=== PATIENT | male | born 1955 | race Caucasian/White ===

== ENCOUNTER 2017-08-02 08:10 | Outpatient (CLI) | payer OTHER ==
--- NOTE | 2017-08-02 10:12 | PRG ---
DATE OF SERVICE: 08/02/2017 HISTORY: Mr. Umair Barrios is a very pleasant 62-year-old gentleman who presents to the [facility] for evaluation of an ulceration of the plantar surface of the right foot. The ulceration is locat ed over the right forefoot. The patient was referred to the Wound Center by Dr. Resendez. The patie nt apparently had been treated for the plantar ulceration with serial debridement of the wound every other week in conjunction with the use of dressing changes of Medihoney. The patient was subsequen tly seen by Dr. St and placed on dressing changes of Promogran. Modifications of the patient's s hoe for offloading of the wound were also made at the time of the patient's visit with Dr. St on 06/08/2017. The patient has been previously seen in the Wound Center for an ulceration of the left third toe on the plantar surface of the toe. This ulceration was treated with Silverlon, MatriStem, Apligraf and Aquacel AG. The patient also received treatment in the Wound Center for left lateral foot ulcerati ons, which were treated with Silverlon negative pressure therapy and Aquacel AG. For a wound of the right third toe for which the patient was also seen in the Wound Center, the patient received dress ing changes of Medihoney. The patient has received treatment with IV antibiotics for osteomyelitis on 2 occasions in the past, once for osteomyelitis of the left foot and later for osteomyelitis of t he right foot, specifically the distal phalanx of the right fifth toe. Since the patient's last visit, Mr. Barrios has been performing dressing changes of Santyl for the ulceration of the plantar surface of the right foot. The patient was not able to receive Regranex f or reasons related to his insurance coverage. PHYSICAL EXAMINATION: VITAL SIGNS: Temperature 98.1, pulse 62, respirations 18, blood pressure 150/68. Accu-Chek 180. EXTREMITIES: An ulceration of the plantar surface of the right foot is present, which is in the reg ion of the head of the third metatarsal. The dimensions of the wound are approximately 1.6 x 1.2 cm . The dimensions of the wound at the time of the patient's visit on 06/21/2017 were approximately 1 .9 x 0.9 cm. Granulation tissue is present within the wound margins. Nonviable tissue present with in the wound margins was debrided with an excisional full-thickness debridement with the use of a cu rette. Callus and desiccated tissue at the periphery of the wound were eliminated with the use of s cissors. No purulent drainage is associated with the wound. No erythema of the skin surrounding th e wound is present. No maceration of the skin of the periwound is noted. A dorsalis pedis pulse is easily palpable on the right. Edema of the right foot is present on exam today. After copious irr igation of the wound bed, Dermagraft was applied to the wound bed in 3 layers followed by Adaptic to uch, 4 x 4's, Webril, and the [employer] Coban 2 layer compression system. ASSESSMENT AND PLAN: 1. Ulceration of plantar surface of right foot in the region of the head of the third metatarsal. Dermagraft was applied to the wound bed of the ulceration today. I will see Mr. Barrios again in one week. At this time, consideration will be given to another placement of Dermagraft. The patien t has also been given a prescription for an offloading boot. 2. Diabetes mellitus. The patient's Accu-Chek in clinic today is 180. The patient has been remind ed that for optimal wound healing, his blood glucoses should remain below 150. 3. Hypertension.
[2017-08-02] MEDS ORDERED: Sodium Chloride 0.9% 15 ML NEB ONE (18:46)
[2017-08-02] MEDS ORDERED: Lidocaine 4% Topical Sol 50 ML BOT ONE (18:46)
== END 2017-08-02 08:11 | disposition home or self-care (01) ==
LOC: WCC 08:10
PROVIDERS: ATTEND Family Medicine
DX: E11.621 Type 2 diabetes mellitus with foot ulcer (principal); L97.519 Non-pressure chronic ulcer of other part of right foot with unspecified severity; I10 Essential (primary) hypertension
CPT/HCPCS: 15275; A4218; J2001; Q4106-KX-JC

== ENCOUNTER 2017-08-12 08:02 | Outpatient (CLI) | payer OTHER ==
--- NOTE | 2017-08-12 08:59 | PRG ---
DATE OF SERVICE: 08/12/2017 HISTORY: Mr. Umair Barrios is a very pleasant 62-year-old gentleman who presents to the [facility] for evaluation of an ulceration of the plantar surface of the right foot. The ulceration is locat ed over the right forefoot. The patient was referred to the Wound Center by Dr. Resendez. The patie nt apparently had been treated for the plantar ulceration with serial debridement of the wound every other week in conjunction with the use of dressing changes of Medihoney. The patient was subsequen tly seen by Dr. St and placed on dressing changes of Promogran. Modifications of the patient's s hoes for offloading of the wound were also made at the time of the patient's visit with Dr. St on 06/08/2017. The patient has been previously seen in the Wound Center for an ulceration of the left third toe on the plantar surface of the toe. This ulceration was treated with Silverlon, MatriStem Apligraf and Aquacel AG. The patient also received treatment in the Wound Center for left lateral foot ulceratio ns, which were treated with Silverlon, negative pressure therapy and Aquacel AG. For a wound of the right third toe for which the patient was also seen in the Wound Center, the patient received dress ing changes of Medihoney. The patient has received treatment with IV antibiotics for osteomyelitis on 2 occasions in the past, once for osteomyelitis of the left foot and later for osteomyelitis of t he right foot, specifically, the distal phalanx of the right fifth toe. At the time of the patient's last visit, Dermagraft was applied to the wound bed of the ulceration o f the plantar surface of the right foot. PHYSICAL EXAMINATION: VITAL SIGNS: Temperature 98.2, pulse 57, respirations 18, blood pressure 140/65, Accu-Chek 103. EXTREMITIES: An ulceration of the plantar surface of the right foot is present which is in the lata on of the head of the third metatarsal. The dimensions of the wound are approximately 0.7 x 1.1 cm. The dimensions of the wound at the time of the patient's visit on 08/02/2017 were approximately 1. 6 x 1.2 cm. Granulation tissue is present within the wound margins. No purulent drainage is associ ated with the wound. No erythema of the skin surrounding the wound is present. No maceration of th e skin of the periwound is noted. No significant edema of the right foot is appreciated on exam towendy boswell. After copious irrigation of the wound bed Dermagraft was applied to the wound bed in 4 layers f ollowed by Adaptic touch, 4 x 4's, Webril, and 3M Coban 2 layer compression system. ASSESSMENT AND PLAN: 1. Ulceration of plantar surface of right foot in the region of the head of the third metatarsal. Dermagraft was applied to the wound bed of the ulceration today. I will see Mr. Barrios again in 1 week. At this time, consideration will be given to another placement of Dermagraft. The patient h as been utilizing an offloading boot. 2. Diabetes mellitus. The patient's Accu-Chek in clinic today is 103. The patient has been remind ed that for optimal wound healing, his blood glucoses should remain below 150. 3. Hypertension.
[2017-08-12] MEDS ORDERED: Sodium Chloride 0.9% 15 ML NEB ONE (16:22)
== END 2017-08-12 08:03 | disposition home or self-care (01) ==
LOC: WCC 08:02
PROVIDERS: ATTEND Family Medicine
DX: E11.621 Type 2 diabetes mellitus with foot ulcer (principal); L97.419 Non-pressure chronic ulcer of right heel and midfoot with unspecified severity; I10 Essential (primary) hypertension
CPT/HCPCS: 15275; A4218; Q4106-KX-JC

== ENCOUNTER 2017-08-19 08:07 | Outpatient (CLI) | payer OTHER ==
--- NOTE | 2017-08-19 09:44 | PRG ---
DATE OF SERVICE: 08/19/2017 HISTORY: Mr. Umair Barrios is a very pleasant 62-year-old gentleman who presents to the Wound [facility] for evaluation of an ulceration of the plantar surface of the right foot. The ulceration is locat ed over the right forefoot. The patient was referred to the Wound Center by Dr. Resendez. The patie nt apparently had been treated for the plantar ulceration with serial debridement of the wound every other week in conjunction with the use of dressing changes of MEDIHONEY. The patient was subsequen tly seen by Dr. St and placed on dressing changes of PROMOGRAN. Modifications of the patient's s hoes for offloading of the wound were also made at the time of the patient's visit with Dr. St on 06/08/2017. The patient has been previously seen in the Wound Center for an ulceration of the left third toe on the plantar surface of the toe. The ulceration was treated with Silverlon, MatriStem, Apligraf, and Aquacel AG. The patient also received treatment in the Wound Center for left lateral foot ulcerati ons, which were treated with Silverlon, negative pressure therapy, and Aquacel AG. For a wound of t he right third toe for which the patient was also seen in the Wound Center, the patient received marzena ssing changes of MEDIHONEY. The patient has received treatment with IV antibiotics for osteomyeliti s on 2 occasions in the past. Once for osteomyelitis of the left foot and later for osteomyelitis o f the right foot. Specifically, the distal phalanx of the right fifth toe. The patient is presently receiving treatment with Dermagraft. The patient is also utilizing an offl oading boot on the right. PHYSICAL EXAMINATION: VITAL SIGNS: Temperature 97.6, pulse 55, respirations 16, and blood pressure 175/80. Accu-Chek 123 . EXTREMITIES: An ulceration of the plantar surface of the right foot is present which is in the lata on of the head of the third metatarsal. The dimensions of the wound are approximately 1.1 x 0.7 cm. Granulation tissue is present within the wound margins. No purulent drainage is associated with t he wound. No erythema of the skin surrounding the wound is present. No maceration of the skin of t he periwound is noted. No significant edema of the right foot is appreciated on exam today. After copious irrigation of the wound bed, Dermagraft was applied to the wound bed in 3 layers followed by Adaptic touch, 4 x 4's, Webril, and 3M Coban 2-layer compression system. ASSESSMENT AND PLAN: 1. Ulceration of plantar surface of right foot in the region of the head of the third metatarsal. Dermagraft was applied to the wound bed of the ulceration today. The patient is to discontinue the dressings applied in clinic today in 1 week and begin dressing changes of Silverlon on a daily basis after cleansing and irrigation. I will see Mr. Barrios again in approximately 2 weeks. At this t brian, consideration will be given to another placement of Dermagraft. The patient has been asked to continue to utilize his offloading boot at all times. 2. Diabetes mellitus. The patient's Accu-Chek in clinic today is 123. The patient has been remind ed that for optimal wound healing. His blood glucoses should remain below 150. 3. Hypertension.
[2017-08-19] MEDS ORDERED: Sodium Chloride 0.9% 15 ML NEB ONE (17:20)
== END 2017-08-19 08:08 | disposition home or self-care (01) ==
LOC: WCC 08:07
PROVIDERS: ATTEND Family Medicine
DX: L97.519 Non-pressure chronic ulcer of other part of right foot with unspecified severity (principal); E11.621 Type 2 diabetes mellitus with foot ulcer; I10 Essential (primary) hypertension
CPT/HCPCS: 15275; A4218; Q4106-KX-JC

== ENCOUNTER 2017-09-02 08:04 | Outpatient (CLI) | payer OTHER ==
--- NOTE | 2017-09-02 08:59 | PRG ---
DATE OF SERVICE: 09/02/2017 HISTORY: Mr. Umair Barrios is a very pleasant 62-year-old gentleman who presents to the [facility] for evaluation of an ulceration of the plantar surface of the right foot. The ulceration is locat ed over the right forefoot. The patient was referred to the Wound Center by Dr. Resendez. The patie nt apparently had been treated for the plantar ulceration with serial debridement of the wound every other week in conjunction with the use of dressing changes of Medihoney. The patient was subsequen tly seen by Dr. St and placed on dressing changes of Promogran. Modifications of the patient's s hoes for offloading of the wound were also made at the time of the patient's visit with Dr. St on 06/08/2017. The patient has been previously seen in the Wound Center for an ulceration of the left third toe on the plantar surface of the toe. The ulceration was treated with Silverlon, MatriStem, Apligraf, and Aquacel AG. The patient also received treatment in the Wound Center for left lateral foot ulcerati ons, which were treated with Silverlon, negative pressure therapy, and Aquacel AG for a wound of the right third toe for which the patient was also seen in the Wound Center, the patient received dress ing changes of Medihoney. The patient has received treatment with IV antibiotics for osteomyelitis on 2 occasions in the past. Once for osteomyelitis of the left foot and later for osteomyelitis of the right foot. Specifically, the distal phalanx of the right fifth toe. The patient is currently receiving treatment with Dermagraft. The patient is also utilizing an offl oading boot on the right. PHYSICAL EXAMINATION: VITAL SIGNS: Temperature 97.8, pulse 54, respirations 18, blood pressure 150/69, Accu-Chek 98. EXTREMITIES: An ulceration of the plantar surface of the right foot is present which is in the lata on of the head of the third metatarsal. The dimensions of the wound are approximately 1.3 x 1.1 cm. Granulation tissue is present within the wound margins. Callus undermining and desiccated tissue at the periphery of the wound were excised with the use of scissors. No purulent drainage is associ ated with the wound. No erythema of the skin surrounding the wound is present. No maceration of th e skin of the periwound is noted. No significant edema of the right foot is appreciated on exam towendy boswell. After copious irrigation of the wound bed, Dermagraft was applied to the wound bed in 2 layers followed by Adaptic touch, 4 x 4's, Webril, and 3M Coban 2 layer compression system. ASSESSMENT AND PLAN: 1. Ulceration of plantar surface of right foot in the region of the head of the third metatarsal. Dermagraft was applied to the wound bed of the ulceration today. I will see Mr. Barrios again in o ne week. At this time, consideration will be given to another placement of Dermagraft. The patient has been asked to continue to utilize his offloading boot at all times. 2. Diabetes mellitus. The patient's Accu-Chek in clinic today is 98. The patient has been reminde d that for optimal wound healing, his blood glucoses should remain below 150. 3. Hypertension.
[2017-09-02] MEDS ORDERED: Sodium Chloride 0.9% 15 ML NEB ONE (17:24)
== END 2017-09-02 08:05 | disposition home or self-care (01) ==
LOC: WCC 08:04
PROVIDERS: ATTEND Family Medicine
DX: L97.519 Non-pressure chronic ulcer of other part of right foot with unspecified severity (principal); E11.621 Type 2 diabetes mellitus with foot ulcer; I10 Essential (primary) hypertension
CPT/HCPCS: 15275; A4218; Q4106-KX-JC

== ENCOUNTER 2017-09-08 08:05 | Outpatient (CLI) | payer OTHER ==
--- NOTE | 2017-09-08 09:35 | PRG ---
DATE OF SERVICE: 09/08/2017 HISTORY: Mr. Umair Barrios is a very pleasant 62-year-old gentleman who presents to the Wound [facility] for evaluation of an ulceration of the plantar surface of the right foot. The ulceration is locat ed over the right forefoot. The patient was referred to the Wound Center by Dr. Resendez. The patie nt apparently had been treated for the plantar ulceration with serial debridement of the wound every other week in conjunction with the use of dressing changes of Medihoney. The patient was later see n by Dr. St and placed on dressing changes of Promogran. Modifications of the patient's shoes fo r offloading of the wound were also made at the time of the patient's visit with Dr. St on 2016. The patient has been previously seen in the Wound Center for an ulceration of the left third toe on the plantar surface of the toe. The ulceration was treated with Silverlon, MatriStem, Apligraf, and Aquacel AG. The patient also received treatment in the Wound Center for left lateral foot ulcerati ons, which were treated with Silverlon, negative pressure therapy, and Aquacel AG. For wound of the right third toe for which the patient was also seen in the Wound Center, the patient received dress ing changes of Medihoney. The patient has received treatment with IV antibiotics for osteomyelitis on 2 occasions in the past; once for osteomyelitis of the left foot and later for osteomyelitis of t he right foot; specifically, the distal phalanx of the right third toe. The patient is presently receiving treatment with Dermagraft. The patient is also utilizing an offl oading boot on the right. PHYSICAL EXAMINATION: VITAL SIGNS: Temperature 97.6, pulse 96, respirations 18, blood pressure 130/71, Accu-Chek 109. EXTREMITIES: An ulceration of the plantar surface of the right foot is present which is in the lata on of the head of the third metatarsal. The dimensions of the wound are approximately 1.2 x 1.1 cm. The dimensions of the wound at the time of the patient's last visit were approximately 1.3 x 1.1 c m. Granulation tissue is present within the wound margins. No purulent drainage is associated with the wound. No erythema of the skin surrounding the wound is present. No maceration of the skin of the periwound is noted. No significant edema of the right foot is appreciated on exam today. Afte r copious irrigation of the wound bed, Dermagraft was applied to the wound bed in 3 layers followed by Adaptic Touch, 4 x 4's, Webril, and 3M Coban 2 layer compression system. ASSESSMENT AND PLAN: 1. Ulceration of plantar surface of right foot in the region of the head of the third metatarsal. Dermagraft was applied to the wound bed of the ulceration today. I will see Mr. Barrios again in o ne week. At this time, consideration will be given to another placement of Dermagraft. The patient has been reminded to continue to utilize his offloading boot at all times. 2. Diabetes mellitus. The patient's Accu-Chek in clinic today is 109. The patient has been remind ed that for optimal wound healing, his blood glucoses should remain below 150. 3. Hypertension.
[2017-09-08] MEDS ORDERED: Sodium Chloride 0.9% 15 ML NEB ONE (17:03)
== END 2017-09-08 08:06 | disposition home or self-care (01) ==
LOC: WCC 08:05
PROVIDERS: ATTEND Family Medicine
DX: L97.519 Non-pressure chronic ulcer of other part of right foot with unspecified severity (principal); E11.621 Type 2 diabetes mellitus with foot ulcer; I10 Essential (primary) hypertension
CPT/HCPCS: 15275; 29581; A4218; Q4106-KX-JC

== ENCOUNTER 2017-09-22 07:56 | Outpatient (CLI) | payer OTHER ==
--- NOTE | 2017-09-22 10:21 | PRG ---
DATE OF SERVICE: 09/22/2017 HISTORY: Mr. Umair Barrios is a very pleasant 62-year-old gentleman, who presents to the [facility] for evaluation of an ulceration of the plantar surface of the right foot. The ulceration is locate d over the right forefoot. The patient was referred to the Wound Center by Dr. Resendez. The patient apparently had been treated for the plantar ulceration with serial debridement of the wound every ot her week in conjunction with the use of dressing changes of Medihoney. The patient was later seen by Dr. St and placed on dressing changes of Promogran. Modifications of the patient's shoe for offl oading of the wound were also made at the time of the patient's visit with Dr. St on 06/08/2017. The patient has been previously seen in the Wound Center for an ulceration of the left third toe on t he plantar surface of the toe. The ulceration was treated with Silverlon, MatriStem, Apligraf, and A quacel Ag. The patient also received treatment in the Wound Center for left lateral foot ulcerations , which were treated with Silverlon, negative pressure therapy, and Aquacel Ah. For a wound of the r ight third toe, for which the patient was also seen in the Wound Center, the patient received dressin g changes of Medihoney. The patient has received treatment with IV antibiotics for osteomyelitis on 2 occasions in the past; once for osteomyelitis of the left foot and later for osteomyelitis of the r ight foot. Specifically, the distal phalanx of the right third toe. The patient is presently receiving treatment with Dermagraft. The patient is also utilizing an offlo ading boot on the right. PHYSICAL EXAMINATION: VITAL SIGNS: Temperature 97.7, pulse 56, respirations 18, blood pressure 165/73. Accu-Chek 98. EXTREMITIES: An ulceration of the plantar surface of the right foot is present, which is in the lata on of the head of the third metatarsal. The dimensions of the wound are approximately 0.7 x 0.9 cm. The dimensions of the wound, at the time of the patient's last visit, were approximately 0.7 x 0.8 c m. Granulation tissue is present within the wound margins. No purulent drainage is associated with the wound. No erythema of the skin surrounding the wound is present. No maceration of the skin of t he periwound is noted. No significant edema of the right foot is appreciated on exam today. Dermagr aft was applied to the wound bed in 4 layers followed by Adaptic touch, a gauze bolster, Webril, and the 3M Coban 2 layer compression system. ASSESSMENT AND PLAN: 1. Ulceration of plantar surface of right foot in the region of the head of the third metatarsal. D ermagraft was applied to the wound bed of the ulceration today in 4 layers. I will see Mr. Barrios again in 2 weeks. The patient has been reminded to continue to utilize his offloading boot at all ti mes. 2. Diabetes mellitus. The patient's Accu-Chek in clinic today is 98. The patient has been reminded that, for optimal wound healing, his blood glucoses should remain below 150. 3. Hypertension.
[2017-09-25] MEDS ORDERED: Sodium Chloride 0.9% 15 ML NEB ONE (09:15)
== END 2017-09-22 07:57 | disposition home or self-care (01) ==
LOC: WCC 07:56
PROVIDERS: ATTEND Family Medicine
DX: E11.621 Type 2 diabetes mellitus with foot ulcer (principal); L97.519 Non-pressure chronic ulcer of other part of right foot with unspecified severity; I10 Essential (primary) hypertension
CPT/HCPCS: 15275; Q4106-KX-JC

== ENCOUNTER 2017-10-07 08:11 | Outpatient (CLI) | payer OTHER ==
--- NOTE | 2017-10-07 09:31 | PRG ---
DATE OF SERVICE: 10/07/2017 HISTORY: Mr. Umair Barrios is a very pleasant 62-year-old gentleman who presents to the Wound Center for evaluation of an ulceration of the plantar surface of the right foot. The ulceration is located over the right forefoot. The patient was referred to the Wound Center by Dr. Resendez. The patient apparently had been treated for the plantar ulceration with serial debridement of the wound every oth er week in conjunction with the use of dressing changes of Medihovandana. The patient was later seen by Dr. St and placed on dressing changes of Promogran. Modifications of the patient's shoe for offlo ading of the wound were also made at the time of the patient's visit with Dr. St on 06/08/2017. The patient has been previously seen in the Wound Center for an ulceration of the left third toe on t he plantar surface of the toe. The ulceration was treated with Silverlon, MatriStem, Apligraf and Aq uacel AG. The patient also received treatment in the Wound Center for left lateral foot ulcerations which were treated with Silverlon, negative pressure therapy and Aquacel AG. For a wound of the righ t third toe for which the patient was also seen in the Wound Center, the patient received dressing ch anges of Medihoney. The patient has received treatment with IV antibiotics for osteomyelitis on 2 oc casions in the past, once for osteomyelitis of the left foot and later for osteomyelitis of the right foot, specifically, the distal phalanx of the right third toe. The patient is currently receiving treatment with Dermagraft. The patient is also utilizing an offlo ading boot on the right. PHYSICAL EXAMINATION: VITAL SIGNS: Temperature 97.6, pulse 81, respirations 16, blood pressure 167/78. Accu-Chek 108. EXTREMITIES: An ulceration of the plantar surface of the right foot is present which is in the regio n of the head of the third metatarsal. The dimensions of the wound are approximately 0.6 x 0.8 cm. The dimensions of the wound at the time of the patient's last visit were approximately 0.7 x 0.9 cm. Granulation tissue is present within the wound margins. No purulent drainage is associated with the wound. No erythema of the skin surrounding the wound is present. No maceration of the skin of the periwound is noted. No significant edema of the right foot is appreciated on exam today. Dermagraft was applied to the wound bed in 3 layers followed by Adaptic touch, a gauze bolster, 4 x 4's, Webril , and 3M Coban 2 layer compression system. ASSESSMENT AND PLAN: 1. Ulceration of plantar surface of right foot in the region of the head of the third metatarsal. D ermagraft was applied to the wound bed of the ulceration today in 3 layers. I will see Mr. Barrios again in 2 weeks. The patient has been reminded to continue to utilize his offloading boot at all ti mes. Adhesive felt was also applied to the plantar surface of the right foot to provide for more opt imal offloading. 2. Diabetes mellitus. The patient's Accu-Chek in clinic today is 108. The patient has been reminde d that for optimal wound healing, his blood glucoses should remain below 150. 3. Hypertension.
[2017-10-07] MEDS ORDERED: Sodium Chloride 0.9% 15 ML NEB ONE (17:22)
== END 2017-10-07 08:12 | disposition home or self-care (01) ==
LOC: WCC 08:11
PROVIDERS: ATTEND Family Medicine
DX: L97.519 Non-pressure chronic ulcer of other part of right foot with unspecified severity (principal); E11.621 Type 2 diabetes mellitus with foot ulcer; I10 Essential (primary) hypertension
CPT/HCPCS: 15275; A4218; Q4106-KX-JC

== ENCOUNTER 2017-10-20 07:48 | Outpatient (CLI) | payer OTHER ==
--- NOTE | 2017-10-20 09:29 | PRG ---
DATE OF SERVICE: 10/20/2017 HISTORY: Mr. Umair Barrios is a very pleasant 62-year-old gentleman who presents to the [facility] Center for evaluation of an ulceration of the plantar surface of the right foot. The ulceration is located over the right forefoot. The patient was referred to the Wound Center by Dr. Resendez. The patient apparently had been treated for the plantar ulceration with serial debridement of the wound every oth er week in conjunction with the use of dressing changes of Medihovandana. The patient was later seen by Dr. St and placed on dressing changes of Promoez. Modifications of the patient's shoe for offlo ading of the wound were also made at the time of the patient's visit with Dr. St on 06/08/2017. The patient has been previously seen in the Wound Center for an ulceration of the left third toe on t he plantar surface of the toe. The ulceration was treated with Silverlon, MatriStem, Apligraf and Aq uacel AG. The patient also received treatment in the Wound Center for left lateral foot ulcerations, which were treated with Silverlon, negative pressure therapy and Aquacel AG. For a wound of the rig ht third toe for which the patient was also seen in the Wound Center, the patient received dressing c hanges of Medihoney. The patient has received treatment with IV antibiotics for osteomyelitis on 2 o ccasions in the past, once for osteomyelitis of the left foot and later for osteomyelitis of the righ t foot, specifically, the distal phalanx of the right third toe. The patient has completed a course of treatment with Dermagraft. The patient is also utilizing an of floading boot on the right. PHYSICAL EXAMINATION: VITAL SIGNS: Temperature 97.7, pulse 53, respirations 16, blood pressure 155/74, Accu-Chek 107. EXTREMITIES: An ulceration of the plantar surface of the right foot is still present in the region o f the head of the third metatarsal. The dimensions of the wound are approximately 0.5 x 0.6 cm. The dimensions of the wound at the time of the patient's last visit were approximately 0.6 x 0.8 cm. Gr anulation tissue was present within the wound margins. No purulent drainage is associated with the w ound. No erythema of the skin surrounding the wound is present. No maceration of the skin of the pe riwound is noted. No significant edema of the right foot is appreciated on exam today. ASSESSMENT AND PLAN: 1. Ulceration of plantar surface of right foot in the region of the head of the third metatarsal. T he ulceration is healing without complications or any signs of infection. Dressing changes of Silver audi will be continued on a daily basis after cleansing and irrigation. I will see Mr. Barrios again in 3-4 weeks. The patient is to continue to utilize adhesive felt for more optimal offloading of th e plantar surface of the right foot in the region of the ulceration. 2. Diabetes mellitus. The patient's Accu-Chek in clinic today is 107. The patient has been reminde d that for optimal wound healing, his blood glucoses should remain below 150. 3. Hypertension.
[2017-10-20] MEDS ORDERED: Sodium Chloride 0.9% 15 ML NEB ONE (10:55)
== END 2017-10-20 07:49 | disposition home or self-care (01) ==
LOC: WCC 07:48
PROVIDERS: ATTEND Family Medicine
DX: L97.519 Non-pressure chronic ulcer of other part of right foot with unspecified severity (principal); E11.621 Type 2 diabetes mellitus with foot ulcer; I10 Essential (primary) hypertension
CPT/HCPCS: 97602; A4218

== ENCOUNTER 2017-11-17 08:31 | Outpatient (CLI) | payer OTHER ==
--- NOTE | 2017-11-17 10:03 | PRG ---
DATE OF SERVICE: 11/17/2017 HISTORY: Mr. Umair Barrios is a very pleasant 62-year-old gentleman who presents to the Wound Center for evaluation of an ulceration of the plantar surface of the right foot. The ulceration is located over the right forefoot. The patient was referred to the Wound Center by Dr. Resendez. The patient apparently had been treated for the plantar ulceration with serial debridement of the wound every oth er week in conjunction with the use of dressing changes of Medihoney. The patient was later seen by Dr. St and placed on dressing changes of Promogran. Modifications of the patient's shoe for offlo ading of the wound were also made at the time of the patient's visit with Dr. St on 06/08/2017. The patient had been previously seen in the Wound Center for an ulceration of the left third toe on t he plantar surface of the toe. The ulceration was treated with Silverlon, MatriStem, Apligraf and Aq uacel AG. The patient also received treatment in the Wound Center for left lateral foot ulcerations, which were treated with Silverlon negative pressure therapy and Aquacel AG. For a wound of the righ t third toe for which the patient was also seen in the Wound Center, the patient received dressing ch anges of Medihoney. The patient has received treatment with IV antibiotics for osteomyelitis on 2 oc casions in the past, once for osteomyelitis of the left foot and later for osteomyelitis of the right foot, specifically, the distal phalanx of the right third toe. The patient has completed a course of treatment with Dermagraft. The patient is using the shoe which was modified previously by Dr. St. PHYSICAL EXAMINATION: VITAL SIGNS: Temperature 98.0, pulse 55, respirations 17, blood pressure 171/82. Accu-Chek 115. EXTREMITIES: An ulceration of the plantar surface of the right foot is still present in the region o f the head of the third metatarsal. The dimensions of the wound are approximately 1.6 x 0.7 cm. The dimensions of the wound at the time of the patient's visit on 10/20/2017 were approximately 0.5 x 0. 6 cm. Granulation tissue is present within the wound margins. Callous, desiccated tissue and underm ining at the periphery of the wound were eliminated with the use of scissors. Granulation tissue is present within the wound margins. No purulent drainage is associated with the wound. No erythema of the skin surrounding the wound is present. No maceration of the skin of the periwound is noted. No significant edema of the right foot is present on exam today. Apligraf was applied to the wound bed of the ulceration followed by Adaptic touch, a bolster of saline-moistened gauze, dry gauze, Webril, and 3M Coban 2 layer compression system. ASSESSMENT AND PLAN: 1. Ulceration of plantar surface of right foot in the region of the head of the third metatarsal. A pligraf was applied to the ulceration of the plantar surface of the right foot today. I will see Mr. Barrios again in 1 week. At this time, consideration will be given to another placement of Apligra f. The patient has also been seen by the director speech language today. Adhesive felt for the plantar surface of the right foot was applied by the director speech language today to provide for more optimal offloading of the joe ntar surface of the right foot in the region of the ulceration. 2. Diabetes mellitus. The patient's Accu-Chek in clinic today is 115. The patient has been reminde d that for optimal wound healing, his blood glucoses should remain below 150. 3. Hypertension.
== END 2017-11-17 08:32 | disposition home or self-care (01) ==
LOC: WCC 08:31
PROVIDERS: ATTEND Family Medicine
DX: E11.621 Type 2 diabetes mellitus with foot ulcer (principal); L97.519 Non-pressure chronic ulcer of other part of right foot with unspecified severity; I10 Essential (primary) hypertension
CPT/HCPCS: 15275

== ENCOUNTER 2017-11-25 08:14 | Outpatient (CLI) | payer OTHER ==
--- NOTE | 2017-11-25 09:18 | PRG ---
DATE OF SERVICE: 11/25/2017 HISTORY: Mr. Umair Barrios is a very pleasant 62-year-old gentleman who presents to the Wound Center for evaluation of an ulceration of the plantar surface of the right foot. The ulceration is located over the right forefoot. The patient was referred to the Wound Center by Dr. Resendez. The patient apparently had been treated for the plantar ulceration with serial debridement of the wound every other week in conjunction with the use of dressing changes of Medihoney. The patient was later seen by Dr. St and placed on dressing changes of Promogran. Modifications of the patient's shoe for offloading of the wound were also made at the time of the patient's visit with Dr. St on . The patient had been previously seen in the Wound Center for an ulceration of the left third toe on the plantar surface of the toe. The ulceration was treated with Silverlon, MatriStem, Apligraf, and Aquacel AG. The patient also received treatment in the Wound Center for left lateral foot ulcerations, which were treated with Silverlon, negative pressure therapy, and Aquacel AG. For a wound of the right third toe for which the patient was also seen in the Wound Center, the patient received dressing changes of Medihoney. The patient has received treatment with IV antibiotics for osteomyelitis on 2 occasions in the past, once for osteomyelitis of the left foot and later for osteomyelitis of the right foot, specifically the distal phalanx of the right third toe. The patient has completed a course of treatment with Dermagraft. He is now receiving treatment with Apligraf. The patient is utilizing a shoe which was modified previously by Dr. St. PHYSICAL EXAMINATION: VITAL SIGNS: Temperature 97.7, pulse 56, respirations 18, blood pressure 118/ 56. Accu-Chek 208. EXTREMITIES: An ulceration of the plantar surface of the right foot is still present in the region of the head of the third metatarsal. The dimensions of the wound are approximately 1.4 x 0.7 cm. The dimensions of the wound at the time of the patient's last visit were approximately 1.6 x 0.7 cm. Granulation tissue is present within the wound margins. Callus, desiccated tissue, and undermining at the periphery of the wound were eliminated with the use of scissors. No purulent drainage is associated with the wound. No erythema of the skin surrounding the wound is present. No maceration of the skin of the periwound is noted. No significant edema of the right foot is present on exam today. ASSESSMENT AND PLAN: 1. Ulceration of plantar surface of right foot in the region of the head of the third metatarsal. The patient is to perform dressing changes of Silverlon, 4 x 4s, and Coban on a daily basis after cleansing and irrigation. I will see Mr. Barrios again in two weeks. At this time, consideration will be given to another placement of Apligraf. The patient will also utilize adhesive felt for the plantar surface of the right foot to provide for more optimal offloading of the plantar surface of the right foot in the region of the ulceration. 2. Diabetes mellitus. The patient's Accu-Chek in clinic today is 208. The patient has been reminded that for optimal wound healing, his blood glucoses should remain below 150. 3. Hypertension. MTDD
[2017-11-25] MEDS ORDERED: Sodium Chloride 0.9% 15 ML NEB ONE (17:13)
== END 2017-11-25 08:15 | disposition home or self-care (01) ==
LOC: WCC 08:14
PROVIDERS: ATTEND Family Medicine
DX: E11.621 Type 2 diabetes mellitus with foot ulcer (principal); L97.519 Non-pressure chronic ulcer of other part of right foot with unspecified severity; I10 Essential (primary) hypertension
CPT/HCPCS: 97602; A4218

== ENCOUNTER 2017-12-16 08:01 | Outpatient (CLI) | payer OTHER ==
--- NOTE | 2017-12-16 09:37 | PRG ---
DATE OF SERVICE: 12/16/2017 HISTORY: Mr. Umair Barrios is a very pleasant 62-year-old gentleman who presents to the Wound Center for evaluation of an ulceration of the plantar surface of the right foot. The ulceration is located over the right forefoot. The patient was referred to the Wound Center by Dr. Resendez. The patient apparently had been treated for the plantar ulceration with serial debridement of the wound every oth er week in conjunction with the use of dressing changes of Medihoney. The patient was later seen by Dr. St and placed on dressing changes of Promogran. Modifications of the patient's shoe for offlo ading of the wound were also made at the time of the patient's visit with Dr. St on 06/08/2017. The patient had been previously seen in the Wound Center for an ulceration of the left third toe on t he plantar surface of the toe. The ulceration was treated with Silverlon, MatriStem, Apligraf and Aq uacel AG. The patient also received treatment in the Wound Center for left lateral foot ulcerations, which were treated with Silverlon, negative pressure therapy and Aquacel AG. The wound of the right third toe for which the patient was also seen in the Wound Center, the patient received dressing etelvina nges of Medihoney. The patient has received treatment with IV antibiotics for osteomyelitis on 2 occ asions in the past, once for osteomyelitis of the left foot and later for osteomyelitis of the right foot, specifically the distal phalanx of the right third toe. The patient has completed a course of treatment with Dermagraft. He is now receiving treatment with Apligraf. The patient is utilizing a shoe, which was previously modified by Dr. St. The patient states that he is also taking p.o. antibiotics as per Dr. Jose Cardoza. PHYSICAL EXAMINATION: VITAL SIGNS: Temperature 97.8, pulse 56, respirations 18, blood pressure 134/61. Accu-Chek 95. EXTREMITIES: An ulceration of the plantar surface of the right foot is still present in the region o f the head of the third metatarsal. The dimensions of the wound are approximately 2.0 x 1.0 cm. The dimensions of the wound at the time of the patient's last visit were approximately 1.4 x 0.7 cm. Gr anulation tissue is present within the wound margins. Nonviable tissue present within the wound becky ins was debrided with an excisional full-thickness debridement with the use of a curette. Callus and undermining at the periphery of the wound were eliminated with the use of scissors. No purulent demetrio inage is associated with the wound. No erythema of the skin surrounding the wound is present. Macer ation of the skin of the periwound is noted. No significant edema of the right foot is present on ex am today. Apligraf was applied to the wound bed followed by Adaptic touch, a gauze bolster and 4 x 4 s. Adhesive felt was also applied to the plantar surface of the right foot to provide for more optim al offloading of the plantar ulceration. The dressings were secured along with the adhesive felt yasemin Jenkins. ASSESSMENT AND PLAN: 1. Ulceration of plantar surface of right foot in the region of the head of the third metatarsal. A pligraf was applied to the plantar ulceration today. The patient is to discontinue the dressings andrey lied in clinic today in 1 week and resume dressing changes in conjunction with the use of adhesive fe lt. I will see Mr. Barrios again in two weeks. At this time, he will be evaluated for fitting with a [place] boot. 2. Diabetes mellitus. The patient's Accu-Chek in clinic today is 95. The patient has been reminded that for optimal wound healing, his blood glucoses should remain below 150. 3. Hypertension.
== END 2017-12-16 08:02 | disposition home or self-care (01) ==
LOC: WCC 08:01
PROVIDERS: ATTEND Family Medicine
DX: E11.621 Type 2 diabetes mellitus with foot ulcer (principal); L97.419 Non-pressure chronic ulcer of right heel and midfoot with unspecified severity; I10 Essential (primary) hypertension
CPT/HCPCS: 15275; Q4101-KX-JC

== ENCOUNTER 2017-12-29 09:22 | Outpatient (CLI) | payer OTHER ==
--- NOTE | 2017-12-29 09:40 | PRG ---
DATE OF SERVICE: 12/29/2017 HISTORY: Mr. Umair Barrios is a very pleasant 62-year-old gentleman who presents to the Wound Center for evaluation of an ulceration of the plantar surface of the right foot. The ulceration is located over the right forefoot. The patient was referred to the Wound Center by Dr. Resendez. The patient apparently had been treated for the plantar ulceration with serial debridement of the wound every oth er week in conjunction with the use of dressing changes of Medihoney. The patient was later seen by Dr. St and placed on dressing changes of Promogran. Modifications of the patient's shoe for offlo ading of the wound were also made at the time of the patient's visit with Dr. St on 06/08/2017. The patient had previously been seen in the Wound Center for an ulceration of the left third toe on t he plantar surface of the toe. The ulceration was treated with Silverlon, MatriStem, Apligraf and Aq uacel AG. Patient also received treatment in the Wound Center for left lateral foot ulcerations, whi ch were treated with Silverlon, negative pressure therapy, and Aquacel AG. For a wound of the right third toe for which the patient was also seen in the Wound Center, the patient received dressing pompa ges of Medihoney. The patient has received treatment with IV antibiotics for osteomyelitis on 2 occa sions in the past, once for osteomyelitis of the left foot and later for osteomyelitis of the right f oot; specifically, the distal phalanx of the right third toe. The patient has completed a course of treatment with Dermagraft. The patient has also completed a course of treatment with Apligraf. The patient is utilizing an adhesive felt for offloading of the ulceration of the plantar surface of the right foot. The patient stated that he has completed a course of p.o. antibiotics as per Dr. Jose Cardoza. PHYSICAL EXAMINATION: VITAL SIGNS: Temperature 98.0, pulse 54, respirations 12, blood pressure 120/59, Accu-Chek 104. EXTREMITIES: An ulceration of the plantar surface of the right foot is still present in the region o f the head of the third metatarsal. The dimensions of the wound are approximately 2.2 x 1.0 cm. The dimensions of the wound at the time of the patient's last visit were approximately 2.0 x 1.0 cm. Gr anulation tissue is present within the wound margins. No purulent drainage is associated with the wo und. No erythema of the skin surrounding the wound is present. No maceration of the skin of the per iwound is noted. A dorsalis pedis pulse is easily palpable on the right. No significant edema of th e right foot is present on exam today. ASSESSMENT AND PLAN: 1. Ulceration of plantar surface of right foot in the region of the head of the third metatarsal. D ressing changes in conjunction with the use of adhesive felt will be continued. Arrangements are rickie ng made for evaluation for fitting with a KALTAG boot. The patient understands and is in agreement wit h preceding treatment plan. 2. Diabetes mellitus. The patient's Accu-Chek in clinic today is 104. The patient has been reminde d that for optimal wound healing, his blood glucoses should remain below 150. 3. Hypertension.
== END 2017-12-29 09:23 | disposition home or self-care (01) ==
LOC: WCC 09:22
PROVIDERS: ATTEND Family Medicine
DX: E11.621 Type 2 diabetes mellitus with foot ulcer (principal); L97.519 Non-pressure chronic ulcer of other part of right foot with unspecified severity; I10 Essential (primary) hypertension

== ENCOUNTER 2018-01-18 15:52 | Outpatient (CLI) | payer OTHER ==
--- NOTE | 2018-01-18 16:28 | RAD ---
LEFT FOOT TWO VIEW 01/18/18 HISTORY: E11.9, M79.672, wound on foot. COMPARISON: Left foot radiographs from 2015. FINDINGS: There are destructive changes in the midfoot. There is widening of the Lisfranc interval. Loss of the medial longitudinal arch. Moderate sized dorsal and plantar calcaneal spurs. No osseous evidence of osteomyelitis. IMPRESSION: Charcot arthropathy. No definite radiographic evidence of osteomyelitis. If there is high enough clin ical concern, MRI recommended. POS: CLAUDIA
== END 2018-01-18 15:53 | disposition home or self-care (01) ==
LOC: SCSRAD 15:52
PROVIDERS: ATTEND Family Medicine
DX: M79.672 Pain in left foot (principal); E11.610 Type 2 diabetes mellitus with diabetic neuropathic arthropathy

== ENCOUNTER 2018-02-16 08:32 | Outpatient (CLI) | payer OTHER ==
[2018-02-16] MEDS ORDERED: Sodium Chloride 0.9% 15 ML NEB ONE (09:00)
--- NOTE | 2018-02-16 09:42 | PRG ---
DATE OF SERVICE: 02/16/2018 HISTORY: Mr. Umair Barrios is a very pleasant 62-year-old gentleman who presents to the Wound Center for evaluation of an ulceration of the plantar surface of the right foot. The patient today presents to the Wound Center for evaluation of an ulceration of the plantar surface of the left foot. The patient has been seen by Dr. Jose Cardoza for the ulceration of the plantar surface of the left foot, and Mr. Barrios is taking Bactrim and Keflex as per Dr. Cardoza. Plain films of the left foot were obtained which showed no evidence of osteomyelitis. Mr. Barrios reports significant drainage associated with the ulceration of the plantar surface of the right foot. The patient has been utilizing adhesive felt for offloading of the ulceration of the plantar surface of the right foot. He states, however, that he has run out of adhesive felt. PHYSICAL EXAMINATION: VITAL SIGNS: Temperature 98.2, pulse 56, respirations 16, blood pressure 155/ 74. Accu-Chek 160. EXTREMITIES: An ulceration of the plantar surface of the right foot is still present in the region of the head of the third metatarsal. The dimensions of the wound are approximately 2.5 x 1.5 cm. The dimensions of the wound at the time of the patient's last visit were approximately 2.2 x 1.0 cm. Granulation tissue is present within the wound margins. No purulent drainage is associated with the wound. Copious serous drainage is, however, associated with the wound. No erythema of the skin surrounding the wound is present. Maceration of the skin of the periwound is noted. No significant edema of the right foot is present on exam today. The ulceration of the plantar surface of the left foot measures approximately 5.5 x 3.5 cm. Granulation tissue is present within the wound margins. Necrotic and nonviable tissue present within the wound margins was debrided with an excisional full-thickness debridement with the use of scissors and a curet. No purulent drainage is associated with the wound. No cellulitis of the left foot is appreciated. Maceration of the skin of the periwound is noted. No significant edema of the left foot is present on exam today. ASSESSMENT AND PLAN: 1. Ulcerations of plantar surface of right and left feet as described above. Plain films of the right foot will be obtained today to look for findings suggestive of osteomyelitis. MRI of the right and left feet will then be considered to look for findings suggestive of osteomyelitis. I have asked the patient to continue to use adhesive felt for offloading of the right foot plantar ulceration. The patient declines fitting with a [place] boot stating that it increases the pressure on the plantar surface of the left foot. I will see Mr. Barrios again in 1 week. 2. Diabetes mellitus. The patient's Accu-Chek in clinic today is 160. The patient has been reminded that for optimal wound healing, his blood glucoses should remain below 150. 3. Hypertension. MTDD
== END 2018-02-16 08:33 | disposition home or self-care (01) ==
LOC: WCC 08:32
PROVIDERS: ATTEND Family Medicine
DX: E11.621 Type 2 diabetes mellitus with foot ulcer (principal); L97.419 Non-pressure chronic ulcer of right heel and midfoot with unspecified severity; L97.429 Non-pressure chronic ulcer of left heel and midfoot with unspecified severity; I10 Essential (primary) hypertension
CPT/HCPCS: 11042; A4218

== ENCOUNTER 2018-02-16 09:42 | Outpatient (CLI) | payer OTHER ==
--- NOTE | 2018-02-16 11:04 | RAD ---
RIGHT FOOT 3 VIEWS: Date: 02/16/18 HISTORY: Past medical history of cellulitis and osteomyelitis. Current history is evaluate for osteomyelitis. COMPARISON: 01/18/18. FINDINGS: There are chronic changes involving the first tarsal/first digit. There appears to be a horizontally oriented fracture involving the proximal phalanx of the third digit. Fracture is age-indeterminate. C orrelate clinically. There is destructive change involving the proximal and distal phalanx of the fif th digit. There is soft tissue swelling involving the second digit. There appears to be subluxation of the seco nd metacarpophalangeal joint space. There are erosive changes in the head of the second metatarsal. Lisfranc alignment is maintained. There are degenerative changes in the mid foot. Chronic changes in the hindfoot are noted. There appears to be an ulceration along the plantar surface of the right foot at the level of the dis neo metatarsals. There appears to be subcutaneous emphysema involving the second and first digit. IMPRESSION: 1. Osseous changes as above. There is evidence of soft tissue swelling suggesting cellulitis involvi ng the second and possibly first digit. There is evidence of air attenuation suggesting subcutaneous emphysema. 2. Changes involving the second digit which may be due to osteomyelitis of the second metatarsal hea d. 3. Indeterminate fracture involving the proximal phalanx of the third digit. 4. Chronic changes of fifth digit distal and proximal phalanx. POS: CLAUDIA
== END 2018-02-16 09:43 | disposition home or self-care (01) ==
LOC: RAD 09:42
PROVIDERS: ATTEND Family Medicine
DX: E11.621 Type 2 diabetes mellitus with foot ulcer (principal); L97.519 Non-pressure chronic ulcer of other part of right foot with unspecified severity; M79.89 Other specified soft tissue disorders; M89.9 Disorder of bone, unspecified

== ENCOUNTER 2018-02-24 08:08 | Outpatient (CLI) | payer OTHER ==
[2018-02-24] MEDS ORDERED: Sodium Chloride 0.9% 15 ML NEB ONE (09:00)
--- NOTE | 2018-02-24 09:22 | PRG ---
DATE OF SERVICE: 02/24/2018 HISTORY: Mr. Umair Barrios is a very pleasant 62-year-old gentleman who presents to the [facility] for evaluation of an ulceration of the plantar surface of the right foot. The patient also has an ulceration of the plantar surface of the left foot. The patient was previously seen by Dr. Jose Cardoza for the ulceration of the plantar surface of the left foot and Mr. Barrios was placed on Bactrim and Keflex by Dr. Cardoza. Plain films of the left foot were obtained, which showed no evidence of osteomyelitis. Again today, Mr. Barrios reports significant drainage associated with the ulceration of the plantar surface of the right foot. He also reports fever and chills since his last visit to the Wound Center. PHYSICAL EXAMINATION: VITAL SIGNS: Temperature 97.5, pulse 58, respirations 18, blood pressure 161/ 72. Accu-Chek 123. EXTREMITIES: An ulceration of the plantar surface of the right foot is still present in the region of the head of the third metatarsal. The dimensions of the wound are approximately 1.3 x 2.0 cm. The dimensions of the wound at the time of the patient's last visit were approximately 2.5 x 1.5 cm. Granulation tissue is present within the wound margins. Nonviable tissue present within the wound margins was debrided with an excisional full-thickness debridement with the use of scissors. No purulent drainage is associated with the wound. Copious serous drainage is, however, associated with the wound. In addition, bone is palpable with the wooden end of a cotton-tipped applicator. No erythema of the skin surrounding the wound is present. Maceration of the skin of the periwound is noted. No significant edema of the right foot is present on exam today. The ulceration of the plantar surface of the left foot measures approximately 1.9 x 1.0 cm. Granulation tissue is present within the wound margins. No purulent drainage is associated with the wound. No cellulitis of the left foot is appreciated. No maceration of the skin of the periwound is noted. No significant edema of the left foot is present on exam today. ASSESSMENT AND PLAN: 1. Ulceration of the plantar surface of right and left feet as described above. MRI of the right and left feet will be obtained to look for findings suggestive of osteomyelitis. The patient will be notified as to the date and time of his appointment in imaging. The patient has been asked to contact the Wound Center in order to obtain the results of MRI of the right and left feet. 2. Diabetes mellitus. The patient's Accu-Chek in clinic today is 123. The patient has been reminded that for optimal wound healing, his blood glucoses should remain below 150. 3. Hypertension. MTDD
== END 2018-02-24 08:09 | disposition home or self-care (01) ==
LOC: WCC 08:08
PROVIDERS: ATTEND Family Medicine
DX: E11.621 Type 2 diabetes mellitus with foot ulcer (principal); L97.529 Non-pressure chronic ulcer of other part of left foot with unspecified severity; I10 Essential (primary) hypertension
CPT/HCPCS: A4218

== ENCOUNTER 2018-03-04 13:37 | Outpatient (CLI) | payer OTHER ==
--- NOTE | 2018-03-04 15:42 | MRI ---
MRI OF THE RIGHT MIDFOOT AND FOREFOOT WITHOUT CONTRAST 03/04/18 PROVIDED CLINICAL HISTORY: Diabetic ulcer. FINDINGS: Evaluation is somewhat limited by patient motion. There is diffusely diminished signal intensity on T1 weighted sequences involving the second metatar khushbu and second proximal phalanx. There is abnormal signal intensity involving a portion of the proxim al second middle phalanx. There is corresponding increased signal intensity on fluid sensitive sequen roge involving these portions of the second ray. There is second MTP joint effusion. There is evidence for a sinus tract extending from the second MTP joint to the plantar aspect of the forefoot. There i s dorsal dislocation of the second proximal phalanx with respect to the second metatarsal head. The p lantar 2nd MTP joint capsule is disrupted and there is medial dislocation of the flexor tendon at the level of the MTP joint. Degenerative changes are seen at the great toe sesamoid-phalangeal articulations as well as the first MTP joint. There is signal alteration involving the navicular and medial cuneiform as well as the median cuneifo rm. Subcortical cyst-like changes are seen in these regions. This is remote from the area of infectio us change and likely reflects degenerative neuropathic arthropathy. There is diffuse fatty infiltration of the intrinsic foot musculature. No definite soft tissue fluid collection to suggest abscess with limitations due to lack of IV contrast. Nonspecific, noncircumscri bed fluid signal intensity within the subcutaneous adipose layer at the dorsum of the foot. Minimal patchy signal alteration at the medial aspects of the third metatarsal head on fluid sensitiv e sequences. IMPRESSION: 1. Findings compatible with second MTP joint septic arthritis and osteomyelitis involving the chavez rrounding second ray. Evidence for sinus tract formation that communicates with the plantar aspect of the forefoot in this region. 2. Signal alteration involving the medial aspects of the third metatarsal head may reflect react rishabh osteitis or early osteomyelitis. 3. Other findings as above. POS: OFF
== END 2018-03-04 13:38 | disposition home or self-care (01) ==
LOC: TBSIIMAG 13:37
PROVIDERS: ATTEND Family Medicine
DX: E11.621 Type 2 diabetes mellitus with foot ulcer (principal); L97.519 Non-pressure chronic ulcer of other part of right foot with unspecified severity

== ENCOUNTER 2018-03-10 08:10 | Day surgery (SDC) | payer OTHER ==
[2018-03-10] MEDS ORDERED: ADMIXTURE FEE SLOW IVP SCH (08:30)
[2018-03-10] MEDS ORDERED: Ertapenem 1 GM in Sodium Chloride 0.9% 100 ML IVPB SCH (08:30)
[2018-03-10] MEDS ORDERED: DAPTOMYCIN SLOW IVP SCH (08:30)
[2018-03-10] MEDS ORDERED: SODIUM CHLORIDE SLOW IVP SCH (08:30)
[2018-03-10 10:05] VITALS: BP 151/72; TEMP 97.6
[2018-03-10] MEDS ORDERED: Sodium Chloride 0.9% 20 ML ONE (10:21)
--- NOTE | 2018-03-10 12:43 | SPC ---
SONOGRAPHIC GUIDED LEFT UPPER EXTREMITY PICC PLACEMENT: HISTORY: Osteomyelitis. FINDINGS: After explaining the procedure and answering all questions, the left upper extremity was prepped and draped in the usual sterile fashion. Sterile technique, buffered local anesthesia, sonographic jose angel nce, and a 22 gauge needle were used to carefully access the left brachial vein. Standard technique was then used to place the tip of a 5 O[place]i dual-lumen PICC, so that the tip lies at the level of th e cavoatrial junction. The catheter was flushed and secured externally. The patient tolerated the p rocedure well and was dismissed in good condition. FLUOROSCOPY TIME: 0 seconds. IMPRESSION: Technically successful left upper extremity peripherally inserted central catheter placement. The ca theter is now ready for use. POS: CLAUDIA
== END 2018-03-10 12:02 | disposition home or self-care (01) ==
LOC: SPEC 08:10 → ONC/OP 12:02
PROVIDERS: ATTEND Internal Medicine Infectious Disease
PROC: B548ZZA Ultrasonography of Superior Vena Cava, Guidance (ICD-10-PCS; principal; 2018-03-10)
PROC: 02HV33Z Insertion of Infusion Device into Superior Vena Cava, Percutaneous Approach (ICD-10-PCS; principal; 2018-03-10)
DX: M86.9 Osteomyelitis, unspecified (principal); E11.621 Type 2 diabetes mellitus with foot ulcer; L97.519 Non-pressure chronic ulcer of other part of right foot with unspecified severity; I10 Essential (primary) hypertension; Z79.4 Long term (current) use of insulin; Z79.01 Long term (current) use of anticoagulants; Z79.2 Long term (current) use of antibiotics; Z79.899 Other long term (current) drug therapy
CPT/HCPCS: 36569; 96365; 96375; A4216; C1751; J0878; J1335; J1642; J7050

== ENCOUNTER 2018-07-01 12:49 | Inpatient (IN) | payer OTHER ==
[2018-07-01] MEDS ORDERED: Vancomycin HCl 1 GM in Premix Bag 1 BAG IVPB SCH ×2 (13:15→17:30)
[2018-07-01 14:12] VITALS: BMI 26.4
--- NOTE | 2018-07-01 14:32 | RAD ---
THREE VIEWS LEFT ANKLE: HISTORY: Ankle wound. COMPARISON: None. FINDINGS: There appears to be a defect along the lateral soft tissues. No radiographic evidence of osteomyelit is involving the distal fibula. Tibia is unremarkable. IMPRESSION: Soft tissue ulceration without evidence of osteomyelitis. POS: CLAUDIA
--- NOTE | 2018-07-01 14:34 | RAD ---
LEFT FOOT 3 VIEWS: Date: 07/01/18 COMPARISON: 01/18/18. FINDINGS/IMPRESSION: Extensive and essentially chronic changes of the mid left foot. Progression of Charcot joint is noted . Underlying osteomyelitis cannot be excluded. MRI if clinically warranted. POS: CLAUDIA
[2018-07-01 15:32] LABS: #Eosinphils 0.1 thou/uL (0.0-0.7); #Monocytes 0.7 thou/uL (0.11-0.59); %Basophils 0.1 % (0.0-1.0); %Eosinophils 1.6 % (0.0-10.0); %Lymphocytes 15.3 % (21.0-51.0); %Monocytes 9.6 % (0.0-10.0); %Neutrophils 73.4 % (42.0-75.0); Hemoglobin 11.2 g/dL (14.0-18.0); Mean Corpuscular Hemoglobin 27.4 pg (27.0-31.0); Mean Corpuscular Volume 82.9 fL (78.0-98.0); Mean Platelet Volume 7.8 fL (7.4-10.4); Platelet Count 174 thou/uL (130-400); RBC Distribution Width 15.3 % (11.5-14.5); Red Blood Cell (RBC) Count 4.08 mill/uL (4.70-6.10); White Blood Cell (WBC) Count 6.8 thou/uL (4.8-10.8)
[2018-07-01] MEDS: cefTRIAXone\\ROCEPHIN 2 GM in Sodium Chloride 0.9% 100 ML IVPB SCH (15:32)
--- NOTE | 2018-07-01 15:42 | CON ---
DATE OF CONSULTATION: 07/01/2018 REASON FOR CONSULTATION: Right foot inflammatory process. HISTORY OF PRESENT ILLNESS: A 62-year-old patient who has a history of type 2 diabetes, neuropathy with chronic complications associated with Charcot's arthropathy and infections, has had partial amputations in the past, both right and left side. He has had one episode of MSSA bacteremia in the past and recently underwent amputation of the second right toe for osteomyelitis. He now developed inflammatory process in left lateral malleolus which was detected first to Dr. Jose Cardoza's office today. The patient has been admitted for management. Apparently, he noticed the skin changes with blistering around the left lateral malleolus few days ago. The same foot is also affected by a chronic ulcer in the plantar aspect close to the left heel. About 2 weeks before admission, he had noticed some element of chills with general malaise, anorexia and has lost 3-4 pounds since. No headaches, no change in visual symptoms, sore throat, odynophagia, dysphagia. No dyspnea or cough, no chest pain, abdominal pain or diarrhea. No genitourinary symptoms, no bleeding. No other joint symptoms. PAST MEDICAL HISTORY: Type 2 diabetes, neuropathy, Charcot arthropathy, right and left foot osteomyelitis, partial amputations, MSSA bacteremia, left ankle arthritis, septic renal failure with transient hemodialysis with improvement. 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 . Never a smoker. ALLERGIES: NONE. FAMILY HISTORY: Type 2 diabetes. CURRENT MEDICATIONS: Ceftriaxone and vancomycin. PHYSICAL EXAMINATION: VITAL SIGNS: Blood pressure 140/76, pulse 56, temperature 97.8, respirations 18 , O2 sat 96%. SKIN: Shows the area of blistering with bloody discharge with some purulence and there is an ulcer irregular shaped with a fresh clean granulation tissue at the base of the left plantar aspect of the mid foot region close to the left heel area. The right foot has an area of pressure injury to the first right MPJ with no inflammatory changes. There is evidence of erythema surrounding the left lateral malleolus. Still quite a bit of seropurulent drainage from the lateral malleolus noticed as well. The patient has a peripheral IV access. No Bradley catheter. No lymphadenopathy. HEENT: Ocular movements are conjugate. Oral cavity normal. NECK: Supple. LUNGS: Symmetric. Clear breath sounds. HEART: S1, S2, regular rate. No S3, S4. ABDOMEN: Soft, not distended or tender. No ascites. No bladder distention. EXTREMITIES: No other joint inflammatory process noted. NEUROLOGIC: Nonfocal. LABORATORY DATA: Pending at this time. The last labs in this hospital are from 2016. Cultures from the drainage, left lateral malleolus have been submitted just a while ago. Previous imaging studies include a foot x-ray from 06/25/2018 showed chronic changes in the left mid foot region, Charcot's arthropathy. There is pathology from toe amputation which showed ischemic ulceration, acute and chronic osteomyelitis. ASSESSMENT: Type 2 diabetes with Charcot's arthropathy and multiple complications including osteomyelitis with partial amputations to right and left feet, now with an inflammatory process left ankle with purulent drainage. DISCUSSION: The likely scenario here is penetration of the ankle from the plantar ulcer with septic complications which may have been bacteremic. I believe this process is been in place for longer than a few days, probably more than 2 weeks. Staphylococcus aureus, gram negatives, anaerobes and Streptococci are the likely culprits. We will MRI the area. Continue broad spectrum antimicrobial coverage. Add Flagyl to the regimen. Duration of therapy and need for surgical intervention to be determined by the MRI findings and results of cultures. MTDD
[2018-07-01 15:55] LABS: ALT (SGPT) 9 U/L (8-55); AST (SGOT) 13 U/L (5-34); Albumin 3.7 g/dL (3.4-4.8); Alkaline Phosphatase 70 U/L (40-150); Anion Gap 12 mmol/L (10-20); BUN (Urea Nitrogen) 16 mg/dL (8.4-25.7); Bilirubin, Total 1.9 mg/dL (0.2-1.2); Calc. Creatinine Clearance 112 mL/min (70-130); Calcium 9.2 mg/dL (7.8-10.44); Carbon Dioxide 27 mmol/L (23-31); Chloride 104 mmol/L (98-107); Estimated GFR-MDRD 70; Globulin 4.1 g/dL (2.4-3.5); Glucose 91 mg/dL (80-115); Protein, Total 7.8 g/dL (5.8-8.1); Sodium 139 mmol/L (136-145)
[2018-07-01] MEDS ORDERED: Insulin Regular 300 UNITS/3 ML VIAL SC PRN (16:03)
[2018-07-01] MEDS ORDERED: Dextrose 5% in Water 1,000 ML IV PRN (16:03)
[2018-07-01] MEDS ORDERED: Acetaminophen 325 MG TAB PO PRN (16:03)
[2018-07-01] MEDS ORDERED: HYDROcodone/Acetaminophen 5/325 mg Tablet PO PRN (16:03)
[2018-07-01] MEDS ORDERED: Zolpidem Tartrate 5 MG TAB PO PRN (16:03)
[2018-07-01] MEDS ORDERED: Dextrose 50% Abboject 50 ML SYRINGE SLOW IVP PRN (16:03)
[2018-07-01] MEDS ORDERED: Ondansetron ODT 4 MG TAB PO PRN (16:03)
[2018-07-01 16:40] LABS: Bilirubin Negative (Negative); Blood, Urine Small (Negative); Clarity CLEAR (Clear); Glucose, Urine (Dipstick) Negative (Negative); Leukocyte Negative (Negative); Nitrite Negative (Negative); Protein, Urine (Dipstick) Negative (Neg-Trace); Specific Gravity, Urine 1.004 (1.002-1.036); pH, Urine 7.5 (5.0-9.0)
[2018-07-01 16:42] LABS: Bacteria/HPF None Seen HPF (None Seen); Hyaline Casts/LPF 0-3 HYALINE CAST LPF (0-3 Hyaline); RBC/HPF 0-3 HPF (0-3); Squamous Epithelial None Seen HPF (0-3); WBC/HPF None Seen HPF (0-3)
[2018-07-01] MEDS: metroNIDAZOLE 500 MG TAB PO SCH (20:27)
[2018-07-01] MEDS: Dronedarone HCl 400 MG TAB PO SCH (20:27)
[2018-07-01] MEDS: Apixaban 5 MG TAB PO SCH (20:28)
[2018-07-01] MEDS: Rosuvastatin 10 MG TAB PO SCH (20:28)
[2018-07-01] MEDS: Carvedilol 6.25 MG TAB PO SCH (20:28)
--- NOTE | 2018-07-01 21:30 | HP ---
DATE OF ADMISSION: 07/01/2018 ADMITTING PHYSICIAN: Jose Cardoza M.D. HISTORY OF PRESENT ILLNESS: Patient is a 62-year-old male who has a known history of recurrent foot infections. He is status post recent osteomyelitis treatment for infection to his right foot with chavez bsequent amputation of a toe. He presented to my office today complaining of some swelling to the la teral aspect of his left ankle. He thought it represented a hematoma. He was instructed to follow u p with me today upon we dressing the wound. It was apparent purulent material, was draining from thi s. Patient had a recent history of some shaking chills, possibly associated with some fever approxim ately 2 weeks ago. All lab work done at that time was normal. He still had some episodes of fever l kathy sensations associated with chills. Once again, he has noted some loss of appetite, generalized m alaise. Otherwise, no productive cough, otherwise noted. He has now been admitted for further evalu ation and treatment of infection to his left ankle. ALLERGIES: He has no known allergies. CURRENT MEDICATIONS: Noted in the chart. PAST MEDICAL HISTORY: Positive for type 2 diabetes mellitus, diabetic neuropathy, multiple wounds to the feet, having been treated almost years with debridement, most recent resulted in amputation. PAST SURGICAL HISTORY: Positive for the above noted amputation. ALLERGIES: He also has a history of allergies. SOCIAL/PERSONAL HISTORY: He is . He does not smoke nor does he drink alcohol. REVIEW OF SYSTEMS: Gastrointestinal: Negative. Genitourinary: Negative. Cardiovascular: Otherwi se, negative. Neurological: Negative. PHYSICAL EXAMINATION: VITAL SIGNS: Temperature 97.8, pulse 56, respirations 18, BP 145/76, O2 sat 96%. GENERAL: He is alert, active, in no distress. HEENT: Normocephalic, atraumatic. Sclerae and conjunctivae clear. NECK: Supple, full range of motion. No masses, no bruits auscultated. Thyroid midline without thyr omegaly or thyroid masses. LUNGS: Clear to auscultation. HEART: Reveals a regular rate and rhythm without murmur, gallops, or rubs. ABDOMEN: Soft, nontender, bowel sounds are present and active. No hepatosplenomegaly is noted. The re is no evidence of rebound or guarding are noted at this time. EXTREMITIES/SKIN: There is blistering of the left lateral malleolus with bloody purulent discharge w ith an irregular shaped wound, granulation tissue at the base of the left plantar aspect of the foot extending to the left heel. The right foot does show injury to the first MTP joint. There is no pedrito dence of any drainage. No evidence of any surrounding erythema to this area. Pulses are palpable bi laterally. LABORATORY AND X-RAY FINDINGS: His white blood count is 6.8, hemoglobin 11.2, hematocrit 33.9. Othe r labs are pending at this time. IMPRESSION: 1. Cellulitis of the left lower extremity and left ankle with abscess formation. 2. Previous history of diabetic foot disease with previous osteomyelitis associated with amputation of toe involving right foot. 3. History of sepsis with atrial fibrillation. 4. Type 1 diabetes mellitus. PLAN: The patient has been admitted. ID consult has been obtained from Dr. Engle. He was initially placed on IV antibiotics consisting of vancomycin and ceftriaxone. Further antibiotic treatment keyon l be dictated by Dr. Engle.
[2018-07-02] MEDS: Apixaban 5 MG TAB PO SCH ×2 (07:43→20:05)
[2018-07-02] MEDS: Dronedarone HCl 400 MG TAB PO SCH ×2 (07:44→20:05)
[2018-07-02] MEDS: Carvedilol 6.25 MG TAB PO SCH ×2 (07:44→20:08)
[2018-07-02] MEDS: metroNIDAZOLE 500 MG TAB PO SCH ×3 (07:44→20:06)
[2018-07-02] MEDS ORDERED: Enoxaparin Sodium 40 MG/0.4 ML SYRINGE SC SCH (09:00)
[2018-07-02] MEDS ORDERED: Non-Formulary Item 1 EACH (Insulin Glargine,Hum.Rec.Anlog [Lantus Solostar] 40 UNIT) SC SCH (09:00)
[2018-07-02] MEDS: Insulin Glargine 40 UNITS in Pre-Filled Syringe 1 EACH SC SCH (09:42)
[2018-07-02] MEDS ORDERED: Bisacodyl 5 MG TAB PO PRN (12:44)
[2018-07-02] MEDS ORDERED: Milk Of Magnesia 30 ML UDCUP PO PRN (12:44)
[2018-07-02] MEDS ORDERED: Docusate 100 MG CAP PO PRN (12:44)
[2018-07-02] MEDS ORDERED: Pepto Bismol Chew TAB PO PRN (12:44)
[2018-07-02] MEDS ORDERED: Promethazine 25 MG TAB PO PRN (12:44)
[2018-07-02] MEDS ORDERED: hydrOXYzine Pamoate 25 mg Capsule PO PRN (12:44)
[2018-07-02] MEDS: Mag-Al 1200 mg/1200 mg/30 ML UDCUP PO PRN (12:54)
--- NOTE | 2018-07-02 14:22 | PRG ---
DATE OF SERVICE: 07/02/2018 HISTORY OF PRESENT ILLNESS: The patient has no acute complaints, states not in significant pain, has a history of left Charcot foot with ulceration subsequently, following right lower extremity osteomyelitis with removal of toe and wailing boot walking boot given the uneven walking surface. He developed an ulcer on his left foot acutely this last week. He developed communicating hematoma that with infected left lateral malleolus just inferior to. foot x- rays have not shown osteomyelitis; however, MRI is pending. Dr. Engle has been consulted and started the patient on vancomycin, Rocephin and metronidazole. We will follow up on MRI prior to any surgical intervention or change in antibiotic regimen. The patient has no reports of any difficulty with urination , constipation or diarrhea. No cough. OBJECTIVE: VITAL SIGNS: Today blood pressure of 122/64, temperature of 98 degrees, pulse of 61, respiratory rate of 18, oxygen saturation 97% on room air. Blood glucoses over the last 12 hours 68/191 wound preliminary blood cultures were negative. Wound culture of ankle shows gram positive cocci in pairs and gram- negative rods, identification to follow. GENERAL: The patient is alert and oriented, in no acute distress. HEENT: Normocephalic, atraumatic. Extraocular movements are intact. Sclerae are clear. NECK: Supple. HEART: Regular rate and rhythm. No murmurs were auscultated. LUNGS: Clear to auscultation bilaterally. No rubs or wheezes. ABDOMEN: Soft, nontender. Positive bowel sounds throughout. EXTREMITIES: Lower extremities with lack of hair to shins bilaterally with iron deposits present. No erythema, pallor, pain with palpation of the calves. Ulcerations of feet bilaterally are with dressings intact. Reviewed wound pictures on admission with thick eschar has already been deroofed with ability to drain. Good capillary refill of lower extremity digits bilaterally. NEUROLOGIC: The patient is alert and oriented x3. No focal deficits. Speech is normal. ASSESSMENT AND PLAN: Cellulitis, diabetic ulceration, ruling out osteomyelitis , diabetes type 2. Continuing Recommendations per Dr. Engle with antibiotic regimen. Continuing the patient's home medications otherwise with sliding scale insulin. The patient takes 40 units of insulin Glargine q.a.m. We will follow up on MRI, which is pending and vancomycin trough. Regarding deep vein thrombosis prophylaxis, the patient is on Eliquis on an outpatient basis for paroxysmal a-fib. We will continue while inpatient. ESDRAS
[2018-07-02] MEDS: cefTRIAXone\\ROCEPHIN 2 GM in Sodium Chloride 0.9% 100 ML IVPB SCH (14:32)
--- NOTE | 2018-07-02 18:25 | PRG ---
DATE OF SERVICE: 07/02/2018 SUBJECTIVE: The patient is being wheeled to the MRI at this moment. There is no major change in sym ptoms. OBJECTIVE: VITAL SIGNS: His T-max 98.4. Exam is unchanged. LABORATORY DATA: White cell count 6.8. Cultures with Proteus mirabilis identified thus far. ASSESSMENT AND DISCUSSION: Type 2 diabetes, Charcot's arthropathy, multiple complications in the pas t now with inflammatory process left ankle, likely from penetration through the plantar aspect from c hronic ulcer. MRI will be performed shortly and then we will decide what the subsequent intervention is going to needed, surgical consultation or not and duration and route of antimicrobial therapy.
[2018-07-02] MEDS: Rosuvastatin 10 MG TAB PO SCH (20:05)
[2018-07-03 04:44] LABS: Vancomycin, Trough 21.3 ug/mL
[2018-07-03 04:49] LABS: ALT (SGPT) 8 U/L (8-55); AST (SGOT) 13 U/L (5-34); Albumin 3.3 g/dL (3.4-4.8); Alkaline Phosphatase 64 U/L (40-150); Anion Gap 11 mmol/L (10-20); BUN (Urea Nitrogen) 11 mg/dL (8.4-25.7); Bilirubin, Total 1.1 mg/dL (0.2-1.2); Calc. Creatinine Clearance 109 mL/min (70-130); Calcium 9.1 mg/dL (7.8-10.44); Carbon Dioxide 29 mmol/L (23-31); Chloride 104 mmol/L (98-107); Estimated GFR-MDRD 68; Globulin 3.9 g/dL (2.4-3.5); Glucose 79 mg/dL (80-115); Protein, Total 7.2 g/dL (5.8-8.1); Sodium 140 mmol/L (136-145)
[2018-07-03 04:51] LABS: Band 1 % (5-11); Eosinophils 5 % (0-10); Hemoglobin 10.8 g/dL (14.0-18.0); Lymphocytes 23 % (21-51); MDiff Complete? YES; Mean Corpuscular HGB CONC 33.2 g/dL (32.0-36.0); Mean Corpuscular Hemoglobin 27.3 pg (27.0-31.0); Mean Corpuscular Volume 82.4 fL (78.0-98.0); Mean Platelet Volume 7.5 fL (7.4-10.4); Monocytes 8 % (0-10); Neutrophil 58 % (42-75); PLT Morphology Comment Appears Adequate; Platelet Count 163 thou/uL (130-400); RBC Distribution Width 15.3 % (11.5-14.5); Red Blood Cell (RBC) Count 3.95 mill/uL (4.70-6.10); White Blood Cell (WBC) Count 3.8 thou/uL (4.8-10.8)
[2018-07-03] MEDS: Carvedilol 6.25 MG TAB PO SCH ×2 (08:23→21:14)
[2018-07-03] MEDS: Dronedarone HCl 400 MG TAB PO SCH ×2 (08:23→21:15)
[2018-07-03] MEDS: Vancomycin HCl 1.5 GM in Sodium Chloride 0.9% 250 ML 300 ML IVPB SCH ×2 (08:23→21:14)
[2018-07-03] MEDS: metroNIDAZOLE 500 MG TAB PO SCH ×3 (08:24→21:15)
[2018-07-03] MEDS: Insulin Glargine 40 UNITS in Pre-Filled Syringe 1 EACH SC SCH (08:24)
[2018-07-03] MEDS: Apixaban 5 MG TAB PO SCH ×2 (08:24→21:15)
[2018-07-03] MEDS: Mag-Al 1200 mg/1200 mg/30 ML UDCUP PO PRN (09:30)
[2018-07-03] MEDS ORDERED: traMADol HCl 50 MG TAB PO PRN (09:41)
--- NOTE | 2018-07-03 10:54 | PRG ---
DATE OF SERVICE: 07/03/2018 HISTORY OF PRESENT ILLNESS: The patient has no acute complaints. No interval changes in bladder or bowel. Denies any cough or fevers and tolerating diet well. Wound care staff reports that the left lateral submalleolar wound deroofed yesterday and wound care has exposed bone, approximate size of a silver dollar. When speaking with the patient this morning about likely poor candidate for any surgical washout, and graft or flap procedures given likely communication through to bottom of foot ulcer with his Charcot deformity of left foot, he verbalized understanding with potential need for amputation states that is the recommendation he would go through with that. PHYSICAL EXAMINATION: VITAL SIGNS: Temperature of 98.2, pulse of 61, respiratory rate of 18, oxygen saturation of 98% on room air, blood pressure 145/70. GENERAL: The patient is alert and oriented, in no acute distress. HEENT: Head is normocephalic, atraumatic. Extraocular movements are intact. Sclerae are clear. Oral mucosa is moist. NECK: Supple. HEART: Regular rate and rhythm. No murmurs auscultated at the time of exam. LUNGS: Clear to auscultation bilaterally. No rubs or wheezes. ABDOMEN: Soft, nontender, positive bowel sounds throughout. EXTREMITIES: Lower extremities, offloading pressure dressing to right foot ulcer near the head of first metatarsal, intact, signs of venous stasis dermatitis bilaterally in shins, lack of hair and iron deposits of skin. Foot is warm on right extremity. Good cap refill. Left extremity with intact dressing overlying both plantar and left submalleolar ulcerations. Good cap refill on exposed toes. No cyanosis present. No edema, no pitting of left lower extremity. NEUROLOGIC: The patient is alert and oriented x3, no focal deficits. Speech is normal. LABORATORY DATA: White blood cell count of 3.8, hemoglobin of 10.8, platelet count of 163. Sodium of 140, potassium 4.0, creatinine of 1.1, glucose 79-167 range for the last 16 hours, calcium of 9.1, AST of 13, ALT of 8, albumin of 3.3. Vancomycin trough 21.3. Read of lower extremity MRI pending. ASSESSMENT AND PLAN: Diabetic foot ulcers bilaterally, given bone exposure, osteomyelitis of left lower extremity, diabetes type 2, hypertension, I spoke with hand alterations seamstress Surgery services this weekend, do not perform amputations. We will consult surgery in a.m. to come evaluate the patient. The patient again as above verbalized understanding with possible need for amputation. We will see if Surgery has any additional surgical options for patient. We will await formal read of MRI; however, given exposed bone. The patient verbalized understanding regarding sepsis risk and mortality, being very significant and washout flap and skin graft. Options are very limited and he is a poor candidate for these. Thank you very much for the time being, we will continue IV management under preview of Infectious Disease. ESDRAS
[2018-07-03] MEDS: cefTRIAXone\\ROCEPHIN 2 GM in Sodium Chloride 0.9% 100 ML IVPB SCH (14:47)
[2018-07-03] MEDS: Rosuvastatin 10 MG TAB PO SCH (21:15)
--- NOTE | 2018-07-04 07:56 | PRG ---
DATE OF SERVICE: 07/04/2018 Mr. Barrios is doing well. His wound is growing out Proteus mirabilis Staphylococcus. PHYSICAL EXAMINATION: VITAL SIGNS: He is afebrile. BP 166/80. LUNGS: Clear. HEART: Reveals no murmur. LABORATORY: Hemoglobin 10.8, hematocrit 32.6. Blood sugars are controlled adequately. IMPRESSION: 1. Cellulitis, probable osteomyelitis of his left foot and ankle. PLAN: Recommend a surgical consult for possible/probable amputation. I discussed this in depth with the patient and his . If he should proceed to surgery we will need to stop Eliquis at least 24- 36 hours prior to that.
[2018-07-04] MEDS: Carvedilol 6.25 MG TAB PO SCH ×2 (08:02→21:10)
[2018-07-04] MEDS: Dronedarone HCl 400 MG TAB PO SCH ×2 (08:03→21:11)
[2018-07-04] MEDS: metroNIDAZOLE 500 MG TAB PO SCH ×3 (08:03→21:11)
[2018-07-04] MEDS: Apixaban 5 MG TAB PO SCH ×2 (08:05→21:10)
[2018-07-04] MEDS: Calcium Carbonate 500 MG ChewTAB PO PRN ×2 (08:05→12:39)
[2018-07-04] MEDS: Vancomycin HCl 1.5 GM in Sodium Chloride 0.9% 250 ML 300 ML IVPB SCH ×2 (09:03→23:48)
[2018-07-04] MEDS: Insulin Glargine 40 UNITS in Pre-Filled Syringe 1 EACH SC SCH (09:07)
--- NOTE | 2018-07-04 09:39 | MRI ---
MRI OF THE LEFT ANKLE WITH AND WITHOUT CONTRAST: INDICATION: History of left ankle wound. COMPARISON: Radiograph dated 07/01/18. TECHNIQUE: Multiplanar, multisequence MR images were obtained of the left ankle with and without IV contrast uti lizing 20 cc of MultiHance. FINDINGS: There is a superficial wound overlying the lateral aspect of the ankle joint at the level of the late ral malleolus measuring 2.6 x 2.2 cm in its greatest AP and craniocaudad dimensions. No drainable fl uid collection is evident. There is some mild surrounding cellulitis near the wound site. There are neuropathic osteoarthropathy changes involving the mid foot and subtalar joint with prominent destru ctive osseous changes and collapse of the mid foot. There is prominent pes planus deformity. There are multifocal areas of full-thickness articular cartilage thinning involving the talar dome as well as the tibial plafond. The Achilles tendon is intact. The visualized medial and lateral flexor tend ons are intact. The extensor tendons are intact. The tibial syndesmotic ligaments appear intact. T here is chronic partial thickness tear involving the ATFL. The calcaneofibular ligament is not well seen. Posterior talofibular ligament appears intact. The deep deltoid appears intact. There is dif fuse atrophy of the visualized intrinsic foot musculature as well as portions of the visualized muscu lature of the distal foreleg. IMPRESSION: 1. Superficial soft tissue wound involving the lateral aspect of the ankle with mild surrounding mitch lulitis. No drainable fluid collection is grossly evident. 2. 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 3. Prominent muscular atrophy of the distal foreleg and intrinsic foot musculature. 4. 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 POS: [facility]
--- NOTE | 2018-07-04 12:44 | PRG ---
DATE OF SERVICE: 07/04/2018 Mr. Barrios is with very mild pain in the left foot. No respiratory symptoms or abdominal pain, no diarrhea. OBJECTIVE: VITAL SIGNS: Temperature max is 98.6, BP was quite high at 200/95, pulse 58. SKIN: Shows the area in the lateral malleolus with the ulcer and the bottom ulcer as well, area of e rythema surrounding this region. HEENT: Ocular movements conjugate. LUNGS: Clear. HEART: S1, S2, regular rate. ABDOMEN: Soft, not distended. NEUROLOGIC: Nonfocal. LABORATORY DATA: White cell count 3.8, hemoglobin 10.8, platelets 163 and creatinine 1.1. Sodium 14 0. Liver profile normal. Microbiology with Proteus mirabilis and Staphylococcus species. Proteus w ith a very broad susceptibility profile, Staph species still pending and susceptibility studies. MRI of the extremity; superficial soft tissue wound lateral aspect of the ankle with mild surrounding ce llulitis. No collection noted and a neuropathic osteoarthropathy and midfoot and hindfoot with osteo arthrosis, muscular atrophy. ASSESSMENT AND DISCUSSION: Type 2 diabetes, Charcot's arthropathy and ulcer left lateral malleolus w ith cellulitis, but no evidence of osteomyelitis, no abscess. DISCUSSION: Since is very close to the joint and the bone and there is associated cellulitis, we keyon l continue IV therapy at least for 2-3 weeks, sometimes early MRIs will miss initial lesions in the b one. We will probably follow up the MRI later on to be on the safe side before we discontinue therap y. He has good vascular supply and I do not foresee any difficulty with healing those lesions.
[2018-07-04] MEDS: cefTRIAXone\\ROCEPHIN 2 GM in Sodium Chloride 0.9% 100 ML IVPB SCH (14:26)
[2018-07-04 20:16] LABS: Vancomycin, Trough 22.4 ug/mL
[2018-07-04] MEDS: Rosuvastatin 10 MG TAB PO SCH (21:11)
--- NOTE | 2018-07-04 22:55 | HP ---
Man HISTORY OF PRESENT ILLNESS: Kamran Barrios is a 62-year-old pleasant male with chronic diabe tic foot problems. He is followed by Dr. Shook, who is amputated his right second toe and performe d several debridements. He has a Charcot foot. He is admitted this hospitalization by Dr. Jose sharif, seen by Dr. Engle. PICC line established and intravenous antibiotics initiated. He has had pl ain x-rays and MRI scans noting absence of osteomyelitis. MRI scan 07/02/2018 left ankle without con trast, absence of osteomyelitis. The patient's followed by Dr. Shook. Wound care outpatient arran ged by Dr. Odell. ALLERGIES: SEAFOOD. SOCIAL HISTORY: Tobacco none. Alcohol none. HOME MEDICATIONS: Multaq, Eliquis, Crestor, Protonix, Coreg. PAST SURGICAL HISTORY: Right second toe amputation by Dr. Shook in the past, placement of hemodial ysis catheter by Dr. Mike in the past, partial amputation and debridement of his foot by Dr. Jagjit lenoe in the past. PAST MEDICAL HISTORY: Type 2 diabetes mellitus, diabetic neuropathy. He has been on dialysis in the past, but never required peripheral dialysis access. His acute renal failure resolved as related to an infection. PHYSICAL EXAMINATION: HEENT: Unremarkable. LUNGS: Clear to auscultation. CARDIAC: Regular rate and rhythm. ABDOMEN: Soft, nontender. EXTREMITIES: Palpable pedal pulses. On his left foot, there is a lateral malleolar ulceration with healthy granulation base. No edema, no cellulitis. On the plantar proximal arch laterally, there is an area of callus with some deformity and prominence without evident infection without cellulitis. On his right foot beneath the MTP, there is a blister. He has had partial amputation of his right se cond toe. He has palpable pedal pulses both feet. ASSESSMENT AND PLAN: Diabetic neuropathic ulcerations, wounds both feet. Would recommend followup w ashley Shook as an outpatient. No surgical intervention is necessary at this time. He could use callus debridement. Dr. Shook could provide that as an outpatient.
[2018-07-05] MEDS ORDERED: Vancomycin HCl 1 GM in Premix Bag 1 BAG IVPB SCH (04:00)
--- NOTE | 2018-07-05 08:23 | PRG ---
DATE OF SERVICE: 07/05/2018 SUBJECTIVE: He is doing well. It appears that his left foot and ankle do not need to be amputated t [place] or in the near future. PHYSICAL EXAMINATION: VITAL SIGNS: Temperature 97.8, BP 170/78. LUNGS: Clear. HEART: Reveals a regular rate and rhythm without murmurs, gallops or rubs. EXTREMITIES: Left foot. The previously noted wound to his left ankle is healing well. The plantar aspect of the foot is also healing. There is minimal redness and drainage noted. IMPRESSION: Cellulitis of the left ankle and foot. PLAN: The patient will possibly be discharged today under Dr. Engle's care with a PICC line in place for future antibiotic therapy. He will continue wound care. Continue home medications.
[2018-07-05] MEDS: Apixaban 5 MG TAB PO SCH (09:29)
[2018-07-05] MEDS: Carvedilol 6.25 MG TAB PO SCH (09:31)
[2018-07-05] MEDS: metroNIDAZOLE 500 MG TAB PO SCH (09:31)
[2018-07-05] MEDS: Dronedarone HCl 400 MG TAB PO SCH (09:31)
[2018-07-05] MEDS: Insulin Glargine 40 UNITS in Pre-Filled Syringe 1 EACH SC SCH (09:32)
--- NOTE | 2018-07-05 10:05 | SPC ---
ULTRASOUND GUIDED LEFT UPPER EXTREMITY PICC LINE PLACEMENT: Date: 07-05-18 History: Left lower extremity wound with purulent drainage. Fluoroscopy: Total fluoroscopy time is 0.2 minutes with total dose of 1465 mGy*cm^2. Technique: After informed consent was obtained, the patient was placed on the angiography table in supine positi on. The left upper extremity was meticulously prepped and draped in the usual sterile fashion. An andrey ropriate access site was determined with ultrasound guidance. Skin and subcutaneous tissues were infi ltrated with buffered 1% Lidocaine for local anesthesia. 5 Mexican peel-away sheath was placed. Cathet er was measured and cut to the appropriate length. Catheter was placed over the guidewire with tip po sitioned overlying the distal SVC. Guidewire and peel-away sheath were removed. The catheter was acce ssed and aspirated/flushed easily. The catheter was secured to the skin with dry sterile dressing. Patient tolerated the procedure well and without immediate complication. FINDINGS: Technically successful placement of a single lumen 5 Mexican 44.5 cm PICC Line via the left basilic ve in. Tip of the catheter overlies the distal SVC. Final spot fluoroscopic image catheter placement is obtained. IMPRESSION: Technically successful placement of a single lumen 5 Mexican 44.5 cm PICC line via the left basilic ve in. The tip of the catheter overlies the cavoatrial junction. POS: CLAUDIA
[2018-07-05] MEDS: cefTRIAXone\\ROCEPHIN 2 GM in Sodium Chloride 0.9% 100 ML IVPB SCH (13:06)
[2018-07-05 13:59] VITALS: BP 165/80; TEMP 98.5
--- NOTE | 2018-07-06 11:29 | DIS ---
DISCHARGE DIAGNOSES: 1. Cellulitis, abscess of left lower ankle. 2. Diabetic foot ulcer. 3. History of type 2 diabetes mellitus. 4. History of atrial fibrillation. ADMITTING PHYSICIAN: Dr. Jose Cardoza. CONSULTING PHYSICIAN: Dr. Roge Meza [facility] SUMMARY: A 62-year-old male who was in my office today, had an abscess to the left lateral ankle. This was debrided in the office, purulent material was identified. He was subsequently admit eva to the hospital due to previous history of recurrent osteomyelitis of the feet, status post recen t amputation of the toe to his right foot. He was admitted to the hospital, begun on IV vancomycin, ceftriaxone. Consult was obtained from Dr. Engle. He was eventually placed on vancomycin, ceftriaxo ne and metronidazole. His x-ray of his foot and ankle did not reveal any osteomyelitis. Lower extre mity MRI did not show any significant osteomyelitic changes. His wound did respond well to therapy. Wound cultures were obtained which revealed Proteus mirabilis and Staphylococcus organism. The christian ent was subsequently discharged home on 07/05/2018 to be followed with a PICC line in place with IV a ntibiotics to be done by Dr. Engle. It is noted he did have a surgical consult from Dr. Guan who f elt like amputation was not necessary at this moment. He will follow up in approximately 4 weeks, ma intain his home medications otherwise.
== END 2018-07-05 14:22 | disposition home or self-care (01) | DRG 74 ==
LOC: T4-A 12:49 → SURG B 14:03 → T4-A 14:07
PROVIDERS: ADMIT Family Medicine; ATTEND Family Medicine
PROC: 02HV33Z Insertion of Infusion Device into Superior Vena Cava, Percutaneous Approach (ICD-10-PCS; principal; 2018-07-05)
PROC: B548ZZA Ultrasonography of Superior Vena Cava, Guidance (ICD-10-PCS; 2018-07-05)
DX: E11.610 Type 2 diabetes mellitus with diabetic neuropathic arthropathy (principal); L03.116 Cellulitis of left lower limb; L02.416 Cutaneous abscess of left lower limb; E11.40 Type 2 diabetes mellitus with diabetic neuropathy, unspecified; E11.621 Type 2 diabetes mellitus with foot ulcer; L97.529 Non-pressure chronic ulcer of other part of left foot with unspecified severity; L97.519 Non-pressure chronic ulcer of other part of right foot with unspecified severity; B95.61 Methicillin susceptible Staphylococcus aureus infection as the cause of diseases classified elsewhere; I48.0 Paroxysmal atrial fibrillation; Z79.01 Long term (current) use of anticoagulants; Z79.4 Long term (current) use of insulin; Z91.013 Allergy to seafood; Z89.421 Acquired absence of other right toe(s); Z83.3 Family history of diabetes mellitus
CPT/HCPCS: 36415; 36416; 36569; 80053; 80202; 81003; 81015; 85025; 87040; 87070; 87077; 87186; 87205; A4216; C1751; J0696; J3370; J7050

== ENCOUNTER 2018-07-27 07:56 | Outpatient (CLI) | payer OTHER ==
--- NOTE | 2018-07-27 09:54 | PRG ---
DATE OF SERVICE: 07/27/2018 HISTORY: Mr. Kamran Barrios is a very pleasant 62-year-old gentleman who presented to the Wound Erik ter for evaluation of multiple ulcerations of the right and left feet. Since the patient's visit on 02/24/2018 Mr. Barrios was admitted to [facility] for cellulitis of the left lower extremity and ankle with abscess formation. The patient is now receiving IV antibiotics as per Dr. Gabriel Engle of Infectious Diseases after undergoing PICC line placement. The patient states t hat he has been dressing each wound with Medihoney. Mr. Barrios has no other complaints today. He denies any fever or chills. PHYSICAL EXAMINATION: VITAL SIGNS: Temperature 98.0, pulse 59, respirations 18, blood pressure 174/87. Accu-Chek 97. EXTREMITIES: An ulceration of the plantar surface of the right foot is present which measures approx imately 2.1 x 1.1 cm. An ulceration of the plantar surface of the left midfoot is present which adam ures approximately 1.8 x 1.3 cm. An ulceration of the left lateral ankle is present which measures a pproximately 1.2 x 0.9 cm. Granulation tissue is present within the margins of each wound. No purul ent drainage is associated with any of the wounds. No erythema of the skin surrounding any of the wo unds is present. No maceration of the skin of the periwound of any of the wounds is noted. No signi ficant edema of the right or left foot is present on exam today. ASSESSMENT AND PLAN: 1. Multiple ulcerations of right and left feet as described above. Dressing changes of arlin Rios and Gregory will be continued on a daily basis or alternatively every other day after cleansing an d irrigation. The patient will continue to perform his own dressing changes. The patient has also b een provided with adhesive felt for more optimal offloading of the plantar ulcerations. The patient states that he has also received new inserts for his shoes recently. I will see Mr. Barrios again i n 1 week. As stated above, the patient is receiving IV antibiotics as per Dr. Gabriel Engle of Infec tious Diseases. At the time of the patient's followup visit in 1 week, consideration will be given t o a trial of Epifix for the plantar ulceration of the left midfoot. The patient understands and is i n agreement with the preceding treatment plan. 2. Diabetes mellitus. The patient's Accu-Chek in clinic today is 97. The patient has been reminded that for optimal wound healing, his blood glucoses should remain below 150. 3. Hypertension.
[2018-07-27] MEDS ORDERED: Sodium Chloride 0.9% 15 ML NEB ONE (15:45)
== END 2018-07-27 07:57 | disposition home or self-care (01) ==
LOC: WCC 07:56
PROVIDERS: ATTEND Family Medicine
DX: E11.621 Type 2 diabetes mellitus with foot ulcer (principal); L97.529 Non-pressure chronic ulcer of other part of left foot with unspecified severity; L97.519 Non-pressure chronic ulcer of other part of right foot with unspecified severity; I10 Essential (primary) hypertension
CPT/HCPCS: 97602; A4218

== ENCOUNTER 2018-08-24 07:57 | Outpatient (CLI) | payer OTHER ==
[2018-08-24] MEDS ORDERED: Sodium Chloride 0.9% 15 ML NEB ONE (08:05)
--- NOTE | 2018-08-24 10:45 | PRG ---
DATE OF SERVICE: 08/24/2018 HISTORY: Mr. Kamran Barrios is a very pleasant 63-year-old gentleman who presents to the Wound Cent er for evaluation of ulcerations of the right and left feet. The patient was recently admitted to [facility] for cellulitis of the left lower extremity and ankle with abscess for mation. The patient has completed a course of IV antibiotics as per Dr. Gabriel Engle of Infectious Diseases after undergoing PICC line placement. Mr. Barrios states that he has been dressing each wo und with Medihoney. The patient has no complaints today. He denies any fever or chills. PHYSICAL EXAMINATION: VITAL SIGNS: Temperature 97.9, pulse 55, respirations 19, blood pressure 153/77. Accu-Chek 103. EXTREMITIES: The ulceration of the plantar surface of the right foot measures approximately 2.0 x 1. 2 cm. An ulceration of the plantar surface of the left foot is present, which measures approximately 2.0 x 1.0 cm. Granulation tissue is present within the margins of each wound. Nonviable tissue pre sent within the margins of each wound was debrided with an excisional full-thickness debridement with the use of a curette. Desiccated tissue, callus, and undermining associated with each ulceration we re eliminated with the use of scissors. No purulent drainage is associated with either wound. No er ythema of the skin surrounding either wound is present. No maceration of the skin of the periwound o f either wound is noted. No significant edema of the right or left foot is present on exam today. A sample of EpiFix was divided into 2 pieces and applied to the wound bed of each ulceration. The Epi Fix sheet, which was divided measured 3.0 x 4.0 cm. The sheet was a sample provided to the patient. The wounds were then dressed with Adaptic, 4 x 4s and Kerlix. Offloading of each ulceration was pro vided with adhesive felt applied in two layers to each ulceration. ASSESSMENT AND PLAN: 1. Ulcerations of right and left feet as described above. A sample of EpiFix was applied to each ul ceration today. I will see Mr. Barrios again in 1 week. As stated above, the patient has completed a course of IV antibiotics as per Dr. Gabriel Engle of Infectious Diseases. 2. Diabetes mellitus. The patient's Accu-Chek in clinic today is 103. The patient has been reminde d that for optimal wound healing, his blood glucoses should remain below 150. 3. Hypertension.
== END 2018-08-24 07:58 | disposition home or self-care (01) ==
LOC: WCC 07:57
PROVIDERS: ATTEND Family Medicine
DX: E11.621 Type 2 diabetes mellitus with foot ulcer (principal); L97.529 Non-pressure chronic ulcer of other part of left foot with unspecified severity; L97.519 Non-pressure chronic ulcer of other part of right foot with unspecified severity; I10 Essential (primary) hypertension
CPT/HCPCS: A4218

== ENCOUNTER 2018-08-31 08:17 | Outpatient (CLI) | payer OTHER ==
--- NOTE | 2018-08-31 09:43 | PRG ---
DATE OF SERVICE: 08/31/2018 HISTORY: Mr. Kamran Barrios is a very pleasant 63-year-old gentleman who presents to the Wound C enter for evaluation of ulcerations of the right and left feet. The patient was recently admitted to [facility] for cellulitis of the left lower extremity and ankle with abscess formation. The patient completed a course of IV antibiotics as per Dr. Gabriel Engle of Infectious D iseases. After undergoing PICC line placement. The patient is presently receiving treatment with Ep iFix for his wounds. The patient has no complaints today. He denies any fever or chills. PHYSICAL EXAMINATION: VITAL SIGNS: Temperature 97.6, pulse 58, respirations 19, blood pressure 167/79. Accu-Chek 108. EXTREMITIES: The ulceration of the plantar surface of the right foot measures approximately 2.2 x 1. 2 cm. The ulceration of the plantar surface of the left foot measures approximately 1.0 x 1.8 cm. G ranulation tissue is present within the margins of each wound nonviable tissue present within the mar gins of each wound was debrided with an excisional full-thickness debridement with the use of a curet te. No purulent drainage is associated with either wound. No erythema of the skin surrounding eithe r wound is present. Maceration of the skin of the periwound of the left plantar ulceration is presen t. No significant edema of the right or left foot is present on exam today. A sample of EpiFix 3 x 4 cm was divided into 2 pieces and applied to the wound bed of each ulceration. The sheet was a samp le provided to the patient. The wounds were then dressed with Adaptic, 4 x 4s and Kerlix. Coban was also utilized as a secondary dressing. Offloading of each ulceration was provided with adhesive fel t applied in 2 layers to each ulceration. ASSESSMENT AND PLAN: 1. Ulcerations of right and left feet as described above. A sample of Epifix was applied to each ul ceration today. I will see Mr. Barrios again in 2 weeks. As stated above, the patient has complete d a course of IV antibiotics as per Dr. Gabriel Engle of Infectious Diseases. In 1 week the patient is to begin dressing changes of gauze in conjunction with the use of adhesive felt for each ulceratio n. The patient understands and is in agreement with the preceding treatment plan. 2. Diabetes mellitus. The patient's Accu-Chek in clinic today is 108. The patient has been reminde d that for optimal wound healing, his blood glucoses should remain below 150. 3. Hypertension.
== END 2018-08-31 08:18 | disposition home or self-care (01) ==
LOC: WCC 08:17
PROVIDERS: ATTEND Family Medicine
DX: E11.621 Type 2 diabetes mellitus with foot ulcer (principal); L97.529 Non-pressure chronic ulcer of other part of left foot with unspecified severity; L97.519 Non-pressure chronic ulcer of other part of right foot with unspecified severity; I10 Essential (primary) hypertension
CPT/HCPCS: 97602

== ENCOUNTER 2018-09-21 08:05 | Outpatient (CLI) | payer OTHER ==
--- NOTE | 2018-09-21 09:02 | PRG ---
DATE OF SERVICE: 09/21/2018 HISTORY: Mr. Kamran Barrios is a very pleasant 63-year-old gentleman who presents to the Wound C enter for evaluation of ulcerations of the right and left feet. The patient was last admitted to the hospital for cellulitis of the left lower extremity and ankle with abscess formation. The patient c ompleted a course of IV antibiotics as per Dr. Gabriel Engle of Infectious Diseases after undergoing PICC line placement. The patient is currently receiving treatment with EpiFix for his wounds. Mr. Yari armenta has no complaints today. He denies any fever or chills. PHYSICAL EXAMINATION: VITAL SIGNS: Temperature 97.4, pulse 57, respirations 17, blood pressure 195/91. Accu-Chek 81. EXTREMITIES: The ulceration of the plantar surface of the right foot measures approximately 2.2 x 1. 3 cm. The ulceration of the plantar surface of the left foot measures approximately 1.7 x 1.0 cm. G ranulation tissue is present within the margins of each wound. No purulent drainage is associated wi th either wound. No erythema of the skin surrounding either wound is present. No maceration of the skin of the periwound of either wound is noted. No significant edema of the right or left foot is pr esent on exam today. ASSESSMENT AND PLAN: 1. Ulcerations of right and left feet as described above. Dressing changes of Medihoney, 4x4s and C oban will be continued on a daily basis after cleansing and irrigation. Adhesive felt will be used i n conjunction with the preceding dressing changes. As stated above, the patient has completed a cour se of IV antibiotics as per Dr. Gabriel Engle of Infectious Diseases. The patient will be contacted in regard to his followup appointment. At this time, consideration will be given to the resumption o f treatment with EpiFix. 2. Diabetes mellitus. The patient's Accu-Chek in clinic today is 81. The patient has been reminded that for optimal wound healing, his blood glucoses should remain below 150. 3. Hypertension.
[2018-09-21] MEDS ORDERED: Sodium Chloride 0.9% 15 ML NEB ONE (18:00)
== END 2018-09-21 08:06 | disposition home or self-care (01) ==
LOC: WCC 08:05
PROVIDERS: ATTEND Family Medicine
DX: E11.621 Type 2 diabetes mellitus with foot ulcer (principal); L97.429 Non-pressure chronic ulcer of left heel and midfoot with unspecified severity; L97.419 Non-pressure chronic ulcer of right heel and midfoot with unspecified severity; I10 Essential (primary) hypertension
CPT/HCPCS: 97602; A4218

== ENCOUNTER 2019-01-26 09:05 | Outpatient (CLI) | payer OTHER ==
--- NOTE | 2019-01-26 09:57 | PRG ---
DATE OF SERVICE: 01/26/2019 HISTORY: Mr. Umair Barrios is a very pleasant 63-year-old gentleman, who presents to the Wound Center for evaluation of ulcerations of the right and left feet. The patient has been performing dressing changes of Medihoney for his right and left foot wounds. The patient states that he has now run out of adhesive felt for offloading of the ulcerations of the right and left feet. The patient has no other complaints today. He denies any fever or chills. PHYSICAL EXAMINATION: VITAL SIGNS: Temperature 97.7, pulse 56, respirations 18, and blood pressure 159/74. Accu-Chek 99. EXTREMITIES: The ulceration of the plantar surface of the right foot measures approximately 2.8 x 1.7 cm. The ulceration of the plantar surface of the left foot measures approximately 1.7 x 0.5 cm. Granulation tissue is present within the margins of each wound. Necrotic and nonviable tissue present within the margins of each wound was debrided with an excisional full-thickness debridement. Callus and undermining at the periphery of each wound were excised with the use of scissors. No purulent drainage is associated with either wound. ASSESSMENT AND PLAN: 1. Ulcerations of right and left feet as described above. Dressing changes of Medihoney with calcium alginate are to be performed on a daily basis after cleansing and irrigation. Adhesive felt will be utilized in conjunction with the preceding dressing changes. The patient has also been given prescriptions for Bactrim DS #20 one p.o. b.i.d. x10 days and Keflex 500 mg #30 one p.o. t.i.d. Consideration will be given to MRI of the right foot with and without contrast if the edema of the right foot and ankle fails to resolve. 2. Diabetes mellitus. The patient's Accu-Chek in clinic today is 99. The patient has been reminded that for optimal wound healing, his blood glucoses should remain below 150. 3. Hypertension. Job ID: [id number]
[2019-01-26] MEDS ORDERED: Sodium Chloride 0.9% 15 ML NEB ONE (19:45)
[2019-01-26] MEDS ORDERED: Lidocaine 2% 11 ML SYR ONE (19:45)
== END 2019-01-26 09:06 | disposition home or self-care (01) ==
LOC: WCC 09:05
PROVIDERS: ATTEND Family Medicine
DX: E11.621 Type 2 diabetes mellitus with foot ulcer (principal); L97.529 Non-pressure chronic ulcer of other part of left foot with unspecified severity; L97.519 Non-pressure chronic ulcer of other part of right foot with unspecified severity; I10 Essential (primary) hypertension
CPT/HCPCS: 11042; A4218

== ENCOUNTER 2019-07-29 18:28 | Inpatient (IN) | payer OTHER ==
[~2019-07-29 18:28] MED LIST: Heparin 1,000 UNITS/ML VIAL ONE
--- NOTE | 2019-07-29 19:30 | RAD ---
Portable frontal chest radiograph: 07/29/2019 COMPARISON: 01/18/2016 HISTORY: Altered mental status, expressive aphasia FINDINGS: Lungs are clear. Heart and mediastinal contours appear within normal limits. IMPRESSION: No acute findings.
--- NOTE | 2019-07-29 19:32 | RAD ---
3 views right foot: 07/29/2019 COMPARISON: 02/16/2018 HISTORY: Altered mental status FINDINGS: There is prominent degenerative change at the first tarsometatarsal joint. The second toe i s amputated at the level of the distal second metatarsal. There is severe erosion involving the middle and proximal phalanges of the third toe. There is prominent erosion involving the phalanges of the fifth toe. The erosive change of the third and fifth phalanges appear grossly stable. There is severe degenerative change involving the midfoot, stable as well. Stable enthesophyte formation at th e insertion of the Achilles tendon and origin of plantar aponeurosis. No acute fracture or evidence of dislocation. IMPRESSION: Extensive chronic findings as detailed above. If this study was performed for concern for infection, MRI advised.
--- NOTE | 2019-07-29 19:36 | RAD ---
3 views left foot: 07/29/2019 COMPARISON: None HISTORY: Altered mental status FINDINGS: There is a pes planus deformity. There is a plantar superficial soft tissue ulceration adam uring 3.9 cm in transverse dimension, in the mid foot/hindfoot region. There is severe midfoot degenerative change with collapse on lateral imaging, fragmentation, and increased density, suggestin g a Charcot joint. There is severe subtalar joint space narrowing. Fragmentation of the talus and tarsal bones noted. No acute fracture or evidence of dislocation. IMPRESSION: Findings suggesting a Charcot joint. Plantar ulceration as detailed above. Osteomyelitis of the midfoot/hindfoot cannot be excluded on the basis of this examination.
[2019-07-29 19:50] LABS: #Eosinphils 0.2 thou/uL (0.0-0.7); #Monocytes 0.9 thou/uL (0.11-0.59); #Neutrophils 4.2 thou/uL (1.40-6.50); %Basophils 0.1 % (0.0-1.0); %Eosinophils 2.7 % (0.0-10.0); %Lymphocytes 15.8 % (21.0-51.0); %Monocytes 14.4 % (0.0-10.0); %Neutrophils 67.1 % (42.0-75.0); Hemoglobin 13.3 g/dL (14.0-18.0); Mean Corpuscular HGB CONC 34.2 g/dL (32.0-36.0); Mean Corpuscular Hemoglobin 29.7 pg (27.0-31.0); Mean Corpuscular Volume 86.8 fL (78.0-98.0); Mean Platelet Volume 7.5 fL (7.4-10.4); Platelet Count 170 thou/uL (130-400); RBC Distribution Width 13.7 % (11.5-14.5); Red Blood Cell (RBC) Count 4.48 mill/uL (4.70-6.10); White Blood Cell (WBC) Count 6.2 thou/uL (4.8-10.8)
[2019-07-29 19:55] LABS: INR-International Normal Ratio 1.3; PTT 36.9 SEC (22.9-36.1); Prothrombin Time 15.9 SEC (12.0-14.7)
[2019-07-29 20:28] LABS: AST (SGOT) 15 U/L (5-34); Albumin 4.2 g/dL (3.4-4.8); Anion Gap 13 mmol/L (10-20); Bilirubin, Total 1.7 mg/dL (0.2-1.2); Calc. Creatinine Clearance 0 mL/min (70-130); Calcium 9.1 mg/dL (7.8-10.44); Carbon Dioxide 26 mmol/L (23-31); Chloride 99 mmol/L (98-107); Estimated GFR-MDRD 47; Globulin 3.5 g/dL (2.4-3.5); Glucose 243 mg/dL (80-115); Potassium 5.3 mmol/L (3.5-5.1); Protein, Total 7.7 g/dL (5.8-8.1); Sodium 133 mmol/L (136-145)
[2019-07-29 20:36] LABS: Alkaline Phosphatase 80 U/L (40-150)
[2019-07-29 20:37] LABS: BUN (Urea Nitrogen) 21 mg/dL (8.4-25.7)
[2019-07-29 20:39] LABS: ALT (SGPT) 11 U/L (8-55)
--- NOTE | 2019-07-29 20:39 | CT ---
Head CT without contrast 07/29/2019: HISTORY: Aphasia, lethargy TECHNIQUE: Axial CT imaging at 5 mm intervals from vertex through skull base without contrast FINDINGS: There is polypoid mucosal thickening within bilateral maxillary sinuses. There is no displa mitra calvarial fracture. No intracranial hemorrhage, midline shift, mass effect, or ventricular enlargement. There is atherosclerotic calcification of the distal vertebral arteries and the cavernou s carotid arteries. IMPRESSION: No intracranial hemorrhage.
[2019-07-29] MEDS ORDERED: cefTRIAXone\\ROCEPHIN 2 GM VIAL ONE (21:06)
[2019-07-29] MEDS ORDERED: Lorazepam 2 MG/ML VIAL ONE (23:16)
[2019-07-29] MEDS ORDERED: Lorazepam 2 MG/ML VIAL SLOW IVP PRN (23:42)
[2019-07-29] MEDS ORDERED: HumaLOG 300 UNITS/3 ML VIAL SC PRN (23:43)
[2019-07-29] MEDS ORDERED: Dextrose 5% in Water 1,000 ML IV PRN (23:43)
[2019-07-29] MEDS ORDERED: Dextrose 50% Abboject 50 ML SYRINGE IVP PRN (23:43)
[2019-07-30 01:08] LABS: Actual Bicarbonate (HCO3a) 25.5 mEq/L (22-28); Calcium, Ionized 1.23 mmol/L (1.12-1.30); Carboxyhemoglobin (COHb) 1.6 gm% (0.0-3.0); Hemoglobin (Hb) 14.8 g/dL (14.0-18.0); O2 Tension (PaO2) 82.1 mmHg (> 80.0)
[2019-07-30 01:09] LABS: CO2 Tension 66.6 mmHg (35.0-45.0); Puncture Site RBRACHIAL
[2019-07-30] MEDS ORDERED: Propofol 1,000 MG/100 ML VIAL IV ONE (01:44)
[2019-07-30] MEDS ORDERED: Dextrose 5% in Water 1,000 ML IV PRN (03:08)
[2019-07-30] MEDS ORDERED: Dextrose 50% Abboject 50 ML SYRINGE IVP PRN (03:08)
[2019-07-30] MEDS ORDERED: DISCONTINUE PREVIOUS NARCOTIC PAIN MEDICATIONS AND BENZODIAZEPINES FS SCH (03:10)
[2019-07-30] MEDS ORDERED: Morphine 2 MG/ML SYRINGE SLOW IVP PRN (03:10)
[2019-07-30] MEDS ORDERED: Fentanyl BOLUS 250 ML IVPB PRN (03:10)
[2019-07-30] MEDS ORDERED: Propofol BOLUS 1,000 MG/100 ML VIAL IV PRN (03:10)
[2019-07-30] MEDS ORDERED: Sodium Chloride 0.45% 1,000 ML IV SCH (03:15)
[2019-07-30] MEDS: Lorazepam 2 MG/ML VIAL SLOW IVP PRN (03:19)
[2019-07-30 04:57] LABS: ALT (SGPT) 10 U/L (8-55); AST (SGOT) 16 U/L (5-34); Albumin 3.7 g/dL (3.4-4.8); Alkaline Phosphatase 78 U/L (40-150); Anion Gap 16 mmol/L (10-20); BUN (Urea Nitrogen) 21 mg/dL (8.4-25.7); Bilirubin, Total 1.8 mg/dL (0.2-1.2); Calc. Creatinine Clearance 89 mL/min (70-130); Calcium 8.9 mg/dL (7.8-10.44); Carbon Dioxide 21 mmol/L (23-31); Chloride 101 mmol/L (98-107); Estimated GFR-MDRD 57; Glucose 301 mg/dL (80-115); Potassium 5.5 mmol/L (3.5-5.1); Protein, Total 7.7 g/dL (5.8-8.1); Sodium 132 mmol/L (136-145)
[2019-07-30 04:57] LABS: Bacteria/HPF None Seen HPF (None Seen); Bilirubin 1+ (Negative); Blood, Urine 1+ (Negative); Clarity Clear (Clear); Glucose, Urine (Dipstick) 300 mg/dL (Negative); Leukocyte Negative Leu/uL (Negative); Nitrite Negative (Negative); Protein, Urine (Dipstick) 70 mg/dL (Neg-Trace); Squamous Epithelial 0-3 HPF (0-3); Urobilinogen 3 mg/dL (Less than 2); WBC/HPF 0-3 HPF (0-3)
[2019-07-30 04:58] LABS: Urine Culture Reflex No No
[2019-07-30] MEDS: HumaLOG 300 UNITS/3 ML VIAL SC PRN ×4 (05:10→22:17)
[2019-07-30 07:27] LABS: #Basophils 0.1 thou/uL (0.0-0.2); #Eosinphils 0.1 thou/uL (0.0-0.7); #Lymphocytes 0.8 thou/uL (1.20-3.40); #Monocytes 0.6 thou/uL (0.11-0.59); #Neutrophils 9.6 thou/uL (1.40-6.50); %Basophils 0.7 % (0.0-1.0); %Eosinophils 0.5 % (0.0-10.0); %Lymphocytes 7.1 % (21.0-51.0); %Monocytes 5.7 % (0.0-10.0); Hemoglobin 15.1 g/dL (14.0-18.0); Mean Corpuscular Hemoglobin 28.9 pg (27.0-31.0); Mean Corpuscular Volume 87.7 fL (78.0-98.0); Mean Platelet Volume 7.9 fL (7.4-10.4); Platelet Count 196 thou/uL (130-400); Red Blood Cell (RBC) Count 5.21 mill/uL (4.70-6.10); White Blood Cell (WBC) Count 11.2 thou/uL (4.8-10.8)
--- NOTE | 2019-07-30 07:51 | RAD ---
EXAM: XR Chest 1 View Portable PROVIDED CLINICAL HISTORY: Respiratory insufficiency COMPARISON: 07/30/2019 1:03 AM FINDINGS: Cardiac and mediastinal silhouettes is unchanged in appearance. Pulmonary vascular congestion and per ihilar airspace disease is redemonstrated. Left pleural fluid is now visualized. Endotracheal tube is seen with tip at the region of the thoracic inlet. Enteric catheter has been placed, tip of which overlies the left upper quadrant. IMPRESSION: Pulmonary vascular congestion and bilateral perihilar airspace disease may reflect pulmonary edema. I nfectious etiologies are also possible. Follow-up is recommended. Left pleural fluid.
--- NOTE | 2019-07-30 08:02 | RAD ---
EXAM: XR Abdomen 1 View/KUB PROVIDED CLINICAL HISTORY: Respiratory insufficiency COMPARISON: None FINDINGS: Enteric catheter is noted, tip of which overlies the left upper quadrant. Please see concurrently per formed chest radiograph for chest findings. IMPRESSION: As above.
[2019-07-30 08:07] LABS: Actual Bicarbonate (HCO3a) 20.4 mEq/L (22-28); Base Excess (BEa) -3.3 mEq/L (-2.0 to +3.0); CO2 Tension 32.9 mmHg (35.0-45.0); Calcium, Ionized 1.14 mmol/L (1.12-1.30); Carboxyhemoglobin (COHb) 1.4 gm% (0.0-3.0); Hemoglobin (Hb) 14.6 g/dL (14.0-18.0); O2 Tension (PaO2) 72.3 mmHg (> 80.0); Potassium - ABG Lab 4.71 mmol/L (3.70-5.30); pH, Arterial 7.41 (7.35-7.45)
[2019-07-30 08:09] LABS: ALV-art Gradient 456.975 (0-20); Puncture Site RRA
--- NOTE | 2019-07-30 08:16 | RAD ---
EXAM: XR Chest 1 View Portable PROVIDED CLINICAL HISTORY: Respiratory insufficiency COMPARISON: 07/29/2019 FINDINGS: Cardiac and mediastinal silhouette is within normal limits. Interval placement of endotracheal tube, with tip projecting in the region of the bishnu. Development of bilateral predominantly perihilar airspace disease suggesting pulmonary edema. Prominence of the pulmonary vasculature. The supine natu re of the examination is not sensitive for detection of pleural fluid or pneumothorax. IMPRESSION: 1. Interval intubation. 2. Development of bilateral airspace disease.
[2019-07-30] MEDS: Sodium Chloride 0.9% 1,000 ML IV SCH ×2 (08:58→20:37)
[2019-07-30] MEDS ORDERED: Cefepime 1 GM in Sodium Chloride 0.9% 100 ML IVPB SCH (09:00)
[2019-07-30] MEDS: Acetaminophen 650 MG/20.3 ML UDCUP PER TUBE PRN ×3 (09:02→22:34)
[2019-07-30] MEDS: Dexamethasone 4 MG in Sodium Chloride 0.9% 50 ML IVPB SCH ×2 (09:12→20:42)
--- NOTE | 2019-07-30 09:26 | CON ---
DATE OF CONSULTATION: HISTORY OF PRESENT ILLNESS: This is a 63-year-old gentleman. History is obtained talking to his attending physician as well as reviewing his code his has left. He had a Code Green called in while he was on the stroke unit with aphasia, seizure disorders, hyperglycemia, and diabetic foot. He was transferred to the ICU, not tolerating his BiPAP, and he was found to be respiratory acidosis with a pO2 of 82, pCO2 is 66 . He is intubated. He remains tachypneic and tachycardic in the ICU. He is on low-dose Diprivan and sedation. PAST MEDICAL HISTORY: Previous extensive history outlined. 1. Uncontrolled diabetes. 2. History of previous renal failure requiring dialysis. 3. Chronic infected feet. 4. Diabetic neuropathy. 5. Hyperlipidemia. 6. High cholesterol. 7. Hypertension. 8. Atrial fibrillation. PAST SURGICAL HISTORY: Previous surgeries outlined before, access surgery on his feet. HOME MEDICATIONS: 1. Eliquis 5 mg. 2. Keflex. 3. Protonix. 4. Crestor. 5. Multaq 40 twice a day. 6. Coreg 12.5 b.i.d. 7. Vistaril. 8. Insulin. ALLERGIES: NONE. HABITS: Tobacco are unknown. Minimal alcohol. REVIEW OF SYSTEMS: Otherwise unobtainable. Intubated on the vent. PHYSICAL EXAMINATION: VITAL SIGNS: He is breathing 35, pulse 100, blood pressure 100/70. His temperature this morning was elevated at 103.5. He has gangrenous diabetic feet. CHEST: Bilateral rhonchi and crackles. CARDIAC: Sinus tach. ABDOMEN: Soft. HEENT: Pupils are equal. He is encephalopathic. LABORATORY DATA: White count is 11,000, H and H are 15 and 45, platelet count is 196. PO2 is 72, pCO2 is 30% 5 of PEEP. Sodium 132, glucose 301. IMPRESSION: 1. Metabolic encephalopathy. 2. Seizure disorder. 3. Diabetes. 4. Azotemia. 5. History of atrial fibrillation. PLAN: He was started on broad-spectrum antibiotics. He probably needs a lumbar puncture. Neurology Infectious Disease will be consulted. X-ray showed bilateral infiltrates. He is not weanable at this stage. We will start nutrition later. Supportive care will be discussed with family as they arrive. This is a 45-minute critical care time. Job ID: [id number]
[2019-07-30] MEDS ORDERED: Rocuronium Bromide 10 MG/ML (10ML VIAL) IVP SCH (10:15)
--- NOTE | 2019-07-30 10:41 | CON ---
DATE OF CONSULTATION: 07/30/2019 CONSULTING PHYSICIAN: Hospitalist Services. IMPRESSION: Encephalopathy with seizures and fevers with a normal white blood cell count, therefore I would be most suspicious of a viral encephalitis. PLAN: 1. Acyclovir 10 mg/kg q.8 hours. Continue Keppra 750 mg q.12. 2. Lumbar puncture. HISTORY OF PRESENT ILLNESS: Mr. Barrios is a 63-year-old male with a past history of diabetes, transient renal failure, chronic wounds on his feet, who presented to the emergency room with some vague generalized weakness. He was able to follow commands in the emergency room, but appeared to be generally weak. He had a CT of the brain done, which was unremarkable. He was admitted to the Stroke Unit for observation. He was witnessed to have a generalized tonic-clonic seizure. He was subsequently intubated and transferred to the ICU. He has not had any further seizure activity. Spiked a temperature of 103. Repeat CBC showed continued normal white count. His sedation has been removed and the patient is failing to regain consciousness. PAST MEDICAL HISTORY: Otherwise unremarkable other than prior history of sepsis. ALLERGIES: SEAFOOD. SOCIAL HISTORY: Unknown. FAMILY HISTORY: Unknown. REVIEW OF SYSTEMS: Not obtainable. PHYSICAL EXAMINATION: GENERAL: He is 105 kg middle-aged man, lying in bed quietly on ventilatory support. VITAL SIGNS: Blood pressure 124/70, pulse 95, respirations 36, and saturations 97%. HEENT: Pupils are equal and reactive. Conjunctivae are clear. Doll's head maneuver produces conjugate movement. He is orally intubated. NECK: Supple. No lymphadenopathy. EXTREMITIES: Wounds on his feet. Some mild edema. NEUROLOGIC: Showed him to be deeply lethargic. He had minimal response to truncal pain. Tone appears symmetric. No abnormal movements are seen. LABORATORY DATA: Chest x-ray, there is some suggestive of bilateral pulmonary edema. Abdominal x-ray is unremarkable. Feeding tube is in place. SUMMARY: This is a middle-aged man, who became acutely ill with these ongoing issues. Herpetic encephalitis would be the most common pathogen present in this fashion, other mosquito borne encephalitis are possible, but fairly uncommon in this area. A bacterial etiology seems much less likely given the lack of white count elevation. I agree with broad-spectrum antibiotics until we have more information following his care. Job ID: [id number]
--- NOTE | 2019-07-30 12:38 | RAD ---
EXAM: XR Lumbar Punct Only W/Fluoro PROVIDED CLINICAL HISTORY: Encephalopathy. Patient is intubated. COMPARISON: None TECHNIQUE: Patient was placed on the fluoroscopy table in the supine position. An area overlying the L2-3 level was marked and then meticulously prepped and draped in usual sterile fashion. Skin and subcutaneous tissues were infiltrated with buffered 1% lidocaine for local anesthesia. A 22-gauge spinal needle wa s advanced into the thecal sac. The inner stylette was removed with a return of clear cerebrospinal fluid. Opening pressure was obtained. Approximately 7 mL of clear cerebral spinal fluid was collected . The inner stylette was replaced, and the needle was removed. Hemostasis was achieved with direct pressure, and a dry sterile dressing was placed. Patient tolerated the procedure well and without imm ediate complication. Fluoroscopy: Time-0.2 minutes Dose-59 microGy meter squared IMPRESSION: 1. Technically successful lumbar puncture with puncture at the L2-3 level. Approximately 7 mL of nara r cerebral spinal fluid was collected. 2. An opening pressure of 12.5 cm of water was obtained.
--- NOTE | 2019-07-30 12:48 | MRI ---
EXAM: MRI Brain WO Con PROVIDED CLINICAL HISTORY: Altered mental status COMPARISON: CT brain 07/29/2019 FINDINGS: The ventricular system appears normal in size and morphology. There is no evidence for intracranial h emorrhage or mass effect. There are small scattered foci of cortical restricted diffusion involving each occipital region compatible with recent infarctions. No additional significant intracranial sign al abnormality is evident. Appropriate flow voids are seen within the major intracranial vessels. The extracranial soft tissues and calvarial marrow signal appear normal. 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
[2019-07-30] MEDS: Acyclovir Sodium 1,000 MG in Sodium Chloride 0.9% 100 ML IVPB SCH ×2 (14:08→20:39)
[2019-07-30] MEDS: Propofol 1,000 MG/100 ML VIAL IV PRN ×2 (14:12→23:50)
[2019-07-30 14:15] LABS: CSF Source CSF; Clarity Clear (Clear)
[2019-07-30 14:16] LABS: Tube # 4
[2019-07-30 14:42] LABS: Color Of CSF Supernatant COLORLESS (Colorless); Tube # 1; Unspun CSF Color COLORLESS (Colorless)
[2019-07-30 14:57] LABS: CSF, Glucose 125 mg/dl (40-70); CSF, Protein 78 mg/dL (15-40)
--- NOTE | 2019-07-30 15:26 | PRG ---
DATE OF SERVICE: 07/30/2019 SUBJECTIVE: Admitted yesterday, intubated early this morning. Today, he is a lot more calm. He underwent an MRI earlier this morning of his brain and they see no acute findings. Small scattered foci of cortical restricted diffusion in the occipital region compatible with a recent infarct with no major small infarcts in the occipital region. He had a lumbar puncture which showed opening pressure of 12.5, but no obvious infection. Results from sending to the lab were pending. Dr. Mcgee came by from Neurology, so he is suspicious of viral encephalitis process. He started him on acyclovir. He had fever reaching 103, early this morning, late last night. Currently, heart rate is in the 90s. Blood pressure is 120s/60s. Blood cultures were negative. They had a flu test done, which is negative. His cultures of his wounds in his feet are showing some gram-negative rods, and Levaquin has been started. OBJECTIVE: GENERAL: He remains intubated and obtunded. LUNGS: Show bibasilar rales at this point. HEART: S1, S2. No rubs, murmurs, or gallops. ABDOMEN: Soft, nontender, nondistended. NG tube with bilious effluent. : Bradley is in place with dark colored urine. Dr. Engle is being consulted to see him from ID and the surgeon who came by to see him today does not do feet, so we will need to have a different surgeon come by to see what they can do for his feet. Dr. Guan saw him more than a year ago at the last time for his foot issues, so the one have to be Dr. Guan tomorrow. Job ID: [id number]
[2019-07-30 18:38] LABS: Cell Count Non Hematic 22 %; Lymphocytes 78 %
[2019-07-30] MEDS: Cefepime 2 GM in Sodium Chloride 0.9% 100 ML IVPB SCH (20:37)
[2019-07-31] MEDS: Acetaminophen 650 MG/20.3 ML UDCUP PER TUBE PRN (05:00)
[2019-07-31 05:25] LABS: ALT (SGPT) 8 U/L (8-55); AST (SGOT) 21 U/L (5-34); Alkaline Phosphatase 52 U/L (40-150); Anion Gap 13 mmol/L (10-20); BUN (Urea Nitrogen) 26 mg/dL (8.4-25.7); Bilirubin, Total 1.6 mg/dL (0.2-1.2); Calc. Creatinine Clearance 79 mL/min (70-130); Calcium 8.3 mg/dL (7.8-10.44); Carbon Dioxide 21 mmol/L (23-31); Chloride 101 mmol/L (98-107); Estimated GFR-MDRD 50; Globulin 3.8 g/dL (2.4-3.5); Glucose 401 mg/dL (80-115); Potassium 5.1 mmol/L (3.5-5.1); Protein, Total 6.8 g/dL (5.8-8.1); Sodium 130 mmol/L (136-145)
[2019-07-31 05:26] LABS: #Lymphocytes 0.6 thou/uL (1.20-3.40); #Monocytes 0.7 thou/uL (0.11-0.59); #Neutrophils 6.8 thou/uL (1.40-6.50); %Basophils 0.2 % (0.0-1.0); %Eosinophils 0.1 % (0.0-10.0); %Lymphocytes 7.7 % (21.0-51.0); Mean Corpuscular HGB CONC 33.6 g/dL (32.0-36.0); Mean Corpuscular Hemoglobin 28.8 pg (27.0-31.0); Mean Corpuscular Volume 85.9 fL (78.0-98.0); Mean Platelet Volume 7.9 fL (7.4-10.4); Platelet Count 147 thou/uL (130-400); RBC Distribution Width 13.7 % (11.5-14.5); Red Blood Cell (RBC) Count 4.17 mill/uL (4.70-6.10); White Blood Cell (WBC) Count 8.2 thou/uL (4.8-10.8)
[2019-07-31] MEDS: Sodium Chloride 0.9% 1,000 ML IV SCH ×2 (05:45→17:50)
[2019-07-31] MEDS: Acyclovir Sodium 1,000 MG in Sodium Chloride 0.9% 100 ML IVPB SCH (05:45)
[2019-07-31] MEDS: Propofol 1,000 MG/100 ML VIAL IV PRN ×2 (05:46→17:50)
[2019-07-31] MEDS: HumaLOG 300 UNITS/3 ML VIAL SC PRN ×2 (05:47→11:27)
[2019-07-31 07:07] LABS: Actual Bicarbonate (HCO3a) 20.5 mEq/L (22-28); Base Excess (BEa) -2.5 mEq/L (-2.0 to +3.0); CO2 Tension 29.8 mmHg (35.0-45.0); Calcium, Ionized 1.13 mmol/L (1.12-1.30); Carboxyhemoglobin (COHb) 0.7 gm% (0.0-3.0); Hemoglobin (Hb) 10.8 g/dL (14.0-18.0); O2 Tension (PaO2) 81.6 mmHg (> 80.0); Potassium - ABG Lab 4.52 mmol/L (3.70-5.30); pH, Arterial 7.46 (7.35-7.45)
[2019-07-31 07:13] LABS: Puncture Site RRA
--- NOTE | 2019-07-31 07:38 | RAD ---
CHEST 1 VIEW: INDICATION: Intubation. COMPARISON: Prior exam dated 07/30/2019. FINDINGS: ET tube and gastric catheter are unchanged. Bibasilar opacities persist. Small bilateral pleural ef fusions remain. No hemithorax is evident. Pulmonary vascular congestion is similar-appearing. IMPRESSION: Stable exam. POS: BH
--- NOTE | 2019-07-31 07:45 | HP ---
HISTORY OF PRESENT ILLNESS: Mr. Barrios is a 63-year-old male patient of Dr. Jose Cardoza. Earlier today, the had contacted me, paged me that Mr. Barrios was acting a little strange and she was not sure why. No fever. When I asked her to check his sugar, she was concerned that his sugars were too low, but had not checked his sugars, so I told her to check his sugars and if his sugars were fine, by the strange way he was acting, I told her to go to the emergency room. His sugars turned out to be above 200, so she came into the emergency room. In there, he was having some difficulty breathing, but was still reactive and responsive and talking and asking for help. He was put on a CPAP and was still having air hunger signs, saturating in the 70s to 80s. He eventually was improving and was sent to the floor. They were concerned that he had a possible stroke because he was slurring words and was having difficulty moving with purposeful movement, so he was sent to the stroke unit. While he was on the stroke unit, he had a seizure, witnessed tonoclonic seizure and then later after that, he had a focal, just an arm movement type seizure and he had been started on a low dose of Keppra IV as well as during the seizure, was given some Ativan started 0.5 and a maximum of 2 mg was given and after that, he had a third seizure, but it was an absence type seizure and was transferred to the CCU. While on the CCU, he would continue to have more air hunger issues, moving arms and extremities, but in more of a worrisome athetoid almost, movement pattern, obviously uncomfortable, but eyes were closed, he was not responsive, he was not trying to talk. When I would tell him that we were trying to get an EKG and asked him to be calm, it seemed like he was responding to that, but not verifiable. With BiPAP, he was still struggling to breathe, so the decision was made with his BP being 200/100 and with his air hunger issues, we went ahead and intubated him. Anesthesia was called and intubation was carried out. After that, an NG tube was placed. Dr. Farrell was aware of the admission. I did discuss the case with him with decision to intubate Mr. Barrios. PAST MEDICAL HISTORY: Positive for type 2 diabetes, peripheral vascular disease, hypertension, and hyperlipidemia. His states that he has had a heart condition. She is not sure of exactly what the heart condition is, so I am looking into the computer past history. Currently the patient is obtunded, sedated, and intubated. So in his past medical history in addition to diabetes, he also has a diabetic neuropathy. Also, he has had a history of acute renal failure where he had to be on dialysis for a short period of time, it was related to a serious infection. states he spent many months here in the ICU back in 2014 or 2013 due to the infection. In June of last year, he had been admitted to the hospital for another infection and cellulitis of his ankle from an abscess of his ankle. PAST SURGICAL HISTORY: He has had an amputation on his right second toe in the past, placement of dialysis catheters. He has had a partial amputation and debridement of his foot by Dr. Jacinto in the past. ALLERGIES: HE HAS NO KNOWN DRUG ALLERGIES. HE HAS SOME ALLERGY TO SEAFOOD, WHICH IS UNCONFIRMED. MEDICATIONS: He is on; 1. Lantus, takes 60 units subcu at bedtime. 2. He is on amlodipine 10 mg a day. 3. Carvedilol 12.5 mg a day. 4. Multaq 400 mg a day. 5. Pantoprazole 40 mg a day. 6. He uses a Humalog sliding scale per mealtime insulin. FAMILY HISTORY: Noncontributory. REVIEW OF SYSTEMS: He is obtunded and intubated. PHYSICAL EXAMINATION: VITAL SIGNS: His heart rate is 92, BP is currently 140s/90s, SpO2 is at 89 up to 92. GENERAL: He is intubated. LUNGS: Essentially clear to auscultation bilaterally. HEART: S1, S2. Slightly tachycardic at 100 to 105 with a sinus rhythm. ABDOMEN: Soft, nontender, nondistended. Bowel sounds are hypoactive. GENITOURINARY: Unremarkable. He has a Bradley that has been placed. He also has an NG tube that was placed and there was no blood in the effluent and there is no hematuria in the urine bag, although, the urine is slightly darker. EXTREMITIES: Good palpable pulses in all 4 extremities. Both ankles are rather swollen and edematous. He has bandages with wounds on both feet, diabetic wounds, venous insufficiency type wounds. NEUROLOGIC: As stated, he is obtunded, but DTRs are 1+ and equal. LABORATORY DATA: White count 6.2, hemoglobin 13, hematocrit 38.8, neutrophils 67%, lymphocytes at 15.8%, monocytes 14.4%, platelets 170,000. Coags show an INR of 1.3. Blood gas came back with a pH of 7.2, pCO2 of 66, and a PO2 of 82. This was what led to the decision to go ahead and intubate and this was while he was on BiPAP. Chemistry shows sodium of 133, potassium of 5.3, chloride 99, bicarb 26, BUN is 21, creatinine is 1.5. His AST is 15, ALT is 11. Troponins undetectable. C-reactive protein is 8.27. He had a brain CT done in the ER, which showed no intracranial hemorrhage, showed no mass, no midline shift and he had a plain foot x-ray done, which did not show any obvious osteo. ADMISSION DIAGNOSIS: So the admit diagnosis right now is respiratory distress. He has been intubated. Dr. Farrell will follow and manage the vent. He had a new onset seizure. I am not sure what the etiology behind that is. I will be treating the wounds as well. Dr. Cardoza will assume care here on Wednesday. Job ID: [id number]
--- NOTE | 2019-07-31 08:19 | CON ---
DATE OF CONSULTATION: 07/30/2019 REASON FOR CONSULTATION: Possible encephalitis. HISTORY OF PRESENT ILLNESS: A 63-year-old known to me from multiple prior visits for feet complications from diabetes mellitus and neuropathy with multiple recurring infections in right and left feet. I last saw him on June 27, 2018, when he presented with the right foot inflammatory process and he had previous episodes of MSSA bacteremia and had required hemodialysis with numerous complications, then recovery of renal function. I have not seen him since the last year and then, he presented because of new onset of expressive aphasia and lethargy for about 2 days before admission as well as bilateral foot wounds, which were chronic. The exam was, the patient is oriented to self only. The patient has had slurred speech with expressive aphasia. Initial laboratory data; white cell count is 6.2, hemoglobin 13, platelets 170 with 67% neutrophils and 50% lymphocytes. Sodium 132, creatinine 1.28, and bilirubin 1.8. Transaminases and alkaline phosphatase, normal. Albumin 3.7. Urinalysis with [address] of the head did not show any abnormalities. Abdomen x-ray with an intake catheter in the left upper quadrant and chest x-ray with pulmonary vascular congestion, perihilar airspace disease, and pulmonary edema. In the stroke unit, he developed seizure activity and had to be intubated. He was hypoxemic with hypercapnia probably related to the seizure activity. Currently , he is intubated orotracheally and has a peripheral IV access. He is not able to provide any in review of systems. According to the nurse, he does not had any diarrhea. No aspiration noted previously. PAST MEDICAL HISTORY: Includes type 2 diabetes mellitus, multiple right and left feet complications associated with neuropathy, infections, bacteremia, and partial amputations. He has had atrial fibrillation, hypertension, and renal failure transient, which recovered. ALLERGIES: NONE. SOCIAL HISTORY: Never smoker. 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 CURRENT MEDICATIONS: 1. Acyclovir. 2. Albuterol. 3. Cefepime. 4. Decadron.. 6. Keppra. 7. Levofloxacin. PHYSICAL EXAMINATION: VITAL SIGNS: T-max 102.5 recently, blood pressure 117/66, heart rate 92, and O2 saturation 100. SKIN: He has the wounds in the first MCP on the right side, which appears shallow without inflammatory changes noted and he has a wound, which appears deeply inflammatory changes around the left mid foot region lateral aspect with two sites, which appeared to communicate with each other as they are long wounds about 1 cm. There is obvious drainage of purulent exudate when pressured over the soft tissues around those wounds suggesting a deeper involvement. The area of involvement and possible abscess formation. He has a peripheral IV access in the right upper extremity and a Bradley catheter. No tracheal intubation. HEENT: Pupils are about 2 mm and reactive. Could not track his eye movements since he is sedated. LUNGS: Symmetric clear breath sounds. HEART: S1 and S2. Regular rate with diminished heart sounds. ABDOMEN: Flat, soft, and does not seem distended. No bowel sounds. GENITAL: Normal. EXTREMITIES: Pulses 1+ in popliteal and dorsalis pedis. No edema. Could not test his motion in the extremitie. LABORATORY DATA: The urinalysis was normal except for some bilirubin and protein. The total nucleated cells in the CSF were 5, rbc's 10, glucose 125, and protein 78. Creatinine 1.28, sodium 132, potassium 5.5, bilirubin 0.8, and globulin 4.0. White cell count is up from 6.2 to 11.2, hemoglobin of 15, and platelets 196. Microbiology, we have a gram-negative allie, alpha hemolytic strep from the foot wound on the left and right side. ASSESSMENT: 1. Type 2 diabetes with various feet complications in the past. 2. New onset of expressive aphasia, which was culminating in seizure activity while in the hospital, which led to intubation. The patient is sedated at this time and has had an MRI, which showed cortical infarcts of recent onset. The CSF evaluation did not have yet a count of wbc's, only five nucleated cells since probably the wbc count is going to be low. The protein was moderately elevated at 78, and glucose is elevated. DISCUSSION: The differential diagnosis includes seizure activity associated with a subacute infarct in the territory of the posterior cerebral arteries which are supplied by the basilar artery. Those types of CVA are associated with a variety of clinical presentations including visual changes and other abnormalities related to subcortical area dysfunction. The CSF findings were not very remarkable. I believe we need to order an EEG to make sure he is not having active seizure activity without muscle contractions. He does have abnormal findings in the left foot with likely deep space inflammatory changes and we will need surgical consultation. I believe that the imaging study eventually should be carried out when and if he stabilizes. Bacteremia is a possibility. Endocarditis is less likely, respiratory tract, intraabdominal inflammatory processes not apparent. Viral encephalitis has been considered although the MRI findings were not consistent with that diagnosis though, but we will have to wait until the final results of the CSF studies before stop the acyclovir. Job ID: [id number] MTDD
[2019-07-31] MEDS: methylPREDNISolone Sod Succ 40 MG VIAL IVP SCH ×2 (08:42→20:26)
[2019-07-31] MEDS ORDERED: Dexamethasone 4 mg/ml Vial SLOW IVP SCH (09:00)
[2019-07-31] MEDS: Enoxaparin Sodium 40 MG/0.4 ML SYRINGE SC SCH (09:06)
[2019-07-31] MEDS: Famotidine/PF 20 mg/2ml Vial SLOW IVP SCH ×2 (09:06→20:25)
[2019-07-31] MEDS: Insulin Glargine 20 UNITS in Pre-Filled Syringe 1 EACH SC SCH ×2 (09:23→20:26)
[2019-07-31] MEDS: Cefepime 2 GM in Sodium Chloride 0.9% 100 ML IVPB SCH ×2 (09:25→20:25)
--- NOTE | 2019-07-31 09:37 | PRG ---
DATE OF SERVICE: 07/31/2019 SUBJECTIVE: Remains intubated in the vent, sedated. OBJECTIVE: VITAL SIGNS: His blood pressure is 110/67, pulse 80, saturation 97%, respiratory rate 23. His I's and O's have been 1467 in, 143 out. CHEST: Bilateral rhonchi and crackles. CARDIAC: Normal S1 and S2. No gallops. ABDOMEN: No mass. LABORATORY DATA: White count 8000, H and H 12 and 36, platelet count 147. PO2 is 81, pCO2 is 29, pH 7.46 IMAGING STUDIES: Chest x-ray without infiltrates. LABORATORY DATA: Creatinine 1.4, sodium 130. Bilirubin 1.6. Glucose 297. CSF is so far negative. His wound is growing E. coli. IMPRESSION: 1. Respiratory failure. 2. Seizure disorder. Emergency MRI of the brain shows evidence of scattered foci of recent cortical infarct in both posterior occipital lobes. 3. Renal failure. 4. Hyponatremia. 5. Aspiration pneumonia. 6. Encephalopathy. PLAN: At this stage, we will continue nutrition, PT supportive care, broad-spectrum antibiotics. Discussed with his at length. This is a half an hour critical time. Prognosis is guarded. Job ID: [id number]
--- NOTE | 2019-07-31 12:23 | CON ---
DATE OF CONSULTATION: HISTORY OF PRESENT ILLNESS: Umair Barrios is a 64-year-old male patient admitted to the hospital 07/29/2019. He is on the ventilator. He has been seen by Pulmonary and Critical Care, admitted by Dr. Zia Qureshi, seen by Dr. Jarett Mcgee, Neurology; Dr. Engle, Infectious Disease; and Dr. Farrell, Critical Care. The patient apparently was admitted on 07/30/2019, at 1 o'clock in the morning by Dr. Qureshi. The patient was admitted for hypoglycemia, fevers, respiratory failure, and confusion. They were concerned that he had a stroke. He had his seizures activity soon after admission from the emergency room and transferred to the ICU, and Dr. Farrell intubated him. This MRI scan brain revealed scattered small foci recent cortical infarct involving both occipital regions. He has had problem with neuropathic ulcers of his feet. He has had a painful left foot proximal lateral ulceration that has been treated with wound care. He has received prolonged intravenous antibiotics. For this, he has had a graft placed. Despite this, he has progressive purulent drainage and infectious changes in his foot with redness and induration of his plantar arch and laterally wound that tracks laterally 3 cm toward the ankle laterally. Plain x-rays of their foot reveal Charcot joint changes, but no clear indications of osteomyelitis. The patient has had previous amputation of his right second toe. He has had a chronic neuropathic ulcer, plantar left great toe beneath his metatarsophalangeal joint. The toe was very edematous with soft tissue swelling. On probing the wound, it extends to the bone and into the metatarsophalangeal joint area. He has had cultures of his left and right foot, both growing E coli and alpha hemolytic strep on the right foot, Pseudomonas. Blood cultures have been negative today. He continues to have fevers to 102 degrees, even had 102 degree fever today despite being on aggressive intravenous antibiotics overseen by Dr. Engle. He has a history of requiring dialysis, seen by Dr. Mike, and a temporary hemodialysis catheter was placed by Dr. Mike in November 2014. He was able to come off dialysis. His white count is 8, hemoglobin 12. BUN 26, creatinine 1.44, GFR 50. In June 2018, the patient had a PICC line placed by Radiology. Of note, he had a left upper extremity PICC line in June 2014. He had a PICC line left placed in October 2015. He had a PICC line placed in March 2018, left upper extremity. He had a PICC line placed in his left upper extremity on 07/05/2018. The patient has chronic kidney disease and should not have anymore PICC lines. Dr. 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 He felt that he had the cortical infarcts seen on the MRI discussed. The patient remains on the ventilator. ALLERGIES: SEAFOOD. SOCIAL HISTORY: Tobacco and alcohol, none. HOME MEDICATIONS: 1. Keflex. 2. Eliquis. 3. Pregabalin. 4. Protonix. 5. Crestor. 6. Multaq. 7. Carvedilol. 8. Restoril. PAST SURGICAL HISTORY: Amputation of his right second toe, wound care procedures of left foot, multiple PICC lines, temporary placement of dialysis catheter. PAST MEDICAL HISTORY: 1. Type 2 diabetes mellitus. There is no evidence of PAD as he has strongly palpable pedal pulses. 2. History of atrial fibrillation, on Eliquis, held this hospitalization. 3. Diabetes mellitus, type 2, insulin dependent. 4. Stroke this hospitalization. 5. Seizure disorder. 6. Respiratory failure this hospitalization. 7. The patient is admitted by Dr. Zia Qureshi, but followed by Dr. Jose Cardoza. REVIEW OF SYSTEMS: Noncontributory. PHYSICAL EXAMINATION: VITAL SIGNS: Height 6 foot 8 inches, 233 pounds, BMI 25. Blood pressure 116/67, pulse 79. HEAD, EARS, EYES, NOSE, AND THROAT: Unremarkable. LUNGS: Clear to auscultation. CARDIAC: Regular rate and rhythm without murmur or gallop. ABDOMEN: Soft, nontender. EXTREMITIES: Palpable femoral, popliteal, palpable posterior tibial and dorsalis pedis pulses bilaterally. These are strongly palpable. There is no evidence of PAD. The patient has scars from previous amputation of the right second toe. This is well healed. The toe and metatarsal have been resected previously. The patient's right great toe was deformed and markedly edematous. He has a plantar ulceration beneath the metatarsal plantar joint. This is about 2.5 cm in diameter. There is some granulation tissue over this and this is very thin when probed. Probes extend into the metatarsophalangeal joint and bone. There is markedly edematous. Other toes are normal, 3, 4 and 5 of the right foot. Left foot reveals cellulitis over the plantar arch mid to proximal foot. Lateral and proximal plantar arch, there is a neuropathic wound that when probed, extends 3 cm laterally and proximally just toward the lateral portion of the foot below the lateral malleolus. On probing, there is purulent discharge. Medially, there is fullness and redness and fluctuance in the left foot. BUN 26, creatinine 1.44, sodium 130. Basic metabolic profile normal. ASSESSMENT AND PLAN: 1. Neuropathic ulcer, right foot with Charcot foot and previous amputation of the right second toe metatarsal, well healed, but the right great toe is markedly edematous, reddened, and the neuropathic ulcer has grown multiple organisms, Strep and Pseudomonas. We would recommend amputation of the right great toe and metatarsal healing by secondary intention. He has good pulses indicative of good blood supply. There is no tobacco abuse history and this should heal without problems. 2. The patient has a severe left diabetic foot infection with underlying cellulitis, redness, and purulence in the plantar arch. He has extension laterally tracking the lateral left foot on probing. He has a granulating wounds overlying this. There is purulent discharge on probing. We would recommend incision and drainage of the left foot. At this point, I would just perform this and obtain more cultures. I would wash and do other procedures as indicated. The patient is at risk for limb loss, but will not plan any sort of amputation today on the left foot. We will have to see how this looks intraoperatively. The states the patient has stated in the past these go would be to keep all of his digits, but we have talked about doing the above-described operation to salvage his foot and leg. She understands and consents. 3. Seizure disorder, on Keppra. 4. Stroke by MRI. Neurology has seen him in the past prior to MRI. 5. Respiratory failure, followed by Dr. Farrell. 6. Diabetes mellitus. 7. Sepsis. Negative blood cultures, positive wound cultures. Job ID: [id number]
[2019-07-31] MEDS ORDERED: Dextrose 50% Abboject 50 ML SYRINGE SLOW IVP PRN (13:44)
[2019-07-31] MEDS ORDERED: Dextrose 5% in Water 1,000 ML IV PRN (13:44)
--- NOTE | 2019-07-31 13:58 | PQF ---
CLINICAL DOCUMENTATION IMPROVEMENT CLARIFICATION FORM: ICD-10 Updated PLEASE DO AN ADDENDUM TO THE PROGRESS NOTE WITH ANY DOCUMENTATION UPDATES OR ADDITIONS AND CARRY THROUGH TO DC SUMMARY. THANK YOU. DATE: 07/31/19 ATTN: DR. MORSE Please exercise your independent, professional judgment in responding to the clarification form. Clinical indicators are provided on the bottom of this form for your review Please check appropriate box(es): [ ] Sepsis due to: (Pna, UTI, gangrenous gall bladder, etc.) Due to: [ ] Device (please specify) [ ] Implant [ ] Graft [ ] Infusion [ ] SIRS due to non-infectious process (please specify etiology) [ ] with organ dysfunction [ ] without organ dysfunction [ ] Severe sepsis with acute organ dysfunction of: (Examples: respiratory failure, encephalopathy, acute kidney failure, other) [ ] Septic Shock [ ] Localized infection without sepsis [ ] Other diagnosis [ ] Unable to determine In addition, please specify: Present on Admission (POA): [ ] Yes [ ] No [ ] Unable to determine For continuity of documentation, please document condition throughout progress notes and discharge summary. Thank You. CLINICAL INDICATORS - SIGNS / SYMPTOMS / LABS CONSULTATION NOTE (CLYDE) 07/31: "SEPSIS. NEGATIVE BLOOD CULTURES, POSITIVE WOUND CULTURES" CRP 07/29: 8.27 WBC 07/30: 11.2 TEMP 07/30: 101.3-102.5 RR 22-35 CONFUSION AND LETHARGY (ER NOTE) RISKS: BILATERAL DIABETIC FOOT WOUNDS (ER) ASPIRATION PNEUMONIA (PROGRESS NOTE- RUBIO 07/31) TREATMENT: BLOOD AND WOUND CULTURES IV ROCEPHIN (ER) IV FLUIDS (ER-PRESENT) IV MAXIPIME (07/30-PRESENT) IV LEVAQUIN (07/30-PRESENT) (This form is maintained as a part of the permanent medical record) 2014 [employer] All Rights Reserved [email or web address] Office: [phone] [facility]
--- NOTE | 2019-07-31 14:10 | PQF ---
CLINICAL DOCUMENTATION IMPROVEMENT CLARIFICATION FORM: ICD-10 Updated PLEASE DO AN ADDENDUM TO THE PROGRESS NOTE WITH ANY DOCUMENTATION UPDATES OR ADDITIONS AND CARRY THROUGH TO DC SUMMARY. THANK YOU. DATE: 07/31/19 ATTN: DR. MORSE Please exercise your independent, professional judgment in responding to the clarification form. Clinical indicators are provided on the bottom of this form for your review Please check appropriate box(s) to clarify if the following diagnosis has been ruled in or ruled out: "CVA" [ ] Ruled in diagnosis [ ] Continue to treat [ ] Resolved [ ] Ruled out diagnosis [ ] Cannot rule out diagnosis [ ] Other diagnosis [ ] Unable to determine In addition, please specify: Present on Admission (POA): [ ] Yes [ ] No [ ] Unable to determine For continuity of documentation, please document condition throughout progress notes and discharge summary. Thank You. CLINICAL INDICATORS - SIGNS / SYMPTOMS / LABS ER NOTE: "CVA R/O" H&P (DR. BAUER) 07/30: "THEY WERE CONCERNED THAT HE HAD A POSSIBLE STROKE" RISKS: H/O HTN (ER NOTE) H/O AFIB (ER NOTE) TREATMENT: BRAIN CT 07/29 NEURO CONSULT 07/30 CRITICAL CARE MONITORING (This form is maintained as a part of the permanent medical record) 2014 [employer]. All Rights Reserved [email or web address] Office: [phone] [facility]
[2019-07-31] MEDS ORDERED: Fentanyl 100 MCG/2 ML VIAL ONE (15:06)
[2019-07-31] MEDS: Acyclovir Sodium 1,000 MG in Sodium Chloride 0.9% 250 ML 250 ML IVPB SCH ×2 (15:22→21:24)
--- NOTE | 2019-07-31 16:49 | RAD ---
EXAM: Single view of the chest HISTORY: Central line placement in the ICU COMPARISON: 07/31/2019 FINDINGS: Single view of the chest shows a normal sized cardiomediastinal silhouette. A left IJ cent ral venous catheter seen with its tip in the superior vena cava. No pneumothorax is seen. The other lines and tubes are unchanged in position. There are stable bilateral pulmonary arteries The bones a re unremarkable. IMPRESSION: Status post central line placement without evidence of complication.
[2019-07-31] MEDS: Insulin Regular 300 UNITS/3 ML VIAL SC PRN ×2 (17:56→20:48)
--- NOTE | 2019-07-31 19:19 | OP ---
DATE OF PROCEDURE: 07/31/2019 PREOPERATIVE DIAGNOSES: Diabetic septic left foot with necrotizing infection from plantar neuropathic ulcer extending to the lateral left foot. Charcot's foot bilaterally. Diabetic neuropathic ulceration, right foot, plantar metatarsophalangeal joint involving the joint and chronic ulcer nonhealing. Respiratory failure, sepsis. POSTOPERATIVE DIAGNOSES: Diabetic septic left foot with necrotizing infection from plantar neuropathic ulcer extending to the lateral left foot. Charcot's foot bilaterally. Diabetic neuropathic ulceration, right foot, plantar metatarsophalangeal joint involving the joint and chronic ulcer nonhealing. Respiratory failure, sepsis. PROCEDURES PERFORMED: Incision and drainage to the left foot lateral abscess, debridement of neuropathic plantar ulcer near the proximal lateral plantar arch, and drainage of abscess extending up laterally to the foot with debridement of skin, subcutaneous tissue, sharply excisional/resectional 10 blade scalpel. Amputation of the right great toe and metatarsal with healing by secondary intention. Cultures from the left foot wound. Wound Care team placed the wound VAC to both feet. Placement of left IJ central line under ultrasound guidance. ANESTHESIA: General. DESCRIPTION OF PROCEDURE: The patient was taken to the operating room, where under general anesthesia, neck and chest were prepared with ChloraPrep and draped in routine fashion. Sterile technique was used to access the left internal jugular vein with Trocar catheter, and under ultrasound guidance, threading the J-wire, removing the Trocar catheter, using Seldinger technique to place the triple lumen catheter removing the J-wire and securing it with 3-0 silk suture. Biopatch and sterile dressings were applied. The patient tolerated the procedure well. Both lower extremities were prepared with Betadine, draped in routine fashion. The patient had a left lateral foot abscess with neuropathic ulcer extending from the proximal plantar arch laterally foot with necrotizing undermining infection staying under the skin. The skin was opened, and necrotic skin and subcutaneous tissue and callus were debrided sharply. Cultures were submitted. This was a foul-smelling infection abscess. Skin and subcutaneous tissues were excised sharply. Hemostasis was gained with cautery. Wound was irrigated. Wound Care team arrived to place the wound VAC. Chronic ulceration around plantar foot, excised the right great toe and metatarsal resecting the metatarsal with bone cutter and then proximally with rongeurs and connected tissues sharply. Hemostasis was gained with cautery. Good hemostasis was noted. Wound Care Team arrived to place the wound VAC. The patient tolerated the procedure well. Job ID: [id number]
--- NOTE | 2019-07-31 19:45 | PRG ---
DATE OF SERVICE: SUBJECTIVE: The patient is in the ICU, is intubated. I have reviewed the notes. The patient has had a history of some seizure associated with fever. MRI has confirmed probable occipital infarcts. The patient has no prior history of infarct. He does have a history of recurrent fevers, for which he has been septic emanating from infected joints and osteomyelitis. He was most recently seen in my office on . At that time, he was feeling well, still had the chronic wound to his left foot. I have reviewed the notes. He is intubated at this time. OBJECTIVE: VITAL SIGNS: Temperature is 102.5, now afebrile. BP 120/72. GENERAL: He is intubated and sedated. LUNGS: Revealed bilateral breath sounds. HEART: Reveals a regular rate and rhythm without murmurs, gallops, or rubs (he has a previous history of atrial fibrillation). LABORATORY DATA: His white blood count is 8.2, hemoglobin 12.0, hematocrit 35.8. Sodium 130, potassium 5.1, chloride 101, CO2 of 21, BUN 26, creatinine 1.44. IMPRESSION: 1. Fever, etiology unknown. 2. He has multiple wounds to his feet with probable infected toe and infected foot, right and left respectively. This could be source of infection or fever, possibly could be septic again. 3. Chest x-ray report shows some pulmonary vascular congestion, possibly infectious, although the patient has had no history of recent cough. PLAN: Continue current therapy. We will add sliding scale insulin to cover hyperglycemia. I spoke with Dr. Guan. He wishes to proceed with amputation of his right great toe as well as wound exploration of his left foot. Job ID: [id number]
[2019-07-31] MEDS ORDERED: Ondansetron PF 4 MG/2 ML Vial ONE (20:16)
[2019-07-31] MEDS ORDERED: ePHEDrine 50 MG/ML VIAL ONE (20:16)
[2019-07-31] MEDS ORDERED: PROPOFOL 200 MG/20 ML VIAL ONE (20:16)
[2019-07-31] MEDS ORDERED: Rocuronium Bromide 10 MG/ML (10ML VIAL) ONE (20:16)
[2019-07-31] MEDS ORDERED: diphenhydrAMINE 50 MG/ML VIAL ONE (20:16)
--- NOTE | 2019-08-01 00:25 | CON ---
DATE OF CONSULTATION: HISTORY OF PRESENT ILLNESS: Mr. Barrios is a 64-year-old white male, who was initially seen by Dr. Keane in December 2014. He developed atrial fibrillation with rapid ventricular response, which was short lived. He was placed on Multaq 400 mg BID. Also due to CHADS-VASc score greater than 2, he is on Eliquis 5 mg b.i.d. He recently reestablished care with Dr. Keane on July 04, 2019. He underwent echocardiogram six days ago, which revealed ejection fraction of 55% to 60%, grade 1 diastolic dysfunction, mild mitral regurgitation and mild tricuspid regurgitation. He was brought to the hospital on July 29 with some confusion at home, as well as O2 saturations of 78% in the emergency room. He was placed on BiPAP, but was not tolerating that well. He had a seizure, pCO2 was 66 and he was intubated. At the present time, he continues to be intubated and sedated. PAST MEDICAL HISTORY: Paroxysmal atrial fibrillation, diabetes, previous renal failure requiring dialysis, chronic feet infection, diabetic neuropathy, hyperlipidemia, hypertension. OPERATIONS: Feet surgery. HOME MEDICATIONS: 1. Multaq 400 mg b.i.d. 2. Eliquis 5 mg b.i.d. 3. Protonix. 4. Crestor. 5. Vistaril. 6. Insulin. 7. Carvedilol 12.5 b.i.d. ALLERGIES: NONE. SOCIAL HISTORY: Not obtainable. FAMILY HISTORY: Not obtainable. REVIEW OF SYSTEMS: Not obtainable. PHYSICAL EXAMINATION: VITAL SIGNS: 125/61, pulse of 64, sinus rhythm. HEENT: PERRL. NECK: Supple. CHEST: Clear. CARDIAC: S1 and S2 normal without any S3, S4, or murmurs. ABDOMEN: Normal bowel sounds without tenderness. EXTREMITIES: Revealed no edema. Both feet are wrapped in bandages. NEUROLOGIC: The patient is sedated. LABORATORY DATA: EKG reveals normal sinus rhythm related to 64 per minute with first-degree AV block. Hemoglobin 12.3, hematocrit 35.8, white count 8200. PH 7.46, pCO2 of 29.8, PO2 of 81.6. Sodium 130, potassium 5.1, chloride 101, carbon dioxide 21, BUN 26, creatinine 1.44. IMPRESSION: 1. Respiratory arrest. 2. Seizure disorder evaluated by Dr. Mcgee. 3. Paroxysmal atrial fibrillation. The patient remained in sinus rhythm at this time. 4. Diabetes. 5. Hypertension. 6. Hypercholesterolemia. 7. History of renal failure requiring dialysis. 8. Possible diastolic heart failure. Ejection fraction was 55% to 60% with grade 1 diastolic dysfunction on echocardiogram one week ago. PLAN: The patient will be maintained on Multaq. Carvedilol has been held due to his current blood pressure. He is on broad-spectrum antibiotics, as well as antiviral medications. We will continue to follow the patient with you. Job ID: [id number] [facility]
[2019-08-01 04:20] LABS: #Lymphocytes 0.5 thou/uL (1.20-3.40); #Monocytes 0.5 thou/uL (0.11-0.59); #Neutrophils 7.2 thou/uL (1.40-6.50); %Eosinophils 0.1 % (0.0-10.0); %Lymphocytes 5.8 % (21.0-51.0); %Monocytes 5.7 % (0.0-10.0); %Neutrophils 88.3 % (42.0-75.0); Hemoglobin 11.3 g/dL (14.0-18.0); Mean Corpuscular HGB CONC 33.3 g/dL (32.0-36.0); Mean Corpuscular Hemoglobin 28.8 pg (27.0-31.0); Mean Corpuscular Volume 86.4 fL (78.0-98.0); Mean Platelet Volume 8.4 fL (7.4-10.4); Platelet Count 144 thou/uL (130-400); RBC Distribution Width 13.4 % (11.5-14.5); Red Blood Cell (RBC) Count 3.93 mill/uL (4.70-6.10); White Blood Cell (WBC) Count 8.2 thou/uL (4.8-10.8)
[2019-08-01] MEDS: fentaNYL Citrate/PF 2,000 MCG in Sodium Chloride 0.9% 60 ML IV SCH (04:28)
[2019-08-01] MEDS: Sodium Chloride 0.9% 1,000 ML IV SCH ×3 (04:36→21:24)
[2019-08-01 04:42] LABS: ALT (SGPT) 8 U/L (8-55); AST (SGOT) 13 U/L (5-34); Alkaline Phosphatase 53 U/L (40-150); Anion Gap 11 mmol/L (10-20); BUN (Urea Nitrogen) 27 mg/dL (8.4-25.7); Calc. Creatinine Clearance 100 mL/min (70-130); Calcium 8.6 mg/dL (7.8-10.44); Carbon Dioxide 22 mmol/L (23-31); Chloride 104 mmol/L (98-107); Estimated GFR-MDRD 66; Globulin 3.3 g/dL (2.4-3.5); Glucose 339 mg/dL (80-115); Potassium 4.5 mmol/L (3.5-5.1); Protein, Total 6.3 g/dL (5.8-8.1); Sodium 132 mmol/L (136-145)
[2019-08-01] MEDS: Insulin Regular 300 UNITS/3 ML VIAL SC PRN ×4 (04:53→21:23)
[2019-08-01] MEDS: Acyclovir Sodium 1,000 MG in Sodium Chloride 0.9% 250 ML 250 ML IVPB SCH ×3 (04:59→21:32)
--- NOTE | 2019-08-01 06:24 | PDOC.CPN ---
- Subjective Date: 08/01/19 Time: 16:43 Interval history: t intubated sedated. - Review of Systems ROS unobtainable: due to endotracheal tube - Objective Allergies/Adverse Reactions: Allergies Allergy/AdvReac Type Severity Reaction Status Date / Time SEAFOOD Allergy Intermediate Uncoded 07/30/19 00:27 Visit Medications: Current Medications Acetaminophen (Tylenol Elixir) 1,000 mg PER TUBE Q6H PRN PRN Reason: Fever/Pain Last Admin: 07/31/19 05:00 Dose: 1,000 mg Albuterol/Ipratropium (Duoneb) 3 ml NEB [id number] COUNTS INCLUDE 234 BEDS AT THE [facility] Last Admin: 07/31/19 23:36 Dose: 3 ml Dextrose/Water (Dextrose 50%) 25 gm SLOW IVP PRN PRN PRN Reason: Hypoglycemia Dronedarone (Multaq) 400 mg PER TUBE BID-[facility] Enoxaparin Sodium (Lovenox) 40 mg SC 0900 COUNTS INCLUDE 234 BEDS AT THE [facility] Last Admin: 07/31/19 09:06 Dose: 40 mg Famotidine (Pepcid) 20 mg SLOW IVP BID COUNTS INCLUDE 234 BEDS AT THE [facility] Last Admin: 07/31/19 20:25 Dose: 20 mg Glucagon (Glucagon) 1 mg IM PRN PRN PRN Reason: Hypoglycemia Fentanyl Citrate 2,000 mcg/ (Sodium Chloride) 100 mls @ 0 mls/hr IV INF COUNTS INCLUDE 234 BEDS AT THE [facility]; Protocol Stop: 08/29/19 03:10 Last Admin: 08/01/19 04:28 Dose: 100 mls Fentanyl Citrate (Fentanyl Bolus) 250 mls @ 0 mls/hr IVPB PRN PRN PRN Reason: Breakthrough pain/agitation Stop: 08/29/19 03:10 Sodium Chloride (Normal Saline 0.9%) 1,000 mls @ 100 mls/hr IV .Q10H COUNTS INCLUDE 234 BEDS AT THE [facility] Last Admin: 08/01/19 04:36 Dose: 1,000 mls Levofloxacin 750 mg/ Device 150 mls @ 100 mls/hr IVPB 0900 COUNTS INCLUDE 234 BEDS AT THE [facility] Last Admin: 07/31/19 08:42 Dose: 150 mls Levetiracetam 750 mg/ Sodium (Chloride) 107.5 mls @ 215 mls/hr IVPB 1000,2200 COUNTS INCLUDE 234 BEDS AT THE [facility] Last Admin: 07/31/19 21:24 Dose: 107.5 mls Cefepime HCl 2 gm/ Sodium (Chloride) 100 mls @ 200 mls/hr IVPB Q12HR COUNTS INCLUDE 234 BEDS AT THE [facility] Last Admin: 07/31/19 20:25 Dose: 100 mls Insulin Glargine 20 units/ (Miscellaneous Medication) 0.2 mls @ 0 mls/hr SC BID COUNTS INCLUDE 234 BEDS AT THE [facility] Last Admin: 07/31/19 20:26 Dose: 0.2 mls Acyclovir Sodium 1,000 mg/ (Sodium Chloride) 270 mls @ 270 mls/hr IVPB Q8HR COUNTS INCLUDE 234 BEDS AT THE [facility] Last Admin: 08/01/19 04:59 Dose: 270 mls Dextrose/Water (D5w) 1,000 mls @ 0 mls/hr IV .Q0M PRN PRN Reason: Hypoglycemia Insulin Human Regular (Humulin R) 0 units SC .MODERATE SLIDING SC PRN PRN Reason: Moderate Correctional Scale Last Admin: 08/01/19 04:53 Dose: 8 unit Lorazepam (Ativan) 2 mg SLOW IVP Q1H PRN PRN Reason: Breakthrough agitation Stop: 08/29/19 03:10 Last Admin: 07/30/19 03:19 Dose: 2 mg Methylprednisolone Sodium Succinate (Solu-Medrol) 40 mg IVP BID COUNTS INCLUDE 234 BEDS AT THE [facility] Last Admin: 07/31/19 20:26 Dose: 40 mg Morphine Sulfate (Morphine) 2 mg SLOW IVP Q1H PRN PRN Reason: BREAKTHROUGH PAIN/Agitation Stop: 08/29/19 03:10 Propofol (Diprivan) 1,000 mg IV INF PRN; Protocol PRN Reason: TO ACHIEVE GOAL RASS Stop: 08/29/19 03:10 Last Admin: 07/31/19 17:50 Dose: 1,000 mg Propofol (Diprivan Bolus) 20 mg IV Q5MIN PRN PRN Reason: BREAKTHROUGH AGITATION Stop: 08/29/19 03:10 Vital Signs & Weight: Vital Signs Temp Pulse Resp Pulse Ox 08/01/19 03:50 16 08/01/19 03:00 98.5 F 08/01/19 02:00 16 08/01/19 01:00 98.3 F 08/01/19 00:00 16 07/31/19 23:36 68 16 98 07/31/19 23:00 98.3 F 07/31/19 22:00 20 07/31/19 21:00 98.1 F 07/31/19 19:52 100 07/31/19 19:43 20 07/31/19 19:00 98.9 F 07/31/19 18:54 67 18 100 Admit Weight 233 lb Weight 233 lb 0.458 oz - Physical Exam General: other (I/S) HEENT: mucus membranes moist Neck: supple neck Cardiac: regular rate, regular rhythm Lungs: clear to auscultation Neuro: grossly intact Abdomen: unremarkable Skin: clear Musculoskeletal: no pain - Labs Result Diagrams: 08/01/19 04:00 08/01/19 04:00 Troponin/CKMB Troponin I Less than 0.010 ng/mL (< 0.028) 07/29/19 19:39 - Assessment/Plan Assessment/Plan: Diastolic CHF Respiratory failure afib on ACT Sepsis Bradycardia Hold multaq given low hr although may be secondary to sepsis BC pending On Abx EF normal on recent echo Recent seizure did not correlate with rhythm, changes Will follow
[2019-08-01] MEDS: Propofol 1,000 MG/100 ML VIAL IV PRN ×2 (06:41→17:05)
[2019-08-01] MEDS ORDERED: Dextrose 50% Abboject 50 ML SYRINGE SLOW IVP PRN (07:34)
[2019-08-01] MEDS ORDERED: Dextrose 5% in Water 1,000 ML IV PRN (07:34)
[2019-08-01 08:10] LABS: Actual Bicarbonate (HCO3a) 22.4 mEq/L (22-28); Base Excess (BEa) -2.9 mEq/L (-2.0 to +3.0); CO2 Tension 41.2 mmHg (35.0-45.0); Calcium, Ionized 1.18 mmol/L (1.12-1.30); Carboxyhemoglobin (COHb) 0.9 gm% (0.0-3.0); Hemoglobin (Hb) 11.4 g/dL (14.0-18.0); O2 Tension (PaO2) 86.2 mmHg (> 80.0); Potassium - ABG Lab 4.72 mmol/L (3.70-5.30); pH, Arterial 7.35 (7.35-7.45)
[2019-08-01 08:13] LABS: Puncture Site LRA
[2019-08-01] MEDS: Cefepime 2 GM in Sodium Chloride 0.9% 100 ML IVPB SCH ×2 (08:29→21:23)
[2019-08-01] MEDS: Famotidine/PF 20 mg/2ml Vial SLOW IVP SCH ×2 (08:31→21:23)
[2019-08-01] MEDS: Enoxaparin Sodium 40 MG/0.4 ML SYRINGE SC SCH (08:31)
[2019-08-01] MEDS: Dronedarone HCl 400 MG TAB PER TUBE SCH ×2 (08:32→18:35)
[2019-08-01] MEDS: Insulin Glargine 20 UNITS in Pre-Filled Syringe 1 EACH SC SCH ×2 (08:33→21:32)
[2019-08-01] MEDS: methylPREDNISolone Sod Succ 40 MG VIAL IVP SCH (08:33)
--- NOTE | 2019-08-01 08:51 | RAD ---
CHEST ONE VIEW: HISTORY: Intubation. Respiratory distress. COMPARISON: 07/31/2019 FINDINGS: Life support tubes remain in place. Monitor leads overly the chest. Bilateral vascular congestion w ith some increased interstitial and alveolar opacity changes in the perihilar regions and lower lung zones. IMPRESSION: 1. Persistent bilateral interstitial and alveolar opacities. 2. Bilateral vascular congestion. Continue short term followup. POS: OFF
--- NOTE | 2019-08-01 09:57 | PRG ---
DATE OF SERVICE: 08/01/2019 SUBJECTIVE: This morning, the patient is still on Diprivan and fentanyl, remains agitated. OBJECTIVE: VITAL SIGNS: Pulse is 54, blood pressure is 125/50, saturations respirations 13. I's and O's are ahead. CHEST: Decreased breath sounds. Bilateral rhonchi. CARDIAC: Normal S1 and S2. No gallop. ABDOMEN: No masses. LABORATORY DATA: Blood sugar 322. White count 8000. IMAGING STUDIES: X-ray still shows bilateral infiltrates consistent with pneumonia, fluid overload. Echo pending. IMPRESSION: 1. Multiorgan failure. 2. Respiratory failure with encephalopathy. 3. Posterior circulation cerebrovascular accident. 4. History of atrial fibrillation, uncontrolled diabetes. PLAN: Until his neurological status improves, he is not weanable. Nutrition, PT supportive care. He underwent amputation of his left foot gangrenous changes. Prognosis remains guarded. This is one-half hour of critical care time. Job ID: [id number]
[2019-08-01] MEDS ORDERED: Vancomycin HCl 1.5 GM in Sodium Chloride 0.9% 250 ML 300 ML IVPB SCH (10:00)
[2019-08-01] MEDS ORDERED: VANCOMYCIN IVPB PRN (10:02)
[2019-08-01 10:11] LABS: Lyme IgG/IgM AB <0.91 ISR (0.00-0.90)
--- NOTE | 2019-08-01 11:53 | PRG ---
DATE OF SERVICE: 08/01/2019 SUBJECTIVE: The patient is extubated in the ICU. However, last night he became somewhat rambunctious. He was moving all extremities. Acknowledging that he was in the hospital, he just did want to be tied down. He was sedated more. OBJECTIVE: VITAL SIGNS: He has now been afebrile for 24 to 36 hours, blood pressure 109/56, and pulse 56 and regular. LUNGS: Reveal bilateral breath sounds. HEART: Reveals regular rate and rhythm without murmur, gallops, or rubs. LABORATORY DATA: White blood count 8.2, hemoglobin 11.3, hematocrit 34.0, sodium 132, potassium 4.5, chloride 104, CO2 of 22, BUN 27, and creatinine 1.13. Blood cultures remained negative. Sputum culture still pending. IMPRESSION: 1. 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 2. Possible cerebrovascular accident. 3. History of seizure. 4. Previous history of sepsis episodes. PLAN: 1. The patient is currently on antibiotics, we will continue. 2. Echocardiogram today. 3. We will continue sliding-scale insulin due to more aggressive scale, his blood sugars are probably elevated secondary to the steroids. Job ID: [id number]
--- NOTE | 2019-08-01 12:22 | PRG ---
DATE OF SERVICE: 08/01/2019 SUBJECTIVE: The patient is intubated and he is not able to answer questions because of sedation. The patient had incision and drainage of left lateral foot abscess and debridement of ulcer and he had amputation of the right first toe. OBJECTIVE: VITAL SIGNS: T-max 102, he has been afebrile for the past 2 days; BP 101/53; and O2 saturation 100%. HEENT: Miotic pupils. Could not test eye movements. LUNGS: Symmetric. Clear breath sounds. HEART: S1 and S2. Irregular rate. ABDOMEN: Soft, not distended. LABORATORY DATA: White cell count 8.2, hemoglobin 11, platelets 144. Creatinine is down to 1.13. Sodium 132, albumin 3.0. He has Lyme disease IgM, which was negative. Microbiology with likely Streptococcus mitis and E coli, which is not a very resistant strain of E coli. Currently, the patient is receiving acyclovir, cefepime, and vancomycin, and vancomycin will be discontinued in view of the results of cultures. Chest x-ray done today with bilateral interstitial and alveolar opacities. ASSESSMENT AND DISCUSSION: 1. Type 2 diabetes, various feet complications in the past with now there are two areas of inflammatory changes, status post amputation of the right first ray and I and D of the left lateral aspect. 2. 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 The patient's blood cultures are negative and we will discontinue vancomycin. We will keep him on cefepime, probably the acyclovir will be able to be discontinued once the HSV assays are negative. Job ID: [id number]
[2019-08-01 13:11] LABS: West Nile Virus IgG Ab - CSF Equivocal (Negative); West Nile Virus IgM Ab - CSF Negative (Negative)
[2019-08-01] MEDS: Lorazepam 2 MG/ML VIAL SLOW IVP PRN (17:02)
--- NOTE | 2019-08-01 17:49 | PRG ---
DATE OF SERVICE: 08/01/2019 Mr. Barrios is still on the ventilator. He is afebrile. His right wound VAC had bleeding and was removed by Wound Care. I was asked to see him regarding this. By the time I arrived few hours later, the dressing is dry. Plan is to review his wound tomorrow. Left wound VAC in place. We will view that wound tomorrow. Job ID: [id number]
[2019-08-02] MEDS: fentaNYL Citrate/PF 2,000 MCG in Sodium Chloride 0.9% 60 ML IV SCH (03:44)
[2019-08-02 04:55] LABS: #Lymphocytes 0.7 thou/uL (1.20-3.40); #Monocytes 0.7 thou/uL (0.11-0.59); #Neutrophils 6.5 thou/uL (1.40-6.50); %Basophils 0.1 % (0.0-1.0); %Eosinophils 0.2 % (0.0-10.0); %Lymphocytes 8.6 % (21.0-51.0); %Monocytes 8.5 % (0.0-10.0); %Neutrophils 82.6 % (42.0-75.0); Hemoglobin 10.6 g/dL (14.0-18.0); Mean Corpuscular HGB CONC 33.1 g/dL (32.0-36.0); Mean Corpuscular Hemoglobin 28.7 pg (27.0-31.0); Mean Corpuscular Volume 86.8 fL (78.0-98.0); Platelet Count 132 thou/uL (130-400); RBC Distribution Width 13.2 % (11.5-14.5); Red Blood Cell (RBC) Count 3.68 mill/uL (4.70-6.10); White Blood Cell (WBC) Count 7.9 thou/uL (4.8-10.8)
[2019-08-02] MEDS: Propofol 1,000 MG/100 ML VIAL IV PRN (04:56)
[2019-08-02 05:17] LABS: ALT (SGPT) 7 U/L (8-55); AST (SGOT) 8 U/L (5-34); Albumin 2.8 g/dL (3.4-4.8); Alkaline Phosphatase 47 U/L (40-110); Anion Gap 10 mmol/L (10-20); BUN (Urea Nitrogen) 26 mg/dL (8.4-25.7); Bilirubin, Total 0.6 mg/dL (0.2-1.2); Calc. Creatinine Clearance 128 mL/min (70-130); Calcium 8.1 mg/dL (7.8-10.44); Carbon Dioxide 23 mmol/L (23-31); Chloride 110 mmol/L (98-107); Estimated GFR-MDRD 87; Glucose 212 mg/dL (80-115); Potassium 4.2 mmol/L (3.5-5.1); Protein, Total 5.8 g/dL (5.8-8.1); Sodium 139 mmol/L (136-145)
[2019-08-02] MEDS: Acyclovir Sodium 1,000 MG in Sodium Chloride 0.9% 250 ML 250 ML IVPB SCH (05:31)
[2019-08-02] MEDS: Sodium Chloride 0.9% 1,000 ML IV SCH ×2 (05:32→16:30)
[2019-08-02] MEDS: Insulin Regular 300 UNITS/3 ML VIAL SC PRN ×3 (05:44→21:03)
[2019-08-02 06:57] LABS: Actual Bicarbonate (HCO3a) 25.1 mEq/L (22-28); Base Excess (BEa) -1.3 mEq/L (-2.0 to +3.0); CO2 Tension 49.1 mmHg (35.0-45.0); Calcium, Ionized 1.22 mmol/L (1.12-1.30); Carboxyhemoglobin (COHb) 0.9 gm% (0.0-3.0); Hemoglobin (Hb) 11.7 g/dL (14.0-18.0); O2 Tension (PaO2) 75.1 mmHg (> 80.0); Potassium - ABG Lab 3.89 mmol/L (3.70-5.30); pH, Arterial 7.33 (7.35-7.45)
[2019-08-02 07:03] LABS: ALV-art Gradient 148.725 (0-20); Puncture Site L.B.
--- NOTE | 2019-08-02 07:40 | RAD ---
Semi-upright frontal chest radiograph: 08/02/2019 COMPARISON: 08/01/2019 HISTORY: Ventilated patient FINDINGS: Stable endotracheal tube, left-sided vascular catheter, and nasogastric tube. There is pulm onary vascular congestion with perihilar interstitial prominence. There is increased density in both lung bases suggesting subtle airspace disease and probable small bilateral pleural effusions. Ae ration within the lung bases has improved since the prior exam. Continued follow-up advised. IMPRESSION: Portable chest radiograph as detailed above.
[2019-08-02] MEDS: Dronedarone HCl 400 MG TAB PER TUBE SCH ×2 (09:20→17:52)
[2019-08-02] MEDS: Cefepime 2 GM in Sodium Chloride 0.9% 100 ML IVPB SCH ×2 (09:21→21:04)
[2019-08-02] MEDS: Famotidine/PF 20 mg/2ml Vial SLOW IVP SCH ×2 (09:21→21:04)
[2019-08-02] MEDS: Enoxaparin Sodium 40 MG/0.4 ML SYRINGE SC SCH (09:21)
[2019-08-02] MEDS: Insulin Glargine 20 UNITS in Pre-Filled Syringe 1 EACH SC SCH ×2 (09:37→21:03)
--- NOTE | 2019-08-02 09:54 | PRG ---
DATE OF SERVICE: 08/02/2019 HISTORY OF PRESENT ILLNESS: A 64-year-old gentleman this morning intubated in the vent, sedated, on fentanyl and Diprivan. He is less agitated, somewhat more appropriate. Answers more questions appropriately. OBJECTIVE: VITAL SIGNS: Pulse 70, blood pressure 118/55, saturations 98%, respirations 18. Inputs and outputs ahead 4108 in and 1565 out. CHEST: Minimal rhonchi. CARDIAC: Normal S1 and S2. Negative masses. LABORATORY DATA: PO2 75, pCO2 49%, pH 7.33, rate of 10, 40%. Lytes are normal. X-ray shows much improved. ASSESSMENT: Gram-negative wound infection, status post surgery; respiratory failure; pneumonia, much improved; encephalopathy; seizure disorder; supraventricular tachycardia. We are going to try and wean and hopefully extubate today. Encephalopathy improved. Seizure disorder, cerebrovascular accident. Hopefully, we can discontinue acyclovir once HSV assays are back. PLAN: Aggressive PT, supportive care. One-half hour of critical care time. Job ID: [id number]
--- NOTE | 2019-08-02 10:44 | EEG ---
Referring Physician: Leticia OTT EEG # [id number] TEST TYPE: ROUTINE PORTABLE INPATIENT REPORT: AN EEG USING THE INTERNATIONAL TEN-TWENTY SYSTEM OF ELECTRODE PLACEMENT WAS PERFORMED. The best waking background is an 8 hertz Alpha frequency. This is poorly maintained and the dominant background is 5-7 hertz Theta activity. Photic stimulation was unremarkable. No epileptiform features were present. IMPRESSION: THIS IS AN ABNORMAL STUDY FOR THE FINDINGS OF DIFFUSE SLOWING CONSISTENT WITH A DIFFUSE ENCEPHALOPATHIC PROCESS. NO EVIDENCE OF SEIZURE ACTIVITY IS PRESENT. 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
[2019-08-02] MEDS: methylPREDNISolone Sod Succ 40 MG VIAL IVP SCH (11:02)
--- NOTE | 2019-08-02 11:26 | PRG ---
DATE OF SERVICE: 08/02/2019 SUBJECTIVE: Mr. Barrios is asleep and ventilated. OBJECTIVE: VITAL SIGNS: Temperature, he has been afebrile since 07/30. Blood pressure 118/75 and pulse 60 and regular. LUNGS: Bilateral breath sounds. No rales, rhonchi, or wheezes. HEART: Reveals a regular rate and rhythm without murmur, gallops, or rubs. LABORATORY DATA: Hemoglobin 10.6, hematocrit is 32.0, and white count 7.9. Chemistry, his creatinine is 0.88. Otherwise, other chemistries are normal. Wound cultures are still growing E. coli and nonhemolytic Streptococcus. IMPRESSION: 1. Probable sepsis. 2. MRI compatible with new onset stroke. 3. New onset of seizure, etiology unknown. PLAN: The patient is currently stable and seems to be progressing fairly well. We will await for further recommendations from the Critical Care Team regarding his ventilatory status. Continue current antibiotics. Job ID: [id number]
--- NOTE | 2019-08-02 16:14 | PDOC.CPN ---
- Subjective Date: 08/02/19 Time: 16:13 - Objective Allergies/Adverse Reactions: Allergies Allergy/AdvReac Type Severity Reaction Status Date / Time SEAFOOD Allergy Intermediate Uncoded 07/30/19 00:27 Visit Medications: Current Medications Acetaminophen (Tylenol Elixir) 1,000 mg PER TUBE Q6H PRN PRN Reason: Fever/Pain Last Admin: 07/31/19 05:00 Dose: 1,000 mg Albuterol/Ipratropium (Duoneb) 3 ml NEB [id number] [facility] Last Admin: 08/02/19 13:17 Dose: 3 ml Dextrose/Water (Dextrose 50%) 25 gm SLOW IVP PRN PRN PRN Reason: Hypoglycemia Dronedarone (Multaq) 400 mg PER TUBE BID-WM [facility] Last Admin: 08/02/19 09:20 Dose: Not Given Enoxaparin Sodium (Lovenox) 40 mg SC 0900 [facility] Last Admin: 08/02/19 09:21 Dose: 40 mg Famotidine (Pepcid) 20 mg SLOW IVP BID [facility] Last Admin: 08/02/19 09:21 Dose: 20 mg Glucagon (Glucagon) 1 mg IM PRN PRN PRN Reason: Hypoglycemia Fentanyl Citrate 2,000 mcg/ (Sodium Chloride) 100 mls @ 0 mls/hr IV INF RUBEN; Protocol Stop: 08/29/19 03:10 Last Admin: 08/02/19 03:44 Dose: 100 mls Fentanyl Citrate (Fentanyl Bolus) 250 mls @ 0 mls/hr IVPB PRN PRN PRN Reason: Breakthrough pain/agitation Stop: 08/29/19 03:10 Sodium Chloride (Normal Saline 0.9%) 1,000 mls @ 100 mls/hr IV .Q10H [facility] Last Admin: 08/02/19 05:32 Dose: 1,000 mls Levetiracetam 750 mg/ Sodium (Chloride) 107.5 mls @ 215 mls/hr IVPB 1000,2200 [facility] Last Admin: 08/02/19 09:21 Dose: 107.5 mls Cefepime HCl 2 gm/ Sodium (Chloride) 100 mls @ 200 mls/hr IVPB Q12HR [facility] Last Admin: 08/02/19 09:21 Dose: 100 mls Insulin Glargine 20 units/ (Miscellaneous Medication) 0.2 mls @ 0 mls/hr SC BID [facility] Last Admin: 08/02/19 09:37 Dose: 0.2 mls Dextrose/Water (D5w) 1,000 mls @ 0 mls/hr IV .Q0M PRN PRN Reason: Hypoglycemia Insulin Human Regular (Humulin R) 0 units SC .AGGRESSIVE SLIDING PRN PRN Reason: Aggressive Sliding Scale Last Admin: 08/02/19 05:44 Dose: 3 unit Lorazepam (Ativan) 2 mg SLOW IVP Q1H PRN PRN Reason: Breakthrough agitation Stop: 08/29/19 03:10 Last Admin: 08/01/19 17:02 Dose: 2 mg Methylprednisolone Sodium Succinate (Solu-Medrol) 40 mg IVP DAILY [facility] Last Admin: 08/02/19 11:02 Dose: 40 mg Morphine Sulfate (Morphine) 2 mg SLOW IVP Q1H PRN PRN Reason: BREAKTHROUGH PAIN/Agitation Stop: 08/29/19 03:10 Propofol (Diprivan) 1,000 mg IV INF PRN; Protocol PRN Reason: TO ACHIEVE GOAL RASS Stop: 08/29/19 03:10 Last Admin: 08/02/19 04:56 Dose: 1,000 mg Propofol (Diprivan Bolus) 20 mg IV Q5MIN PRN PRN Reason: BREAKTHROUGH AGITATION Stop: 08/29/19 03:10 Vital Signs & Weight: Vital Signs Temp Pulse Resp BP Pulse Ox 08/02/19 13:17 77 20 96 08/02/19 12:00 96.9 F L 08/02/19 08:25 95 08/02/19 08:00 97.1 F L 12 08/02/19 06:40 70 118/55 L 08/02/19 06:38 60 10 L 96 08/02/19 06:00 10 L Admit Weight 233 lb Weight 233 lb 0.458 oz - Physical Exam General: other (confused, recently extubated) Neck: supple neck Cardiac: no murmur Lungs: normal exam Neuro: grossly intact Abdomen: soft Skin: clear Musculoskeletal: no pain - Labs Result Diagrams: 08/02/19 04:45 08/02/19 04:45 Troponin/CKMB Troponin I Less than 0.010 ng/mL (< 0.028) 07/29/19 19:39 - Assessment/Plan Assessment/Plan: Diastolic CHF Respiratory failure afib on ACT Sepsis Bradycardia 08/02 REC Slowly improving Stopped multaq secondary to low HR Abx Hold multaq given low hr although may be secondary to sepsis BC pending On Abx EF normal on recent echo Recent seizure did not correlate with rhythm, changes Will follow
--- NOTE | 2019-08-02 19:06 | PRG ---
DATE OF SERVICE: 08/02/2019 SUBJECTIVE: Mr. Barrios is doing well today. He is extubated. His right foot is granulating. The left foot looks good granulating. Cellulitis has resolved. OBJECTIVE: White count is 7, hemoglobin 10.6. Sodium 139, BUN 26, creatinine 0.8, glucose is down from 334 to 256. Cultures; E coli, nonhemolytic strep. ASSESSMENT AND PLAN: Sepsis, diabetic foot infection, status post incision and drainage. Wounds are granulating with wound VAC. We would recommend continuing wound VAC. He is just extubated this morning. We would have Physical Therapy mobilize him. He can weight bear as tolerated. orthotic shoes. Outpatient wound VAC will need to be arranged. Antibiotic therapy oral or IV per Dr. Engle. Job ID: [id number]
[2019-08-02] MEDS ORDERED: AMIKACIN SULFATE IVPB SCH (21:00)
[2019-08-02] MEDS: SODIUM CHLORIDE 0.9% IVPB SCH (21:04)
[2019-08-02] MEDS: AMIKACIN SULFATE IVPB SCH (21:04)
[2019-08-03] MEDS: Sodium Chloride 0.9% 1,000 ML IV SCH (02:28)
[2019-08-03 03:32] LABS: #Eosinphils 0.1 thou/uL (0.0-0.7); #Lymphocytes 0.9 thou/uL (1.20-3.40); #Monocytes 0.8 thou/uL (0.11-0.59); #Neutrophils 6.3 thou/uL (1.40-6.50); %Basophils 0.5 % (0.0-1.0); %Eosinophils 1.1 % (0.0-10.0); %Monocytes 9.7 % (0.0-10.0); %Neutrophils 77.7 % (42.0-75.0); Hemoglobin 11.4 g/dL (14.0-18.0); Mean Corpuscular Hemoglobin 28.9 pg (27.0-31.0); Mean Corpuscular Volume 85.1 fL (78.0-98.0); Mean Platelet Volume 7.8 fL (7.4-10.4); Platelet Count 155 thou/uL (130-400); RBC Distribution Width 13.1 % (11.5-14.5); Red Blood Cell (RBC) Count 3.93 mill/uL (4.70-6.10); White Blood Cell (WBC) Count 8.2 thou/uL (4.8-10.8)
[2019-08-03 03:53] LABS: ALT (SGPT) 7 U/L (8-55); AST (SGOT) 10 U/L (5-34); Albumin 2.9 g/dL (3.4-4.8); Alkaline Phosphatase 50 U/L (40-110); Anion Gap 7 mmol/L (10-20); BUN (Urea Nitrogen) 20 mg/dL (8.4-25.7); Bilirubin, Total 0.8 mg/dL (0.2-1.2); Calc. Creatinine Clearance 140 mL/min (70-130); Carbon Dioxide 27 mmol/L (23-31); Chloride 108 mmol/L (98-107); Estimated GFR-MDRD Greater than 90; Globulin 2.9 g/dL (2.4-3.5); Glucose 170 mg/dL (80-115); Potassium 3.4 mmol/L (3.5-5.1); Protein, Total 5.8 g/dL (5.8-8.1); Sodium 139 mmol/L (136-145)
--- NOTE | 2019-08-03 06:30 | PDOC.CPN ---
- Subjective Date: 08/03/19 Time: 10:13 Interval history: Pt remains confused. No complaints - Objective Allergies/Adverse Reactions: Allergies Allergy/AdvReac Type Severity Reaction Status Date / Time SEAFOOD Allergy Intermediate Uncoded 07/30/19 00:27 Visit Medications: Current Medications Acetaminophen (Tylenol Elixir) 1,000 mg PER TUBE Q6H PRN PRN Reason: Fever/Pain Last Admin: 07/31/19 05:00 Dose: 1,000 mg Albuterol/Ipratropium (Duoneb) 3 ml NEB [id number] [facility] Last Admin: 08/02/19 23:05 Dose: 3 ml Dextrose/Water (Dextrose 50%) 25 gm SLOW IVP PRN PRN PRN Reason: Hypoglycemia Enoxaparin Sodium (Lovenox) 40 mg SC 09 [facility] Last Admin: 08/02/19 09:21 Dose: 40 mg Famotidine (Pepcid) 20 mg SLOW IVP BID [facility] Last Admin: 08/02/19 21:04 Dose: 20 mg Glucagon (Glucagon) 1 mg IM PRN PRN PRN Reason: Hypoglycemia Fentanyl Citrate 2,000 mcg/ (Sodium Chloride) 100 mls @ 0 mls/hr IV INF RUBEN; Protocol Stop: 08/29/19 03:10 Last Admin: 08/02/19 03:44 Dose: 100 mls Fentanyl Citrate (Fentanyl Bolus) 250 mls @ 0 mls/hr IVPB PRN PRN PRN Reason: Breakthrough pain/agitation Stop: 08/29/19 03:10 Sodium Chloride (Normal Saline 0.9%) 1,000 mls @ 100 mls/hr IV .Q10H [facility] Last Admin: 08/03/19 02:28 Dose: 1,000 mls Levetiracetam 750 mg/ Sodium (Chloride) 107.5 mls @ 215 mls/hr IVPB 1000,2200 [facility] Last Admin: 08/02/19 22:15 Dose: 107.5 mls Cefepime HCl 2 gm/ Sodium (Chloride) 100 mls @ 200 mls/hr IVPB Q12HR [facility] Last Admin: 08/02/19 21:04 Dose: 100 mls Insulin Glargine 20 units/ (Miscellaneous Medication) 0.2 mls @ 0 mls/hr SC BID [facility] Last Admin: 08/02/19 21:03 Dose: 0.2 mls Dextrose/Water (D5w) 1,000 mls @ 0 mls/hr IV .Q0M PRN PRN Reason: Hypoglycemia Amikacin Sulfate 0.75 gm/ (Sodium Chloride) 103 mls @ 103 mls/hr IVPB Q12HR [facility] Last Admin: 08/02/19 21:04 Dose: 103 mls Insulin Human Regular (Humulin R) 0 units SC .AGGRESSIVE SLIDING PRN PRN Reason: Aggressive Sliding Scale Last Admin: 08/02/19 21:03 Dose: 6 unit Lorazepam (Ativan) 2 mg SLOW IVP Q1H PRN PRN Reason: Breakthrough agitation Stop: 08/29/19 03:10 Last Admin: 08/01/19 17:02 Dose: 2 mg Methylprednisolone Sodium Succinate (Solu-Medrol) 40 mg IVP DAILY [facility] Last Admin: 08/02/19 11:02 Dose: 40 mg Morphine Sulfate (Morphine) 2 mg SLOW IVP Q1H PRN PRN Reason: BREAKTHROUGH PAIN/Agitation Stop: 08/29/19 03:10 Propofol (Diprivan) 1,000 mg IV INF PRN; Protocol PRN Reason: TO ACHIEVE GOAL RASS Stop: 08/29/19 03:10 Last Admin: 08/02/19 04:56 Dose: 1,000 mg Propofol (Diprivan Bolus) 20 mg IV Q5MIN PRN PRN Reason: BREAKTHROUGH AGITATION Stop: 08/29/19 03:10 Vital Signs & Weight: Vital Signs Temp Pulse Resp Pulse Ox 08/03/19 04:00 98.1 F 08/03/19 00:00 98.2 F 08/02/19 23:05 77 15 96 08/02/19 20:00 97.9 F 93 L 08/02/19 18:35 78 16 94 L Admit Weight 233 lb Weight 233 lb 0.458 oz - Physical Exam General: no apparent distress Neck: supple neck, no masses Cardiac: regular rate, regular rhythm Lungs: normal exam Abdomen: unremarkable, soft - Labs Result Diagrams: 08/03/19 03:20 08/03/19 03:20 Troponin/CKMB Troponin I Less than 0.010 ng/mL (< 0.028) 07/29/19 19:39 - Telemetry Sinus rhythms and dysrhythmias: sinus rhythm - Assessment/Plan Assessment/Plan: Diastolic CHF Respiratory failure afib on ACT Sepsis Bradycardia 08/03 REC EF appears normal although technically difficult study CV status stable Restart multaq, eliquis Abx Rehab Wound care, wound vac 08/02 REC Slowly improving Stopped multaq secondary to low HR Abx Hold multaq given low hr although may be secondary to sepsis BC pending On Abx EF normal on recent echo Recent seizure did not correlate with rhythm, changes Will follow
[2019-08-03 06:42] VITALS: BMI 27.2
--- NOTE | 2019-08-03 08:04 | RAD ---
PORTABLE CHEST: HISTORY: Respiratory distress. COMPARISON: Prior day's study. FINDINGS: Endotracheal and NG Tubes have been removed. Left-sided central line is unchanged in position. Inte rstitial alveolar lung changes are similar to the prior exam. IMPRESSION: Interval removal of the endotracheal and nasogastric tubes. Otherwise, stable chest. POS: [facility]
[2019-08-03] MEDS: SODIUM CHLORIDE 0.9% IVPB SCH ×2 (09:02→21:57)
[2019-08-03] MEDS: Enoxaparin Sodium 40 MG/0.4 ML SYRINGE SC SCH (09:02)
[2019-08-03] MEDS: AMIKACIN SULFATE IVPB SCH ×2 (09:02→21:57)
[2019-08-03] MEDS: Dronedarone HCl 400 MG TAB PO SCH ×2 (09:02→16:59)
[2019-08-03] MEDS: Cefepime 2 GM in Sodium Chloride 0.9% 100 ML IVPB SCH ×2 (09:02→20:44)
[2019-08-03] MEDS: Famotidine/PF 20 mg/2ml Vial SLOW IVP SCH ×2 (09:03→20:44)
[2019-08-03] MEDS: predniSONE 20 MG TAB PO SCH (09:03)
[2019-08-03] MEDS: Insulin Glargine 20 UNITS in Pre-Filled Syringe 1 EACH SC SCH ×2 (09:03→21:09)
--- NOTE | 2019-08-03 09:53 | PRG ---
DATE OF SERVICE: 08/03/2019 SUBJECTIVE: This morning, he is better, less short of breath. OBJECTIVE: VITAL SIGNS: His blood pressure 145/70, sats are 98% on room air, respiratory rate 18, and temperature 98. CHEST: Decreased breath sounds. No wheezing. CARDIAC: Normal S1 and S2. No gallops. ABDOMEN: No masses. IMAGING: X-ray still slight cephalization. LABORATORY DATA: White count 8000, hemoglobin and hematocrit of 11 and 33. Lytes are normal. Albumin is 2.9. IMPRESSION: Gangrenous feet, sepsis, respiratory failure, encephalopathy, posterior circulation cerebrovascular accident, normal EF. PLAN: He was started on amikacin by Infectious Disease along with Maxipime. Supportive care, PT. Can probably be transferred out of the ICU. Antiseizure medication as per Urology. One-half hour of critical care time. Job ID: [id number]
--- NOTE | 2019-08-03 20:40 | PRG ---
DATE OF SERVICE: 08/03/2019 SUBJECTIVE: Mr. Barrios is feeling much better. He is extubated now. He is still somewhat confused. OBJECTIVE: VITAL SIGNS: Temperature is afebrile. BP 145/70, O2 saturations 98% on room air. LUNGS: Bilateral breath sounds. HEART: Reveals a regular rate and rhythm. No murmurs, gallops, or rubs. IMPRESSION: 1. Probable sepsis. 2. Gangrene of left great toe status post amputation. 3. Foot ulcer, status post exploration. 4. cerebrovascular accident with seizure. PLAN: He has been able to be transferred out of the unit. We will continue current therapy. Job ID: [id number]
[2019-08-03] MEDS: ALPRAZolam 0.5 MG TAB PO PRN (22:56)
[2019-08-04 07:12] LABS: Hemoglobin 12.3 g/dL (14.0-18.0); Mean Corpuscular HGB CONC 33.4 g/dL (32.0-36.0); Mean Corpuscular Hemoglobin 27.8 pg (27.0-31.0); Mean Corpuscular Volume 83.4 fL (78.0-98.0); Mean Platelet Volume 7.8 fL (7.4-10.4); Platelet Count 188 thou/uL (130-400); RBC Distribution Width 13.1 % (11.5-14.5); Red Blood Cell (RBC) Count 4.42 mill/uL (4.70-6.10); White Blood Cell (WBC) Count 9.9 thou/uL (4.8-10.8)
[2019-08-04 07:20] LABS: ALT (SGPT) 14 U/L (8-55); AST (SGOT) 22 U/L (5-34); Albumin 3.3 g/dL (3.4-4.8); Alkaline Phosphatase 53 U/L (40-110); Anion Gap 12 mmol/L (10-20); BUN (Urea Nitrogen) 14 mg/dL (8.4-25.7); Bilirubin, Total 1.6 mg/dL (0.2-1.2); Calc. Creatinine Clearance 129 mL/min (70-130); Calcium 8.7 mg/dL (7.8-10.44); Carbon Dioxide 28 mmol/L (23-31); Chloride 102 mmol/L (98-107); Estimated GFR-MDRD 82; Globulin 3.1 g/dL (2.4-3.5); Glucose 101 mg/dL (80-115); Protein, Total 6.4 g/dL (5.8-8.1); Sodium 139 mmol/L (136-145)
[2019-08-04 08:34] LABS: Band 7 % (5-11); Lymphocytes 20 % (21-51); MDiff Complete? YES; Metamyelocyte 2 % (0-0); Monocytes 6 % (0-10); Neutrophil 64 % (42-75); RBC Morphology Normal; Reactive Lymphocytes 1 % (0-10)
--- NOTE | 2019-08-04 08:48 | RAD ---
FRONTAL RADIOGRAPH CHEST: Date: 08/04/19 COMPARISON: 08/03/19. HISTORY: Intubated patient. FINDINGS: There is no endotracheal tube present. Left-sided vascular catheter has been removed. No pneumothorax or pleural fluid. No focal consolidation or alveolar edema. Aeration in the perihilar regions and bi lateral lung bases has improved significantly since the prior exam. IMPRESSION: No acute findings. POS: [facility]
[2019-08-04] MEDS ORDERED: Non-Formulary Item 1 EACH (Carvedilol [Coreg] 12.5 MG) PO SCH (09:00)
--- NOTE | 2019-08-04 09:36 | PRG ---
DATE OF SERVICE: 08/04/2019 SUBJECTIVE: This morning, he became more agitated, pulled out his IJ. OBJECTIVE: VITAL SIGNS: Temperature 98, pulse 72, respiratory rate 20, saturations are 100%, blood pressure 158/83. GENERAL: When I went visiting, appears quite appropriate. CHEST: Minimal wheezing. CARDIAC: Normal S1, S2. No gallops. ABDOMEN: No masses. LABORATORY DATA: Potassium is 3. ASSESSMENT: 1. Infected feet, sepsis. 2. Seizure disorder with a negative EEG. Encephalopathy. PLAN: Antibiotics per Infectious Disease. Pulmonary lara, appears to be stable. Minimize sedation. Job ID: [id number]
[2019-08-04] MEDS: Insulin Glargine 20 UNITS in Pre-Filled Syringe 1 EACH SC SCH ×2 (10:13→21:01)
[2019-08-04] MEDS: predniSONE 20 MG TAB PO SCH (10:13)
[2019-08-04] MEDS: Dronedarone HCl 400 MG TAB PO SCH ×2 (10:13→17:28)
[2019-08-04] MEDS: Carvedilol 6.25 MG TAB PO SCH ×2 (10:13→21:00)
[2019-08-04] MEDS: Rosuvastatin 10 MG TAB PO SCH (10:14)
[2019-08-04] MEDS: Enoxaparin Sodium 40 MG/0.4 ML SYRINGE SC SCH (10:14)
[2019-08-04] MEDS: Famotidine/PF 20 mg/2ml Vial SLOW IVP SCH ×2 (10:14→21:00)
[2019-08-04] MEDS: Cefepime 2 GM in Sodium Chloride 0.9% 100 ML IVPB SCH (10:14)
[2019-08-04] MEDS: AMIKACIN SULFATE IVPB SCH ×2 (10:33→21:00)
[2019-08-04] MEDS: SODIUM CHLORIDE 0.9% IVPB SCH ×2 (10:33→21:00)
[2019-08-04] MEDS: ALPRAZolam 0.5 MG TAB PO PRN ×2 (11:32→21:01)
--- NOTE | 2019-08-04 14:22 | PRG ---
DATE OF SERVICE: 08/04/2019 SUBJECTIVE: Mr. Barrios is still a little bit delirious. He knows where he is though. Initially, he told me he was at home, but then he corrected it to the right information. Overnight, he became agitated and removed his central line. There was blood all over the place. Now, he has a peripheral IV access. Still has a Bradley catheter in place. He is sleepy right now, but he is arousable. Denies headaches. No shortness of breath or chest pain. No abdominal pain. OBJECTIVE: VITAL SIGNS: T-max 98.8, BP 150/83, pulse 70, respirations 14 to 20, and O2 saturation 100%. SKIN: The patient has the areas of amputation of right and left feet with the right side with a negative pressure dressing, the left side just with a regular dressing, those were not removed at this time. HEENT: His ocular movements are conjugate. Pupils are 2 mm and reactive. LUNGS: With clear breath sounds. HEART: S1 and S2. Regular rate. ABDOMEN: Soft, not distended or tender. EXTREMITIES: Warm. NEUROLOGIC: He is drowsy, arousable, a little bit disoriented still, but improving. Had been restrained, but the restraints have been removed. LABORATORY DATA: White cell count is at 9.9, hemoglobin 12.3, platelets 188 with normal differential. The creatinine is at its normal range, now with a GFR up to 82. Albumin 3.3. Microbiology with E coli, E faecalis, P aeruginosa from the feet. Antimicrobial therapy has been adjusted to Zosyn and the amikacin because of the P aeruginosa resistance profile. The pathology report shows a clear margin of amputation. 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 The patient is still a little bit delirious and we will switch him to Zosyn and amikacin. In view of the final results of the microbiology assays, duration of therapy will depend on the progress of the wounds and hopefully that amikacin will be able to be dropped soon. In terms of oral antimicrobial therapy, we do not have a lot of choices here. The quinolones are intermediate for the E coli. The P aeruginosa is highly resistant. The only organism would be the E faecalis, but I believe the gram negatives have a bigger role, so I think we are going to have to continue IV therapy for protracted periods of time. He may have to be admitted to a skilled unit. Job ID: [id number]
--- NOTE | 2019-08-04 14:48 | PRG ---
DATE OF SERVICE: 08/04/2019 SUBJECTIVE: The patient accidentally pulled out his internal jugular line last night. A peripheral IV was restarted. He is still somewhat confused this morning. He is awake. He responds to questions. OBJECTIVE: VITAL SIGNS: Temperature 98.3, blood pressure 157/83, and pulse 70 and regular. GENERAL: He is arousable, alert, still confused, seems to answer questions mostly appropriately. LUNGS: Reveal bilateral breath sounds. HEART: Reveals a regular rate and rhythm without murmurs, gallops, or rubs. LABORATORY DATA: White blood count is 9.9, hemoglobin 12.3, and hematocrit 36.8. Potassium 3.0, sodium 139, chloride 102, and creatinine 0.93. IMPRESSION: 1. Probable sepsis. 2. Infected foot, right great toe, status post amputation of right great toe. 3. Confusion, possibly secondary to cerebrovascular accident. 4. Seizure. 5. Hypokalemia. PLAN: 1. We will replace potassium today. 2. Go and get physical therapy involved for upper body strength conditioning. I doubt if he can do any type of weightbearing due to his foot status at this time. Continue current medications, otherwise. Job ID: [id number]
[2019-08-04] MEDS: Piperacillin/Tazobactam 3.375 GM in Sodium Chloride 0.9% 100 ML IVPB SCH (17:27)
--- NOTE | 2019-08-04 21:42 | PRG ---
DATE OF SERVICE: 08/04/2019 SUBJECTIVE: Mr. Barrios is doing well today. He is more alert and conversive. OBJECTIVE: VITAL SIGNS: Temperature 98.1 degrees, heart rate 79, blood pressure 148/79. LABORATORY DATA: White count 9, hemoglobin 12. Basic metabolic profile normal. Cultures reveal E coli, Enterococcus. ASSESSMENT AND PLAN: Left foot infection. Evaluation of the wound. Wound VACs were removed. Right great toe metatarsal amputation site is healing and granulating. Wound VAC will be continued. Left foot wound laterally is granulating and healing. There is no tracking. There is no redness. No cellulitis. I have discussed with wound care. We will do a non-wound VAC care for this foot. He will need bilateral postoperative shoes for mobility to accommodate his dressings on his feet. He can be discharged home on oral antibiotics anytime deemed necessary by Dr. Engle in medical team. At this point, I will see him as needed. He can follow up in my office in 2 to 3 weeks. Please call if necessary. Job ID: [id number]
[2019-08-05] MEDS: Piperacillin/Tazobactam 3.375 GM in Sodium Chloride 0.9% 100 ML IVPB SCH ×4 (00:45→17:28)
[2019-08-05] MEDS: ALPRAZolam 0.5 MG TAB PO PRN (04:13)
[2019-08-05 06:01] LABS: Hemoglobin 12.1 g/dL (14.0-18.0); Mean Corpuscular HGB CONC 34.2 g/dL (32.0-36.0); Mean Corpuscular Volume 84.9 fL (78.0-98.0); Mean Platelet Volume 7.8 fL (7.4-10.4); Platelet Count 183 thou/uL (130-400); RBC Distribution Width 13.2 % (11.5-14.5); Red Blood Cell (RBC) Count 4.16 mill/uL (4.70-6.10); White Blood Cell (WBC) Count 10.4 thou/uL (4.8-10.8)
[2019-08-05 06:23] LABS: ALT (SGPT) 14 U/L (8-55); AST (SGOT) 20 U/L (5-34); Albumin 3.1 g/dL (3.4-4.8); Alkaline Phosphatase 52 U/L (40-110); Anion Gap 14 mmol/L (10-20); BUN (Urea Nitrogen) 19 mg/dL (8.4-25.7); Bilirubin, Total 1.8 mg/dL (0.2-1.2); Calc. Creatinine Clearance 141 mL/min (70-130); Calcium 8.3 mg/dL (7.8-10.44); Carbon Dioxide 22 mmol/L (23-31); Chloride 105 mmol/L (98-107); Estimated GFR-MDRD Greater than 90; Glucose 115 mg/dL (80-115); Potassium 3.2 mmol/L (3.5-5.1); Protein, Total 6.1 g/dL (5.8-8.1); Sodium 138 mmol/L (136-145)
[2019-08-05 06:33] LABS: Eosinophils 2 % (0-10); Lymphocytes 14 % (21-51); MDiff Complete? YES; Metamyelocyte 1 % (0-0); Monocytes 7 % (0-10); Myelocyte 3 % (0-0); Neutrophil 73 % (42-75)
--- NOTE | 2019-08-05 07:32 | RAD ---
CHEST ONE VIEW: INDICATIONS: Intubation. COMPARISON: Prior exam dated 08/04/2019. FINDINGS: There are air space opacities involving both lower lobes, which has developed in the interim. No pleu ral effusion or pneumothorax is evident. Heart size is normal. No acute osseous abnormality is eviden t. IMPRESSION: New bibasilar air space opacities are nonspecific and may reflect pneumonia or aspiration. Continued followup is recommended. POS: [facility]
[2019-08-05] MEDS ORDERED: Potassium Chloride 20 MEQ TAB PO SCH ×2 (08:00→17:00)
[2019-08-05] MEDS: Rosuvastatin 10 MG TAB PO SCH (09:24)
[2019-08-05] MEDS: Carvedilol 6.25 MG TAB PO SCH ×2 (09:24→20:39)
[2019-08-05] MEDS: Enoxaparin Sodium 40 MG/0.4 ML SYRINGE SC SCH (09:25)
[2019-08-05] MEDS: Famotidine/PF 20 mg/2ml Vial SLOW IVP SCH ×2 (09:25→20:39)
[2019-08-05] MEDS: predniSONE 20 MG TAB PO SCH (09:25)
[2019-08-05] MEDS: Dronedarone HCl 400 MG TAB PO SCH ×2 (09:25→17:29)
[2019-08-05] MEDS: Insulin Glargine 20 UNITS in Pre-Filled Syringe 1 EACH SC SCH ×2 (09:27→20:40)
[2019-08-05] MEDS: SODIUM CHLORIDE 0.9% IVPB SCH ×2 (10:09→20:39)
[2019-08-05] MEDS: AMIKACIN SULFATE IVPB SCH ×2 (10:09→20:39)
--- NOTE | 2019-08-05 11:43 | PRG ---
DATE OF SERVICE: 08/05/2019 SUBJECTIVE: He appears to be doing okay. He is pleasantly confused. OBJECTIVE: VITAL SIGNS: Temperature 98.2, pulse 63, respirations 20, blood pressure 162/80, O2 saturation 94% on room air. HEENT: Unremarkable. NECK: No adenopathy or JVD. LUNGS: Clear. CARDIAC: S1 and S2, regular. ASSESSMENT: 1. Sepsis from infected feet. 2. Seizure disorder. 3. X-ray with bibasilar opacities, which maybe reflective of pneumonitis. PLAN: Continue present antibiotic therapy, which should adequately cover anything pulmonary related. Job ID: [id number]
[2019-08-05] MEDS: Insulin Regular 300 UNITS/3 ML VIAL SC PRN (17:35)
--- NOTE | 2019-08-05 23:13 | PRG ---
DATE OF SERVICE: 08/05/2019 HISTORY OF PRESENT ILLNESS: The patient is calm this morning, remains in soft restraints from prior agitation following a seizure and findings consistent with CVA during this hospital admission, near perioperative state for amputation, incision and drainage of lower extremities from Charcot foot and diabetic complications. The patient had no acute complaints this morning. Vital signs; temperature of 98.2, pulse of 75, respiratory rate of 19, oxygen saturation of 97% on room air, and blood pressure 122/75. White blood cell count of 10.4 and hemoglobin of 12.1. Sodium of 138, potassium of 3.2, magnesium of 1.8, blood glucose is in the 121 to 248 range in the last 12 hours. Creatinine of 0.85. Microbiology reviewed with E coli, Pseudomonas, and Enterococcus faecalis present, sensitive to current antibiotic regimen administered per Dr. Engle. PHYSICAL EXAMINATION: GENERAL: The patient is alert, in no acute distress. HEENT: Head is normocephalic and atraumatic. Extraocular movements are intact. Oral mucosa is moist. NECK: Supple. HEART: Regular rate and rhythm at time of exam. No murmurs auscultated. LUNGS: Clear to auscultation bilaterally. Slightly diminished bilateral bases. ABDOMEN: Soft, nontender. Positive bowel sounds throughout. Soft restraints in place. EXTREMITIES: Lower extremities, left lower extremity with left lateral heel dressing intact. Offloading pressure over incision and drainage site. Josué bandage over bulky dressing intact over the right amputated toe. No extending erythema or discharge noted. Warm feet, evaluated otherwise above dressings. ASSESSMENT AND PLAN: Complication of diabetes with Charcot foot with abscess and need for amputation for complications to the bone. Dr. Guan has performed surgery. The patient is progressing as expected. Continued on antibiotics of amikacin and Zosyn. Question of possible aspiration on most recent chest x-ray. The patient is on prednisone, followed by Dr. Farrell at this point in time. Echo during this hospitalization at 55% to 60% ejection fraction was suggestive of diastolic dysfunction. Keppra was continued for seizure with soft restraints at night. The patient had pulled out one of his central line sites, has peripherals at this point in time for IV access. Regarding diabetes, he is on 20 units of insulin glargine with sliding scale protocol following. Dr. Keane has the patient on Multaq with his heart rate that is controlled. Regarding his hypokalemia, increased potassium chloride replacement from 20 to 40 mEq given the fact that magnesium is relatively normal at 1.8. The patient on SCDs for deep venous thrombosis prophylaxis. The patient is oriented x2 at bedside this morning. We will continue to follow along over the weekend. Job ID: [id number]
[2019-08-06] MEDS: Piperacillin/Tazobactam 3.375 GM in Sodium Chloride 0.9% 100 ML IVPB SCH ×4 (00:07→17:20)
[2019-08-06] MEDS ORDERED: Clopidogrel Bisulfate 75 MG TAB ONE (05:04)
[2019-08-06 05:18] LABS: #Eosinphils 0.5 thou/uL (0.0-0.7); #Lymphocytes 1.5 thou/uL (1.20-3.40); #Monocytes 1.3 thou/uL (0.11-0.59); #Neutrophils 7.5 thou/uL (1.40-6.50); %Basophils 0.4 % (0.0-1.0); %Eosinophils 4.3 % (0.0-10.0); %Lymphocytes 13.6 % (21.0-51.0); %Monocytes 11.7 % (0.0-10.0); Hemoglobin 12.1 g/dL (14.0-18.0); Mean Corpuscular HGB CONC 33.9 g/dL (32.0-36.0); Mean Corpuscular Volume 85.7 fL (78.0-98.0); Mean Platelet Volume 7.5 fL (7.4-10.4); Platelet Count 201 thou/uL (130-400); RBC Distribution Width 14.4 % (11.5-14.5); Red Blood Cell (RBC) Count 4.18 mill/uL (4.70-6.10); White Blood Cell (WBC) Count 10.8 thou/uL (4.8-10.8)
[2019-08-06 05:41] LABS: ALT (SGPT) 14 U/L (8-55); AST (SGOT) 16 U/L (5-34); Albumin 3.2 g/dL (3.4-4.8); Alkaline Phosphatase 51 U/L (40-110); Anion Gap 10 mmol/L (10-20); BUN (Urea Nitrogen) 20 mg/dL (8.4-25.7); Bilirubin, Total 1.9 mg/dL (0.2-1.2); Calc. Creatinine Clearance 120 mL/min (70-130); Calcium 8.3 mg/dL (7.8-10.44); Carbon Dioxide 27 mmol/L (23-31); Chloride 105 mmol/L (98-107); Estimated GFR-MDRD 75; Globulin 2.9 g/dL (2.4-3.5); Glucose 127 mg/dL (80-115); Potassium 3.5 mmol/L (3.5-5.1); Protein, Total 6.1 g/dL (5.8-8.1); Sodium 138 mmol/L (136-145)
[2019-08-06] MEDS: Insulin Regular 300 UNITS/3 ML VIAL SC PRN ×2 (06:05→17:35)
[2019-08-06] MEDS: Insulin Glargine 20 UNITS in Pre-Filled Syringe 1 EACH SC SCH ×2 (07:51→20:34)
[2019-08-06] MEDS: Rosuvastatin 10 MG TAB PO SCH (07:52)
[2019-08-06] MEDS: Carvedilol 6.25 MG TAB PO SCH ×2 (07:52→20:31)
[2019-08-06] MEDS: Dronedarone HCl 400 MG TAB PO SCH ×2 (07:53→17:20)
[2019-08-06] MEDS: Enoxaparin Sodium 40 MG/0.4 ML SYRINGE SC SCH (07:53)
[2019-08-06] MEDS: SODIUM CHLORIDE 0.9% IVPB SCH (07:53)
[2019-08-06] MEDS: Potassium Chloride 20 MEQ TAB PO SCH (07:53)
[2019-08-06] MEDS: Famotidine/PF 20 mg/2ml Vial SLOW IVP SCH ×2 (07:53→20:32)
[2019-08-06] MEDS: predniSONE 20 MG TAB PO SCH (07:53)
[2019-08-06] MEDS: AMIKACIN SULFATE IVPB SCH (07:53)
[2019-08-06] MEDS: ALPRAZolam 0.5 MG TAB PO PRN ×2 (11:24→18:14)
--- NOTE | 2019-08-06 11:47 | PRG ---
DATE OF SERVICE: 08/06/2019 SUBJECTIVE: The patient is pleasantly confused, but in no distress. OBJECTIVE: VITAL SIGNS: Temperature 98.4, pulse 61, respirations 20, and O2 saturation 97% on room air. HEENT: Unremarkable. NECK: No JVD. CHEST: Clear. CARDIAC: S1 and S2, regular. LABORATORY DATA: White blood cell count 10.8, hematocrit 35.8, platelet count 201. Sodium 138, potassium 3.5, BUN 20, creatinine 1.0, and glucose 127. ASSESSMENT: 1. Seizure disorder. 2. Sepsis from infected foot. 3. Encephalopathy, which is improved. PLAN: Continue antibiotics. Job ID: [id number]
--- NOTE | 2019-08-06 12:20 | MRI ---
MRI Brain WO Con: 08/06/2019 10:18 AM CLINICAL HISTORY: Altered mental status after stroke. TECHNIQUE: Multiplanar, multisequence images were obtained of the brain. COMPARISON: MR the brain without contrast dated July 30, 2019 FINDINGS: Extra axial spaces: Normal in size and morphology for the patient's age. Hemorrhage: Small amount of cortical petechial hemorrhage is seen involving a focus of subacute infar ct involving the left occipital cortex on image 12 of series 5. No large intraparenchymal hemorrhage is evident.. Ventricular system: Normal in size and morphology for the patient's age. Basal cisterns: Normal. Cerebral parenchyma: There are subacute infarcts involving the foci of both occipital lobes as well a s small foci of involvement of the right and left temporal lobe in the HAND COMPOSITOR distribution.. Midline shift: None. Cerebellum: Normal. Brainstem: Normal. OTHER: Calvarium: Normal. Vascular system: Normal. Visualized Paranasal sinuses: Mucous retention cysts within both maxillary sinuses. Mucosal thickenin g within the ethmoid air cells. Visualized Orbits: Normal. Visualized upper cervical spine: Normal. Sella and skull base: Normal. IMPRESSION: Evolutionary changes involving the foci of subacute infarction involving the regions of the temporal lobe and occipital lobes bilaterally in a HAND COMPOSITOR distribution. One region of cortical infarction involving the left occipital lobe demonstrates some petechial hemorrhage in the cortex. Findings called to the floor and given to the nurse caring for this patient at 12:15 PM on August 06, 2019.
--- NOTE | 2019-08-06 17:40 | PRG ---
DATE OF SERVICE: 08/06/2019 SUBJECTIVE: The patient is much improved. He is wide awake and alert, sounds a little bit suspicious in the way he is and a little bit delusional in certain parts of his conversation, but certainly markedly improved from the initial days after he was admitted. He denies headaches. No visual symptoms. No sore throat. No chest pain or dyspnea or chest or no abdominal pain, no diarrhea. He is voiding without difficulty. OBJECTIVE: VITAL SIGNS: He has been afebrile. Blood pressure 140/74, pulse 61, respirations 16 to 20, and O2 saturation 97. GENERAL: He is awake and oriented. LUNGS: Clear. HEART: S1 and S2. Regular rate. ABDOMEN: Soft, not distended. EXTREMITIES: The patient has negative pressure dressing in the right foot amputation site. LABORATORY DATA: White cell count 10.8, hemoglobin 12.1, platelets 201 with 70% neutrophils. Sodium 138, creatinine 1, bilirubin 1.9, transaminases normal, alkaline phosphatase 51. HSV-1 and HSV-2 DNA PCR was negative. Repeat MRI showed confirmed the areas of subacute infarction in the occipital lobes. He has some areas in the temporal regions as well, but mostly in the occipital. ASSESSMENT AND DISCUSSION: Type 2 diabetes, multiple feet complications in the past with persistence/recurrence of inflammatory process, areas of occipital subacute infarction with possible involvement of the basilar artery. Blood cultures are negative, but he does have a polymicrobial ed in the feet with Pseudomonas aeruginosa, both of left and right feet, Enterococcus faecalis and Escherichia coli. The Pseudomonas aeruginosa has quite resistant to various antimicrobials. Still maintaining his renal function for the time being, but there is some early decrease. If it continues to go down, we will have to discontinue amikacin for the time being. We will hold it until we have further inflammation. He is also on Zosyn, which will be continued. He may need a vascular study of his posterior cerebral circulation. Job ID: [id number]
--- NOTE | 2019-08-06 18:57 | PRG ---
DATE OF SERVICE: 08/06/2019 HISTORY OF PRESENT ILLNESS: The patient continues to be with waxing and waning mentation, woke up this morning and pulled out IV again, was replaced in soft restraints. States that he is at his home, not at hospital. He is oriented to person only. Answers with simple one or two word phrases, not caring on complex conversations. The patient is tolerating IV antibiotics. No other acute reports per nursing staff. OBJECTIVE: VITAL SIGNS: Temperature of 98.4, pulse of 61, respiratory rate of 20, oxygen saturation 97% on room air, blood pressure 147/74. GENERAL: The patient is alert, in no acute distress. HEENT: Head is normocephalic, atraumatic. Extraocular movements are intact. Oral mucosa is moist. NECK: Supple. HEART: Regular rate and rhythm at time of exam. No murmurs auscultated. LUNGS: Clear to auscultation bilaterally. No rubs or wheezes. ABDOMEN: Soft, nontender. Positive bowel sounds throughout. EXTREMITIES: In soft restraints. NEUROLOGICAL: The patient is alert and oriented x1. Speech is normal except for only able to say 1-2 word phrases. The patient cannot follow more detailed conversations. EXTREMITIES: Lower extremities with dressings intact, bilateral lower extremities. LABORATORY DATA: White blood cell count of 10.8, hemoglobin of 12.1. Creatinine of 1.0, potassium improved to 3.5, blood glucose 168 to 199 last 16 hours. The patient did undergo a repeat MRI since the patient's baseline is not coming back up, which showed subacute infarction evolving in the same place as was found on admission. The patient does have a very subtle parenchymal hemorrhage in the cortex, but does not appear to be extending. The patient is on SCDs, prophylactic Lovenox. ASSESSMENT/PLAN: Pseudomonas aeruginosa, Escherichia coli, and enterococcus faecalis following antibiotic recommendations per Dr. Engle. He has discontinued amikacin later today and will continue Zosyn at this point in time, but otherwise Pulmonary Critical Care and Infectious Disease agree with current management of diabetes type 2 with sliding scale insulin, insulin glargine. Hypokalemia is currently resolved with increase in potassium chloride replacement. Wound care is continuing to follow. Re-dress wound sites. The patient continued on Keppra for seizure prophylaxis. No reported events. Given his altered mental status and metabolic encephalopathy, cannot fully say it would be secondary to any evolving or new strokes as MRI shows fairly unchanged picture. At this point in time, still feel the patient would be safe with prophylactic Lovenox, but would not increase given the hemorrhagic component on MRI with any additional aspirin or therapeutic dosing. Dr. Cardoza will picker tender tomorrow morning. The patient is still maintained on prednisone regarding lung status and p.r.n. breathing treatments. Job ID: [id number]
[2019-08-06] MEDS ORDERED: Lorazepam 2 MG/ML VIAL SLOW IVP PRN (20:19)
[2019-08-06] MEDS ORDERED: Morphine 4 MG/ML VIAL SLOW IVP PRN (20:20)
[2019-08-06] MEDS: Haloperidol Lactate 5 MG/ML VIAL IM PRN (22:56)
[2019-08-07] MEDS: Piperacillin/Tazobactam 3.375 GM in Sodium Chloride 0.9% 100 ML IVPB SCH ×5 (00:26→23:59)
[2019-08-07 02:08] LABS: Glucose Accucheck Confirmation 87 mg/dl (80-115)
[2019-08-07 06:33] LABS: ALT (SGPT) 15 U/L (8-55); AST (SGOT) 22 U/L (5-34); Albumin 3.3 g/dL (3.4-4.8); Alkaline Phosphatase 51 U/L (40-110); Anion Gap 9 mmol/L (10-20); BUN (Urea Nitrogen) 14 mg/dL (8.4-25.7); Calc. Creatinine Clearance 108 mL/min (70-130); Calcium 8.4 mg/dL (7.8-10.44); Carbon Dioxide 30 mmol/L (23-31); Chloride 104 mmol/L (98-107); Estimated GFR-MDRD 67; Globulin 2.8 g/dL (2.4-3.5); Glucose 88 mg/dL (80-115); Potassium 3.3 mmol/L (3.5-5.1); Protein, Total 6.1 g/dL (5.8-8.1); Sodium 140 mmol/L (136-145)
[2019-08-07 06:37] LABS: Band 2 % (5-11); Eosinophils 2 % (0-10); Lymphocytes 9 % (21-51); MDiff Complete? YES; Mean Corpuscular HGB CONC 33.5 g/dL (32.0-36.0); Mean Corpuscular Hemoglobin 28.9 pg (27.0-31.0); Mean Corpuscular Volume 86.3 fL (78.0-98.0); Mean Platelet Volume 7.7 fL (7.4-10.4); Monocytes 11 % (0-10); Myelocyte 1 % (0-0); Neutrophil 75 % (42-75); Platelet Count 189 thou/uL (130-400); RBC Distribution Width 14.5 % (11.5-14.5); Red Blood Cell (RBC) Count 4.14 mill/uL (4.70-6.10); White Blood Cell (WBC) Count 10.4 thou/uL (4.8-10.8)
[2019-08-07] MEDS: Potassium Chloride 20 MEQ TAB PO SCH (08:44)
[2019-08-07] MEDS: predniSONE 20 MG TAB PO SCH (08:45)
[2019-08-07] MEDS: Dronedarone HCl 400 MG TAB PO SCH ×2 (08:45→17:29)
[2019-08-07] MEDS: Rosuvastatin 10 MG TAB PO SCH (08:46)
[2019-08-07] MEDS: Carvedilol 6.25 MG TAB PO SCH ×2 (08:46→19:49)
[2019-08-07] MEDS: Famotidine/PF 20 mg/2ml Vial SLOW IVP SCH ×2 (08:46→19:50)
[2019-08-07] MEDS: Enoxaparin Sodium 40 MG/0.4 ML SYRINGE SC SCH (08:47)
[2019-08-07] MEDS: Insulin Glargine 20 UNITS in Pre-Filled Syringe 1 EACH SC SCH ×3 (08:49→20:45)
--- NOTE | 2019-08-07 09:46 | RAD ---
CHEST 1 VIEW: Date: 08/07/19 INDICATION: History of intubation. COMPARISON: Prior exam dated 08/05/19. FINDINGS: There is some improved aeration of both lower lobes, likely reflecting subsegmental volume loss. Hear t size is within normal limits. No pleural effusion is evident. There is gaseous distention seen with in the upper abdomen. No acute osseous abnormality is noted. IMPRESSION: Improved aeration of both lower lobes. POS: OFF
--- NOTE | 2019-08-07 10:05 | PRG ---
DATE OF SERVICE: 08/07/2019 SUBJECTIVE: This morning, he is better. He is less encephalopathic. Last chest x-ray shows no acute infiltrates. OBJECTIVE: VITAL SIGNS: Blood pressure 130/80, pulse rate of 18, and saturations are 94%. CHEST: No wheezing or crackles. CARDIAC: Normal S1 and S2. No gallops. ABDOMEN: No masses. LABORATORY DATA: White count 10,000. Lytes normal. ASSESSMENT: 1. Encephalopathy, better. 2. Aspiration pneumonia, better. 3. Seizures. 4. Infected foot. PLAN: Pulmonary is going to follow at a distance. Please call as needed. Disposition as per primary care physician and Infectious Disease. Job ID: [id number]
--- NOTE | 2019-08-07 11:07 | PRG ---
DATE OF SERVICE: 08/07/2019 SUBJECTIVE: Mr. Barrios is asleep. He had to be sedated last night due to some agitation, tried to pull out his IV. His is at his bedside. He remains somewhat confused, not belligerent. OBJECTIVE: VITAL SIGNS: BP 162/76, pulse 57, and temperature 98.1. LUNGS: Revealed bilateral breath sounds. HEART: Reveals a regular rate and rhythm. No murmurs, gallops, or rubs. LABORATORY DATA: Hemoglobin 12.0, hematocrit 35.8, and white count 10.4. Sodium 140, potassium 3.3, chloride 104, CO2 of 30, BUN 14, and creatinine 1.11. Blood sugars are excellent control. Brain MRI yesterday shows no evidence of any significant changes to his MRI, although there are evolutionary change to the previous strokes. There is no evidence of any significant changes otherwise. IMPRESSION: A 64-year-old male with history of cerebrovascular accident, probable seizures with cellulitis of the lower extremities, status post amputation, still remains confused, thus etiology of this seizure is a mystery to me. PLAN: 1. I will ask Neurology come back to reassess. 2. I have spoken with his regarding the imminent transfer of his care to the hospital as I fully understand the need for this. Due to my not having the ability to care for him in the hospital anymore, one-on-one transfer will occur later this afternoon. We will get a assisted or rehab consult in place. Job ID: [id number]
[2019-08-07] MEDS ORDERED: Lorazepam 0.5 MG TAB PO SCH (23:45)
[2019-08-08] MEDS: Piperacillin/Tazobactam 3.375 GM in Sodium Chloride 0.9% 100 ML IVPB SCH ×4 (05:51→23:22)
[2019-08-08 06:40] LABS: Hemoglobin 12.6 g/dL (14.0-18.0); Mean Corpuscular HGB CONC 33.5 g/dL (32.0-36.0); Mean Corpuscular Hemoglobin 28.7 pg (27.0-31.0); Mean Corpuscular Volume 85.7 fL (78.0-98.0); Platelet Count 174 thou/uL (130-400); RBC Distribution Width 15.2 % (11.5-14.5); Red Blood Cell (RBC) Count 4.39 mill/uL (4.70-6.10); White Blood Cell (WBC) Count 7.3 thou/uL (4.8-10.8)
[2019-08-08 07:02] LABS: ALT (SGPT) 17 U/L (8-55); AST (SGOT) 21 U/L (5-34); Albumin 3.4 g/dL (3.4-4.8); Alkaline Phosphatase 56 U/L (40-110); Anion Gap 8 mmol/L (10-20); BUN (Urea Nitrogen) 16 mg/dL (8.4-25.7); Bilirubin, Total 2.2 mg/dL (0.2-1.2); Calc. Creatinine Clearance 99 mL/min (70-130); Calcium 8.4 mg/dL (7.8-10.44); Carbon Dioxide 31 mmol/L (23-31); Chloride 103 mmol/L (98-107); Estimated GFR-MDRD 60; Glucose 141 mg/dL (80-115); Potassium 3.7 mmol/L (3.5-5.1); Protein, Total 6.4 g/dL (5.8-8.1); Sodium 138 mmol/L (136-145)
[2019-08-08 07:29] LABS: Band 1 % (5-11); Eosinophils 2 % (0-10); Lymphocytes 27 % (21-51); MDiff Complete? YES; Metamyelocyte 1 % (0-0); Monocytes 16 % (0-10); Myelocyte 2 % (0-0); Neutrophil 51 % (42-75); Platelet Morphology Comment Appears Adequate; RBC Morphology Normal
--- NOTE | 2019-08-08 08:48 | RAD ---
SINGLE VIEW OF THE CHEST: COMPARISON: 08/07/2019. HISTORY: Respiratory failure. Intubated patient. FINDINGS: Single view of the chest shows a normal sized cardiomediastinal silhouette. There is no evidence of c onsolidation, mass, or pleural effusion. The bones are unremarkable. IMPRESSION: No evidence of acute cardiopulmonary disease. POS: CET
[2019-08-08] MEDS: Rosuvastatin 10 MG TAB PO SCH (09:01)
[2019-08-08] MEDS: Potassium Chloride 20 MEQ TAB PO SCH (09:01)
[2019-08-08] MEDS: predniSONE 20 MG TAB PO SCH (09:01)
[2019-08-08] MEDS: Carvedilol 6.25 MG TAB PO SCH ×2 (09:02→20:43)
[2019-08-08] MEDS: Dronedarone HCl 400 MG TAB PO SCH ×2 (09:02→15:24)
[2019-08-08] MEDS: Enoxaparin Sodium 40 MG/0.4 ML SYRINGE SC SCH (09:04)
[2019-08-08] MEDS: Insulin Glargine 20 UNITS in Pre-Filled Syringe 1 EACH SC SCH ×3 (09:05→20:44)
[2019-08-08] MEDS: Famotidine/PF 20 mg/2ml Vial SLOW IVP SCH ×2 (09:07→20:44)
--- NOTE | 2019-08-08 15:08 | PDOC.HOSPP ---
- Subjective Encounter Date: 08/08/19 Encounter Time: 13:00 Subjective: pt up walking around, doing well compared to yesterday according to the staff - Objective Vital Signs & Weight: Vital Signs (12 hours) Temp Pulse Resp BP BP Pulse Ox 08/08/19 13:35 66 18 99 08/08/19 12:53 97.4 F L 67 16 145/77 H 100 08/08/19 09:02 156/75 H 08/08/19 08:00 96 08/08/19 06:50 59 L 14 95 Weight Admit Weight 233 lb 0.458 oz Weight 247 lb 12.793 oz Most Recent Monitor Data Heart Rate from ECG 76 NIBP 164/86 NIBP BP-Mean 112 Respiration from ECG 13 SpO2 97 I&O: 08/07/19 08/08/19 08/09/19 06:59 06:59 06:59 Intake Total 2105 Output Total 1900 Balance 205 Result Diagrams: 08/08/19 06:08 08/08/19 06:08 Additional Labs: Accuchecks 08/08/19 08/07/19 08/07/19 04:55 20:34 16:08 POC Glucose 154 H 182 H 137 H Hospitalist ROS - Review of Systems Respiratory: denies: cough, dry, shortness of breath, hemoptysis, SOB with excertion, pleuritic pain, sputum, wheezing, other Cardiovascular: denies: chest pain, palpitations, orthopnea, paroxysmal noc. dyspnea, edema, light headedness, other Gastrointestinal: denies: nausea, vomiting, abdominal pain, diarrhea, constipation, melena, hematochezia, other - Medication Medications: Active Medications Generic Name Dose Route Start Last Admin Trade Name Freq PRN Reason Stop Dose Admin Acetaminophen 1,000 mg 07/30/19 08:24 07/31/19 05:00 Tylenol Elixir PER TUBE 1,000 mg Q6H PRN Administration Fever/Pain Carvedilol 12.5 mg 08/04/19 09:00 08/08/19 09:02 Coreg PO 12.5 mg BID RUBEN Administration Dronedarone 400 mg 08/03/19 08:00 08/08/19 09:02 Multaq PO 400 mg BID-WM RUBEN Administration Enoxaparin Sodium 40 mg 07/31/19 09:00 08/08/19 09:04 Lovenox SC Not Given 0900 RUBEN Famotidine 20 mg 07/31/19 09:00 08/08/19 09:07 Pepcid SLOW IVP 20 mg BID RUBEN Administration Haloperidol Lactate 2.5 mg 08/06/19 20:16 08/06/19 22:56 Haldol IM 2.5 mg Q4H PRN Administration Agitation Insulin Glargine 20 units/ 0.2 mls @ 0 mls/hr 07/31/19 09:00 08/08/19 12:02 Miscellaneous Medication SC 0.2 mls BID RUBEN Administration Piperacillin Sod/Tazobactam 100 mls @ 200 mls/hr 08/04/19 18:00 08/08/19 12: 01 Sod 3.375 gm/ Sodium Chloride IVPB 100 mls Q6HR RUBEN Administration Lorazepam 1 mg 08/06/19 20:19 08/06/19 21:00 Ativan SLOW IVP 1 mg Q4H PRN Administration Anxiety/Agitation Pantoprazole Sodium 40 mg 08/04/19 09:00 08/08/19 09:07 Protonix PO 40 mg DAILY RUBEN Administration Phenytoin Sodium 100 mg 08/07/19 21:00 08/08/19 14:56 Dilantin PO 100 mg TID RUBEN Administration Potassium Chloride 40 meq 08/06/19 08:00 08/08/19 09:01 K-Dur PO 40 meq QAM-WM RUBEN Administration Rosuvastatin Calcium 10 mg 08/04/19 09:00 08/08/19 09:01 Crestor PO 10 mg DAILY RUBEN Administration - Exam Neck: negative: supple, symmetric, no JVD, no thyromegaly, no lymphadenopathy, no carotid bruit, JVD Heart: negative: RRR, no murmur, no gallops, no rubs, normal peripheral pulses, irregular, diminshed peripheral pulses, murmur present, II/IV, III/IV Respiratory: negative: CTAB, no wheezes, no rales, no ronchi, normal chest expansion, no tachypnea, normal percussion, rales, rhonchi, tachypneic, wheezes Hosp A/P (1) Acute metabolic encephalopathy Code(s): G93.41 - METABOLIC ENCEPHALOPATHY Status: Acute (2) Seizure Code(s): R56.9 - UNSPECIFIED CONVULSIONS Status: Acute (3) Stroke Code(s): I63.9 - CEREBRAL INFARCTION, UNSPECIFIED Status: Acute (4) Diabetes Code(s): E11.9 - TYPE 2 DIABETES MELLITUS WITHOUT COMPLICATIONS Status: Acute (5) Foot infection Code(s): L08.9 - LOCAL INFECTION OF THE SKIN AND SUBCUTANEOUS TISSUE, UNSP Status: Acute - Plan will continue zosyn for now. His keppra has been discontinued and he is on Dilantin. He has been ambulating and has a wound vac.
[2019-08-08] MEDS: Haloperidol Lactate 5 MG/ML VIAL IM PRN (16:33)
[2019-08-09 05:03] LABS: #Eosinphils 0.4 thou/uL (0.0-0.7); #Lymphocytes 1.5 thou/uL (1.20-3.40); #Neutrophils 5.2 thou/uL (1.40-6.50); %Basophils 0.5 % (0.0-1.0); %Eosinophils 4.7 % (0.0-10.0); %Lymphocytes 18.1 % (21.0-51.0); %Monocytes 12.3 % (0.0-10.0); %Neutrophils 64.4 % (42.0-75.0); Hemoglobin 12.6 g/dL (14.0-18.0); Mean Corpuscular HGB CONC 33.4 g/dL (32.0-36.0); Mean Corpuscular Hemoglobin 29.2 pg (27.0-31.0); Mean Corpuscular Volume 87.4 fL (78.0-98.0); Platelet Count 179 thou/uL (130-400); Red Blood Cell (RBC) Count 4.33 mill/uL (4.70-6.10); White Blood Cell (WBC) Count 8.1 thou/uL (4.8-10.8)
[2019-08-09] MEDS: Piperacillin/Tazobactam 3.375 GM in Sodium Chloride 0.9% 100 ML IVPB SCH ×4 (05:06→23:11)
[2019-08-09 05:29] LABS: ALT (SGPT) 18 U/L (8-55); AST (SGOT) 18 U/L (5-34); Albumin 3.4 g/dL (3.4-4.8); Alkaline Phosphatase 60 U/L (40-110); Anion Gap 11 mmol/L (10-20); BUN (Urea Nitrogen) 16 mg/dL (8.4-25.7); Calc. Creatinine Clearance 75 mL/min (70-130); Calcium 8.4 mg/dL (7.8-10.44); Carbon Dioxide 28 mmol/L (23-31); Chloride 102 mmol/L (98-107); Estimated GFR-MDRD 44; Glucose 132 mg/dL (80-115); Potassium 3.6 mmol/L (3.5-5.1); Protein, Total 6.4 g/dL (5.8-8.1); Sodium 137 mmol/L (136-145)
[2019-08-09] MEDS: Carvedilol 6.25 MG TAB PO SCH ×2 (08:30→20:25)
[2019-08-09] MEDS: Dronedarone HCl 400 MG TAB PO SCH ×2 (08:30→16:13)
[2019-08-09] MEDS: Potassium Chloride 20 MEQ TAB PO SCH (08:30)
[2019-08-09] MEDS: Rosuvastatin 10 MG TAB PO SCH (08:30)
[2019-08-09] MEDS: Famotidine/PF 20 mg/2ml Vial SLOW IVP SCH (08:31)
[2019-08-09] MEDS: Enoxaparin Sodium 40 MG/0.4 ML SYRINGE SC SCH (08:31)
[2019-08-09] MEDS: Insulin Glargine 20 UNITS in Pre-Filled Syringe 1 EACH SC SCH ×2 (08:32→20:25)
[2019-08-09 12:36] LABS: HBCM Index 0.05 S/CO (0-0.79); HBSAg Index 0.17 S/CO (0-0.99); Hep A IgM AB Non-Reactive (NonReactive); Hep B Surf Ag Non-Reactive S/CO (NonReactive); Hep C IgG Ab Non-Reactive (NonReactive); Hep C Index 0.09 S/CO (0-0.79); Hepatitis B Core IgM Abs Non-Reactive (NonReactive)
--- NOTE | 2019-08-09 14:47 | ULT ---
Gallbladder ultrasound: Multiple grayscale images of right upper quadrant obtained according to protocol. INDICATION: Hyperbilirubinemia FINDINGS: Liver: Limited visualization of the liver due to decreased acoustic penetration, and persistent bowel gas. Portions of the visualized liver are increased in echogenicity. Gallbladder: Cholelithiasis, and gallbladder sludge. Gallbladder wall: Normal. Medrano's Sign: Negative Common bile duct is normal. Ascites: None IMPRESSION: Cholelithiasis, and gallbladder sludge. Decreased acoustic penetration of liver with increased echotexture that may relate to hepatic steatos is. Correlate with liver function enzymes. Normal caliber common duct.
--- NOTE | 2019-08-09 16:16 | PDOC.HOSPP ---
- Subjective Encounter Date: 08/09/19 Encounter Time: 10:00 Subjective: pt up in bed oriented x2, he agitated yesterday but no events last night - Objective Vital Signs & Weight: Vital Signs (12 hours) Temp Pulse Resp BP BP Pulse Ox 08/09/19 08:30 113/60 08/09/19 08:00 97.6 F 62 18 113/60 98 Weight Admit Weight 233 lb 0.458 oz Weight 247 lb 12.793 oz Most Recent Monitor Data Heart Rate from ECG 76 NIBP 164/86 NIBP BP-Mean 112 Respiration from ECG 13 SpO2 97 I&O: 08/08/19 08/09/19 08/10/19 06:59 06:59 06:59 Intake Total 650 Output Total 450 Balance 200 Result Diagrams: 08/09/19 04:18 08/09/19 04:18 Additional Labs: Accuchecks 08/09/19 08/09/19 08/08/19 11:59 05:04 19:44 POC Glucose 132 H 129 H 260 H 08/08/19 08/08/19 17:06 10:49 POC Glucose 305 H 220 H Hospitalist ROS - Review of Systems Cardiovascular: denies: chest pain, palpitations, orthopnea, paroxysmal noc. dyspnea, edema, light headedness, other Gastrointestinal: denies: nausea, vomiting, abdominal pain, diarrhea, constipation, melena, hematochezia, other - Medication Medications: Active Medications Generic Name Dose Route Start Last Admin Trade Name Freq PRN Reason Stop Dose Admin Acetaminophen 1,000 mg 07/30/19 08:24 07/31/19 05:00 Tylenol Elixir PER TUBE 1,000 mg Q6H PRN Administration Fever/Pain Carvedilol 12.5 mg 08/04/19 09:00 08/09/19 08:30 Coreg PO 12.5 mg BID RUBEN Administration Dronedarone 400 mg 08/03/19 08:00 08/09/19 08:30 Multaq PO 400 mg BID-WM RUBEN Administration Enoxaparin Sodium 40 mg 07/31/19 09:00 08/09/19 08:31 Lovenox SC 40 mg 0900 RUBEN Administration Famotidine 20 mg 07/31/19 09:00 08/09/19 08:31 Pepcid SLOW IVP 20 mg BID RUBEN Administration Haloperidol Lactate 2.5 mg 08/06/19 20:16 08/08/19 16:33 Haldol IM 2.5 mg Q4H PRN Administration Agitation Insulin Glargine 20 units/ 0.2 mls @ 0 mls/hr 07/31/19 09:00 08/09/19 08:32 Miscellaneous Medication SC 0.2 mls BID RUBEN Administration Piperacillin Sod/Tazobactam 100 mls @ 200 mls/hr 08/04/19 18:00 08/09/19 13: 37 Sod 3.375 gm/ Sodium Chloride IVPB 100 mls Q6HR RUBEN Administration Lorazepam 1 mg 08/06/19 20:19 08/06/19 21:00 Ativan SLOW IVP 1 mg Q4H PRN Administration Anxiety/Agitation Pantoprazole Sodium 40 mg 08/04/19 09:00 08/09/19 08:31 Protonix PO 40 mg DAILY RUBEN Administration Phenytoin Sodium 100 mg 08/07/19 21:00 08/09/19 08:32 Dilantin PO 100 mg TID RUBEN Administration Potassium Chloride 40 meq 08/06/19 08:00 08/09/19 08:30 K-Dur PO 40 meq QAM-WM RUBEN Administration Rosuvastatin Calcium 10 mg 08/04/19 09:00 08/09/19 08:30 Crestor PO 10 mg DAILY RUBEN Administration - Exam Heart: negative: RRR, no murmur, no gallops, no rubs, normal peripheral pulses, irregular, diminshed peripheral pulses, murmur present, II/IV, III/IV Respiratory: negative: CTAB, no wheezes, no rales, no ronchi, normal chest expansion, no tachypnea, normal percussion, rales, rhonchi, tachypneic, wheezes Gastrointestinal: negative: soft, non-tender, non-distended, normal bowel sounds , no palpable masses, no hepatomegaly, no splenomegaly, no bruit, no guarding, no rigidity, tender to palpation, distended, diminished bowl sounds, voluntary guarding Hosp A/P (1) Acute metabolic encephalopathy Code(s): G93.41 - METABOLIC ENCEPHALOPATHY Status: Acute (2) Seizure Code(s): R56.9 - UNSPECIFIED CONVULSIONS Status: Acute (3) Stroke Code(s): I63.9 - CEREBRAL INFARCTION, UNSPECIFIED Status: Acute (4) Diabetes Code(s): E11.9 - TYPE 2 DIABETES MELLITUS WITHOUT COMPLICATIONS Status: Acute (5) Foot infection Code(s): L08.9 - LOCAL INFECTION OF THE SKIN AND SUBCUTANEOUS TISSUE, UNSP Status: Acute (6) MANOJ (acute kidney injury) Code(s): N17.9 - ACUTE KIDNEY FAILURE, UNSPECIFIED Status: Acute - Plan will continue zosyn for now. His keppra has been discontinued and he is on Dilantin. He has been ambulating and has a wound vac. 08/09 pt was agitated yest in the afternoon, and was given seroquel x1. His ammonia level is normal, he does have elevated bili, hepatitis panel negative and ruq ultrasound has sludge. will monitor. His mentation is still waxing and waning. will continue abx for now. He has been evaluated for swing bed. Mild elevated creatinine today, will ask nurse to bladder scan and will check bmp in am.
--- NOTE | 2019-08-09 16:38 | PRG ---
DATE OF SERVICE: 08/09/2019 SUBJECTIVE: Mr. Barrios is back to his normal mental state. He denies headaches. No visual symptoms. Good sense of humor. No shortness of breath or abdominal pain. Voiding without difficulty. OBJECTIVE: VITAL SIGNS: Normal. GENERAL: Awake, alert, and oriented. HEENT: Ocular movements conjugate. LUNGS: Clear. HEART: S1 and S2, regular rate. ABDOMEN: Soft, nondistended. EXTREMITIES: Right foot debridement area appears healthy with red granulation tissue, though the other site has a negative pressure dressing in the first MPJ amputation site. LABORATORY DATA: White cell count 8.1, hemoglobin 12.6, and platelets 179. His GFR now is at 44. Amikacin has been discontinued. Microbiology with a quite resistant P aeruginosa in 2 samples and this is from the right foot. Left foot with the same organism, E coli, which is susceptible to various antimicrobials. He also has Enterococcus faecalis. The amputation specimen from August 01 with viable skin and soft tissue margins. ASSESSMENT AND DISCUSSION: Type 2 diabetes, multiple feet complications with recurrent inflammatory process, both sides, status post right first ray amputation, as well as occipital subacute infarction with altered mental status and seizure activity. At this point, we will have to decide if he is going to need to be treated with IV antimicrobial therapy or oral. The margin of amputation was good and we will see what the next wound review is, to see if we can forgo treatment for the P aeruginosa isolate, if not, then will need to place a PICC line and give him IV Zerbaxa instead of aminoglycoside. Job ID: [id number] [facility]
[2019-08-09] MEDS: Famotidine 20 MG TAB PO SCH (20:25)
[2019-08-10] MEDS: Piperacillin/Tazobactam 3.375 GM in Sodium Chloride 0.9% 100 ML IVPB SCH ×5 (05:21→23:11)
[2019-08-10 07:59] LABS: #Basophils 0.1 thou/uL (0.0-0.2); #Eosinphils 0.2 thou/uL (0.0-0.7); #Lymphocytes 1.5 thou/uL (1.20-3.40); #Neutrophils 6.4 thou/uL (1.40-6.50); %Basophils 0.7 % (0.0-1.0); %Eosinophils 2.3 % (0.0-10.0); %Lymphocytes 16.6 % (21.0-51.0); %Monocytes 11.2 % (0.0-10.0); %Neutrophils 69.2 % (42.0-75.0); Hemoglobin 12.5 g/dL (14.0-18.0); Mean Corpuscular HGB CONC 33.5 g/dL (32.0-36.0); Mean Corpuscular Hemoglobin 28.8 pg (27.0-31.0); Mean Corpuscular Volume 85.9 fL (78.0-98.0); Platelet Count 186 thou/uL (130-400); RBC Distribution Width 15.2 % (11.5-14.5); Red Blood Cell (RBC) Count 4.33 mill/uL (4.70-6.10); White Blood Cell (WBC) Count 9.3 thou/uL (4.8-10.8)
[2019-08-10 08:22] LABS: ALT (SGPT) 14 U/L (8-55); AST (SGOT) 18 U/L (5-34); Albumin 3.5 g/dL (3.4-4.8); Alkaline Phosphatase 61 U/L (40-110); Anion Gap 11 mmol/L (10-20); BUN (Urea Nitrogen) 14 mg/dL (8.4-25.7); Bilirubin, Total 1.6 mg/dL (0.2-1.2); Calc. Creatinine Clearance 82 mL/min (70-130); Calcium 8.6 mg/dL (7.8-10.44); Carbon Dioxide 27 mmol/L (23-31); Chloride 105 mmol/L (98-107); Estimated GFR-MDRD 49; Glucose 86 mg/dL (80-115); Protein, Total 6.5 g/dL (5.8-8.1); Sodium 139 mmol/L (136-145)
[2019-08-10] MEDS: Potassium Chloride 20 MEQ TAB PO SCH (09:17)
[2019-08-10] MEDS: Rosuvastatin 10 MG TAB PO SCH (09:17)
[2019-08-10] MEDS: Dronedarone HCl 400 MG TAB PO SCH ×2 (09:18→16:34)
[2019-08-10] MEDS: Famotidine 20 MG TAB PO SCH ×2 (09:18→19:53)
[2019-08-10] MEDS: Carvedilol 6.25 MG TAB PO SCH ×2 (09:18→19:53)
[2019-08-10] MEDS: Enoxaparin Sodium 40 MG/0.4 ML SYRINGE SC SCH (09:19)
[2019-08-10] MEDS: Insulin Glargine 20 UNITS in Pre-Filled Syringe 1 EACH SC SCH ×2 (09:20→19:55)
[2019-08-10] MEDS ORDERED: Lorazepam 2 MG/ML VIAL SLOW IVP SCH (16:15)
--- NOTE | 2019-08-10 16:16 | PDOC.HOSPP ---
- Subjective Encounter Date: 08/10/19 Encounter Time: 14:00 Subjective: pt up in bed no complains. He is a bit confuse at times - Objective Vital Signs & Weight: Vital Signs (12 hours) Temp Pulse Resp BP BP Pulse Ox 08/10/19 09:18 134/75 08/10/19 07:58 98.4 F 70 16 134/75 98 Weight Admit Weight 233 lb 0.458 oz Weight 247 lb 12.793 oz Most Recent Monitor Data Heart Rate from ECG 76 NIBP 164/86 NIBP BP-Mean 112 Respiration from ECG 13 SpO2 97 I&O: 08/09/19 08/10/19 08/11/19 06:59 06:59 06:59 Intake Total 650 500 Output Total 450 850 Balance 200 -350 Result Diagrams: 08/10/19 07:41 08/10/19 07:41 Additional Labs: Accuchecks 08/10/19 08/10/19 08/09/19 11:34 05:05 20:24 POC Glucose 200 H 97 167 H 08/09/19 16:24 POC Glucose 151 H Hospitalist ROS - Review of Systems Cardiovascular: denies: chest pain, palpitations, orthopnea, paroxysmal noc. dyspnea, edema, light headedness, other Gastrointestinal: denies: nausea, vomiting, abdominal pain, diarrhea, constipation, melena, hematochezia, other - Medication Medications: Active Medications Generic Name Dose Route Start Last Admin Trade Name Freq PRN Reason Stop Dose Admin Acetaminophen 1,000 mg 07/30/19 08:24 07/31/19 05:00 Tylenol Elixir PER TUBE 1,000 mg Q6H PRN Administration Fever/Pain Carvedilol 12.5 mg 08/04/19 09:00 08/10/19 09:18 Coreg PO 12.5 mg BID RUBEN Administration Dronedarone 400 mg 08/03/19 08:00 08/10/19 09:18 Multaq PO 400 mg BID-WM RUBEN Administration Enoxaparin Sodium 40 mg 07/31/19 09:00 08/10/19 09:19 Lovenox SC 40 mg 0900 RUBEN Administration Famotidine 20 mg 08/09/19 21:00 08/10/19 09:18 Pepcid PO 20 mg BID RUBEN Administration Haloperidol Lactate 2.5 mg 08/06/19 20:16 08/08/19 16:33 Haldol IM 2.5 mg Q4H PRN Administration Agitation Insulin Glargine 20 units/ 0.2 mls @ 0 mls/hr 07/31/19 09:00 08/10/19 09:20 Miscellaneous Medication SC 0.2 mls BID RUBEN Administration Piperacillin Sod/Tazobactam 100 mls @ 200 mls/hr 08/04/19 18:00 08/10/19 15: 20 Sod 3.375 gm/ Sodium Chloride IVPB 100 mls Q6HR RUBEN Administration Lorazepam 1 mg 08/06/19 20:19 08/06/19 21:00 Ativan SLOW IVP 1 mg Q4H PRN Administration Anxiety/Agitation Pantoprazole Sodium 40 mg 08/04/19 09:00 08/10/19 09:18 Protonix PO 40 mg DAILY RUBEN Administration Phenytoin Sodium 100 mg 08/07/19 21:00 08/10/19 09:19 Dilantin PO 100 mg TID RUBEN Administration Potassium Chloride 40 meq 08/06/19 08:00 08/10/19 09:17 K-Dur PO 40 meq QAM-WM RUBEN Administration Rosuvastatin Calcium 10 mg 08/04/19 09:00 08/10/19 09:17 Crestor PO 10 mg DAILY RUBEN Administration - Exam Neck: negative: supple, symmetric, no JVD, no thyromegaly, no lymphadenopathy, no carotid bruit, JVD Heart: negative: RRR, no murmur, no gallops, no rubs, normal peripheral pulses, irregular, diminshed peripheral pulses, murmur present, II/IV, III/IV Respiratory: negative: CTAB, no wheezes, no rales, no ronchi, normal chest expansion, no tachypnea, normal percussion, rales, rhonchi, tachypneic, wheezes Hosp A/P (1) Acute metabolic encephalopathy Code(s): G93.41 - METABOLIC ENCEPHALOPATHY Status: Acute (2) Seizure Code(s): R56.9 - UNSPECIFIED CONVULSIONS Status: Acute (3) Stroke Code(s): I63.9 - CEREBRAL INFARCTION, UNSPECIFIED Status: Acute (4) Diabetes Code(s): E11.9 - TYPE 2 DIABETES MELLITUS WITHOUT COMPLICATIONS Status: Acute (5) Foot infection Code(s): L08.9 - LOCAL INFECTION OF THE SKIN AND SUBCUTANEOUS TISSUE, UNSP Status: Acute (6) MANOJ (acute kidney injury) Code(s): N17.9 - ACUTE KIDNEY FAILURE, UNSPECIFIED Status: Acute - Plan will continue zosyn for now. His keppra has been discontinued and he is on Dilantin. He has been ambulating and has a wound vac. 08/09 pt was agitated yest in the afternoon, and was given seroquel x1. His ammonia level is normal, he does have elevated bili, hepatitis panel negative and ruq ultrasound has sludge. will monitor. His mentation is still waxing and waning. will continue abx for now. He has been evaluated for swing bed. Mild elevated creatinine today, will ask nurse to bladder scan and will check bmp in am. 08/10 updated pt's that he will not be going to swing bed today since he needs a picc and needs further testing for resistant pseudomonas. I did discuss this with ID. I will also get a mra brain given his confusion. 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 I did speak with neurology who thinks that this might cause him to have memory problems.
--- NOTE | 2019-08-10 17:56 | PRG ---
DATE OF SERVICE: 08/10/2019 SUBJECTIVE: Seen by the bedside, kind of irritated because he wanted to go home today. He denies any headaches. His mental status is back to normal. No dyspnea or chest pain. No abdominal pain or diarrhea. OBJECTIVE: VITAL SIGNS: Essentially normal. GENERAL: Awake, alert, oriented, pleasant. LUNGS: Clear. HEART: S1 and S2, regular rate. ABDOMEN: Soft, not distended. EXTREMITIES: Foot with negative pressure dressing. The left side just with a simple dressing. LABORATORY DATA: White cell count 9.3, hemoglobin 12.5, platelets 186. Creatinine is 1.46, which is improving since yesterday. Microbiology with 2 samples from the foot with P aeruginosa with very resistant profile and E coli, and then the 23rd foot sample with E coli and E faecalis. ASSESSMENT AND DISCUSSION: Type 2 diabetes, feet complications with recurrent inflammatory process, both sides, status post right first ray amputation, occipital subacute infarction with altered mental status, now recovery. Two things are pending. One is placement of PICC line and we will start him on Zerbaxa in an attempt to avoid aminoglycosides for his foot infection, treat for at least 4 weeks. He will need a PICC line placement and then the problem is going to be the fact that the Zerbaxa tends to be expensive and is not on the hospital formulary. Regarding his occipital findings, the possibility of evaluation of MRA or similar study would be considered. Job ID: [id number]
[2019-08-11 05:10] LABS: #Basophils 0.1 thou/uL (0.0-0.2); #Eosinphils 0.2 thou/uL (0.0-0.7); #Lymphocytes 1.4 thou/uL (1.20-3.40); #Neutrophils 4.6 thou/uL (1.40-6.50); %Basophils 0.7 % (0.0-1.0); %Eosinophils 2.3 % (0.0-10.0); %Lymphocytes 19.3 % (21.0-51.0); %Monocytes 13.7 % (0.0-10.0); %Neutrophils 63.9 % (42.0-75.0); Hemoglobin 11.5 g/dL (14.0-18.0); Mean Corpuscular HGB CONC 32.9 g/dL (32.0-36.0); Mean Corpuscular Hemoglobin 29.1 pg (27.0-31.0); Mean Corpuscular Volume 88.2 fL (78.0-98.0); Mean Platelet Volume 8.1 fL (7.4-10.4); Platelet Count 148 thou/uL (130-400); RBC Distribution Width 15.3 % (11.5-14.5); Red Blood Cell (RBC) Count 3.95 mill/uL (4.70-6.10); White Blood Cell (WBC) Count 7.2 thou/uL (4.8-10.8)
[2019-08-11] MEDS: Piperacillin/Tazobactam 3.375 GM in Sodium Chloride 0.9% 100 ML IVPB SCH ×2 (05:26→15:35)
[2019-08-11 05:33] LABS: ALT (SGPT) 12 U/L (8-55); AST (SGOT) 14 U/L (5-34); Albumin 3.3 g/dL (3.4-4.8); Alkaline Phosphatase 60 U/L (40-110); Anion Gap 10 mmol/L (10-20); BUN (Urea Nitrogen) 17 mg/dL (8.4-25.7); Bilirubin, Total 1.1 mg/dL (0.2-1.2); Calc. Creatinine Clearance 92 mL/min (70-130); Calcium 8.3 mg/dL (7.8-10.44); Carbon Dioxide 27 mmol/L (23-31); Chloride 103 mmol/L (98-107); Estimated GFR-MDRD 55; Globulin 2.8 g/dL (2.4-3.5); Glucose 134 mg/dL (80-115); Potassium 3.8 mmol/L (3.5-5.1); Protein, Total 6.1 g/dL (5.8-8.1); Sodium 136 mmol/L (136-145)
[2019-08-11] MEDS: Insulin Glargine 20 UNITS in Pre-Filled Syringe 1 EACH SC SCH (09:24)
[2019-08-11] MEDS: Carvedilol 6.25 MG TAB PO SCH (09:25)
[2019-08-11] MEDS: Rosuvastatin 10 MG TAB PO SCH (09:28)
[2019-08-11] MEDS: Potassium Chloride 20 MEQ TAB PO SCH (09:28)
[2019-08-11] MEDS: Famotidine 20 MG TAB PO SCH (09:28)
[2019-08-11] MEDS: Dronedarone HCl 400 MG TAB PO SCH ×2 (09:28→17:40)
[2019-08-11] MEDS: Enoxaparin Sodium 40 MG/0.4 ML SYRINGE SC SCH (09:29)
--- NOTE | 2019-08-11 12:09 | MRI ---
MR ANGIOGRAM OF THE NEAD: DATE: 08/11/2019. HISTORY: Confusion, recent infarction. TECHNIQUE: Routine noncontrast enhanced time of flight MR angiography of the brain obtained. FINDINGS: There is antegrade blood flow noted within the distal vertebral arteries. Distal vertebral arteries are slightly limited in assessment secondary to motion. The basilar artery is patent. Motion signif icantly limits assessment of the arterial structures of the posterior and anterior circulation at the axial level of the suprasellar cistern. Bilateral posterior cerebral arteries are patent proximally . There is questionable mild stenosis involving the proximal aspect of the left posterior cerebral a rtery. There is a focal area of nonvisualization of the posterior medial right posterior cerebral ar obdulio which suggests a focal area of occlusion of the right [employer] in the region of the anterior medial r ight occipital lobe. No sacular aneurysm is evident involving the posterior circulation within the l imitations of this examination. The imaged extracranial ICA appears patent bilaterally. Detailed assessment of the anterior circulat ion is quite limited on the basis of motion. The A1 segment and M1 segment appear patent bilaterally . Distal MCA branches appear patent. There is probable multifocal significant stenosis involving M2 branches bilaterally, left greater than right. Distal DANK branches appear grossly intact, but are p oorly assessed secondary to motion. There is a questionable area of focal stenosis involving the mid A2 segment on the right. IMPRESSION: Motion limited MR angiogram of the head as described above. POS: TPC
[2019-08-11] MEDS ORDERED: Apixaban 5 MG TAB PO SCH ×2 (13:15→21:00)
--- NOTE | 2019-08-11 14:19 | ULT ---
BILATERAL CAROTID DUPLEX ULTRASOUND: HISTORY: Stroke. TECHNIQUE: Grayscale, color-flow and spectral Doppler ultrasound imaging of the extracranial carotid artery syst ems was performed bilaterally. FINDINGS: There is mild atherosclerotic plaque seen within the proximal internal carotid arteries bilaterally a s well as involving the distal right common carotid artery peak There is no hemodynamically significant stenosis in the bilateral internal carotid arteries according to the peak systolic velocities and the ICA/CCA ratios. The peak systolic velocity in the right ICA measures 78.9 cm/s. The peak systolic velocity in the left ICA measures 71.7 cm/s. The right IC A/CCA ratio is 0.99, and the left ICA/CCA ratio is 0.75. Vertebral arteries: Antegrade flow is demonstrated in the vertebral arteries bilaterally. IMPRESSION: No hemodynamically significant stenosis in the bilateral internal carotid arteries.
--- NOTE | 2019-08-11 14:53 | SPC ---
Sonographic guided left upper extremity PICC placement HISTORY: Foot infection. Need for long-term antibiotics. FINDINGS: After explaining the procedure and answering all questions, the left upper extremity was pr epped and draped in usual sterile fashion. Sterile technique, buffered local anesthesia, sonographic guidance, and a 22-gauge needle were used to carefully access the left brachial vein. Sta ndard technique was used to place the tip of a 5 Slovenian single lumen PICC so that the tip lies at the level of the right atrium. The catheter was flushed and secured externally. Patient tolerated the procedure well and was returned in unchanged condition. Fluoroscopy time 0 seconds. IMPRESSION: Left upper extremity PICC is ready for use.
[2019-08-11] MEDS ORDERED: Clopidogrel Bisulfate 75 MG TAB ONE (15:17)
[2019-08-11 16:53] VITALS: BP 123/73; TEMP 98.6
[2019-08-12] MEDS ORDERED: Apixaban 5 MG TAB PO SCH (09:00)
--- NOTE | 2019-08-12 09:53 | EKG ---
Test Reason : Blood Pressure : / mmHG Vent. Rate : 064 BPM Atrial Rate : 064 BPM P-R Int : 212 ms QRS Dur : 080 ms QT Int : 396 ms P-R-T Axes : 015 -04 007 degrees QTc Int : 408 ms Sinus rhythm with 1st degree A-V block Otherwise normal ECG Confirmed by NEMO MARTINEZ D.O. ([id number]), continuity editor RIP NORWOOD ([id number]) on 08/12/2019 9:53:00 AM Referred By: JACQUELINE MARTINEZ Confirmed By:NEMO MARTINEZ D.O.
[2019-08-12 12:04] LABS: Reference Lab Name LABCORP
--- NOTE | 2019-08-14 12:40 | DIS ---
DATE OF ADMISSION: 07/29/2019 DATE OF DISCHARGE: 08/11/2019 PRIMARY CARE PHYSICIAN: Dr. Cardoza. DISCHARGE DIAGNOSES: As of the following. 1. Acute metabolic encephalopathy. 2. Stroke. 3. Seizures. 4. Atrial fibrillation. 5. Diabetes. 6. Foot infection with Pseudomonas. 7. Acute kidney injury. HOSPITAL COURSE: The patient is a 64-year-old male who initially presented to the hospital with aphasia. He was initially admitted to Dr. Cardoza's service. At this time, there was also some mention about possible seizures and also respiratory distress. At this time, the patient was put on BiPAP, however, that was quickly escalated to intubation. He was transferred to the ICU for further evaluation. At this time, he had a CT brain initially which was negative. On 07/30, he did have an MRI brain, which indicated scattered small foci of recent cortical infarct involving both occipital region. According to the family, he was on Eliquis. He then was seen by Neurology and also Infectious Disease. He underwent a lumbar puncture of which infectious etiology was ruled out, however, he still has some tests that are still pending. The patient's mentation improved, however, through the hospital stay, he went into atrial fibrillation, RVR and was put on Cardizem and also Cardiology was consulted. That was changed to Multaq and he also had an echocardiogram which indicated an EF of 55% to 60% with mild mitral regurgitation and mild tricuspid regurgitation. The patient continued to improve, however, his mentation did not really improve very much. At this time, he underwent an EEG, which indicated an abnormal study with diffuse slowing consistent with diffuse encephalopathic process. However, no seizure activity was noted. He was put on Keppra, which was switched to Dilantin thinking that possibly the Keppra was making him more confused. The patient also had a repeat MRI brain and at this time the MRI brain, which was done on 08/06 indicated that the patient had evolutionary changes involving subacute infarct involving the regions of temporal lobes and occipital lobes bilaterally in the [employer] LIFT MECH[employer]IC distribution. Also one region of cortical infarct involving the left occipital lobe demonstrating some petechial hemorrhage in the cortex. Again, the patient's mentation continues to be waxed and waned. He was put on initially broad-spectrum antibiotics and through the hospital stay, he was seen by Surgery and underwent an I and D, which was done on 07/31 of the left foot. The cultures of the left foot indicated Escherichia coli enterococcus and Pseudomonas. Per infectious disease's note, the Pseudomonas was pretty resistant and the patient initially was put on Zosyn. However, this will be changed to something called Zerbaxa. The patient also had a brain MRA which did indicate that he does have stenosis in the proximal aspect of the left posterior cerebral artery and I did discuss this with Neurology who stated that there is really no intervention for this. Also, I had mentioned that there were multiple foci of significant stenosis involving the M2 branch bilaterally with left greater than right. Medical management was recommended by Neurology. Also, I talked with Neurology about starting him back on the Eliquis given his atrial fibrillation and recent bilateral strokes. I was notified that it was okay to start the patient back on the Eliquis, which I have. I also ordered a carotid Doppler on this patient, the carotid Doppler was normal. I did discuss this with the patient and the patient's and they were updated on this. Also, he did have some elevated bilirubin. I have checked an ultrasound which just indicated some biliary sludge, nothing significant and his bilirubin improved. His hepatitis panel was negative. His ammonia was normal. Infectious Disease recommended that the patient will need some Zerbaxa for at least 4 weeks and the 4 weeks will be started on the day it started. The patient currently is on Zosyn. However, once he is started on the Zerbaxa, he will need an additional 4 weeks only of the Zerbaxa. A PICC line has been placed and the patient will have CRP, CBC and CMP weekly while he is on these antibiotics. The patient's home medications, 1. Eliquis 5 mg b.i.d. 2. Pepcid 20 mg b.i.d. 3. Phenytoin 100 mg t.i.d. 4. Coreg 12.5 b.i.d. 5. Multaq 400 mg b.i.d. 6. Crestor 40 mg daily. 7. Pregabalin 100 mg t.i.d. 8. Insulin 20 units b.i.d. 9. Zerbaxa 1.5 q.8 hours for a total of 4 weeks. PHYSICAL EXAMINATION: VITAL SIGNS: On discharge were 98.6, 63, 16, 98%, 123/73. GENERAL: He is awake, alert, and oriented x3. Does not appear in any distress. CV: S1, S2 present. No murmurs, rubs, or gallops. ABDOMEN: Soft and nontender. Bowel sounds are present x2. I did talk with Neurology in regarding to his memory and mentation, who stated that most likely his mentation and his memory loss is most likely secondary to the SKI LIFT MECH[employer]IC stroke. I did convey this to the patient's and the patient. About 35 minutes to 40 minutes was spent on this patient's discharge. Job ID: [id number]
== END 2019-08-11 17:44 | disposition swing bed (61) | DRG 616 ==
LOC: ERS 18:28 → OBSVTOIN 22:35 → 2SE 22:35 → CCU 23:50 → T4-B 08-03 13:48
PROVIDERS: ADMIT Family Medicine; ATTEND Family Medicine
PROC: 0BH17EZ Insertion of Endotracheal Airway into Trachea, Via Natural or Artificial Opening (ICD-10-PCS; 2019-07-29)
PROC: 5A1945Z Respiratory Ventilation, 24-96 Consecutive Hours (ICD-10-PCS; 2019-07-29)
PROC: 009U3ZZ Drainage of Spinal Canal, Percutaneous Approach (ICD-10-PCS; 2019-07-30)
PROC: B01B1ZZ Fluoroscopy of Spinal Cord using Low Osmolar Contrast (ICD-10-PCS; 2019-07-30)
PROC: 0Y6N0Z4 Detachment at Left Foot, Complete 1st Ray, Open Approach (ICD-10-PCS; principal; 2019-07-31)
PROC: 0JBR0ZZ Excision of Left Foot Subcutaneous Tissue and Fascia, Open Approach (ICD-10-PCS; 2019-07-31)
PROC: 02HV33Z Insertion of Infusion Device into Superior Vena Cava, Percutaneous Approach (ICD-10-PCS; 2019-08-11)
PROC: B548ZZA Ultrasonography of Superior Vena Cava, Guidance (ICD-10-PCS; 2019-08-11)
DX: E11.621 Type 2 diabetes mellitus with foot ulcer (principal); G93.41 Metabolic encephalopathy; J96.90 Respiratory failure, unspecified, unspecified whether with hypoxia or hypercapnia; J69.0 Pneumonitis due to inhalation of food and vomit; A41.9 Sepsis, unspecified organism; R47.01 Aphasia; E87.1 Hypo-osmolality and hyponatremia; I50.32 Chronic diastolic (congestive) heart failure; G40.909 Epilepsy, unspecified, not intractable, without status epilepticus; E78.5 Hyperlipidemia, unspecified; N17.9 Acute kidney failure, unspecified; I48.0 Paroxysmal atrial fibrillation; E78.00 Pure hypercholesterolemia, unspecified; I63.9 Cerebral infarction, unspecified; I11.0 Hypertensive heart disease with heart failure; E11.610 Type 2 diabetes mellitus with diabetic neuropathic arthropathy; E11.51 Type 2 diabetes mellitus with diabetic peripheral angiopathy without gangrene; E11.65 Type 2 diabetes mellitus with hyperglycemia; Z79.4 Long term (current) use of insulin; Z79.01 Long term (current) use of anticoagulants; E87.6 Hypokalemia; R40.2142 Coma scale, eyes open, spontaneous, at arrival to emergency department; R40.2232 Coma scale, best verbal response, inappropriate words, at arrival to emergency department; R40.2362 Coma scale, best motor response, obeys commands, at arrival to emergency department
CPT/HCPCS: 36415; 36416; 36569; 62270; 70450; 70544; 70551; 71045; 74018; 76705; 80053; 80074; 81001; 82140; 82805; 82945; 83605; 83615; 83735; 84157; 84484; 85025; 85060; 85610; 85652; 85730; 86140; 86612; 86618; 86635; 86698; 86757; 86788; 86789; 87040; 87070; 87077; 87186; 87205; 87529; 87804; 88112; 88305; 88311; 89051; 93005; 93010; 93306; 93880; 94002; 94003; 94640; 94660; 94760; 95816; 95819; 96361; 96365; C1751; J0133; J0278; J0692; J0696; J1100; J1200; J1630; J1644; J1650; J1815; J1953; J1956; J2060; J2405; J2543; J2704; J2920; J3010; J3370; J3490; J7050; J7512; J7620; S0028

== ENCOUNTER 2019-10-17 11:46 | Emergency (ER) | payer OTHER ==
[2019-10-17] MEDS ORDERED: Acetaminophen 500 MG TAB ONE (12:13)
[2019-10-17] MEDS ORDERED: Piperacillin/Tazobactam 4.5 GM VIAL ONE (12:13)
[2019-10-17 12:35] LABS: #Lymphocytes 0.3 thou/uL (1.20-3.40); #Monocytes 0.3 thou/uL (0.11-0.59); #Neutrophils 6.2 thou/uL (1.40-6.50); %Basophils 0.5 % (0.0-1.0); %Eosinophils 0.2 % (0.0-10.0); %Lymphocytes 4.9 % (21.0-51.0); %Monocytes 4.8 % (0.0-10.0); %Neutrophils 89.6 % (42.0-75.0); Hemoglobin 13.3 g/dL (14.0-18.0); Mean Corpuscular HGB CONC 33.3 g/dL (32.0-36.0); Mean Corpuscular Hemoglobin 28.9 pg (27.0-31.0); Mean Corpuscular Volume 86.6 fL (78.0-98.0); Mean Platelet Volume 8.4 fL (7.4-10.4); Platelet Count 75 thou/uL (130-400); RBC Distribution Width 13.2 % (11.5-14.5); Red Blood Cell (RBC) Count 4.61 mill/uL (4.70-6.10); White Blood Cell (WBC) Count 6.9 thou/uL (4.8-10.8)
[2019-10-17 12:57] LABS: ALT (SGPT) 13 U/L (8-55); AST (SGOT) 19 U/L (5-34); Albumin 3.8 g/dL (3.4-4.8); Alkaline Phosphatase 109 U/L (40-110); Anion Gap 11 mmol/L (10-20); BUN (Urea Nitrogen) 18 mg/dL (8.4-25.7); Calc. Creatinine Clearance 0 mL/min (70-130); Calcium 8.3 mg/dL (7.8-10.44); Carbon Dioxide 25 mmol/L (23-31); Chloride 105 mmol/L (98-107); Estimated GFR-MDRD 61; Globulin 2.8 g/dL (2.4-3.5); Glucose 127 mg/dL (80-115); Potassium 3.7 mmol/L (3.5-5.1); Protein, Total 6.6 g/dL (5.8-8.1); Sodium 137 mmol/L (136-145)
--- NOTE | 2019-10-17 13:19 | RAD ---
PORTABLE CHEST: 10/17/2019 PROVIDED CLINICAL HISTORY: Fever. COMPARISON: 08/08/2019 FINDINGS: The cardiac and mediastinal silhouette is within normal limits. No focal consolidation, pleural fluid or pneumothorax apparent. IMPRESSION: No definite evidence for an acute cardiopulmonary process. If there is persistent clinical concern follow-up PA and lateral views of the chest are recommended. POS: OFF
--- NOTE | 2019-10-17 13:27 | RAD ---
LEFT FOOT THREE VIEWS: 10/17/2019 PROVIDED CLINICAL HISTORY: Fever. COMPARISON: 07/29/2019 FINDINGS: Extensive Lisfranc and Chopart arthropathy, presumably neuropathic, redemonstrated, appearing similar to the prior study. There is no evidence for an acute fracture or other acute osseous abnormality wi th limitations due to the extensive nature of the chronic findings present. Soft tissue gas at the pl uriah aspect of the midfoot is suspected on the lateral view. IMPRESSION: 1. Extensive Lisfranc and Chopart arthropathy, presumably neuropathic. 2. Soft tissue gas and at the plantar aspect of the mid foot. POS: OFF
[2019-10-17 13:50] LABS: Bacteria/HPF None Seen HPF (None Seen); Bilirubin Negative (Negative); Blood, Urine Trace (Negative); Clarity Clear (Clear); Glucose, Urine (Dipstick) Normal (Negative); Leukocyte Negative Leu/uL (Negative); Nitrite Negative (Negative); Protein, Urine (Dipstick) 10 mg/dL (Neg-Trace); RBC/HPF 0-3 HPF (0-3); Squamous Epithelial None Seen HPF (0-3); Urobilinogen Normal mg/dL (Less than 2); WBC/HPF None Seen HPF (0-3)
== END 2019-10-17 16:15 | disposition home or self-care (01) ==
LOC: ERS 11:46
DX: S91.302A Unspecified open wound, left foot, initial encounter (principal); R50.9 Fever, unspecified; E11.9 Type 2 diabetes mellitus without complications; E78.5 Hyperlipidemia, unspecified; E78.00 Pure hypercholesterolemia, unspecified; I10 Essential (primary) hypertension; Z99.2 Dependence on renal dialysis; Z79.4 Long term (current) use of insulin; Z79.899 Other long term (current) drug therapy; X58.XXXA Exposure to other specified factors, initial encounter
CPT/HCPCS: 36415; 36416; 71045; 80053; 81003; 81015; 83605; 85025; 87040; 87070; 87077; 87149; 87186; 87205; 87633; 87798; 93005; 96365; 96367; J2543; J3370

== ENCOUNTER 2019-10-24 10:14 | Day surgery (SDC) | payer OTHER ==
[2019-10-24] MEDS ORDERED: CEFAZOLIN 2 GM in Premix Bag 1 BAG IVPB SCH (11:00)
[2019-10-24] MEDS ORDERED: Sodium Chloride 0.9% 20 ML ONE ×2 (11:25→11:46)
--- NOTE | 2019-10-24 15:06 | SPC ---
Sonographic guided left upper extremity PICC placement HISTORY: Foot infection. FINDINGS: After explaining the procedure and answering all questions, the left upper extremity was pr epped and draped in usual sterile fashion. Sterile technique, buffered local anesthesia, sonographic guidance, and a 22-gauge needle were used to carefully access the left basilic vein. Parish dard technique was used to place the tip of a 5 Danish single lumen PICC so that the tip lies at the level of the cavoatrial junction. Catheter was flushed and secured externally. Patient tolerated the procedure well and was dismissed in good condition. Fluoroscopy time 0 seconds. IMPRESSION: Left upper extremity PICC is ready for use.
[2019-10-24] MEDS ORDERED: Heparin 1,000 UNITS/ML VIAL ONE (16:35)
== END 2019-10-24 13:54 | disposition home or self-care (01) ==
LOC: SPEC 10:14 → ONC/OP 13:54
PROVIDERS: ATTEND Internal Medicine Infectious Disease
PROC: 02HV33Z Insertion of Infusion Device into Superior Vena Cava, Percutaneous Approach (ICD-10-PCS; principal; 2019-10-24)
DX: R78.81 Bacteremia (principal); B95.61 Methicillin susceptible Staphylococcus aureus infection as the cause of diseases classified elsewhere; L08.9 Local infection of the skin and subcutaneous tissue, unspecified; Z91.013 Allergy to seafood
CPT/HCPCS: 36569; 96365; C1751; J0690; J1642; J1644

== ENCOUNTER 2020-01-11 10:59 | Inpatient (IN) | payer OTHER ==
[2020-01-11 13:08] VITALS: BMI 25.2
[2020-01-11] MEDS ORDERED: Zolpidem Tartrate 5 MG TAB PO PRN (13:10)
[2020-01-11] MEDS ORDERED: Acetaminophen 325 MG TAB PO PRN (13:10)
[2020-01-11] MEDS ORDERED: Ondansetron ODT 4 MG TAB PO PRN ×2 (13:10→14:15)
[2020-01-11] MEDS ORDERED: HYDROcodone/Acetaminophen 5/325 mg Tablet PO PRN ×2 (13:10)
[2020-01-11] MEDS ORDERED: Loperamide HCl 2 MG CAP PO PRN ×2 (13:10)
[2020-01-11] MEDS ORDERED: Senokot S 8.6-50 MG TAB PO PRN (13:11)
[2020-01-11] MEDS ORDERED: Acetaminophen 500 MG TAB PO PRN (14:15)
[2020-01-11] MEDS ORDERED: HumaLOG 300 UNITS/3 ML VIAL SC PRN (14:15)
[2020-01-11] MEDS ORDERED: Dextrose 50% Abboject 50 ML SYRINGE SLOW IVP PRN (14:15)
[2020-01-11] MEDS ORDERED: Dextrose 5% in Water 1,000 ML IV PRN (14:15)
[2020-01-11] MEDS ORDERED: Ondansetron PF 4 MG/2 ML Vial IVP PRN (14:15)
[2020-01-11] MEDS ORDERED: Labetalol HCl 100 MG/20 ML VIAL SLOW IVP PRN (14:15)
[2020-01-11 15:08] LABS: #Eosinphils 0.2 thou/uL (0.0-0.7); #Monocytes 0.6 thou/uL (0.11-0.59); #Neutrophils 4.9 thou/uL (1.40-6.50); %Basophils 0.4 % (0.0-1.0); %Eosinophils 2.8 % (0.0-10.0); %Monocytes 8.5 % (0.0-10.0); %Neutrophils 73.3 % (42.0-75.0); Hemoglobin 12.5 g/dL (14.0-18.0); Mean Corpuscular HGB CONC 33.9 g/dL (32.0-36.0); Mean Corpuscular Volume 85.5 fL (78.0-98.0); Mean Platelet Volume 7.5 fL (7.4-10.4); Platelet Count 185 thou/uL (130-400); RBC Distribution Width 12.7 % (11.5-14.5); Red Blood Cell (RBC) Count 4.31 mill/uL (4.70-6.10); White Blood Cell (WBC) Count 6.7 thou/uL (4.8-10.8)
[2020-01-11 15:35] LABS: ALT (SGPT) 10 U/L (8-55); AST (SGOT) 14 U/L (5-34); Albumin 3.7 g/dL (3.4-4.8); Alkaline Phosphatase 95 U/L (40-110); Anion Gap 10 mmol/L (10-20); BUN (Urea Nitrogen) 15 mg/dL (8.4-25.7); Bilirubin, Total 0.6 mg/dL (0.2-1.2); Calc. Creatinine Clearance 102 mL/min (70-130); Carbon Dioxide 28 mmol/L (23-31); Chloride 102 mmol/L (98-107); Estimated GFR-MDRD 68; Globulin 3.9 g/dL (2.4-3.5); Glucose 121 mg/dL (80-115); Potassium 4.4 mmol/L (3.5-5.1); Protein, Total 7.6 g/dL (5.8-8.1); Sodium 136 mmol/L (136-145)
--- NOTE | 2020-01-11 15:58 | HP ---
PRIMARY CARE PROVIDER: Jose Cardoza MD CHIEF COMPLAINT: Diabetic foot infection. HISTORY OF PRESENT ILLNESS: This is a 64-year-old male, who presents to [facility] in transfer from Dr. Jose Cardoza's office after presenting for increasing swelling and discoloration of the toes of the right foot. The patient's history is significant for diabetic foot ulceration, treated with multiple rounds of IV antibiotics as well as undergoing amputation of 3 toes of the right foot. The patient states he had recently been discontinued on IV antibiotics with a PICC line, taking cefazolin for 8 weeks. The patient discontinued the infusion approximately 2 weeks prior to this evaluation and was evaluated in outpatient followup with his primary care provider. The patient was recently placed on Bactrim and Keflex and told to monitor his right foot. The patient noted increasing discoloration with swelling of the remaining toes of the right foot with some paresthesias moving up his right lower extremity. The patient underwent amputation of multiple toes on the right foot in July 2019 and states he recently saw Dr. Guan, who did local debridement of the ulceration on the plantar aspect of the foot. The patient denied any direct trauma to the toe, but states he attempts to care for his feet on a daily basis. PAST MEDICAL HISTORY: 1. Diabetes mellitus, type 2 with peripheral neuropathy and peripheral vascular disease. 2. Recurrent osteomyelitis of the right foot, status post debridement and abscess drainage. 3. Chronic atrial fibrillation. 4. Bilateral cerebrovascular accident involving occipital and temporal lobe. 5. Chronic anticoagulation with Eliquis. 6. Hypertension. 7. Dyslipidemia. PAST SURGICAL HISTORY: 1. Status post right great and 2nd toe amputation due to osteomyelitis. 2. Multiple debridements of the right foot due to diabetic foot ulceration. CURRENT MEDICATIONS: 1. Coreg 12.5 mg p.o. b.i.d. 2. Dilantin 300 mg p.o. daily. 3. Pregabalin 200 mg p.o. q.a.m. and 100 mg p.o. at bedtime. 4. Eliquis 5 mg p.o. b.i.d. 5. Multaq 400 mg p.o. b.i.d. 6. Pepcid 20 mg p.o. b.i.d. 7. Lantus 10 units subcutaneously b.i.d. 8. Crestor 40 mg p.o. daily. ALLERGIES: TO SEAFOOD. FAMILY HISTORY: Positive for hypertension and diabetes mellitus. SOCIAL HISTORY: , accompanied by his in the hospital. No current alcohol, tobacco, or illicit drug use. Retired from [employer]. REVIEW OF SYSTEMS: CONSTITUTIONAL: Negative for weight loss or gain, ability to conduct usual activities. SKIN: Negative for rash, itching. EYES: Negative for double vision, pain. ENT/MOUTH: Negative for nose bleeding, neck stiffness, pain, tenderness. CARDIOVASCULAR: Negative for palpitations, dyspnea on exertion, orthopnea. RESPIRATORY: Negative for shortness of breath, wheezing, cough, hemoptysis, fever or night sweats. GASTROINTESTINAL: Negative for poor appetite, abdominal pain, heartburn, nausea, vomiting, constipation, or diarrhea. GENITOURINARY: Negative for urgency, frequency, dysuria, nocturia. MUSCULOSKELETAL: Negative for pain, swelling. NEUROLOGIC/PSYCHIATRIC: Negative for anxiety, depression. ALLERGY/IMMUNOLOGIC: Negative for skin rash, bleeding tendency. Otherwise negative except as stated per HPI. PHYSICAL EXAMINATION: VITAL SIGNS: On admission, blood pressure 159/84, pulse 60, respiratory rate 18, temperature 98 degrees Fahrenheit, and O2 saturation 99% on room air. GENERAL APPEARANCE: This is a 64-year-old male, alert and oriented x3, pleasant, responsive, in no acute distress. HEENT: Pupils are equal, round, and reactive to light and accommodation. Extraocular muscles are intact. No scleral icterus. No conjunctival injection. Nares patent. OP is clear. Teeth in good repair. NECK: Supple. No cervical adenopathy. No thyromegaly. No carotid bruits. No JVD appreciated. Cervical spine with full active and passive range of motion. No meningeal signs noted. CHEST: Lungs are clear to auscultation bilaterally. CARDIOVASCULAR: S1 and S2 without noted murmur, rub, or gallop. ABDOMEN: Rounded, soft, nontender, and nondistended. Bowel sounds are positive in all 4 quadrants. There is no hepatosplenomegaly. No abdominal bruits. No rebound or guarding appreciated. EXTREMITIES: Warm and dry with fair turgor. Chronic hyperpigmentation changes of bilateral lower extremities noted. Charcot changes of bilateral ankle region noted. Postsurgical changes noted in the right foot with dressing in place. Edematous ecchymotic remaining toes of the right foot. Pulses palpable at the dorsalis pedis and posterior tibial arteries. NEUROLOGIC: Cranial nerves II through XII are grossly intact. No focal or lateralizing signs appreciated. PERTINENT LABORATORY AND X-RAY FINDINGS: No current labs to review. MRI of the right foot pending at the time of this dictation. ASSESSMENT AND PLAN: 1. Right diabetic foot with osteomyelitis. The patient will be admitted to the medical floor. We will obtain MRI imaging to confirm osteomyelitis. Initiate vancomycin 1 g IV q.12 hours with additional Zosyn 3.375 g IV q.6 hours. Consult Infectious Disease and General Surgery Service. The patient likely will need amputation versus limited surgical debridement. Pain control as clinically indicated. 2. Diabetes mellitus, type 2 with peripheral neuropathy. Continue glargine insulin 10 units subcutaneously b.i.d. Insulin sliding scale for reflexive coverage. ADA diet. 3. Hypertension. Continue Coreg 12.5 mg b.i.d. Serial blood pressure monitoring. 4. Chronic anticoagulation. Hold Eliquis. Pending surgical evaluation. No current evidence to suggest acute blood loss. 5. Prophylaxis. Hold SCDs due to active infection of the right lower extremity. Pepcid 20 mg p.o. b.i.d. Wound care consult pending. 6. Code status is full. Surrogate medical decision maker is the patient's spouse. Job ID: [id number]
[2020-01-11] MEDS: Piperacillin/Tazobactam 3.375 GM in Sodium Chloride 0.9% 100 ML IVPB SCH (17:26)
[2020-01-11] MEDS: Sodium Chloride 0.9% 1,000 ML IV SCH (17:26)
[2020-01-11] MEDS: Dronedarone HCl 400 MG TAB PO SCH (17:27)
[2020-01-11 18:54] LABS: Bacteria/HPF None Seen HPF (None Seen); Bilirubin Negative (Negative); Blood, Urine Negative (Negative); Clarity Clear (Clear); Glucose, Urine (Dipstick) 70 mg/dL (Negative); Leukocyte Negative Leu/uL (Negative); Nitrite Negative (Negative); Protein, Urine (Dipstick) 20 mg/dL (Neg-Trace); Squamous Epithelial None Seen HPF (0-3); WBC/HPF 0-3 HPF (0-3)
--- NOTE | 2020-01-11 21:16 | CON ---
DATE OF CONSULTATION: HISTORY OF PRESENT ILLNESS: Kamran Barrios is a 64-year-old male admitted directly by Dr. Jose Cardoza. The patient was appreciated by Dr. Cardoza to have redness and increased swelling of the right foot. He has two toes left in his right foot. He has Charcot joints of both feet. He is insulin-dependent diabetic for many years. He has palpable pedal pulses without evidence of PAD. He has had prior amputation of the right second toe and metatarsal, and the right great toe and metatarsal, two remaining toes on his right foot reveal that on the plantar aspect, he has exposed bone of the metatarsophalangeal joint of the third toe and the right toe was edematous and reddened. There has been prior amputation of the right fifth toe. Plan at this time is amputation of the two remaining toes of his right foot, 3rd and 4th with wound VAC application. He understands risks and benefits, consents. The patient has a chronic wound on his left mid lateral foot extending from plantar laterally. He has pain in this area. There is a superficial wound with a small opening with granulation tissue without evidence of infection. ALLERGIES: SEAFOOD. SOCIAL HISTORY: Tobacco, none. Alcohol, none. MEDICATIONS: At home; 1. Eliquis. 2. Multaq. 3. Coreg. 4. Pepcid. 5. Lantus insulin. 6. Dilantin. 7. Lyrica. 8. Pregabalin. 9. Crestor. Eliquis has been held this hospitalization. PAST SURGICAL HISTORY: Drainage of left foot abscess, partial amputation of toes, right foot, 1, 2 and 5. 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 He has palpable pulses. He has Charcot's joints of both feet and ankles. Chronic atrial fibrillation, on anticoagulation. Chronic anticoagulation with Eliquis, hypertension, dyslipidemia. PHYSICAL EXAMINATION: VITAL SIGNS: Height 6 feet 8 inches, weight 230 pounds, 25 BMI, temperature 98 degrees, pulse 60, blood pressure 159/84. HEAD, EARS, EYES, NOSE, AND THROAT: Unremarkable. LUNGS: Clear to auscultation. CARDIAC: Irregularly irregular. ABDOMEN: Soft, nontender, palpable femoral, popliteal, dorsalis pedis, and posterior tibial pulses bilaterally. Chronic venous stasis changes in bilateral legs. Minimal edema in feet and ankles. All toes intact, left foot. The patient has a chronic wound, plantar lateral left foot proximal arch. This has a small area of granulation tissue, but otherwise there are no signs of deep sinus tracts and no signs of infection. On the patient's right foot, he has had previous amputations of toes 1, 2 and 5. Beneath the third toe, there is a large neuropathic ulcer with exposed bone. There is redness over the forefoot and edema and redness over the fourth toe. LABORATORY DATA: White count 6.7, hemoglobin 12.5. Basic metabolic profile is normal with normal BUN and creatinine. ASSESSMENT AND PLAN: 1. Diabetic neuropathic ulcer, right foot with exposed cartilage in bone. There is no need for x-rays. We would recommend amputation of the right third and fourth toes. The patient consents. We will ask Wound Care to see him regarding wound VAC application intraop and registered nurse hh case manager to arrange as outpatient. He should be able to go home on oral antibiotics postoperatively. 2. Chronic anticoagulation, on Eliquis. He could resume Eliquis 2 days after surgery. 3. Charcot's ankle and feet with diabetic neuropathy. Job ID: [id number]
[2020-01-11] MEDS: Pregabalin 50 MG CAP PO SCH (21:33)
[2020-01-11] MEDS: Vancomycin HCl 1 GM in Premix Bag 1 BAG IVPB SCH (21:33)
[2020-01-11] MEDS: Carvedilol 6.25 MG TAB PO SCH (21:33)
[2020-01-11] MEDS: Insulin Glargine 10 UNITS in Pre-Filled Syringe 1 EACH SC SCH (21:34)
[2020-01-11] MEDS: Famotidine 20 MG TAB PO SCH (21:34)
--- NOTE | 2020-01-12 00:31 | CON ---
DATE OF CONSULTATION: 01/11/2020 REASON FOR CONSULTATION: Left foot inflammatory process. HISTORY OF PRESENT ILLNESS: A 64-year-old familiar to me from multiple prior visits, who has a history of type 2 diabetes, neuropathy and multiple feet complications both sides. He has had prior episodes of MSSA bacteremia, has required temporary hemodialysis associated with septic complications with recovery of renal function. In July, he was admitted with expressive aphasia and lethargy with seizure activity which required intubation. MRI showed cortical infarcts of recent onset. The cardiac eval did not show any abnormality, probably came from the aortic area or other vessels. The CSF findings were not remarkable. At the same time, he had inflammatory changes in the left foot. Dr. Guan performed incision and drainage of left foot abscess, debridement of plantar ulcer and amputation of the right great toe and metatarsal. The patient healed from that procedure, but then he reports that he developed a blister at the bottom aspect of the left forefoot previous surgical site. This progressed and he was seen by Dr. Jose Cardoza in his office, was given Keflex and Bactrim for a week, but inflammatory changes did not improve, and Dr. Cardoza contacted me. I evaluated the photo from the patient's foot and felt that there were some findings that required admission for management. I believe, Dr. Guan has evaluated the patient and has scheduled surgical procedure for tomorrow. Currently, Mr. Barrios is looking otherwise quite well. He denies any headaches. No visual symptoms, sore throat , odynophagia, or dysphagia. No cough or sputum production. No chest pain. No abdominal pain or diarrhea. No other joint symptoms. No neurological symptoms at this time. PAST MEDICAL HISTORY: Includes type 2 diabetes, neuropathy, partial amputations of right and left feet, prior episode of bacteremia due to methicillin-sensitive Staph aureus, history of atrial fibrillation, hypertension, transient renal failure which recovered back to normal renal function. ALLERGIES: NONE. SOCIAL HISTORY: Retired. 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 . Lives in [place]. CURRENT MEDICATION LIST: 1. [place]. 2. Coreg. 3. Multaq. 4. Pepcid. 5. Glucagon. 6. Insulin. 7. Normodyne. 8. Ondansetron. 9. Zosyn. 10. Phenytoin. 11. Lyrica. 12. Crestor. 13. Vancomycin. PHYSICAL EXAMINATION: VITAL SIGNS: Temperature is 98, BP 159/84, pulse 60. SKIN: Shows the left foot second toe has a purplish discoloration as there is an area of abscess formation and skin necrosis in the lateral aspect of the second toe at the bottom aspect of the forefoot, left side. There is a round shaped area of necrosis with ulceration that penetrates into the deeper segments of the forefoot region, left side. The pulse is stronger with 2+ in dorsalis pedis, both sides. The right foot does not have any inflammatory process noticeable. No lymphadenopathy. Ocular movements conjugate. HEENT: Sclerae white. Pupils are equal. Oral cavity was not remarkable. NECK: Supple. No jugular vein distention. LUNGS: Clear to auscultation and percussion. CARDIAC: S1-S2 regular rate. No S3 or S4. ABDOMEN: Soft, not distended or tender. No ascites. No bladder distention. The patient has no edema. EXTREMITIES: Moves extremities equally. Cognitive function appears to be perfectly intact. Normal memory, speech, orientation. LABORATORY DATA: His white cell count 6.7, hemoglobin 12.5, platelets 185, 72% neutrophils. Sodium 136, creatinine 1.09 with normal liver profile, alkaline phosphatase 95, globulin 3.9. There is a swab from the foot from October with Providencia and Staph aureus with broad susceptibility profile. The patient had 2 sets of blood cultures from October 26, positive for Staphylococcus aureus. Those were ordered by Anhtony Finley, I do not know if the setting looks like it maybe potentially in the emergency room, but I am not sure. We will check with the patient. IMAGING DATA: There is a foot x-ray from October 17, 2019, and it just showed Charcot arthropathy, soft tissue gas in the plantar aspect of the mid foot. ASSESSMENT: Type 2 diabetes with complications related to neuropathy with recurring inflammatory processes in both feet, now with this area of ulceration which appears to penetrate into the deep aspect of the left forefoot region with ischemia of the second toe. The patient is going to require amputation I and D of the site and Dr. Guan is going to carry out procedure tomorrow. We will see what the cultures show and what the margin of clearance is and determine what type of antimicrobial therapy, hopefully oral for discharge planning. The only caveats is that the patient had been bacteremic in October and I do not know exactly what the setting was, looks like it was in the emergency room or could have been in the doctor's office. This bacteremia did not appear to have been treated appropriately. Job ID: [id number] MTDD
[2020-01-12] MEDS: Piperacillin/Tazobactam 3.375 GM in Sodium Chloride 0.9% 100 ML IVPB SCH ×5 (02:29→23:45)
[2020-01-12] MEDS: Sodium Chloride 0.9% 1,000 ML IV SCH (02:32)
[2020-01-12 06:00] LABS: Band 9 % (5-11); Eosinophils 2 % (0-10); Hemoglobin 11.7 g/dL (14.0-18.0); Lymphocytes 11 % (21-51); MDiff Complete? YES; Mean Corpuscular HGB CONC 32.1 g/dL (32.0-36.0); Mean Corpuscular Hemoglobin 27.3 pg (27.0-31.0); Mean Platelet Volume 7.3 fL (7.4-10.4); Monocytes 6 % (0-10); Neutrophil 72 % (42-75); Platelet Count 166 thou/uL (130-400); Platelet Morphology Comment Appears Adequate; RBC Distribution Width 12.7 % (11.5-14.5); White Blood Cell (WBC) Count 5.8 thou/uL (4.8-10.8)
[2020-01-12 06:10] LABS: Anion Gap 10 mmol/L (10-20); BUN (Urea Nitrogen) 15 mg/dL (8.4-25.7); Calc. Creatinine Clearance 91 mL/min (70-130); Calcium 8.4 mg/dL (7.8-10.44); Carbon Dioxide 25 mmol/L (23-31); Chloride 105 mmol/L (98-107); Estimated GFR-MDRD 60; Glucose 179 mg/dL (80-115); Potassium 4.4 mmol/L (3.5-5.1); Sodium 136 mmol/L (136-145)
[2020-01-12] MEDS ORDERED: Sodium Chloride 0.9% 1,000 ML IV SCH (08:00)
[2020-01-12] MEDS ORDERED: Fentanyl 100 MCG/2 ML VIAL ONE (08:39)
[2020-01-12] MEDS ORDERED: Bupivacaine PF 0.5% 30 ML VIAL ONE (08:46)
[2020-01-12] MEDS ORDERED: Lidocaine 1% w/Epinephrine 1:100K 20 ML VIAL ONE (08:46)
[2020-01-12] MEDS ORDERED: Enoxaparin Sodium 40 MG/0.4 ML SYRINGE SC SCH (09:00)
[2020-01-12] MEDS ORDERED: Glycopyrrolate 0.2 MG/ML 5 ML SYRINGE ONE (09:46)
[2020-01-12] MEDS ORDERED: PROPOFOL 200 MG/20 ML VIAL ONE (09:46)
[2020-01-12] MEDS ORDERED: EPHEDRINE 25 MG/5 ML SYRINGE ONE (09:46)
[2020-01-12] MEDS ORDERED: Lidocaine 1% PF 5 ML VIAL ONE (09:46)
[2020-01-12] MEDS ORDERED: Ondansetron PF 4 MG/2 ML Vial ONE (09:46)
[2020-01-12] MEDS ORDERED: traMADol HCl 50 MG TAB PO PRN ×2 (10:08)
--- NOTE | 2020-01-12 12:14 | OP ---
DATE OF PROCEDURE: 01/12/2020 PREOPERATIVE DIAGNOSES: Diabetic neuropathic ulcer with osteomyelitis with prior amputation of right first and second toes and metatarsals with remaining third, fourth, and fifth toes with fifth toe phalanx cyst and osteomyelitis. Neuropathic ulcer plantar tracking into the metatarsophalangeal joint of the third and fourth toes. POSTOPERATIVE DIAGNOSES: Diabetic neuropathic ulcer with osteomyelitis with prior amputation of right first and second toes and metatarsals with remaining third, fourth, and fifth toes with fifth toe phalanx cyst and osteomyelitis. Neuropathic ulcer plantar tracking into the metatarsophalangeal joint of the third and fourth toes. PROCEDURE PERFORMED: Amputation, right third, fourth, and fifth toes and metatarsals. ANESTHESIA: General. DESCRIPTION OF PROCEDURE: The patient was taken to the operating room, where under general anesthesia, right foot was prepared with Betadine and draped in routine fashion. Incision was made for amputation of the right third, fourth, and fifth toes and metatarsal sparing as much skin as possible while excising the plantar distal neuropathic ulcer. There was purulent drainage as I debrided these. Skin was spared as possible like in sharp incision and transecting the metatarsals with bone cutters and resecting the metatarsals 3, 4, and 5 proximally with rongeurs. Cartilaginous connective tissue was excised. There was excellent bleeding. Hemostasis was gained with cautery. Wound was irrigated. Wound Care Team arrived to place a wound VAC. The patient tolerated the procedure well. The patient completed with his essential transmetatarsal amputation. Job ID: [id number]
[2020-01-12] MEDS: Vancomycin HCl 1 GM in Premix Bag 1 BAG IVPB SCH ×2 (12:19→20:28)
[2020-01-12] MEDS: Rosuvastatin 20 MG TAB PO SCH (12:20)
[2020-01-12] MEDS: pyridOXINE 50 MG (B6) TAB PO SCH ×3 (12:20→20:28)
[2020-01-12] MEDS: Insulin Glargine 10 UNITS in Pre-Filled Syringe 1 EACH SC SCH ×2 (12:21→20:39)
[2020-01-12] MEDS: Dronedarone HCl 400 MG TAB PO SCH ×2 (12:21→17:02)
[2020-01-12] MEDS: Pregabalin 50 MG CAP PO SCH ×2 (12:21→20:26)
[2020-01-12] MEDS: Carvedilol 6.25 MG TAB PO SCH ×2 (12:21→20:26)
[2020-01-12] MEDS: Famotidine 20 MG TAB PO SCH ×2 (12:21→20:26)
[2020-01-12] MEDS: HumaLOG 300 UNITS/3 ML VIAL SC PRN (17:03)
--- NOTE | 2020-01-12 23:38 | PDOC.HOSPP ---
- Subjective Encounter Date: 01/12/20 Encounter Time: 14:00 Subjective: no overnight events. This afternoon, s/p Amputation, right third, fourth, and fifth toes and metatarsals. tolerated the procedure well and has no pain. - Objective Vital Signs & Weight: Vital Signs (12 hours) Temp Pulse Resp BP BP BP Pulse Ox 01/12/20 20:26 152/63 H 01/12/20 20:25 73 L 01/12/20 19:52 98.0 F 73 20 152/64 H 98 01/12/20 16:00 97.9 F 60 20 150/70 H 95 Weight Admit Weight 230 lb Weight 230 lb Result Diagrams: 01/12/20 05:33 01/12/20 05:33 Additional Labs: Accuchecks 01/12/20 01/12/20 01/12/20 19:54 16:31 11:25 POC Glucose 131 H 205 H 182 H 01/12/20 04:14 POC Glucose 192 H Hospitalist ROS - Review of Systems Constitutional: denies: fever, chills, sweats, weakness, malaise, other Respiratory: denies: cough, dry, shortness of breath, hemoptysis, SOB with excertion, pleuritic pain, sputum, wheezing, other Cardiovascular: denies: chest pain, palpitations, orthopnea, paroxysmal noc. dyspnea, edema, light headedness, other Gastrointestinal: denies: nausea, vomiting, abdominal pain, diarrhea, constipation, melena, hematochezia, other Genitourinary: denies: dysuria, frequency, incontinence, hematuria, retention, other - Medication Medications: Active Medications Generic Name Dose Route Start Last Admin Trade Name Christopherq PRN Reason Stop Dose Admin Carvedilol 12.5 mg 01/11/20 21:00 01/12/20 20:26 Coreg PO 12.5 mg BID RUBEN Administration Dronedarone 400 mg 01/11/20 17:00 01/12/20 17:02 Multaq PO 400 mg BID-WM RUBEN Administration Famotidine 20 mg 01/11/20 21:00 01/12/20 20:26 Pepcid PO 20 mg BID RUBEN Administration Piperacillin Sod/Tazobactam 100 mls @ 200 mls/hr 01/11/20 18:00 01/12/20 17: 02 Sod 3.375 gm/ Sodium Chloride IVPB 100 mls Q6HR RUBEN Administration Vancomycin HCl 1 gm/ Device 200 mls @ 200 mls/hr 01/11/20 21:00 01/12/20 20: 28 IVPB 200 mls Q12HR RUBEN Administration Insulin Glargine 10 units/ 0.1 mls @ 0 mls/hr 01/11/20 21:00 01/12/20 20:39 Miscellaneous Medication SC Not Given BID RUBEN Insulin Human Lispro 0 units 01/11/20 14:15 01/12/20 17:03 Humalog SC 3 unit .MILD SLIDING SCALE PRN Administration Mild Correctional Scale Phenytoin Sodium 300 mg 01/12/20 09:00 01/12/20 12:21 Dilantin Er PO Not Given DAILY [facility] Pregabalin 200 mg 01/12/20 09:00 01/12/20 12:21 Lyrica PO Not Given QAM RUBEN Pregabalin 100 mg 01/11/20 21:00 01/12/20 20:26 Lyrica PO 100 mg QPM RUBEN Administration Pyridoxine HCl 25 mg 01/12/20 09:00 01/12/20 20:28 Vitamin B 6 PO 25 mg TID RUBEN Administration Rosuvastatin Calcium 40 mg 01/12/20 09:00 01/12/20 12:20 Crestor PO Not Given DAILY RUBEN Sodium Chloride 10 ml 01/12/20 21:00 01/12/20 20:28 Flush - Normal Saline IVF 10 ml Q12HR RUBEN Administration Tramadol HCl 50 mg 01/12/20 10:08 01/12/20 12:18 Ultram PO 50 mg Q4H PRN Administration Mild Pain (1-3) - Exam General Appearance: NAD, awake alert Heart: RRR, no murmur, no gallops, no rubs, normal peripheral pulses Respiratory: CTAB, no wheezes, no rales, no ronchi, normal chest expansion, no tachypnea, normal percussion Gastrointestinal: soft, non-tender, non-distended, normal bowel sounds, no palpable masses, no hepatomegaly, no splenomegaly, no bruit Extremities - other findings: bandages over both feet Psychiatric: normal affect, normal behavior, A&O x 3 Hosp A/P - Plan 1. Right diabetic foot with osteomyelitis s/p transmetatarsal amputation vancomycin 1 g IV q.12 hours with additional Zosyn 3.375 g IV q.6 hours. pending cultures ID and surgery onboard 2. Diabetes mellitus, type 2 with peripheral neuropathy. Continue glargine insulin 10 units subcutaneously b.i.d. Insulin sliding scale for reflexive coverage. ADA diet. 3. Hypertension. Continue Coreg 12.5 mg b.i.d. Serial blood pressure monitoring. 4. Chronic anticoagulation. Holding pending surgery clearance 5. Prophylaxis. Hold SCDs due to active infection of the right lower extremity. Pepcid 20 mg p.o. b.i.d. Wound care consult pending. 6. Code status is full. Surrogate medical decision maker is the patient's spouse
[2020-01-13] MEDS: Piperacillin/Tazobactam 3.375 GM in Sodium Chloride 0.9% 100 ML IVPB SCH ×2 (05:12→11:55)
[2020-01-13] MEDS: HumaLOG 300 UNITS/3 ML VIAL SC PRN ×2 (05:14→11:55)
[2020-01-13] MEDS: Pregabalin 50 MG CAP PO SCH ×2 (07:55→21:28)
[2020-01-13] MEDS: Rosuvastatin 20 MG TAB PO SCH (07:56)
[2020-01-13] MEDS: Dronedarone HCl 400 MG TAB PO SCH ×2 (07:56→17:14)
[2020-01-13] MEDS: Insulin Glargine 10 UNITS in Pre-Filled Syringe 1 EACH SC SCH ×2 (07:57→21:31)
[2020-01-13] MEDS: Carvedilol 6.25 MG TAB PO SCH ×2 (07:57→21:30)
[2020-01-13] MEDS: Famotidine 20 MG TAB PO SCH ×2 (07:57→21:42)
[2020-01-13] MEDS: Vancomycin HCl 1 GM in Premix Bag 1 BAG IVPB SCH (07:57)
--- NOTE | 2020-01-13 14:51 | PDOC.HOSPP ---
- Subjective Encounter Date: 01/13/20 Encounter Time: 11:10 Subjective: doing well, home wound vac just came in. need to verify with ID whether he needs picc as currently has midline and abx duration. hx of bacteremia in October. pt familiar w.. IV abx infusion at home fm past sux hx and home iV abx infusion. - Objective Vital Signs & Weight: Vital Signs (12 hours) Temp Pulse Resp BP BP Pulse Ox 01/13/20 08:00 67 L 01/13/20 07:57 142/78 H 01/13/20 07:00 97.8 F 67 19 142/78 H 97 01/13/20 05:15 97.8 F 61 18 144/71 H 95 Weight Admit Weight 230 lb Weight 230 lb I&O: 01/12/20 01/13/20 01/14/20 06:59 06:59 07:59 Intake Total 1100 Balance 1100 Result Diagrams: 01/12/20 05:33 01/12/20 05:33 Additional Labs: Accuchecks 01/13/20 01/13/20 01/12/20 11:57 05:17 19:54 POC Glucose 233 H 179 H 131 H 01/12/20 16:31 POC Glucose 205 H Hospitalist ROS - Medication Medications: Active Medications Generic Name Dose Route Start Last Admin Trade Name Cruz PRN Reason Stop Dose Admin Carvedilol 12.5 mg 01/11/20 21:00 01/13/20 07:57 Coreg PO 12.5 mg BID RUBEN Administration Dronedarone 400 mg 01/11/20 17:00 01/13/20 07:56 Multaq PO 400 mg BID-WM RUBEN Administration Famotidine 20 mg 01/11/20 21:00 01/13/20 07:57 Pepcid PO 20 mg BID RUBEN Administration Piperacillin Sod/Tazobactam 100 mls @ 200 mls/hr 01/11/20 18:00 01/13/20 11: 55 Sod 3.375 gm/ Sodium Chloride IVPB 100 mls Q6HR RUBEN Administration Vancomycin HCl 1 gm/ Device 200 mls @ 200 mls/hr 01/11/20 21:00 01/13/20 07: 57 IVPB 200 mls Q12HR RUBEN Administration Insulin Glargine 10 units/ 0.1 mls @ 0 mls/hr 01/11/20 21:00 01/13/20 07:57 Miscellaneous Medication SC 0.1 mls BID RUBEN Administration Insulin Human Lispro 0 units 01/11/20 14:15 01/13/20 11:55 Humalog SC 3 unit .MILD SLIDING SCALE PRN Administration Mild Correctional Scale Phenytoin Sodium 300 mg 01/12/20 09:00 01/13/20 07:56 Dilantin Er PO 300 mg DAILY RUBEN Administration Pregabalin 200 mg 01/12/20 09:00 01/13/20 07:55 Lyrica PO 200 mg QAM RUBEN Administration Pregabalin 100 mg 01/11/20 21:00 01/12/20 20:26 Lyrica PO 100 mg QPM RUBEN Administration Rosuvastatin Calcium 40 mg 01/12/20 09:00 01/13/20 07:56 Crestor PO 40 mg DAILY RUBEN Administration Sodium Chloride 10 ml 01/12/20 21:00 01/13/20 07:58 Flush - Normal Saline IVF 10 ml Q12HR RUBEN Administration Tramadol HCl 50 mg 01/12/20 10:08 01/12/20 12:18 Ultram PO 50 mg Q4H PRN Administration Mild Pain (1-3) - Exam General Appearance: NAD, awake alert Eye: PERRL ENT: normocephalic atraumatic Neck: supple Heart: RRR Respiratory: CTAB Gastrointestinal: normal bowel sounds Extremities: no cyanosis Extremities - other findings: right leg > left leg - left leg musc atrophy; left metatarsal amputation, Hosp A/P - Plan 1. Right diabetic foot with osteomyelitis s/p transmetatarsal amputation vancomycin 1 g IV q.12 hours with additional Zosyn 3.375 g IV q.6 hours. pending cultures------------->5th foot dawit - mixed skin ed ID and surgery onboard 2. Diabetes mellitus, type 2 with peripheral neuropathy. Continue glargine insulin 10 units subcutaneously b.i.d. -SSI 3. Hypertension. - Continue Coreg 12.5 mg b.i.d. Serial blood pressure monitoring. 4. Chronic anticoagulation. Holding pending surgery clearance 5. Prophylaxis. Hold SCDs due to active infection of the right lower extremity. Pepcid 20 mg p.o. b.i.d. Wound care consult pending. 6. Code status is full. Surrogate medical decision maker is the patient's spouse need to verify with ID reg. picc as currently has midline and abx duration. hx of bacteremia in October. pt familiar w.. IV abx infusion at home fm past sux hx and home iV abx infusion.
--- NOTE | 2020-01-13 15:34 | PRG ---
DATE OF SERVICE: 01/13/2020 SUBJECTIVE: Mr. Barrios had procedure by Dr. Guan. The operative report was reviewed. The patient underwent amputation of the right third, fourth, and fifth toes and metatarsals. Purulent drainage was noted. The patient had hemostasis with cautery, wound irrigated and a negative pressure dressing was placed. OBJECTIVE: VITAL SIGNS: Normal. He had a T-max of a 100.6 yesterday. The remainder of the examination is unchanged. LABORATORY DATA: White cell count 5.8, hemoglobin 11.7. Microbiology with pending cultures the one from October with Providencia and Staph aureus retrieved. ASSESSMENT AND DISCUSSION: Type 2 diabetes with recurrent inflammatory processes in right and left feet with partial amputations now with this latest recurrence in the right foot, which has required full transmetatarsal amputation of right foot. We will now transition to oral Cipro and rifampin for discharge planning. Follow up the results of cultures. Continue treatment for approximately 4 weeks. May have to change the regimen according to the results of the latest cultures. Follow up in the clinic in about 2 weeks. Job ID: [id number]
[2020-01-13] MEDS: Cipro 250 MG TAB PO SCH (21:30)
[2020-01-13] MEDS: Rifampin 300 MG CAP PO SCH (21:30)
[2020-01-14] MEDS: Cipro 250 MG TAB PO SCH (06:27)
[2020-01-14 07:18] VITALS: BP 128/72; TEMP 98.1
[2020-01-14] MEDS: Carvedilol 6.25 MG TAB PO SCH (07:50)
[2020-01-14] MEDS: Famotidine 20 MG TAB PO SCH (07:50)
[2020-01-14] MEDS: Rosuvastatin 20 MG TAB PO SCH (07:51)
[2020-01-14] MEDS: Pregabalin 50 MG CAP PO SCH (07:51)
[2020-01-14] MEDS: Dronedarone HCl 400 MG TAB PO SCH (07:51)
[2020-01-14] MEDS: Insulin Glargine 10 UNITS in Pre-Filled Syringe 1 EACH SC SCH (07:52)
[2020-01-14] MEDS: Rifampin 300 MG CAP PO SCH (09:43)
--- NOTE | 2020-01-14 22:13 | DIS ---
DATE OF ADMISSION: 01/11/2020 DATE OF DISCHARGE: 01/14/2020 DISCHARGE DIAGNOSES: 1. Right diabetic foot with osteomyelitis. 2. Status post transmetatarsal amputation. 3. Type 2 diabetes mellitus. 4. Peripheral neuropathy. 5. Hypertension. 6. Chronic anticoagulation with apixaban. 7. Chronic atrial fibrillation, on Eliquis. 8. Hyperlipidemia. 9. History of cerebrovascular accident involving occipital and temporal lobe. 10. Recurrent osteomyelitis of the right foot, which has been addressed during this hospitalization. DISCHARGE MEDICATIONS: 1. Eliquis 5 mg twice a day. 2. Multaq 400 mg twice a day. 3. Coreg 12.5 mg twice a day. 4. Pepcid 20 mg twice a day. 5. Lantus 10 units twice a day. 6. Phenytoin 300 mg daily. 7. Lyrica 200 mg in the morning and 100 mg in the evening. 8. Crestor 40 mg daily. 9. Rifampin 300 mg twice a day for four weeks. 10. Cipro 500 mg twice a day for four weeks. PHYSICAL EXAMINATION: On the day of discharge, temp 98.4, pulse 57, blood pressure 131/76. The patient is resting while he is quite anxious to go. This morning, EKG reviewed. HOSPITAL COURSE: Please see the history and physical, as well as daily progress note for more details. A 64-year-old male with chronic right foot osteomyelitis , undergone metatarsal amputation and treated with vancomycin and Zosyn. Foot culture grew mixed skin ed. ID recommended Cipro 500 mg twice a day and rifampin 300 mg twice a day for four weeks for which prescription has been given. The patient is on Multaq and given Cipro, concerned for QT prolongation. His baseline EKG, QT corrected interval was 422 and overnight monitoring after Cipro given his repeat EKG, QT corrected interval was 412. The patient has been counseled extensively. There is risk with fluoroquinolone drug interaction and watch out for symptoms. The patient expressed his understanding. If any symptoms of chest pain, shortness of breath or palpitations, dizziness/presyncope, he needs to call his PCP right away or visit the ER. With that instructions, the patient is discharged in stable condition to home. DISCHARGE INSTRUCTIONS: Activity as tolerated. Diabetic diet. Follow up with Surgery Clinic per their recommendation. Follow up with Dr. Engle in 2 to 3 weeks time. TIME SPENT: Discharge time took over 30 minutes. Job ID: [id number] MTDD
== END 2020-01-14 12:34 | disposition home or self-care (01) | DRG 617 ==
LOC: T4-B 11:56
PROVIDERS: ADMIT Family Medicine; ATTEND Internal Medicine
PROC: 0Y6M0Z6 Detachment at Right Foot, Complete 3rd Ray, Open Approach (ICD-10-PCS; principal; 2020-01-12)
PROC: 0Y6M0Z7 Detachment at Right Foot, Complete 4th Ray, Open Approach (ICD-10-PCS; 2020-01-12)
PROC: 0Y6M0Z8 Detachment at Right Foot, Complete 5th Ray, Open Approach (ICD-10-PCS; 2020-01-12)
DX: E11.69 Type 2 diabetes mellitus with other specified complication (principal); M86.8X7 Other osteomyelitis, ankle and foot; I48.20 Chronic atrial fibrillation, unspecified; E78.5 Hyperlipidemia, unspecified; E11.42 Type 2 diabetes mellitus with diabetic polyneuropathy; E11.621 Type 2 diabetes mellitus with foot ulcer; E11.610 Type 2 diabetes mellitus with diabetic neuropathic arthropathy; I10 Essential (primary) hypertension; Z79.4 Long term (current) use of insulin; Z79.01 Long term (current) use of anticoagulants; Z86.73 Personal history of transient ischemic attack (TIA), and cerebral infarction without residual deficits; Z91.013 Allergy to seafood
CPT/HCPCS: 36415; 36416; 80048; 80053; 81001; 85007; 85025; 85027; 87070; 87205; 88305; 88311; 93005; 93010; J1815; J2001; J2405; J2543; J2704; J3010; J3370; J3490; S0020

== ENCOUNTER 2020-04-18 16:34 | Inpatient (IN) | payer OTHER ==
--- NOTE | 2020-04-18 17:09 | RAD ---
XR Chest 1 View Portable HISTORY: Fever with chills COMPARISON: 10/17/2019 FINDINGS: The heart size is normal. The lungs are well expanded without focal areas of consolidation, pneumothorax or pleural effusions. IMPRESSION: No radiographic evidence of acute cardiopulmonary process.
--- NOTE | 2020-04-18 17:24 | RAD ---
Right foot 3 views: HISTORY: Right foot pain COMPARISON: 07/29/2019 FINDINGS: There are postop changes of amputation at the level of the shafts of the first through fifth metatars als. No acute fracture, dislocation or bony destruction is seen. No periosteal reaction is identified. If there is concern for osteomyelitis further evaluation with MRI should be performed
[2020-04-18 17:30] LABS: Hemoglobin 12.6 g/dL (14.0-18.0); Mean Corpuscular HGB CONC 31.1 g/dL (32.0-36.0); Mean Corpuscular Hemoglobin 26.2 pg (27.0-31.0); Mean Corpuscular Volume 84.1 fL (78.0-98.0); Mean Platelet Volume 9.2 fL (7.4-10.4); Platelet Count 86 thou/uL (130-400); RBC Distribution Width 14.6 % (11.5-14.5); Red Blood Cell (RBC) Count 4.81 mill/uL (4.70-6.10); White Blood Cell (WBC) Count 7.1 thou/uL (4.8-10.8)
[2020-04-18 17:44] LABS: ALT (SGPT) 9 U/L (8-55); AST (SGOT) 12 U/L (5-34); Albumin 3.3 g/dL (3.4-4.8); Alkaline Phosphatase 63 U/L (40-110); Anion Gap 12 mmol/L (10-20); BUN (Urea Nitrogen) 16 mg/dL (8.4-25.7); Bilirubin, Total 1.1 mg/dL (0.2-1.2); Calc. Creatinine Clearance 0 mL/min (70-130); Calcium 8.3 mg/dL (7.8-10.44); Carbon Dioxide 26 mmol/L (23-31); Chloride 99 mmol/L (98-107); Estimated GFR-MDRD 86; Globulin 3.6 g/dL (2.4-3.5); Glucose 225 mg/dL (80-115); Protein, Total 6.9 g/dL (5.8-8.1); Sodium 133 mmol/L (136-145)
[2020-04-18 17:45] LABS: Band 17 % (5-11); Hypochromia SLIGHT = 6-15 cells (100X) (0-5/hpf); Lymphocytes 7 % (21-51); MDiff Complete? YES; Monocytes 10 % (0-10); Neutrophil 66 % (42-75); Ovalocytes SLIGHT = 2-5 cells (100X) (0-1/hpf); Platelet Morphology Comment Appears Decreased; Polychromasia SLIGHT = 2-3 cells (100X) (0-2/hpf)
[2020-04-18] MEDS ORDERED: Cefepime 2 GM VIAL ONE (17:50)
[2020-04-18] MEDS ORDERED: Cefepime 2 GM in Sodium Chloride 0.9% 100 ML IVPB SCH (18:00)
[2020-04-18 19:33] LABS: CKMB 0.2 ng/mL (0-6.6)
[2020-04-18] MEDS ORDERED: Dextrose 5% in Water 1,000 ML IV PRN (20:14)
[2020-04-18] MEDS ORDERED: Dextrose 50% Abboject 50 ML SYRINGE SLOW IVP PRN (20:14)
[2020-04-18] MEDS ORDERED: Acetaminophen 325 MG TAB ONE (20:39)
[2020-04-18] MEDS ORDERED: Vancomycin HCl 1 GM in Sodium Chloride 0.9% 250 ML 300 ML IVPB SCH (21:00)
--- NOTE | 2020-04-18 21:01 | PDOC.EVN ---
Event Note - Event Note Event Note: [id number] dictated
--- NOTE | 2020-04-18 22:13 | RAD ---
LEFT FOOT THREE VIEWS: 04/18/20 HISTORY: Left foot pain. Redness and swelling. Diabetic foot ulcer. COMPARISON: 10/17/19. FINDINGS/IMPRESSION: Extensive Lisfranc and charcot arthropathy likely neuropathic joint is again seen. No acute fracture or other acute osseous abnormality is seen. Soft tissue air is seen in the plantar aspect of the mid/ hindfoot on the lateral view. POS: JORGE ALBERTO
[2020-04-18 22:18] LABS: CKMB 0.4 ng/mL (0-6.6)
[2020-04-18] MEDS: Sodium Chloride 0.9% 1,000 ML IV SCH (23:23)
[2020-04-18] MEDS: Acetaminophen 325 MG TAB PO PRN (23:26)
[2020-04-19] MEDS: Insulin Glargine 10 UNITS in Pre-Filled Syringe 1 EACH SC SCH ×2 (00:34→09:58)
[2020-04-19] MEDS: HumaLOG 300 UNITS/3 ML VIAL SC PRN ×4 (00:39→22:44)
--- NOTE | 2020-04-19 01:21 | HP ---
CHIEF COMPLAINT: Fever and foot infection. HISTORY OF PRESENT ILLNESS: Mr. Barrios is a 64-year-old male with past medical history of diabetes mellitus, peripheral vascular disease, hypertension, hyperlipidemia, and kidney failure requiring dialysis in the past secondary to sepsis, among others, presents to the emergency room with fever of 102.5 at home. The symptoms started 5 days ago. The patient also noted worsening redness and swelling of the left foot ulcer. The patient denies vomiting. Denies cough. The patient also has been complaining of left scapular pain on off for the last few days. Workup in the emergency room, the patient has a troponin 0.03. The patient had WBC count of 7.1, but he has bandemia with 17%. Sodium is 133, glucose 225, BUN 16, creatinine 0.8. Lactic acid is 1.4. Foot x-ray, no acute fracture, dislocation, or bony destruction, no periosteal reaction is identified. In the emergency room, the patient had a temperature of 102.9. The patient appeared septic. Septic workup done in the ED. Started on IV antibiotics. The patient is being admitted to hospital for further management. PAST MEDICAL HISTORY: 1. Diabetes mellitus. 2. Renal failure, secondary to sepsis, requiring dialysis, resolved. 3. Hypertension. 4. Hyperlipidemia. 5. Peripheral vascular disease. PAST SURGICAL HISTORY: 1. Tonsillectomy. 2. Dialysis port placement and removal. 3. Right metatarsal amputation. SOCIAL HISTORY: Drinks alcohol socially. No smoking history. FAMILY HISTORY: Reviewed and noncontributory. HOME MEDICATIONS: Please see home medication reconciliation for updated medications. ALLERGIES: NO KNOWN ALLERGIES. REVIEW OF SYSTEMS: Review of 14 systems negative except what is mentioned in history of present illness. PHYSICAL EXAMINATION: GENERAL: The patient is awake, alert, in moderate distress. VITAL SIGNS: Temperature 102.9, heart rate is 95, respiratory rate is 28, blood pressure 172/76. HEAD AND NECK: Normocephalic and atraumatic. NECK: Supple. No JVD. CHEST: Fair bilateral air entry. HEART: S1 and S2. Regular. ABDOMEN: Soft, nontender. Bowel sounds present. NEUROLOGIC: Awake, alert, oriented x3. No focal deficits. PSYCH: Normal mood. EXTREMITIES: The patient has right transmetatarsal amputation of the right that is healed. There is no erythema or drainage or induration. On the left, there is approximately 1 cm ulceration on the lateral aspect of the foot. There is a surrounding erythema. NEUROLOGIC: Awake, alert, oriented x3. SKIN: As described above in the extremities. GENITOURINARY: No suprapubic tenderness. No flank tenderness. ASSESSMENT AND PLAN: 1. Sepsis. 2. Diabetic foot ulcer, infected. 3. Elevated troponin. 4. Hypertension. 5. Hyperlipidemia. 6. Elevated troponin. PLAN: 1. Admit. 2. Septic workup including blood cultures. 3. IV antibiotics. 4. Serial troponins. 5. IV fluid hydration. 6. Consult Wound Care. 7. Reconcile home medications. 8. DVT prophylaxis as appropriate. 9. Expected length of stay, 2 midnights or more. Job ID: [id number]
[2020-04-19] MEDS: Acetaminophen 325 MG TAB PO PRN ×4 (03:38→22:44)
[2020-04-19] MEDS: Cefepime 2 GM in Sodium Chloride 0.9% 100 ML IVPB SCH ×2 (04:40→18:21)
[2020-04-19 05:17] LABS: ALT (SGPT) 7 U/L (8-55); AST (SGOT) 11 U/L (5-34); Albumin 3.1 g/dL (3.4-4.8); Alkaline Phosphatase 57 U/L (40-110); Anion Gap 12 mmol/L (10-20); BUN (Urea Nitrogen) 13 mg/dL (8.4-25.7); Bilirubin, Total 1.1 mg/dL (0.2-1.2); Calc. Creatinine Clearance 119 mL/min (70-130); Calcium 8.1 mg/dL (7.8-10.44); Carbon Dioxide 24 mmol/L (23-31); Chloride 101 mmol/L (98-107); Estimated GFR-MDRD 87; Globulin 3.3 g/dL (2.4-3.5); Glucose 192 mg/dL (80-115); Potassium 3.7 mmol/L (3.5-5.1); Protein, Total 6.4 g/dL (5.8-8.1); Sodium 133 mmol/L (136-145)
[2020-04-19 05:21] LABS: Troponin I 0.032 ng/mL (< 0.028)
[2020-04-19 05:34] LABS: Band 9 % (5-11); Hemoglobin 11.8 g/dL (14.0-18.0); Hypochromia SLIGHT = 6-15 cells (100X) (0-5/hpf); Lymphocytes 10 % (21-51); MDiff Complete? YES; Mean Corpuscular HGB CONC 31.6 g/dL (32.0-36.0); Mean Corpuscular Hemoglobin 26.8 pg (27.0-31.0); Mean Corpuscular Volume 84.6 fL (78.0-98.0); Mean Platelet Volume 9.2 fL (7.4-10.4); Monocytes 3 % (0-10); Neutrophil 78 % (42-75); Platelet Count 79 thou/uL (130-400); Platelet Morphology Comment Appears Decreased; RBC Distribution Width 14.7 % (11.5-14.5); White Blood Cell (WBC) Count 9.4 thou/uL (4.8-10.8)
[2020-04-19 08:00] LABS: Glucose 186 mg/dL (80-115)
[2020-04-19] MEDS ORDERED: Pregabalin 50 MG CAP PO SCH (09:00)
[2020-04-19] MEDS: Vancomycin HCl 1.75 GM in Sodium Chloride 0.9% 500 ML IVPB SCH ×2 (09:59→20:35)
[2020-04-19 11:59] VITALS: BMI 23.7
[2020-04-19 12:12] LABS: Glucose 237 mg/dL (80-115)
--- NOTE | 2020-04-19 14:01 | PDOC.HOSPP ---
- Subjective Encounter Date: 04/19/20 Encounter Time: 13:57 Subjective: Mr. Barrios was seen today in follow-up of diabetic foot infection. He notes some pain in his left shoulder. He noted this started last night. - Objective Vital Signs & Weight: Vital Signs (12 hours) Temp Pulse Resp BP BP Pulse Ox 04/19/20 11:29 98.1 F 67 18 149/73 H 98 04/19/20 09:49 97.8 F 67 12 148/72 H 97 04/19/20 04:48 97.6 F 61 12 148/66 H 98 Weight Admit Weight 216 lb 0.8 oz Weight 216 lb 0.8 oz Result Diagrams: 04/19/20 04:31 04/19/20 11:34 Additional Labs: Accuchecks 04/18/20 23:37 POC Glucose 224 H Hospitalist ROS - Medication Medications: Active Medications Generic Name Dose Route Start Last Admin Trade Name Freq PRN Reason Stop Dose Admin Acetaminophen 650 mg 04/18/20 22:36 04/19/20 13:33 Tylenol PO 650 mg Q4H PRN Administration Headache/Fever/Mild Pain (1-3) Sodium Chloride 1,000 mls @ 70 mls/hr 04/18/20 20:15 04/18/20 23:23 Normal Saline 0.9% IV 1,000 mls .[id number] RUBEN Administration Cefepime HCl 2 gm/ Sodium 100 mls @ 200 mls/hr 04/19/20 05:00 04/19/20 04:40 Chloride IVPB 100 mls 0500,1700 RUBEN Administration Insulin Glargine 10 units/ 0.1 mls @ 0 mls/hr 04/18/20 21:00 04/19/20 09:58 Miscellaneous Medication SC 0.1 mls BID RUBEN Administration Vancomycin HCl 1.75 gm/ Sodium 500 mls @ 250 mls/hr 04/19/20 08:00 04/19/20 09:59 Chloride IVPB 500 mls 0800,2000 RUBEN Administration Insulin Human Lispro 0 units 04/18/20 20:14 04/19/20 13:33 Humalog SC 4 unit .MODERATE SLIDING SC PRN Administration Moderate Correctional Scale Insulin Human Lispro 0 units 04/18/20 23:42 04/19/20 00:39 Humalog SC 2 unit .BEDTIME SLIDING SC PRN Administration Bedtime Correctional Scale Pregabalin 200 mg 04/19/20 09:00 04/19/20 09:57 Lyrica PO 100 mg QAM RUBEN Administration - Exam Eye: PERRL, anicteric sclera Heart: RRR, no murmur, no gallops Respiratory: CTAB, no wheezes, no rales, no ronchi, normal chest expansion Gastrointestinal: soft, non-tender, non-distended, normal bowel sounds, no palpable masses Extremities: no cyanosis, no edema Hosp A/P (1) Diabetes mellitus type 2 in nonobese Code(s): E11.9 - TYPE 2 DIABETES MELLITUS WITHOUT COMPLICATIONS Status: Acute (2) Diabetic foot infection Code(s): E11.628 - TYPE 2 DIABETES MELLITUS WITH OTHER SKIN COMPLICATIONS; L08.9 - LOCAL INFECTION OF THE SKIN AND SUBCUTANEOUS TISSUE, UNSP Status: Acute (3) Atrial fibrillation Code(s): I48.91 - UNSPECIFIED ATRIAL FIBRILLATION Status: Acute (4) Hypertension Code(s): I10 - ESSENTIAL (PRIMARY) HYPERTENSION Status: Acute - Plan * Diabetic foot infection- continue Cefepime and Vancomycin * He has had chronic problems with idiabetic foot infections over the years- will consult Dr. Engle who he has seen in the past * He may need MRI of the Left foot, and left shoulder( he ahs developed severe pain, and limited mobility ) * HTN- blood pressure is stable * DM- blood glucose is a bit elevated- will re-start his home medications as well as a SSI * AFIB- his heart rate is stable- continue Eliquis
--- NOTE | 2020-04-19 16:45 | CON ---
DATE OF CONSULTATION: 04/19/2020 REASON FOR CONSULTATION: Left foot inflammatory process and fever. HISTORY OF PRESENT ILLNESS: A 64-year-old, well known to me, patient who has had multiple admissions to this hospital in the past related to complications of type 2 diabetes. He has had multiple feet infections with eventual transmetatarsal amputation on the right side. He has had a chronic ulcer at the plantar aspect of the left midfoot region. He has had MSSA bacteremia. He has had septic complications with acute renal failure with recovery of renal function. He also has had seizure activity in the past, which required intubation for airway protection. MRIs then showed cortical infarcts. At the same time, he had an inflammatory process in the left foot, which required incision and drainage of left foot abscess, debridement of plantar ulcer, and then in January, he underwent transmetatarsal amputation of the right foot remainder toes. Now, he was admitted with fever and worsening inflammatory changes in the left midfoot region. No headaches. No vomiting. Pain in the left shoulder with limitation of range of motion. No respiratory symptoms. No abdominal pain. No genitourinary symptoms. No diarrhea. No bleeding. Initial findings included BP 170/76, pulse 86, respirations 28, temperature 102.9, and O2 saturations were 94 on room air. He was alert and oriented. The respiratory and heart exam normal. Abdomen soft. He has almost completely healed transmetatarsal amputation site right foot, and on the left, there was an area of erythema and drainage and about 1 cm ulceration in the lateral aspect. Currently, he appears in no distress, oriented. No pain. PAST MEDICAL HISTORY: 1. Type 2 diabetes. 2. Neuropathy. 3. Various complications with right and left feet with multiple infections, culminated in right transmetatarsal amputation. 4. He has had bacteremia. 5. CVAs. 6. Acute renal failure. 7. Sepsis. 8. Has had mechanical ventilation for airway protection. He recovered his renal function. ALLERGIES: IS NOT ALLERGIC TO ANY MEDICATION. 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 . Lives in [place]. He had a COVID test, which was negative a few weeks ago when he had an episode of fever. MEDICATIONS: He is on: 1. Eliquis. 2. Coreg. 3. Cefepime. 4. Dextrose. 5. Multaq. 6. Insulin. 7. Pantoprazole. 8. Dilantin. 9. Lyrica. 10. Crestor. 11. Vancomycin. PHYSICAL EXAMINATION: VITAL SIGNS: T-max 101.5, temperature seems to have resolved, his O2 sats 98 on room air, and pulse 67. SKIN: The ulcer at the bottom aspect of the left-sided midfoot region. The right transmetatarsal amputation site has almost completely healed. No erythema noted. Pulses are 1+ in dorsalis pedis. No lymphadenopathy. HEENT: Noncontributory. NECK: Supple. No jugular vein distention. LUNGS: Symmetric. Clear breath sounds. HEART: S1 and S2. Regular rate. No S3 or S4. ABDOMEN: Soft, not distended or tender. No ascites. No bladder distention. EXTREMITIES: Pulses are 1+ in popliteals. Moves extremities equally. The patient has marked limitation of range of motion of left shoulder, which is a new phenomenon, that has not been identified previously. NEUROLOGIC: Cognitive function appears to be intact. LABORATORY DATA: Sodium 133 and creatinine 0.88. Liver profile normal. Albumin 3.1. White cell count 7.1 and 9.4, hemoglobin 11.8, and platelets 79,000. His previous platelet counts were normal recently. Microbiology, pending blood cultures. Foot drainage with pending cultures. IMAGING STUDIES: A foot x-ray with Lisfranc Charcot arthropathy, neuropathic joint. Also, chest x-ray with no acute cardiopulmonary process. ASSESSMENT: 1. Type 2 diabetes. 2. Multiple complications in the right and left feet with previous right transmetatarsal amputation. 3. Chronic ulcer, left foot with previous abscess. 4. Inflammatory process with drainage, left foot at the ulcer site. 5. New onset of range of motion limitation, left shoulder with marked pain. 6. Fever. DISCUSSION: Differential diagnosis includes inflammatory process in the left foot, potential bacteremia, and extension to the left shoulder with septic arthritis. We will image the left shoulder and left foot with MRI with contrast. Continue antimicrobial therapy as currently. May need Orthopedic Surgery attention to the left shoulder and left foot as well. No other sites of involvement are apparent at this time and the right transmetatarsal amputation site appears okay. Job ID: [id number]
[2020-04-19] MEDS: Sodium Chloride 0.9% 1,000 ML IV SCH (18:22)
[2020-04-19] MEDS: Pregabalin 50 MG CAP PO SCH ×2 (18:23→20:37)
[2020-04-19 19:00] LABS: Glucose POC Confirmation 222 mg/dl (80-115)
[2020-04-19] MEDS: Carvedilol 6.25 MG TAB PO SCH (20:35)
[2020-04-19] MEDS: Dronedarone HCl 400 MG TAB PO SCH (20:35)
[2020-04-19] MEDS: Apixaban 5 MG TAB PO SCH (20:35)
[2020-04-19] MEDS ORDERED: Non-Formulary Item 1 EACH (Insulin Glargine,Hum.Rec.Anlog [Basaglar Kwikpen U-100] 65 UNI SQ SCH (21:00)
[2020-04-19] MEDS ORDERED: Insulin Glargine 65 UNITS in Pre-Filled Syringe 1 EACH SC SCH (21:00)
[2020-04-19 21:31] LABS: Glucose POC Confirmation 222 mg/dl (80-115)
[2020-04-20] MEDS: Cefepime 2 GM in Sodium Chloride 0.9% 100 ML IVPB SCH ×2 (04:48→17:29)
[2020-04-20 07:43] LABS: Glucose POC Confirmation 188 mg/dl (80-115)
[2020-04-20 07:49] LABS: Calc. Creatinine Clearance 134 mL/min (70-130); Estimated GFR-MDRD Greater than 90
[2020-04-20 07:55] LABS: Hemoglobin 11.5 g/dL (14.0-18.0); Platelet Count 96 thou/uL (130-400)
[2020-04-20 08:02] LABS: Vancomycin, Trough 34.9 ug/mL
[2020-04-20] MEDS ORDERED: Vancomycin HCl 1.75 GM in Sodium Chloride 0.9% 500 ML IVPB SCH (08:15)
[2020-04-20] MEDS ORDERED: Lorazepam 2 MG/ML VIAL SLOW IVP SCH (08:30)
[2020-04-20] MEDS: Acetaminophen 325 MG TAB PO PRN ×3 (08:48→21:34)
[2020-04-20] MEDS: Carvedilol 6.25 MG TAB PO SCH ×2 (08:48→21:34)
[2020-04-20] MEDS: Apixaban 5 MG TAB PO SCH ×2 (08:48→21:34)
[2020-04-20] MEDS: Dronedarone HCl 400 MG TAB PO SCH ×2 (08:48→21:33)
[2020-04-20] MEDS: Pregabalin 50 MG CAP PO SCH ×3 (08:49→21:33)
[2020-04-20] MEDS: Insulin Glargine 10 UNITS in Pre-Filled Syringe 1 EACH SC SCH ×2 (08:50→21:37)
[2020-04-20] MEDS: Rosuvastatin 10 MG TAB PO SCH (08:50)
[2020-04-20] MEDS: Vancomycin HCl 1.75 GM in Sodium Chloride 0.9% 500 ML IVPB SCH (09:35)
[2020-04-20] MEDS ORDERED: Magnevist 469MG/ML 20 ML VIAL ONE ×2 (09:38)
--- NOTE | 2020-04-20 11:44 | MRI ---
LEFT SHOULDER MRI WITH AND WITHOUT IV CONTRAST: HISTORY: Fever, left shoulder inflammatory process, left shoulder pain. FINDINGS: AC joint arthrosis changes are noted with some fluid in the subacromial subdeltoid bursa. There is a large joint effusion. There is a mid grade undersurface partial thickness tear of the supraspinatus tendon with some associated delamination without full thickness component or retraction. There is s ome tendinopathy of the infraspinatus tendon. The biceps tendon appears intact. Subscapularis tendo n appears intact. The superior labrum is mildly blunted. There is some minimal increased signal in the more anterior and anterolateral aspect of the deltoid muscle. This is nonspecific but could sugg est some mild myositis. There is fluid deep to the deltoid muscle, evidence for intramuscular fluid again nonspecific, but could suggest some nonspecific inflammation. No evidence for abnormal marrow signal to suggest osteomyelitis or acute osteochondral focus. IMPRESSION: Large shoulder joint effusion with some fluid in the subacromial and subdeltoid bursa. Minimal altered signal in the anterior deltoid muscle as well as some minimal fluid density deep to t he deltoid muscle, nonspecific, possibly some inflammation. No evidence for intramuscular abscess or myonecrosis. Mid grade undersurface and delaminating tear of the supraspinatus tendon. Subscapular is and infraspinatus tendinopathy, mild. If there is concern for an infected joint effusion, followup aspiration might be considered. POS: RRE
--- NOTE | 2020-04-20 11:48 | MRI ---
LEFT FOOT MRI WITH AND WITHOUT IV COTNRAST: HISTORY: History of diabetes mellitus, left foot ulcer, erythema, drainage, Charcot. Concern for osteomyeliti s. FINDINGS: Multiplanar, multisequence MRI examination of the foot is performed with and without IV contrast. Th ere is very markedly severe deformity of the mid foot from severe Charcot joint changes. 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 There is a large wound noted laterally at the mid foot. No evide nce for associated abscess or other fluid collection. No evidence for abnormal T1 and T2 signal that would suggest osteomyelitis. IMPRESSION: Very severe deformity of the mid foot secondary to Charcot joint as well as at least partial bony fus ion of the talus and calcaneus. No evidence for acute osteomyelitis. Large open wound on the planta r aspect of the foot centrally and laterally overlying the tarsal bone region without evidence for dr ainable abscess. Generalized soft tissue swelling, evidence for edema or cellulitis. Severe arthros is changes of the ankle joint with numerous subchondral cystic changes of the talar dome and associat ed arthrosis changes of the ankle joint and subtalar joints. POS: RRE
[2020-04-20 12:57] LABS: Glucose POC Confirmation 257 mg/dl (80-115)
[2020-04-20] MEDS: HumaLOG 300 UNITS/3 ML VIAL SC PRN ×2 (13:16→17:29)
[2020-04-20] MEDS ORDERED: Lidocaine 1% (PF) 30 ML VIAL ONE (14:35)
[2020-04-20] MEDS: Sodium Chloride 0.9% 1,000 ML IV SCH (15:20)
[2020-04-20 16:48] LABS: Glucose POC Confirmation 194 mg/dl (80-115)
--- NOTE | 2020-04-20 20:19 | CON ---
DATE OF CONSULTATION: 04/20/2020 HISTORY OF PRESENT ILLNESS: Mr. Barrios as a 64-year-old male, who has had infection in his feet, currently has active infection, and he developed pain in the left shoulder region. MRI showed fluid in the shoulder joint as well as subacromial space and there was a concern by Dr. Engle that he may have a hematogenously spread infection into the shoulder joint. It was requested that I aspirate the left shoulder joint and send for culture. I explained the plan to the patient and he refused any type of treatment. He refused the aspiration, he refused the arthrocentesis, and I will leave all the medication and syringes up on the floor and come back tomorrow and ask him if he would like to participate in his care tomorrow. Job ID: [id number]
[2020-04-20 21:27] LABS: Glucose POC Confirmation 210 mg/dl (80-115)
[2020-04-21] MEDS: Acetaminophen 325 MG TAB PO PRN ×2 (01:53→12:28)
[2020-04-21] MEDS: Cefepime 2 GM in Sodium Chloride 0.9% 100 ML IVPB SCH ×2 (04:14→17:20)
[2020-04-21 05:10] LABS: #Eosinphils 0.2 thou/uL (0.0-0.7); #Lymphocytes 0.7 thou/uL (1.20-3.40); #Monocytes 0.8 thou/uL (0.11-0.59); #Neutrophils 3.8 thou/uL (1.40-6.50); %Basophils 0.6 % (0.0-1.0); %Lymphocytes 12.4 % (21.0-51.0); %Monocytes 14.6 % (0.0-10.0); %Neutrophils 69.5 % (42.0-75.0); Hemoglobin 10.2 g/dL (14.0-18.0); Mean Corpuscular HGB CONC 31.7 g/dL (32.0-36.0); Mean Corpuscular Hemoglobin 26.9 pg (27.0-31.0); Mean Platelet Volume 8.7 fL (7.4-10.4); Platelet Count 122 thou/uL (130-400); RBC Distribution Width 14.7 % (11.5-14.5); Red Blood Cell (RBC) Count 3.79 mill/uL (4.70-6.10); White Blood Cell (WBC) Count 5.5 thou/uL (4.8-10.8)
[2020-04-21 05:30] LABS: Anion Gap 10 mmol/L (10-20); BUN (Urea Nitrogen) 9 mg/dL (8.4-25.7); Calc. Creatinine Clearance 123 mL/min (70-130); Calcium 8.1 mg/dL (7.8-10.44); Carbon Dioxide 29 mmol/L (23-31); Chloride 102 mmol/L (98-107); Estimated GFR-MDRD Greater than 90; Glucose 196 mg/dL (80-115); Potassium 3.5 mmol/L (3.5-5.1); Sodium 137 mmol/L (136-145)
[2020-04-21 06:28] LABS: Glucose POC Confirmation 188 mg/dl (80-115)
[2020-04-21] MEDS: Sodium Chloride 0.9% 1,000 ML IV SCH (08:25)
[2020-04-21] MEDS: Pregabalin 50 MG CAP PO SCH ×3 (08:27→21:04)
[2020-04-21] MEDS: Rosuvastatin 10 MG TAB PO SCH (08:27)
[2020-04-21] MEDS: Apixaban 5 MG TAB PO SCH ×2 (08:27→21:04)
[2020-04-21] MEDS: Dronedarone HCl 400 MG TAB PO SCH ×2 (08:28→21:04)
[2020-04-21] MEDS: Carvedilol 6.25 MG TAB PO SCH ×2 (08:29→21:05)
[2020-04-21] MEDS: Insulin Glargine 10 UNITS in Pre-Filled Syringe 1 EACH SC SCH ×2 (08:30→23:24)
[2020-04-21 10:48] LABS: Vancomycin, Random 18.6 ug/mL (See Comment)
--- NOTE | 2020-04-21 14:16 | PDOC.HOSPP ---
- Subjective Encounter Date: 04/20/20 Encounter Time: 13:30 Subjective: pt up in bed asleep no complains - Objective Vital Signs & Weight: Vital Signs (12 hours) Temp Pulse Resp BP BP Pulse Ox 04/21/20 12:00 97.8 F 58 L 19 168/80 H 97 04/21/20 07:31 98.8 F 66 18 151/70 H 96 04/21/20 04:10 97.9 F 56 L 18 137/66 98 Weight Admit Weight 216 lb 0.8 oz Weight 216 lb 0.8 oz I&O: 04/20/20 04/21/20 04/22/20 06:59 06:59 06:59 Intake Total 3300 2796 Output Total 645 1300 Balance 2655 1496 Result Diagrams: 04/21/20 04:47 04/21/20 04:47 Hospitalist ROS - Review of Systems Respiratory: denies: cough, dry, shortness of breath, hemoptysis, SOB with excertion, pleuritic pain, sputum, wheezing, other Cardiovascular: denies: chest pain, palpitations, orthopnea, paroxysmal noc. dyspnea, edema, light headedness, other Gastrointestinal: denies: nausea, vomiting, abdominal pain, diarrhea, constipation, melena, hematochezia, other - Medication Medications: Active Medications Generic Name Dose Route Start Last Admin Trade Name Freq PRN Reason Stop Dose Admin Acetaminophen 650 mg 04/18/20 22:36 04/21/20 12:28 Tylenol PO 650 mg Q4H PRN Administration Headache/Fever/Mild Pain (1-3) Apixaban 5 mg 04/19/20 21:00 04/21/20 08:27 Eliquis PO 5 mg BID RUBEN Administration Carvedilol 12.5 mg 04/19/20 21:00 04/21/20 08:29 Coreg PO 12.5 mg BID RUBEN Administration Dronedarone 400 mg 04/19/20 21:00 04/21/20 08:28 Multaq PO 400 mg BID RUBEN Administration Sodium Chloride 1,000 mls @ 70 mls/hr 04/18/20 20:15 04/21/20 08:25 Normal Saline 0.9% IV 1,000 mls .[id number] RUBEN Administration Cefepime HCl 2 gm/ Sodium 100 mls @ 200 mls/hr 04/19/20 05:00 04/21/20 04:14 Chloride IVPB 100 mls 0500,1700 RUBEN Administration Insulin Glargine 10 units/ 0.1 mls @ 0 mls/hr 04/20/20 09:00 04/21/20 08:30 Miscellaneous Medication SC 0.1 mls BID RUBEN Administration Insulin Human Lispro 0 units 04/18/20 20:14 04/20/20 17:29 Humalog SC 2 unit .MODERATE SLIDING SC PRN Administration Moderate Correctional Scale Insulin Human Lispro 0 units 04/18/20 23:42 04/19/20 22:44 Humalog SC 2 unit .BEDTIME SLIDING SC PRN Administration Bedtime Correctional Scale Pantoprazole Sodium 40 mg 04/20/20 09:00 04/21/20 08:28 Protonix PO 40 mg DAILY RUBEN Administration Phenytoin Sodium 300 mg 04/20/20 09:00 04/21/20 08:29 Dilantin Er PO 300 mg DAILY RUBEN Administration Pregabalin 100 mg 04/19/20 15:00 04/21/20 08:27 Lyrica PO 100 mg TID RUBEN Administration Rosuvastatin Calcium 10 mg 04/20/20 09:00 04/21/20 08:27 Crestor PO 10 mg DAILY RUBEN Administration - Exam Neck: negative: supple, symmetric, no JVD, no thyromegaly, no lymphadenopathy, no carotid bruit, JVD Heart: negative: RRR, no murmur, no gallops, no rubs, normal peripheral pulses, irregular, diminshed peripheral pulses, murmur present, II/IV, III/IV Respiratory: negative: CTAB, no wheezes, no rales, no ronchi, normal chest expansion, no tachypnea, normal percussion, rales, rhonchi, tachypneic, wheezes Gastrointestinal: negative: soft, non-tender, non-distended, normal bowel sounds , no palpable masses, no hepatomegaly, no splenomegaly, no bruit, no guarding, no rigidity, tender to palpation, distended, diminished bowl sounds, voluntary guarding Extremities - other findings: left shoulder pain and limited mobility Hosp A/P (1) Left shoulder pain Code(s): M25.512 - PAIN IN LEFT SHOULDER Status: Acute (2) Diabetes mellitus type 2 in nonobese Code(s): E11.9 - TYPE 2 DIABETES MELLITUS WITHOUT COMPLICATIONS Status: Acute (3) Diabetes Code(s): E11.9 - TYPE 2 DIABETES MELLITUS WITHOUT COMPLICATIONS Status: Acute (4) ESRD (end stage renal disease) Code(s): N18.6 - END STAGE RENAL DISEASE Status: Acute (5) Atrial fibrillation Code(s): I48.91 - UNSPECIFIED ATRIAL FIBRILLATION Status: Acute (6) Hypertension Code(s): I10 - ESSENTIAL (PRIMARY) HYPERTENSION Status: Acute - Plan pt going for MRi of left shoulder and left foot will continue abx for now.
--- NOTE | 2020-04-21 14:36 | PDOC.HOSPP ---
- Subjective Encounter Date: 04/21/20 Encounter Time: 10:30 Subjective: pt up in chair complains of pain to his left shoulder. - Objective Vital Signs & Weight: Vital Signs (12 hours) Temp Pulse Resp BP BP Pulse Ox 04/21/20 12:00 97.8 F 58 L 19 168/80 H 97 04/21/20 07:31 98.8 F 66 18 151/70 H 96 04/21/20 04:10 97.9 F 56 L 18 137/66 98 Weight Admit Weight 216 lb 0.8 oz Weight 216 lb 0.8 oz I&O: 04/20/20 04/21/20 04/22/20 06:59 06:59 06:59 Intake Total 3300 2796 Output Total 645 1300 Balance 2655 1496 Result Diagrams: 04/21/20 04:47 04/21/20 04:47 Hospitalist ROS - Review of Systems Cardiovascular: denies: chest pain, palpitations, orthopnea, paroxysmal noc. dyspnea, edema, light headedness, other Gastrointestinal: denies: nausea, vomiting, abdominal pain, diarrhea, constipation, melena, hematochezia, other Genitourinary: denies: dysuria, frequency, incontinence, hematuria, retention, other Musculoskeletal: reports: shoulder pain - Medication Medications: Active Medications Generic Name Dose Route Start Last Admin Trade Name Freq PRN Reason Stop Dose Admin Acetaminophen 650 mg 04/18/20 22:36 04/21/20 12:28 Tylenol PO 650 mg Q4H PRN Administration Headache/Fever/Mild Pain (1-3) Apixaban 5 mg 04/19/20 21:00 04/21/20 08:27 Eliquis PO 5 mg BID RUBEN Administration Carvedilol 12.5 mg 04/19/20 21:00 04/21/20 08:29 Coreg PO 12.5 mg BID RUBEN Administration Dronedarone 400 mg 04/19/20 21:00 04/21/20 08:28 Multaq PO 400 mg BID RUBEN Administration Sodium Chloride 1,000 mls @ 70 mls/hr 04/18/20 20:15 04/21/20 08:25 Normal Saline 0.9% IV 1,000 mls .[id number] RUBEN Administration Cefepime HCl 2 gm/ Sodium 100 mls @ 200 mls/hr 04/19/20 05:00 04/21/20 04:14 Chloride IVPB 100 mls 0500,1700 RUBEN Administration Insulin Glargine 10 units/ 0.1 mls @ 0 mls/hr 04/20/20 09:00 04/21/20 08:30 Miscellaneous Medication SC 0.1 mls BID RUBEN Administration Insulin Human Lispro 0 units 04/18/20 20:14 04/20/20 17:29 Humalog SC 2 unit .MODERATE SLIDING SC PRN Administration Moderate Correctional Scale Insulin Human Lispro 0 units 04/18/20 23:42 04/19/20 22:44 Humalog SC 2 unit .BEDTIME SLIDING SC PRN Administration Bedtime Correctional Scale Pantoprazole Sodium 40 mg 04/20/20 09:00 04/21/20 08:28 Protonix PO 40 mg DAILY RUBEN Administration Phenytoin Sodium 300 mg 04/20/20 09:00 04/21/20 08:29 Dilantin Er PO 300 mg DAILY RUBEN Administration Pregabalin 100 mg 04/19/20 15:00 04/21/20 08:27 Lyrica PO 100 mg TID RUBEN Administration Rosuvastatin Calcium 10 mg 04/20/20 09:00 04/21/20 08:27 Crestor PO 10 mg DAILY RUBEN Administration - Exam Neck: negative: supple, symmetric, no JVD, no thyromegaly, no lymphadenopathy, no carotid bruit, JVD Heart: negative: RRR, no murmur, no gallops, no rubs, normal peripheral pulses, irregular, diminshed peripheral pulses, murmur present, II/IV, III/IV Respiratory: negative: CTAB, no wheezes, no rales, no ronchi, normal chest expansion, no tachypnea, normal percussion, rales, rhonchi, tachypneic, wheezes Extremities - other findings: left shoulder pain and limited mobility Hosp A/P (1) Left shoulder pain Code(s): M25.512 - PAIN IN LEFT SHOULDER Status: Acute (2) Diabetes mellitus type 2 in nonobese Code(s): E11.9 - TYPE 2 DIABETES MELLITUS WITHOUT COMPLICATIONS Status: Acute (3) Diabetes Code(s): E11.9 - TYPE 2 DIABETES MELLITUS WITHOUT COMPLICATIONS Status: Acute (4) ESRD (end stage renal disease) Code(s): N18.6 - END STAGE RENAL DISEASE Status: Acute (5) Atrial fibrillation Code(s): I48.91 - UNSPECIFIED ATRIAL FIBRILLATION Status: Acute (6) Hypertension Code(s): I10 - ESSENTIAL (PRIMARY) HYPERTENSION Status: Acute - Plan pt going for MRi of left shoulder and left foot will continue abx for now. 04/21 pt's mri shoulder indicated fluid and some inflammation. will start pt on muscle relaxant and toradol. He has very limited rom. possible aspiration of fluid from his left shoulder.
[2020-04-21] MEDS ORDERED: Ketorolac Tromethamine 30 MG/ML VIAL IVP SCH (15:00)
[2020-04-21] MEDS: Cyclobenzaprine 10 MG TAB PO SCH ×2 (15:28→21:04)
[2020-04-21] MEDS: Ketorolac Tromethamine 30 MG/ML VIAL IVP SCH ×2 (15:29→21:03)
[2020-04-21] MEDS: HumaLOG 300 UNITS/3 ML VIAL SC PRN (17:21)
[2020-04-21] MEDS: Vancomycin 1 GM in Premix Bag 1 BAG IVPB SCH (18:02)
[2020-04-21 23:11] LABS: Glucose POC Confirmation 169 mg/dl (80-115)
[2020-04-22] MEDS: Cefepime 2 GM in Sodium Chloride 0.9% 100 ML IVPB SCH ×2 (04:26→16:11)
[2020-04-22] MEDS: Ketorolac Tromethamine 30 MG/ML VIAL IVP SCH ×4 (04:26→20:34)
[2020-04-22] MEDS: Sodium Chloride 0.9% 1,000 ML IV SCH (04:31)
[2020-04-22 06:11] LABS: Glucose POC Confirmation 121 mg/dl (80-115)
[2020-04-22] MEDS: Vancomycin 1 GM in Premix Bag 1 BAG IVPB SCH ×2 (06:33→17:01)
[2020-04-22] MEDS: Insulin Glargine 10 UNITS in Pre-Filled Syringe 1 EACH SC SCH ×2 (09:01→20:29)
[2020-04-22] MEDS: Pregabalin 50 MG CAP PO SCH ×3 (09:01→20:33)
[2020-04-22] MEDS: Cyclobenzaprine 10 MG TAB PO SCH ×3 (09:02→20:33)
[2020-04-22] MEDS: Carvedilol 6.25 MG TAB PO SCH ×2 (09:02→20:32)
[2020-04-22] MEDS: Rosuvastatin 10 MG TAB PO SCH (09:03)
--- NOTE | 2020-04-22 09:03 | PDOC.HOSPP ---
- Subjective Encounter Date: 04/22/20 Encounter Time: 09:01 Subjective: pt up in chair states his left shoulder feels much better compared to yesterday. - Objective Vital Signs & Weight: Vital Signs (12 hours) Temp Pulse Resp BP Pulse Ox 04/22/20 08:00 98.5 F 62 16 145/62 H 97 04/22/20 04:39 98.0 F 61 18 138/69 95 Weight Admit Weight 216 lb 0.8 oz Weight 216 lb 0.8 oz I&O: 04/21/20 04/22/20 04/23/20 06:59 06:59 06:59 Intake Total 2796 4140 Output Total 1300 Balance 1496 4140 Result Diagrams: 04/21/20 04:47 04/21/20 04:47 Additional Labs: Accuchecks 04/21/20 17:11 POC Glucose 197 H Hospitalist ROS - Review of Systems Respiratory: denies: cough, dry, shortness of breath, hemoptysis, SOB with excertion, pleuritic pain, sputum, wheezing, other Cardiovascular: denies: chest pain, palpitations, orthopnea, paroxysmal noc. dyspnea, edema, light headedness, other - Medication Medications: Active Medications Generic Name Dose Route Start Last Admin Trade Name Freq PRN Reason Stop Dose Admin Acetaminophen 650 mg 04/18/20 22:36 04/21/20 12:28 Tylenol PO 650 mg Q4H PRN Administration Headache/Fever/Mild Pain (1-3) Apixaban 5 mg 04/19/20 21:00 04/21/20 21:04 Eliquis PO 5 mg BID RUBEN Administration Carvedilol 12.5 mg 04/19/20 21:00 04/21/20 21:05 Coreg PO 12.5 mg BID RUBEN Administration Cyclobenzaprine HCl 10 mg 04/21/20 15:00 04/21/20 21:04 Flexeril PO 10 mg TID RUBEN Administration Dronedarone 400 mg 04/19/20 21:00 04/21/20 21:04 Multaq PO 400 mg BID RUBEN Administration Cefepime HCl 2 gm/ Sodium 100 mls @ 200 mls/hr 04/19/20 05:00 04/22/20 04:26 Chloride IVPB 100 mls 0500,1700 RUBEN Administration Insulin Glargine 10 units/ 0.1 mls @ 0 mls/hr 04/20/20 09:00 04/21/20 23:24 Miscellaneous Medication SC 0.1 mls BID RUBEN Administration Vancomycin HCl 1 gm/ Device 200 mls @ 200 mls/hr 04/21/20 18:00 04/22/20 06: 33 IVPB 200 mls 0600,1800 RUBEN Administration Insulin Human Lispro 0 units 04/18/20 20:14 04/21/20 17:21 Humalog SC 2 unit .MODERATE SLIDING SC PRN Administration Moderate Correctional Scale Insulin Human Lispro 0 units 04/18/20 23:42 04/19/20 22:44 Humalog SC 2 unit .BEDTIME SLIDING SC PRN Administration Bedtime Correctional Scale Ketorolac Tromethamine 15 mg 04/21/20 15:00 04/22/20 04:26 Toradol IVP 04/23/20 21:01 15 mg 0300,0900,1500,2100 RUBEN Administration Pantoprazole Sodium 40 mg 04/20/20 09:00 04/21/20 08:28 Protonix PO 40 mg DAILY RUBEN Administration Phenytoin Sodium 300 mg 04/20/20 09:00 04/21/20 08:29 Dilantin Er PO 300 mg DAILY RUBEN Administration Pregabalin 100 mg 04/19/20 15:00 04/21/20 21:04 Lyrica PO 100 mg TID RUBEN Administration Rosuvastatin Calcium 10 mg 04/20/20 09:00 04/21/20 08:27 Crestor PO 10 mg DAILY RUBEN Administration - Exam Heart: negative: RRR, no murmur, no gallops, no rubs, normal peripheral pulses, irregular, diminshed peripheral pulses, murmur present, II/IV, III/IV Respiratory: negative: CTAB, no wheezes, no rales, no ronchi, normal chest expansion, no tachypnea, normal percussion, rales, rhonchi, tachypneic, wheezes Gastrointestinal: negative: soft, non-tender, non-distended, normal bowel sounds , no palpable masses, no hepatomegaly, no splenomegaly, no bruit, no guarding, no rigidity, tender to palpation, distended, diminished bowl sounds, voluntary guarding Extremities - other findings: left shoulder pain on palpation Hosp A/P (1) Left shoulder pain Code(s): M25.512 - PAIN IN LEFT SHOULDER Status: Acute (2) Diabetes mellitus type 2 in nonobese Code(s): E11.9 - TYPE 2 DIABETES MELLITUS WITHOUT COMPLICATIONS Status: Acute (3) Diabetes Code(s): E11.9 - TYPE 2 DIABETES MELLITUS WITHOUT COMPLICATIONS Status: Acute (4) ESRD (end stage renal disease) Code(s): N18.6 - END STAGE RENAL DISEASE Status: Acute (5) Atrial fibrillation Code(s): I48.91 - UNSPECIFIED ATRIAL FIBRILLATION Status: Acute (6) Hypertension Code(s): I10 - ESSENTIAL (PRIMARY) HYPERTENSION Status: Acute - Plan pt going for MRi of left shoulder and left foot will continue abx for now. 04/21 pt's mri shoulder indicated fluid and some inflammation. will start pt on muscle relaxant and toradol. He has very limited rom. possible aspiration of fluid from his left shoulder. 04/22 stop iv fluids pt is eating, will get PT since pt is a bit unstable. will continue toradol pt had good relief and is able to move his left shoulder. ABx per ID. esrd on dialysis
[2020-04-22] MEDS: Apixaban 5 MG TAB PO SCH ×2 (09:04→20:32)
[2020-04-22] MEDS: Dronedarone HCl 400 MG TAB PO SCH ×2 (09:08→20:34)
[2020-04-22 11:40] LABS: Glucose POC Confirmation 186 mg/dl (80-115)
[2020-04-22] MEDS: HumaLOG 300 UNITS/3 ML VIAL SC PRN ×2 (12:10→17:01)
[2020-04-22 17:59] LABS: Glucose POC Confirmation 159 mg/dl (80-115)
--- NOTE | 2020-04-22 18:30 | PRG ---
DATE OF SERVICE: 04/22/2020 SUBJECTIVE: He is still with pain in the left shoulder and limitation of range of motion. He has been walking around without any shoes on which does not seem to be helpful. OBJECTIVE: VITAL SIGNS: His temperature has been normal, BP 130/60, pulse 58, respirations 16, and O2 saturation 97. GENERAL: Does appear in distress. LUNGS: Clear. HEART: S1 and S2, regular rate. ABDOMEN: Soft. Not distended. EXTREMITIES: Foot unchanged. LABORATORY DATA: White cell count 5.5, hemoglobin 10.2, platelets 122,000 which has improved, and creatinine 0.85. Two sets of blood culture, no growth at 48 hours. Foot drainage with group G strep and gram-negative allie. Dr. Jeffrey saw the patient, and apparently the patient declined arthrocentesis. Mr. Barrios does not recall that, but sometimes he forgets things and he has had issues with altered mental status in the past during admissions, so may have a little delirium going on there. ASSESSMENT AND DISCUSSION: Type 2 diabetes, complications in right and left feet with previous right transmetatarsal amputation, chronic ulcer of left foot with previous abscess. No evidence of osteomyelitis in the MRI or abscess formation. 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 In the other hand, the shoulder shows a large joint effusion with fluid in the subacromial and subdeltoid bursa, so at this point in time, we will still need to obtain a sample of the fluid in the left shoulder to see if it is infected or not and then plan surgical intervention. Hopefully, the patient will allow the sampling of his left shoulder joint effusion. Job ID: [id number]
[2020-04-22 21:20] LABS: Glucose POC Confirmation 151 mg/dl (80-115)
[2020-04-23] MEDS: Ketorolac Tromethamine 30 MG/ML VIAL IVP SCH ×4 (03:31→21:41)
[2020-04-23 05:12] LABS: #Basophils 0.1 thou/uL (0.0-0.2); #Eosinphils 0.3 thou/uL (0.0-0.7); #Lymphocytes 0.6 thou/uL (1.20-3.40); #Monocytes 0.5 thou/uL (0.11-0.59); #Neutrophils 2.8 thou/uL (1.40-6.50); %Basophils 1.2 % (0.0-1.0); %Eosinophils 6.1 % (0.0-10.0); %Lymphocytes 14.6 % (21.0-51.0); %Monocytes 11.6 % (0.0-10.0); %Neutrophils 66.5 % (42.0-75.0); Mean Corpuscular HGB CONC 32.2 g/dL (32.0-36.0); Mean Corpuscular Volume 83.9 fL (78.0-98.0); Mean Platelet Volume 7.9 fL (7.4-10.4); Platelet Count 209 thou/uL (130-400); RBC Distribution Width 14.6 % (11.5-14.5); Red Blood Cell (RBC) Count 3.72 mill/uL (4.70-6.10); White Blood Cell (WBC) Count 4.3 thou/uL (4.8-10.8)
[2020-04-23 05:29] LABS: Vancomycin, Trough 29.2 ug/mL
[2020-04-23 05:31] LABS: ALT (SGPT) 9 U/L (8-55); AST (SGOT) 16 U/L (5-34); Albumin 2.9 g/dL (3.4-4.8); Alkaline Phosphatase 62 U/L (40-110); Anion Gap 11 mmol/L (10-20); BUN (Urea Nitrogen) 10 mg/dL (8.4-25.7); Bilirubin, Total 0.7 mg/dL (0.2-1.2); Calc. Creatinine Clearance 118 mL/min (70-130); Carbon Dioxide 28 mmol/L (23-31); Chloride 104 mmol/L (98-107); Estimated GFR-MDRD 86; Glucose 117 mg/dL (80-115); Potassium 3.4 mmol/L (3.5-5.1); Protein, Total 5.9 g/dL (5.8-8.1); Sodium 140 mmol/L (136-145)
[2020-04-23] MEDS: Cefepime 2 GM in Sodium Chloride 0.9% 100 ML IVPB SCH ×2 (05:46→16:57)
[2020-04-23 06:05] LABS: Glucose POC Confirmation 115 mg/dl (80-115)
[2020-04-23] MEDS: Apixaban 5 MG TAB PO SCH (10:14)
[2020-04-23] MEDS: Cyclobenzaprine 10 MG TAB PO SCH ×3 (10:15→21:42)
[2020-04-23] MEDS: Carvedilol 6.25 MG TAB PO SCH ×2 (10:15→21:43)
[2020-04-23] MEDS: Dronedarone HCl 400 MG TAB PO SCH ×2 (10:15→21:42)
[2020-04-23] MEDS: Pregabalin 50 MG CAP PO SCH ×3 (10:16→21:42)
[2020-04-23] MEDS: Rosuvastatin 10 MG TAB PO SCH (10:16)
[2020-04-23] MEDS: Insulin Glargine 10 UNITS in Pre-Filled Syringe 1 EACH SC SCH ×2 (10:17→21:42)
[2020-04-23] MEDS: HumaLOG 300 UNITS/3 ML VIAL SC PRN (11:35)
[2020-04-23 11:45] LABS: Glucose POC Confirmation 172 mg/dl (80-115)
[2020-04-23 16:34] LABS: Glucose POC Confirmation 170 mg/dl (80-115)
--- NOTE | 2020-04-23 19:52 | PRG ---
DATE OF SERVICE: 04/23/2020 Mr. Barrios agreed to the arthrocentesis. He still has pain with any attempt of movement of the left shoulder. On physical examination, the patient is only able to actively flex and abduct the shoulder 45 degrees and has significant pain with any attempts beyond that. He is tender around the left shoulder. Job ID: [id number]
--- NOTE | 2020-04-23 19:54 | OP ---
DATE OF PROCEDURE: 04/23/2020 After prepping the posterior aspect of the shoulder with alcohol, using a small amount of lidocaine, 18-gauge spinal needle was inserted into the posterior aspect of the left shoulder. Fluid was collected that was blood tinged and will be sent for culture and sensitivity and Gram stain. Band-aid was applied afterwards. The patient tolerated the procedure very well. Job ID: [id number]
[2020-04-23 22:52] LABS: Glucose POC Confirmation 166 mg/dl (80-115)
[2020-04-24] MEDS: Acetaminophen 325 MG TAB PO PRN ×2 (00:02→10:36)
[2020-04-24] MEDS: Cefepime 2 GM in Sodium Chloride 0.9% 100 ML IVPB SCH ×2 (04:51→16:32)
[2020-04-24] MEDS: Acetaminophen/Codeine 30-300mg Tablet PO PRN ×2 (04:55→22:04)
[2020-04-24 05:01] LABS: Glucose POC Confirmation 113 mg/dl (80-115)
[2020-04-24] MEDS ORDERED: Vancomycin 1.5 GRAM/300 ML BAG 1.5 GM in Premix Bag 1 BAG IVPB SCH (06:00)
[2020-04-24] MEDS: Pregabalin 50 MG CAP PO SCH ×3 (10:20→22:02)
[2020-04-24] MEDS: Rosuvastatin 10 MG TAB PO SCH (10:21)
[2020-04-24] MEDS: Carvedilol 6.25 MG TAB PO SCH ×2 (10:21→22:01)
[2020-04-24] MEDS: Cyclobenzaprine 10 MG TAB PO SCH ×3 (10:21→22:01)
[2020-04-24] MEDS: Dronedarone HCl 400 MG TAB PO SCH ×2 (10:21→22:02)
[2020-04-24] MEDS: Insulin Glargine 10 UNITS in Pre-Filled Syringe 1 EACH SC SCH ×2 (10:22→22:02)
[2020-04-24 12:12] LABS: Glucose POC Confirmation 187 mg/dl (80-115)
[2020-04-24] MEDS: HumaLOG 300 UNITS/3 ML VIAL SC PRN (12:25)
--- NOTE | 2020-04-24 14:32 | PDOC.HOSPP ---
- Subjective Encounter Date: 04/23/20 Encounter Time: 11:30 Subjective: pt up in bed no complains - Objective Vital Signs & Weight: Vital Signs (12 hours) Temp Pulse Resp BP BP BP BP 04/24/20 12:00 97.7 F 68 18 141/70 H 04/24/20 10:21 152/72 H 04/24/20 08:02 04/24/20 08:00 97.5 F L 62 18 152/72 H 04/24/20 04:00 98.1 F 59 L 16 161/78 H Pulse Ox 04/24/20 12:00 97 04/24/20 10:21 04/24/20 08:02 97 04/24/20 08:00 97 04/24/20 04:00 96 Weight Admit Weight 216 lb 0.8 oz Weight 216 lb 0.8 oz I&O: 04/23/20 04/24/20 04/25/20 06:59 06:59 06:59 Intake Total 2092 1150 Balance 3 1150 Result Diagrams: 04/26/20 04:31 04/26/20 04:31 Additional Labs: Accuchecks 04/24/20 04/24/20 04/23/20 11:08 05:22 21:04 POC Glucose 182 H 114 H 173 H 04/23/20 16:45 POC Glucose 160 H Hospitalist ROS - Review of Systems Respiratory: denies: cough, dry, shortness of breath, hemoptysis, SOB with excertion, pleuritic pain, sputum, wheezing, other Cardiovascular: denies: chest pain, palpitations, orthopnea, paroxysmal noc. dyspnea, edema, light headedness, other Gastrointestinal: denies: nausea, vomiting, abdominal pain, diarrhea, constipation, melena, hematochezia, other - Medication Medications: Active Medications Generic Name Dose Route Start Last Admin Trade Name Freq PRN Reason Stop Dose Admin Acetaminophen 650 mg 04/18/20 22:36 04/24/20 10:36 Tylenol PO 650 mg Q4H PRN Administration Headache/Fever/Mild Pain (1-3) Acetaminophen/Codeine Phosphate 1 tab 04/21/20 14:38 04/24/20 04:55 Tylenol #3 PO 1 tab Q6H PRN Administration Moderate Pain (4-6) Apixaban 5 mg 04/19/20 21:00 04/23/20 10:14 Eliquis PO 5 mg BID RUBEN Administration Carvedilol 12.5 mg 04/19/20 21:00 04/24/20 10:21 Coreg PO 12.5 mg BID RUBEN Administration Cyclobenzaprine HCl 10 mg 04/21/20 15:00 04/24/20 10:21 Flexeril PO 10 mg TID RUBEN Administration Dronedarone 400 mg 04/19/20 21:00 04/24/20 10:21 Multaq PO 400 mg BID RUBEN Administration Cefepime HCl 2 gm/ Sodium 100 mls @ 200 mls/hr 04/19/20 05:00 04/24/20 04:51 Chloride IVPB 100 mls 0500,1700 RUBEN Administration Insulin Glargine 10 units/ 0.1 mls @ 0 mls/hr 04/20/20 09:00 04/24/20 10:22 Miscellaneous Medication SC 0.1 mls BID RUBEN Administration Vancomycin HCl 1.5 gm/ Device 300 mls @ 200 mls/hr 04/24/20 06:00 04/24/20 06 :18 IVPB 300 mls 0600 RUBEN Administration Insulin Human Lispro 0 units 04/18/20 20:14 04/24/20 12:25 Humalog SC 2 unit .MODERATE SLIDING SC PRN Administration Moderate Correctional Scale Insulin Human Lispro 0 units 04/18/20 23:42 04/19/20 22:44 Humalog SC 2 unit .BEDTIME SLIDING SC PRN Administration Bedtime Correctional Scale Pantoprazole Sodium 40 mg 04/20/20 09:00 04/24/20 10:19 Protonix PO 40 mg DAILY RUBEN Administration Phenytoin Sodium 300 mg 04/20/20 09:00 04/24/20 10:21 Dilantin Er PO 300 mg DAILY RUBEN Administration Pregabalin 100 mg 04/19/20 15:00 04/24/20 10:20 Lyrica PO 100 mg TID RUBEN Administration Rosuvastatin Calcium 10 mg 04/20/20 09:00 04/24/20 10:21 Crestor PO 10 mg DAILY RUBEN Administration Sodium Chloride 10 ml 04/23/20 21:00 04/24/20 10:23 Flush - Normal Saline IVF 10 ml Q12HR RUBEN Administration - Exam Heart: negative: RRR, no murmur, no gallops, no rubs, normal peripheral pulses, irregular, diminshed peripheral pulses, murmur present, II/IV, III/IV Respiratory: negative: CTAB, no wheezes, no rales, no ronchi, normal chest expansion, no tachypnea, normal percussion, rales, rhonchi, tachypneic, wheezes Gastrointestinal: negative: soft, non-tender, non-distended, normal bowel sounds , no palpable masses, no hepatomegaly, no splenomegaly, no bruit, no guarding, no rigidity, tender to palpation, distended, diminished bowl sounds, voluntary guarding Extremities - other findings: left shoulder pain, limited rom to left shoulder Hosp A/P (1) Left shoulder pain Code(s): M25.512 - PAIN IN LEFT SHOULDER Status: Acute (2) Diabetes mellitus type 2 in nonobese Code(s): E11.9 - TYPE 2 DIABETES MELLITUS WITHOUT COMPLICATIONS Status: Acute (3) Diabetes Code(s): E11.9 - TYPE 2 DIABETES MELLITUS WITHOUT COMPLICATIONS Status: Acute (4) Atrial fibrillation Code(s): I48.91 - UNSPECIFIED ATRIAL FIBRILLATION Status: Acute (5) Hypertension Code(s): I10 - ESSENTIAL (PRIMARY) HYPERTENSION Status: Acute - Plan pt going for MRi of left shoulder and left foot will continue abx for now. 04/21 pt's mri shoulder indicated fluid and some inflammation. will start pt on muscle relaxant and toradol. He has very limited rom. possible aspiration of fluid from his left shoulder. 04/22 stop iv fluids pt is eating, will get PT since pt is a bit unstable. will continue toradol pt had good relief and is able to move his left shoulder. ABx per ID. esrd on dialysis 04/23 pt's left shoulder aspirated, cx sent. spoke with ID and ortho. will restart eliquis
--- NOTE | 2020-04-24 14:34 | PDOC.HOSPP ---
- Subjective Encounter Date: 04/24/20 Encounter Time: 11:15 Subjective: pt up in bed no complains - Objective Vital Signs & Weight: Vital Signs (12 hours) Temp Pulse Resp BP BP BP BP 04/24/20 12:00 97.7 F 68 18 141/70 H 04/24/20 10:21 152/72 H 04/24/20 08:02 04/24/20 08:00 97.5 F L 62 18 152/72 H 04/24/20 04:00 98.1 F 59 L 16 161/78 H Pulse Ox 04/24/20 12:00 97 04/24/20 10:21 04/24/20 08:02 97 04/24/20 08:00 97 04/24/20 04:00 96 Weight Admit Weight 216 lb 0.8 oz Weight 216 lb 0.8 oz I&O: 04/23/20 04/24/20 04/25/20 06:59 06:59 06:59 Intake Total 3 1150 Balance 3 1150 Result Diagrams: 04/26/20 04:31 04/26/20 04:31 Additional Labs: Accuchecks 04/24/20 04/24/20 04/23/20 11:08 05:22 21:04 POC Glucose 182 H 114 H 173 H 04/23/20 16:45 POC Glucose 160 H Hospitalist ROS - Review of Systems Cardiovascular: denies: chest pain, palpitations, orthopnea, paroxysmal noc. dyspnea, edema, light headedness, other Gastrointestinal: denies: nausea, vomiting, abdominal pain, diarrhea, constipation, melena, hematochezia, other Genitourinary: denies: dysuria, frequency, incontinence, hematuria, retention, other - Medication Medications: Active Medications Generic Name Dose Route Start Last Admin Trade Name Freq PRN Reason Stop Dose Admin Acetaminophen 650 mg 04/18/20 22:36 04/24/20 10:36 Tylenol PO 650 mg Q4H PRN Administration Headache/Fever/Mild Pain (1-3) Acetaminophen/Codeine Phosphate 1 tab 04/21/20 14:38 04/24/20 04:55 Tylenol #3 PO 1 tab Q6H PRN Administration Moderate Pain (4-6) Apixaban 5 mg 04/19/20 21:00 04/23/20 10:14 Eliquis PO 5 mg BID RUBEN Administration Carvedilol 12.5 mg 04/19/20 21:00 04/24/20 10:21 Coreg PO 12.5 mg BID RUBEN Administration Cyclobenzaprine HCl 10 mg 04/21/20 15:00 04/24/20 10:21 Flexeril PO 10 mg TID RUBEN Administration Dronedarone 400 mg 04/19/20 21:00 04/24/20 10:21 Multaq PO 400 mg BID RUBEN Administration Cefepime HCl 2 gm/ Sodium 100 mls @ 200 mls/hr 04/19/20 05:00 04/24/20 04:51 Chloride IVPB 100 mls 0500,1700 RUBEN Administration Insulin Glargine 10 units/ 0.1 mls @ 0 mls/hr 04/20/20 09:00 04/24/20 10:22 Miscellaneous Medication SC 0.1 mls BID RUBEN Administration Vancomycin HCl 1.5 gm/ Device 300 mls @ 200 mls/hr 04/24/20 06:00 04/24/20 06 :18 IVPB 300 mls 0600 RUBEN Administration Insulin Human Lispro 0 units 04/18/20 20:14 04/24/20 12:25 Humalog SC 2 unit .MODERATE SLIDING SC PRN Administration Moderate Correctional Scale Insulin Human Lispro 0 units 04/18/20 23:42 04/19/20 22:44 Humalog SC 2 unit .BEDTIME SLIDING SC PRN Administration Bedtime Correctional Scale Pantoprazole Sodium 40 mg 04/20/20 09:00 04/24/20 10:19 Protonix PO 40 mg DAILY RUBEN Administration Phenytoin Sodium 300 mg 04/20/20 09:00 04/24/20 10:21 Dilantin Er PO 300 mg DAILY RUBEN Administration Pregabalin 100 mg 04/19/20 15:00 04/24/20 10:20 Lyrica PO 100 mg TID RUBEN Administration Rosuvastatin Calcium 10 mg 04/20/20 09:00 04/24/20 10:21 Crestor PO 10 mg DAILY RUBEN Administration Sodium Chloride 10 ml 04/23/20 21:00 04/24/20 10:23 Flush - Normal Saline IVF 10 ml Q12HR RUBEN Administration - Exam Heart: negative: RRR, no murmur, no gallops, no rubs, normal peripheral pulses, irregular, diminshed peripheral pulses, murmur present, II/IV, III/IV Respiratory: negative: CTAB, no wheezes, no rales, no ronchi, normal chest expansion, no tachypnea, normal percussion, rales, rhonchi, tachypneic, wheezes Gastrointestinal: negative: soft, non-tender, non-distended, normal bowel sounds , no palpable masses, no hepatomegaly, no splenomegaly, no bruit, no guarding, no rigidity, tender to palpation, distended, diminished bowl sounds, voluntary guarding Extremities - other findings: left shoulder pain Hosp A/P (1) Left shoulder pain Code(s): M25.512 - PAIN IN LEFT SHOULDER Status: Acute (2) Diabetes mellitus type 2 in nonobese Code(s): E11.9 - TYPE 2 DIABETES MELLITUS WITHOUT COMPLICATIONS Status: Acute (3) Diabetes Code(s): E11.9 - TYPE 2 DIABETES MELLITUS WITHOUT COMPLICATIONS Status: Acute (4) Atrial fibrillation Code(s): I48.91 - UNSPECIFIED ATRIAL FIBRILLATION Status: Acute (5) Hypertension Code(s): I10 - ESSENTIAL (PRIMARY) HYPERTENSION Status: Acute - Plan pt going for MRi of left shoulder and left foot will continue abx for now. 04/21 pt's mri shoulder indicated fluid and some inflammation. will start pt on muscle relaxant and toradol. He has very limited rom. possible aspiration of fluid from his left shoulder. 04/22 stop iv fluids pt is eating, will get PT since pt is a bit unstable. will continue toradol pt had good relief and is able to move his left shoulder. ABx per ID. esrd on dialysis 04/23 pt's left shoulder aspirated, cx sent. spoke with ID and ortho. will restart eliquis 04/24 cx so far negative. waiting on cx. ID to see pt.
[2020-04-24 16:15] LABS: Glucose POC Confirmation 164 mg/dl (80-115)
--- NOTE | 2020-04-24 20:55 | PRG ---
DATE OF SERVICE: 04/24/2020 SUBJECTIVE: The patient has remained afebrile. Microbiology from the fluid taken from the left shoulder. The Gram stain showed moderate WBCs seen, RBCs present, no organisms seen, and no growth at 12 hours. PLAN: We will continue to monitor the patient's progress and culture results. If anything does grow, then plan on washing out the left shoulder. If there is no growth, then continue with the antibiotics as per Dr. Engle. Job ID: [id number]
[2020-04-24 21:15] LABS: Glucose POC Confirmation 147 mg/dl (80-115)
[2020-04-24] MEDS: Apixaban 5 MG TAB PO SCH (22:00)
[2020-04-25] MEDS: Cefepime 2 GM in Sodium Chloride 0.9% 100 ML IVPB SCH ×2 (05:16→16:30)
[2020-04-25 05:29] LABS: Glucose POC Confirmation 212 mg/dl (80-115)
[2020-04-25] MEDS: HumaLOG 300 UNITS/3 ML VIAL SC PRN ×3 (06:23→17:54)
[2020-04-25] MEDS: Rosuvastatin 10 MG TAB PO SCH (10:30)
[2020-04-25] MEDS: Dronedarone HCl 400 MG TAB PO SCH ×2 (10:30→20:38)
[2020-04-25] MEDS: Apixaban 5 MG TAB PO SCH ×2 (10:30→20:37)
[2020-04-25] MEDS: Cyclobenzaprine 10 MG TAB PO SCH ×3 (10:31→20:38)
[2020-04-25] MEDS: Pregabalin 50 MG CAP PO SCH ×3 (10:31→20:39)
[2020-04-25] MEDS: Carvedilol 6.25 MG TAB PO SCH ×2 (10:32→20:38)
[2020-04-25] MEDS: Insulin Glargine 10 UNITS in Pre-Filled Syringe 1 EACH SC SCH ×2 (10:33→20:38)
[2020-04-25] MEDS: Acetaminophen/Codeine 30-300mg Tablet PO PRN ×2 (10:39→20:54)
[2020-04-25 11:44] LABS: Glucose POC Confirmation 190 mg/dl (80-115)
[2020-04-25 17:20] LABS: Glucose POC Confirmation 164 mg/dl (80-115)
[2020-04-25 17:22] LABS: Vancomycin, Random 19.2 ug/mL (See Comment)
--- NOTE | 2020-04-25 20:53 | PRG ---
DATE OF SERVICE: 04/25/2020 SUBJECTIVE: Feeling well except for the limitation of range of motion of left shoulder, still a little better, but not back to baseline. He has no respiratory symptoms or abdominal pain. OBJECTIVE: VITAL SIGNS: His temperature has been normal since admission. Blood pressure 140/69, pulse 61, respirations 16. GENERAL: He appears in no distress. He is oriented. LUNGS: Clear. HEART: S1 and S2. Regular rate. ABDOMEN: Soft. EXTREMITIES: He is able to lift the left upper extremity a bit more, but the abduction is very limited. The left foot plantar aspect is really looking good and has no more inflammatory process noted. LABORATORY DATA: White cell count is 4.3, hemoglobin 10, platelets 209, and creatinine 0.89. Microbiology with strep group G and gram-negative allie from the foot drainage and synovial fluid culture with thus far moderate wbc's, but no organisms seen, no growth at 36 hours. The patient is currently on cefepime and vancomycin. ASSESSMENT AND DISCUSSION: Type 2 diabetes, complications of right and left feet, previous right transmetatarsal amputation, chronic ulcer of left foot with previous abscess. No evidence of osteomyelitis on MRI or abscess formation. 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 The shoulder has a large joint effusion, which had some moderate wbc's. He was receiving antimicrobials at the time of the sample retrieval, and so, it is going to be difficult to interpret the meaning of a negative culture, and I am inclined to discharge him on oral levofloxacin and Keflex for a few weeks, and I will follow him in the clinic. May have to change this recommendation if cultures turn positive tomorrow. Job ID: [id number]
[2020-04-26] MEDS: Acetaminophen/Codeine 30-300mg Tablet PO PRN (03:01)
[2020-04-26 04:45] LABS: Hemoglobin 11.4 g/dL (14.0-18.0); Platelet Count 231 thou/uL (130-400)
[2020-04-26] MEDS: Cefepime 2 GM in Sodium Chloride 0.9% 100 ML IVPB SCH (04:46)
[2020-04-26 05:02] LABS: Calc. Creatinine Clearance 123 mL/min (70-130); Estimated GFR-MDRD Greater than 90
[2020-04-26 05:17] LABS: Vancomycin, Trough 17.6 ug/mL
[2020-04-26 07:49] VITALS: BP 162/79; TEMP 98.6
[2020-04-26] MEDS ORDERED: Vancomycin 1.5 GRAM/300 ML BAG 1.5 GM in Premix Bag 1 BAG IVPB SCH (08:00)
[2020-04-26] MEDS ORDERED: Ketorolac Tromethamine 30 MG/ML VIAL IVP SCH (08:00)
--- NOTE | 2020-04-26 08:20 | PDOC.HOSPP ---
- Subjective Encounter Date: 04/25/20 Encounter Time: 18:00 Subjective: pt up in bed no complains - Objective Vital Signs & Weight: Vital Signs (12 hours) Temp Pulse Resp BP BP Pulse Ox 04/26/20 07:46 98.6 F 69 16 162/79 H 97 04/26/20 03:36 98 F 60 12 160/78 H 94 L 04/25/20 23:38 98.3 F 63 13 156/80 H 95 04/25/20 20:50 95 Weight Admit Weight 216 lb 0.8 oz Weight 216 lb 0.8 oz I&O: 04/25/20 04/26/20 04/27/20 06:59 06:59 06:59 Intake Total 250 2420 Balance 250 2420 Result Diagrams: 04/26/20 04:31 04/26/20 04:31 Additional Labs: Accuchecks 04/26/20 04/25/20 04/25/20 06:08 20:32 17:07 POC Glucose 133 H 196 H 163 H 04/25/20 10:33 POC Glucose 180 H Hospitalist ROS - Review of Systems Cardiovascular: denies: chest pain, palpitations, orthopnea, paroxysmal noc. dyspnea, edema, light headedness, other Gastrointestinal: denies: nausea, vomiting, abdominal pain, diarrhea, constipation, melena, hematochezia, other Genitourinary: denies: dysuria, frequency, incontinence, hematuria, retention, other - Medication Medications: Active Medications Generic Name Dose Route Start Last Admin Trade Name Freq PRN Reason Stop Dose Admin Acetaminophen 650 mg 04/18/20 22:36 04/24/20 10:36 Tylenol PO 650 mg Q4H PRN Administration Headache/Fever/Mild Pain (1-3) Acetaminophen/Codeine Phosphate 1 tab 04/21/20 14:38 04/26/20 03:01 Tylenol #3 PO 1 tab Q6H PRN Administration Moderate Pain (4-6) Apixaban 5 mg 04/19/20 21:00 04/25/20 20:37 Eliquis PO 5 mg BID RUBEN Administration Carvedilol 12.5 mg 04/19/20 21:00 04/25/20 20:38 Coreg PO 12.5 mg BID RUBEN Administration Cyclobenzaprine HCl 10 mg 04/21/20 15:00 04/25/20 20:38 Flexeril PO 10 mg TID RUBEN Administration Dronedarone 400 mg 04/19/20 21:00 04/25/20 20:38 Multaq PO 400 mg BID RUBEN Administration Cefepime HCl 2 gm/ Sodium 100 mls @ 200 mls/hr 04/19/20 05:00 04/26/20 04:46 Chloride IVPB 100 mls 0500,1700 RUBEN Administration Insulin Glargine 10 units/ 0.1 mls @ 0 mls/hr 04/20/20 09:00 04/25/20 20:38 Miscellaneous Medication SC 0.1 mls BID RUBEN Administration Insulin Human Lispro 0 units 04/18/20 20:14 04/25/20 17:54 Humalog SC 2 unit .MODERATE SLIDING SC PRN Administration Moderate Correctional Scale Insulin Human Lispro 0 units 04/18/20 23:42 04/19/20 22:44 Humalog SC 2 unit .BEDTIME SLIDING SC PRN Administration Bedtime Correctional Scale Pantoprazole Sodium 40 mg 04/20/20 09:00 04/25/20 10:33 Protonix PO 40 mg DAILY RUBEN Administration Phenytoin Sodium 300 mg 04/20/20 09:00 04/25/20 10:30 Dilantin Er PO 300 mg DAILY RUBEN Administration Pregabalin 100 mg 04/19/20 15:00 04/25/20 20:39 Lyrica PO 100 mg TID RUBEN Administration Rosuvastatin Calcium 10 mg 04/20/20 09:00 04/25/20 10:30 Crestor PO 10 mg DAILY RUBEN Administration Sodium Chloride 10 ml 04/23/20 21:00 04/25/20 20:41 Flush - Normal Saline IVF 10 ml Q12HR RUBEN Administration - Exam Heart: negative: RRR, no murmur, no gallops, no rubs, normal peripheral pulses, irregular, diminshed peripheral pulses, murmur present, II/IV, III/IV Respiratory: negative: CTAB, no wheezes, no rales, no ronchi, normal chest expansion, no tachypnea, normal percussion, rales, rhonchi, tachypneic, wheezes Gastrointestinal: negative: soft, non-tender, non-distended, normal bowel sounds , no palpable masses, no hepatomegaly, no splenomegaly, no bruit, no guarding, no rigidity, tender to palpation, distended, diminished bowl sounds, voluntary guarding Musculoskeletal - other findings: limited rom to left shoulder Hosp A/P (1) Left shoulder pain Code(s): M25.512 - PAIN IN LEFT SHOULDER Status: Acute (2) Diabetes mellitus type 2 in nonobese Code(s): E11.9 - TYPE 2 DIABETES MELLITUS WITHOUT COMPLICATIONS Status: Acute (3) Diabetes Code(s): E11.9 - TYPE 2 DIABETES MELLITUS WITHOUT COMPLICATIONS Status: Acute (4) Atrial fibrillation Code(s): I48.91 - UNSPECIFIED ATRIAL FIBRILLATION Status: Acute (5) Hypertension Code(s): I10 - ESSENTIAL (PRIMARY) HYPERTENSION Status: Acute - Plan pt going for MRi of left shoulder and left foot will continue abx for now. 04/21 pt's mri shoulder indicated fluid and some inflammation. will start pt on muscle relaxant and toradol. He has very limited rom. possible aspiration of fluid from his left shoulder. 04/22 stop iv fluids pt is eating, will get PT since pt is a bit unstable. will continue toradol pt had good relief and is able to move his left shoulder. ABx per ID. esrd on dialysis 04/23 pt's left shoulder aspirated, cx sent. spoke with ID and ortho. will restart eliquis 04/24 cx so far negative. waiting on cx. ID to see pt. 04/25 pt cx negative. ID to see pt and decide on abx. pt wants to go home.
[2020-04-26] MEDS: Cyclobenzaprine 10 MG TAB PO SCH (08:37)
[2020-04-26] MEDS: Pregabalin 50 MG CAP PO SCH (08:37)
[2020-04-26] MEDS: Dronedarone HCl 400 MG TAB PO SCH (08:37)
[2020-04-26] MEDS: Apixaban 5 MG TAB PO SCH (08:38)
[2020-04-26] MEDS: Rosuvastatin 10 MG TAB PO SCH (08:38)
[2020-04-26] MEDS: Carvedilol 6.25 MG TAB PO SCH (08:38)
[2020-04-26] MEDS: Insulin Glargine 10 UNITS in Pre-Filled Syringe 1 EACH SC SCH (08:39)
[2020-04-26] MEDS ORDERED: Cephalexin 250 MG CAP PO SCH ×2 (09:00→14:00)
[2020-04-26 09:39] LABS: Anion Gap 8 mmol/L (10-20); BUN (Urea Nitrogen) 10 mg/dL (8.4-25.7); Calc. Creatinine Clearance 120 mL/min (70-130); Carbon Dioxide 37 mmol/L (23-31); Chloride 96 mmol/L (98-107); Estimated GFR-MDRD 89; Glucose 168 mg/dL (80-115); Magnesium 1.9 mg/dL (1.6-2.6); Potassium 3.9 mmol/L (3.5-5.1); Sodium 137 mmol/L (136-145)
--- NOTE | 2020-04-26 17:42 | PQF ---
AZUL BARAHONA KARISHMA [id number] [address] [place] [address] [id number] CLINICAL DOCUMENTATION IMPROVEMENT CLARIFICATION FORM: ICD-10 Updated PLEASE DO AN ADDENDUM TO THE PROGRESS NOTE WITH ANY DOCUMENTATION UPDATES OR ADDITIONS AND CARRY THROUGH TO DC SUMMARY. THANK YOU. DATE: 04/26/2020 ATTN: Dr. Herrera Please exercise your independent, professional judgment in responding to the clarification form. Clinical indicators are provided on the bottom of this form for your review Please check appropriate box(s) to clarify if the following diagnosis has been ruled in or ruled out: SEPSIS [ ] Ruled in diagnosis [ ] Continue to treat [ ] Resolved [ ] Ruled out diagnosis [ ] Cannot rule out diagnosis [ ] Other diagnosis [ ] Unable to determine In addition, please specify: Present on Admission (POA): [ ] Yes [ ] No [ ] Unable to determine For continuity of documentation, please document condition throughout progress notes and discharge summary. Thank You. CLINICAL INDICATORS - SIGNS / SYMPTOMS / LABS / RESULTS AND LOCATION IN *ED 04/18: Vital Signs: RR 20-28 Temp Max 102.9 *LAB (EMR): WBC BAND NEUTS (%) C-Reactive Protein 04/18 7.1 17 04/19 9.4 9 04/21 5.5 22.37 *H&P 04/18 (Issac): * The patient appeared septic. Septic workup done in the ED. * Assessment and Plan: Sepsis ... Diabetic foot ulcer, infected. *Consult 04/19 (Oniel): Differential diagnosis includes inflammatory process in the left foot, potential bacteremia, and extension to the left shoulder with septic arthritis. *PN 04/22 (Oniel): Two sets of blood culture, no growth at 48hours. Foot drainage with group G strep and gram-negative allie. RISK FACTORS / RESULTS AND LOCATION IN MR *H&P 04/18 (Constantine-Spencer): * Past medical history of diabetes Mellitus, peripheral vascular disease ... kidney failure requiring dialysis in the past secondary to sepsis * Diabetic foot ulcer, infected. TREATMENTS / RESULTS AND LOCATION IN *ED 04/18: Vancomycin IV, Cefepime IV, NS 1L IV bolus *H&P 04/18 (Issac): Septic workup including blood cultures ... IV antibiotics ... IV fluid hydration ... Consult Wound Care ... *Infectious Disease Consult 04/19 *Surgery Consult 04/20 *Imaging (EMR): Upper Extremity MRI and Lower Extremity MRI 04/20 ThanksMara (This form is maintained as a part of the permanent medical record) 2014 [employer]. All Rights Reserved Mara Lo RN, CDS [email or web address] cell phone: [facility]
--- NOTE | 2020-04-27 01:17 | DIS ---
DATE OF ADMISSION: 04/18/2020 DATE OF DISCHARGE: 04/26/2020 DISCHARGE DIAGNOSES: As of the followin. Left shoulder pain concerned for possible osteomyelitis. 2. Diabetes type 2. 3. Atrial fibrillation. 4. Hypertension. 5. Sepsis. 6. Multiple infections and bacteremia in the past. HOSPITAL COURSE: The patient is a 64-year-old male, who initially presented to the hospital with left foot inflammation process and fever. He then had left shoulder pain and decreased motility. At this time, he was put on broad-spectrum antibiotics. There was a concern for left shoulder septic arthritis given his previous history of bacteremia. MRI of left foot and left shoulder did not show any acute processes or no osteo. The patient, however, did have significant amount of fluid on his left shoulder. He underwent an aspiration done by Orthopedics. Microbiology for the synovial fluid showed no growth for about 3 days. However, given patient's history of previous bacteremia, he was put on antibiotics and on discharge. His foot drainage indicated Streptococcus moderate gram-negative rods. The patient was then discharged home. He will be discharged home on Vantin 400 mg every 12 hours for four weeks, Lyrica 100 mg t.i.d., Protonix 40 mg daily, Coreg 12.5 twice a day, Eliquis 5 mg twice a day, Multaq 400 mg b.i.d., Crestor 10 mg daily, phenytoin 300 mg daily, and insulin 10 units twice a day. PHYSICAL EXAMINATION: VITAL SIGNS: Temperature of 98.6, 69, 16, 97% on room air, 162/79. GENERAL: He is awake, alert, and oriented x3. Does not appear in distress. CV: S1, S2 present. No murmurs, rubs, or gallops. While he was in the hospital, we did do anti-inflammatories and also muscle relaxant which helped a little bit with his pain, however, not much. I will get Physical PT. The patient will follow up with Orthopedic as an outpatient. Also will follow up with Dr. Engle for the final culture and also Wound Care for his foot dressing. Job ID: [id number]
== END 2020-04-26 11:20 | disposition home or self-care (01) | DRG 872 ==
LOC: ERS 16:34 → 2SE 20:05
PROVIDERS: ADMIT Internal Medicine; ATTEND Internal Medicine
PROC: 0R9K3ZZ Drainage of Left Shoulder Joint, Percutaneous Approach (ICD-10-PCS; principal; 2020-04-23)
DX: A41.9 Sepsis, unspecified organism (principal); I12.0 Hypertensive chronic kidney disease with stage 5 chronic kidney disease or end stage renal disease; M00.9 Pyogenic arthritis, unspecified; I48.91 Unspecified atrial fibrillation; E78.5 Hyperlipidemia, unspecified; E11.621 Type 2 diabetes mellitus with foot ulcer; E78.00 Pure hypercholesterolemia, unspecified; Z79.01 Long term (current) use of anticoagulants; Z79.4 Long term (current) use of insulin; Z89.422 Acquired absence of other left toe(s); Z89.421 Acquired absence of other right toe(s); Z99.2 Dependence on renal dialysis
CPT/HCPCS: 36415; 36416; 71045; 80048; 80053; 80202; 82553; 82565; 82947; 83605; 83735; 84484; 85014; 85018; 85025; 85049; 85652; 86140; 87040; 87070; 87077; 87205; 90471; 90732; 93005; 96365; 96366; 96367; A9579; G0009; J0692; J1815; J1885; J2001; J2060; J3370; J3490; J7030

== ENCOUNTER 2021-03-31 16:09 | Emergency (ER) | payer OTHER ==
[2021-03-31 17:21] LABS: Hemoglobin 14.6 g/dL (14.0-18.0); Mean Corpuscular HGB CONC 33.5 g/dL (32.0-36.0); Mean Corpuscular Hemoglobin 30.1 pg (27.0-31.0); RBC Distribution Width 12.3 % (11.5-14.5); Red Blood Cell (RBC) Count 4.84 mill/uL (4.70-6.10); White Blood Cell (WBC) Count 10.1 thou/uL (4.8-10.8)
[2021-03-31 17:39] LABS: ALT (SGPT) 10 U/L (8-55); AST (SGOT) 16 U/L (5-34); Alkaline Phosphatase 96 U/L (40-110); Anion Gap 11 mmol/L (10-20); BUN (Urea Nitrogen) 21 mg/dL (8.4-25.7); Bilirubin, Total 1.2 mg/dL (0.2-1.2); Calc. Creatinine Clearance 0 mL/min (70-130); Carbon Dioxide 27 mmol/L (23-31); Chloride 102 mmol/L (98-107); Globulin 3.7 g/dL (2.4-3.5); Glucose 212 mg/dL (80-115); Potassium 4.3 mmol/L (3.5-5.1); Protein, Total 7.7 g/dL (5.8-8.1); Sodium 136 mmol/L (136-145)
[2021-03-31 17:42] LABS: #Lymphocytes 0.7 thou/uL (1.20-3.40); #Monocytes 0.8 thou/uL (0.11-0.59); #Neutrophils 8.6 thou/uL (1.40-6.50); %Basophils 0.2 % (0.0-1.0); %Eosinophils 0.2 % (0.0-10.0); %Lymphocytes 7.2 % (21.0-51.0); %Monocytes 8.1 % (0.0-10.0); %Neutrophils 84.4 % (42.0-75.0); Mean Platelet Volume 8.2 fL (7.4-10.4); Platelet Count 95 thou/uL (130-400); Platelet Morphology Comment Appears Decreased; RBC Morphology Normal
[2021-03-31] MEDS ORDERED: Acetaminophen 500 MG TAB ONE (17:48)
[2021-03-31 18:28] LABS: Bacteria/HPF None Seen HPF (None Seen); Bilirubin Negative (Negative); Blood, Urine 3+ (Negative); Clarity Clear (Clear); Glucose, Urine (Dipstick) 70 mg/dL (Negative); Ketone, Urine Negative (Negative); Leukocyte Negative Leu/uL (Negative); Nitrite Negative (Negative); Protein, Urine (Dipstick) 300 mg/dL (Neg-Trace); Specific Gravity, Urine 1.028 (1.002-1.036); Squamous Epithelial None Seen HPF (0-3); WBC/HPF 0-3 HPF (0-3)
[2021-04-01 00:49] LABS: SARS-CoV-2 PCR by NAA Not Detected (NotDetected)
== END 2021-03-31 18:50 | disposition home or self-care (01) ==
LOC: ERS 16:09
DX: L03.115 Cellulitis of right lower limb (principal); L97.529 Non-pressure chronic ulcer of other part of left foot with unspecified severity; R31.9 Hematuria, unspecified; B34.9 Viral infection, unspecified; Z20.822 Contact with and (suspected) exposure to COVID-19; I10 Essential (primary) hypertension; E11.9 Type 2 diabetes mellitus without complications; E78.5 Hyperlipidemia, unspecified; E78.00 Pure hypercholesterolemia, unspecified; Z79.4 Long term (current) use of insulin; Z79.899 Other long term (current) drug therapy; Z79.01 Long term (current) use of anticoagulants; Z99.2 Dependence on renal dialysis
CPT/HCPCS: 36415; 36416; 71046; 80053; 81003; 81015; 83605; 85025; 87635; U0003; U0005

== ENCOUNTER 2023-09-10 13:12 | Outpatient (CLI) | payer MEDICARE | END 2023-09-10 13:13 | disposition home or self-care (01) | LOC: SCSRAD 13:12 | PROVIDERS: ATTEND Family Medicine | DX: M25.551 Pain in right hip (principal) ==

== ENCOUNTER 2024-03-28 21:00 | Inpatient (IN) | payer MEDICARE ==
[2024-03-28 22:31] LABS: #Basophils 0.06 10x3/uL (0.0-0.2); %Basophils 0.5 % (0.0-1.0); %Eosinophils 0.2 % (0.0-10.0); %Lymphocytes 5.5 % (21.0-51.0); %Monocytes 7.3 % (0.0-10.0); %Neutrophils 85.8 % (42.0-75.0); Hematocrit 34.8 % (42.0-52.0); Hemoglobin 10.7 g/dL (14.0-18.0); Mean Corpuscular HGB CONC 30.7 g/dL (32.0-36.0); Mean Corpuscular Hemoglobin 23.5 pg (27.0-31.0); Mean Corpuscular Volume 76.5 fL (78.0-98.0); Mean Platelet Volume 9.9 fL (7.4-10.4); Platelet Count 295 10x3/uL (130-400); RBC Distribution Width 14.7 % (11.5-14.5); Red Blood Cell (RBC) Count 4.55 mill/uL (4.70-6.10)
[2024-03-28 22:53] LABS: Troponin I 0.028 ng/mL (< 0.028)
[2024-03-28 22:55] LABS: ALT (SGPT) 9 U/L (8-55); AST (SGOT) 16 U/L (5-34); Albumin 2.5 g/dL (3.4-4.8); Alkaline Phosphatase 84 U/L (40-110); Anion Gap 19 mmol/L (10-20); BUN (Urea Nitrogen) 21 mg/dL (8.4-25.7); Bilirubin, Total 0.9 mg/dL (0.2-1.2); Calc. Creatinine Clearance 0 mL/min (70-130); Calcium 8.9 mg/dL (7.8-10.44); Carbon Dioxide 22 mmol/L (23-31); Chloride 95 mmol/L (98-107); Estimated GFR 70; Globulin 5.7 g/dL (2.4-3.5); Glucose 397 mg/dL (80-115); Magnesium 1.8 mg/dL (1.6-2.6); Potassium 3.6 mmol/L (3.5-5.1); Protein, Total 8.2 g/dL (5.8-8.1); Sodium 132 mmol/L (136-145)
[2024-03-29 00:33] LABS: Amphetamine Not Detected (NotDetected); Barbiturates Screen Detected (NotDetected); Benzodiazepine Screen Not Detected (NotDetected); Cocaine Metabolite Screen Not Detected (NotDetected); Methadone Not Detected (NotDetected); Methamphetamine Not Detected (NotDetected); Opiate Screen Not Detected (NotDetected); Oxycodone Screen Not Detected (NotDetected); Phencyclidine (PCP) Not Detected (NotDetected); THC/Cannabinoid Screen Not Detected (NotDetected); Tricyclic Screen Not Detected (NotDetected)
[2024-03-29 00:43] LABS: Bilirubin Negative (Negative); Blood, Urine 3+ (Negative); CAUTI Indications for Culture Alt mental st,lethar; Clarity Clear (Clear); Glucose, Urine (Dipstick) Greater than 1000 mg/dL (Negative); Ketone, Urine 40 mg/dL (Negative); Leukocyte 250 Leu/uL (Negative); Nitrite 2+ (Negative); Protein, Urine (Dipstick) 70 mg/dL (Neg-Trace); Specific Gravity, Urine 1.024 (1.002-1.036); Squamous Epithelial None Seen HPF (0-3); Urobilinogen Normal mg/dL (Less than 2); WBC/HPF Greater than 50 HPF (0-3)
[2024-03-29 00:44] LABS: Bacteria/HPF 1+ HPF (None Seen)
[2024-03-29] MEDS ORDERED: Dextrose 5% in Water 1,000 ML IV PRN (01:50)
[2024-03-29] MEDS ORDERED: Glucagon 1 MG/ML KIT IM PRN (01:50)
[2024-03-29] MEDS ORDERED: Dextrose 50% Abboject 50 ML SYRINGE SLOW IVP PRN (01:50)
[2024-03-29] MEDS ORDERED: Ondansetron PF 4 MG/2 ML Vial IVP PRN (01:51)
[2024-03-29] MEDS ORDERED: Nicotine 21 MG PATCH TD PRN (01:51)
[2024-03-29] MEDS ORDERED: Ondansetron ODT 4 MG TAB PO PRN (01:51)
[2024-03-29 02:11] LABS: Magnesium 1.8 mg/dL (1.6-2.6)
[2024-03-29 03:45] VITALS: BMI 18.8
[2024-03-29] MEDS: Potassium Chloride 20 MEQ TAB PO SCH (03:52)
[2024-03-29] MEDS: Vancomycin 1 GM in Premix 1 BAG IVPB SCH (03:52)
[2024-03-29] MEDS: HumaLOG 300 UNITS/3 ML VIAL SC PRN (03:58)
[2024-03-29 05:27] LABS: #Basophils 0.09 10x3/uL (0.0-0.2); %Basophils 0.7 % (0.0-1.0); %Eosinophils 0.5 % (0.0-10.0); %Lymphocytes 10.4 % (21.0-51.0); %Monocytes 8.1 % (0.0-10.0); %Neutrophils 79.7 % (42.0-75.0); Hematocrit 30.5 % (42.0-52.0); Hemoglobin 9.7 g/dL (14.0-18.0); Mean Corpuscular HGB CONC 31.8 g/dL (32.0-36.0); Mean Corpuscular Volume 75.5 fL (78.0-98.0); Mean Platelet Volume 9.1 fL (7.4-10.4); Platelet Count 271 10x3/uL (130-400); RBC Distribution Width 14.8 % (11.5-14.5); Red Blood Cell (RBC) Count 4.04 mill/uL (4.70-6.10)
[2024-03-29 07:07] LABS: Anion Gap 13 mmol/L (10-20); BUN (Urea Nitrogen) 20 mg/dL (8.4-25.7); Calc. Creatinine Clearance 78 mL/min (70-130); Calcium 9.3 mg/dL (7.8-10.44); Carbon Dioxide 28 mmol/L (23-31); Chloride 96 mmol/L (98-107); Estimated GFR 82; Glucose 309 mg/dL (80-115); Iron 9 ug/dL (65-175); Iron Binding Capacity, Total 121 mcg/dL (261-462); Potassium 3.7 mmol/L (3.5-5.1); Sodium 133 mmol/L (136-145)
[2024-03-29] MEDS: Vancomycin HCl 750 MG in Sodium Chloride 0.9% 250 ML 250 ML IVPB SCH (08:14)
[2024-03-29] MEDS ORDERED: Vancomycin HCl 750 MG in Sodium Chloride 0.9% 250 ML 250 ML IVPB SCH (10:00)
[2024-03-29 12:03] VITALS: BMI 18.8
[2024-03-29] MEDS: Sodium Chloride 0.9% 1,000 ML IV SCH (14:16)
[2024-03-29] MEDS: cefTRIAXone\\ROCEPHIN 1 GM in Sodium Chloride 0.9% 100 ML IVPB SCH (14:17)
[2024-03-29] MEDS: Insulin Glargine 30 UNITS/0.3 ML VIAL SC SCH ×2 (14:17→20:43)
[2024-03-29] MEDS: Ferrous Sulfate 325 MG TAB PO SCH (17:03)
[2024-03-29] MEDS: Apixaban 5 MG TAB PO SCH (20:42)
[2024-03-29] MEDS: Carvedilol 6.25 MG TAB PO SCH (20:42)
[2024-03-29] MEDS: Acetaminophen 325 MG TAB PO PRN (20:42)
[2024-03-29] MEDS: Gabapentin 100 MG CAP PO SCH (20:43)
[2024-03-29] MEDS ORDERED: Non-Formulary Item 1 EACH (Carvedilol [Carvedilol] 12.5 MG Tablet) PO SCH (21:00)
[2024-03-29] MEDS ORDERED: Non-Formulary Item 1 EACH (Pregabalin [Lyrica] 100 MG Cap) PO SCH (21:00)
[2024-03-30 05:58] LABS: #Basophils 0.07 10x3/uL (0.0-0.2); %Basophils 0.7 % (0.0-1.0); %Eosinophils 1.6 % (0.0-10.0); %Lymphocytes 8.4 % (21.0-51.0); %Monocytes 8.1 % (0.0-10.0); %Neutrophils 80.7 % (42.0-75.0); Hematocrit 28.5 % (42.0-52.0); Hemoglobin 8.7 g/dL (14.0-18.0); Mean Corpuscular HGB CONC 30.5 g/dL (32.0-36.0); Mean Corpuscular Volume 78.7 fL (78.0-98.0); Mean Platelet Volume 9.6 fL (7.4-10.4); Platelet Count 257 10x3/uL (130-400); RBC Distribution Width 14.8 % (11.5-14.5); Red Blood Cell (RBC) Count 3.62 mill/uL (4.70-6.10)
[2024-03-30 07:09] LABS: Vancomycin, Random 13.5 ug/mL (See Comment)
[2024-03-30 07:16] LABS: Anion Gap 10 mmol/L (10-20); BUN (Urea Nitrogen) 16 mg/dL (8.4-25.7); Calc. Creatinine Clearance 93 mL/min (70-130); Calcium 8.9 mg/dL (7.8-10.44); Carbon Dioxide 28 mmol/L (23-31); Chloride 98 mmol/L (98-107); Estimated GFR 95; Glucose 131 mg/dL (80-115); Potassium 3.2 mmol/L (3.5-5.1); Sodium 133 mmol/L (136-145)
[2024-03-30] MEDS ORDERED: PHENYTOIN SODIUM 300 MG PO SCH (09:00)
[2024-03-30] MEDS: Lisinopril 5 MG TAB PO SCH (09:21)
[2024-03-30] MEDS: Phenytoin Extended Release 100 MG CAP PO SCH (09:21)
[2024-03-30] MEDS: Insulin Glargine 30 UNITS/0.3 ML VIAL SC SCH (09:22)
[2024-03-30] MEDS: Potassium Chloride 20 MEQ TAB PO SCH ×2 (09:26→17:35)
[2024-03-31 06:35] LABS: #Basophils 0.05 10x3/uL (0.0-0.2); %Basophils 0.6 % (0.0-1.0); %Eosinophils 1.9 % (0.0-10.0); %Lymphocytes 8.7 % (21.0-51.0); %Monocytes 8.8 % (0.0-10.0); %Neutrophils 79.2 % (42.0-75.0); Hematocrit 27.9 % (42.0-52.0); Hemoglobin 8.4 g/dL (14.0-18.0); Mean Corpuscular HGB CONC 30.1 g/dL (32.0-36.0); Mean Corpuscular Hemoglobin 23.9 pg (27.0-31.0); Mean Corpuscular Volume 79.5 fL (78.0-98.0); Mean Platelet Volume 9.8 fL (7.4-10.4); Platelet Count 235 10x3/uL (130-400); RBC Distribution Width 15.1 % (11.5-14.5); Red Blood Cell (RBC) Count 3.51 mill/uL (4.70-6.10)
[2024-03-31 06:49] LABS: Anion Gap 9 mmol/L (10-20); BUN (Urea Nitrogen) 18 mg/dL (8.4-25.7); Calc. Creatinine Clearance 95 mL/min (70-130); Calcium 8.4 mg/dL (7.8-10.44); Carbon Dioxide 27 mmol/L (23-31); Chloride 102 mmol/L (98-107); Estimated GFR 96; Glucose 120 mg/dL (80-115); Potassium 3.7 mmol/L (3.5-5.1); Sodium 134 mmol/L (136-145)
[2024-03-31] MEDS: HumaLOG 300 UNITS/3 ML VIAL SC PRN (19:56)
[2024-04-01 06:40] LABS: Hematocrit 30.3 % (42.0-52.0); Hemoglobin 9.1 g/dL (14.0-18.0)
[2024-04-02 06:55] LABS: #Basophils 0.05 10x3/uL (0.0-0.2); %Basophils 0.5 % (0.0-1.0); %Lymphocytes 10.4 % (21.0-51.0); %Monocytes 8.6 % (0.0-10.0); %Neutrophils 77.5 % (42.0-75.0); Hematocrit 30.1 % (42.0-52.0); Hemoglobin 9.2 g/dL (14.0-18.0); Mean Corpuscular HGB CONC 30.6 g/dL (32.0-36.0); Mean Corpuscular Volume 78.4 fL (78.0-98.0); Mean Platelet Volume 9.4 fL (7.4-10.4); Platelet Count 319 10x3/uL (130-400); Red Blood Cell (RBC) Count 3.84 mill/uL (4.70-6.10)
[2024-04-02 07:07] LABS: Anion Gap 11 mmol/L (10-20); BUN (Urea Nitrogen) 13 mg/dL (8.4-25.7); Calc. Creatinine Clearance 105 mL/min (70-130); Calcium 8.5 mg/dL (7.8-10.44); Carbon Dioxide 29 mmol/L (23-31); Chloride 99 mmol/L (98-107); Estimated GFR 99; Glucose 155 mg/dL (80-115); Potassium 3.9 mmol/L (3.5-5.1); Sodium 135 mmol/L (136-145)
[2024-04-03 15:52] VITALS: BP 124/66; TEMP 97.5
== END 2024-04-03 15:55 | DRG 698 ==
LOC: ERS 21:00 → T4-A 03-29 01:43
PROVIDERS: ADMIT Internal Medicine; ATTEND Internal Medicine
DX: T83.511A Infection and inflammatory reaction due to indwelling urethral catheter, initial encounter (principal); G93.41 Metabolic encephalopathy; I48.20 Chronic atrial fibrillation, unspecified; Z91.013 Allergy to seafood; E11.9 Type 2 diabetes mellitus without complications; E78.00 Pure hypercholesterolemia, unspecified; I10 Essential (primary) hypertension; Z90.89 Acquired absence of other organs; Z98.890 Other specified postprocedural states; Z79.4 Long term (current) use of insulin; Z79.899 Other long term (current) drug therapy; Z79.01 Long term (current) use of anticoagulants; E11.65 Type 2 diabetes mellitus with hyperglycemia; D50.9 Iron deficiency anemia, unspecified
CPT/HCPCS: 36415; 36416; 70450; 71045; 80048; 80053; 80202; 80306; 81001; 82728; 83540; 83550; 83605; 83735; 84484; 85014; 85018; 85025; 86141; 87077; 87086; 87186; 93005; J0696; J1815; J3370; J3370-JW; J3490; J7050

== ENCOUNTER 2024-05-01 13:51 | Inpatient (IN) | payer MEDICARE ==
[2024-05-01 14:56] LABS: #Basophils 0.04 10x3/uL (0.0-0.2); %Basophils 0.5 % (0.0-1.0); %Eosinophils 1.3 % (0.0-10.0); %Lymphocytes 8.3 % (21.0-51.0); %Monocytes 7.5 % (0.0-10.0); %Neutrophils 81.9 % (42.0-75.0); Hematocrit 27.5 % (42.0-52.0); Hemoglobin 8.1 g/dL (14.0-18.0); Mean Corpuscular HGB CONC 29.5 g/dL (32.0-36.0); Mean Corpuscular Hemoglobin 23.9 pg (27.0-31.0); Mean Corpuscular Volume 81.1 fL (78.0-98.0); Mean Platelet Volume 9.4 fL (7.4-10.4); Platelet Count 305 10x3/uL (130-400); RBC Distribution Width 16.3 % (11.5-14.5); Red Blood Cell (RBC) Count 3.39 mill/uL (4.70-6.10)
[2024-05-01 15:23] LABS: ALT (SGPT) 21 U/L (8-55); AST (SGOT) 26 U/L (5-34); Albumin 1.9 g/dL (3.4-4.8); Alkaline Phosphatase 79 U/L (40-110); Anion Gap 12 mmol/L (10-20); BUN (Urea Nitrogen) 19 mg/dL (8.4-25.7); Bilirubin, Total 0.4 mg/dL (0.2-1.2); Calc. Creatinine Clearance 0 mL/min (70-130); Calcium 8.6 mg/dL (7.8-10.44); Carbon Dioxide 27 mmol/L (23-31); Estimated GFR 89; Globulin 6.6 g/dL (2.4-3.5); Glucose 164 mg/dL (80-115); Potassium 3.7 mmol/L (3.5-5.1); Protein, Total 8.5 g/dL (5.8-8.1)
[2024-05-01 15:35] LABS: INR-International Normal Ratio 1.6; Prothrombin Time 19.1 sec (12.0-14.7)
[2024-05-01 15:36] LABS: PTT 46.4 sec (22.9-36.1)
[2024-05-01 16:21] LABS: Chloride 106 mmol/L (98-107); Sodium 141 mmol/L (136-145)
[2024-05-01 17:41] LABS: A1c 115.949 g/dL; Hb (HGBA1c) 1656.8698 umol/L
[2024-05-01 17:42] LABS: Hemoglobin A1c 8.6 % (4.0-6.0)
[2024-05-01 18:12] LABS: Bilirubin Negative (Negative); Blood, Urine 2+ (Negative); CAUTI Indications for Culture Pelvic or flank pain; Clarity Clear (Clear); Glucose, Urine (Dipstick) Normal (Negative); Ketone, Urine Negative (Negative); Leukocyte 25 Leu/uL (Negative); Nitrite Negative (Negative); Protein, Urine (Dipstick) 70 mg/dL (Neg-Trace); Specific Gravity, Urine 1.014 (1.002-1.036); Squamous Epithelial None Seen HPF (0-3); Urobilinogen Normal mg/dL (Less than 2); pH, Urine 5.5 (5.0-9.0)
[2024-05-01 18:27] LABS: Bacteria/HPF 1+ HPF (None Seen); Transitional Epithelial 0-3 HPF (None Seen)
[2024-05-01 18:28] LABS: Urine Culture Reflex No No
[2024-05-01 21:03] VITALS: BMI 19.3
[2024-05-02 04:45] LABS: Anion Gap 20 mmol/L (10-20); BUN (Urea Nitrogen) 20 mg/dL (8.4-25.7); Calc. Creatinine Clearance 77 mL/min (70-130); Calcium 7.6 mg/dL (7.8-10.44); Carbon Dioxide 18 mmol/L (23-31); Chloride 107 mmol/L (98-107); Estimated GFR 77; Glucose 188 mg/dL (80-115); Potassium 4.3 mmol/L (3.5-5.1); Sodium 141 mmol/L (136-145)
[2024-05-09 07:06] VITALS: BMI 21.7
[2024-05-09 12:04] VITALS: TEMP 98.2
[2024-05-09 16:05] VITALS: BP 127/57
== END 2024-05-09 16:52 | disposition short-term general hospital (02) | DRG 729 ==
LOC: ERS 13:51 → SJJU 16:34 → SURG A 05-02 11:07 → IMCU/EMU 05-02 11:32 → SURG B 05-05 13:15 → 2NO 05-06 10:15
PROVIDERS: ADMIT Internal Medicine; ATTEND Internal Medicine
PROC: 0JBC3ZZ Excision of Pelvic Region Subcutaneous Tissue and Fascia, Percutaneous Approach (ICD-10-PCS; principal; 2024-05-02)
PROC: 0T9B30Z Drainage of Bladder with Drainage Device, Percutaneous Approach (ICD-10-PCS; 2024-05-02)
DX: N48.5 Ulcer of penis (principal); I21.A1 Myocardial infarction type 2; E11.52 Type 2 diabetes mellitus with diabetic peripheral angiopathy with gangrene; I50.32 Chronic diastolic (congestive) heart failure; R64 Cachexia; E44.0 Moderate protein-calorie malnutrition; N48.21 Abscess of corpus cavernosum and penis; T83.098A Other mechanical complication of other urinary catheter, initial encounter; Q54.1 Hypospadias, penile; E78.5 Hyperlipidemia, unspecified; I48.0 Paroxysmal atrial fibrillation; E11.51 Type 2 diabetes mellitus with diabetic peripheral angiopathy without gangrene; R33.9 Retention of urine, unspecified; D63.8 Anemia in other chronic diseases classified elsewhere; K59.09 Other constipation; I11.0 Hypertensive heart disease with heart failure; E11.40 Type 2 diabetes mellitus with diabetic neuropathy, unspecified; Z79.01 Long term (current) use of anticoagulants
CPT/HCPCS: 36415; 36416; 36430; 36569; 76937; 76942; 77001; 80048; 80053; 80202; 81001; 83036; 83605; 83880; 84484; 85014; 85018; 85025; 85610; 85730; 86140; 86141; 86850; 86900; 86901; 87040; 87077; 87149; 87186; 93005; 93010; 93306; 93970; 96365; 96375; 97139; C1751; C1769; J1630; J1650; J1815; J2185; J2272; J2704; J3010; J3370; J3370-JW; J3490; J7030; J7050; P9016; P9059; Q9967

== ENCOUNTER 2024-09-05 06:27 | Day surgery (SDC) | payer MEDICARE ==
[2024-09-04 14:07] VITALS: BMI 20.9
[~2024-09-05 06:27] MED LIST changes: +EPINEPHrine 0.3 MG in Ophthalmic Irrigation Solution 500 ML IRR SCH; -Heparin 1,000 UNITS/ML VIAL ONE
[2024-09-05] MEDS ORDERED: PHENYLephrine 2.5% Ophth Soln 15 ml Bottle ONE (07:03)
[2024-09-05] MEDS ORDERED: Cyclopentolate 1% Opth Drop 2 ML BOT ONE (07:03)
[2024-09-05 07:17] LABS: #Basophils 0.08 10x3/uL (0.0-0.2); %Basophils 1.2 % (0.0-1.0); %Eosinophils 2.3 % (0.0-10.0); %Monocytes 10.2 % (0.0-10.0); Hematocrit 34.5 % (42.0-52.0); Hemoglobin 10.6 g/dL (14.0-18.0); Mean Corpuscular HGB CONC 30.7 g/dL (32.0-36.0); Mean Corpuscular Hemoglobin 24.7 pg (27.0-31.0); Mean Corpuscular Volume 80.4 fL (78.0-98.0); Mean Platelet Volume 9.9 fL (7.4-10.4); Platelet Count 201 10x3/uL (130-400); RBC Distribution Width 16.9 % (11.5-14.5); Red Blood Cell (RBC) Count 4.29 mill/uL (4.70-6.10)
[2024-09-05] MEDS ORDERED: PROPOFOL 20 ML ONE (07:24)
[2024-09-05] MEDS ORDERED: fentaNYL 50 mcg/mL 1 mL Vial ONE (07:24)
[2024-09-05] MEDS ORDERED: Midazolam HCl 2 mg/2 ml Vial ONE (07:24)
[2024-09-05 07:42] LABS: Anion Gap 12 mmol/L (10-20); BUN (Urea Nitrogen) 18 mg/dL (8.4-25.7); Calc. Creatinine Clearance 87 mL/min (70-130); Calcium 8.8 mg/dL (7.8-10.44); Carbon Dioxide 30 mmol/L (23-31); Chloride 101 mmol/L (98-107); Estimated GFR 87; Glucose 84 mg/dL (80-115); Sodium 139 mmol/L (136-145)
[2024-09-05] MEDS ORDERED: Bupivacaine 0.75% 10 ML VIAL ONE (07:50)
[2024-09-05] MEDS ORDERED: Triamcinolone 40 MG/ML VIAL ONE (07:50)
[2024-09-05] MEDS ORDERED: Lidocaine 4% PF 5 ML AMP ONE (07:50)
[2024-09-05] MEDS ORDERED: CEFAZOLIN 1 GM VIAL ONE (07:50)
[2024-09-05] MEDS ORDERED: Lidocaine 1% PF 5 ML VIAL ONE (07:50)
== END 2024-09-05 09:37 | disposition home or self-care (01) ==
LOC: SDC 06:27
PROVIDERS: ATTEND Ophthalmology Retina Specialist
PROC: 08T53ZZ Resection of Left Vitreous, Percutaneous Approach (ICD-10-PCS; principal; 2024-09-05)
DX: H33.42 Traction detachment of retina, left eye (principal); H33.022 Retinal detachment with multiple breaks, left eye; I10 Essential (primary) hypertension; E78.5 Hyperlipidemia, unspecified; I48.91 Unspecified atrial fibrillation; I25.10 Atherosclerotic heart disease of native coronary artery without angina pectoris; D64.9 Anemia, unspecified; E11.9 Type 2 diabetes mellitus without complications; Z98.890 Other specified postprocedural states; Z90.49 Acquired absence of other specified parts of digestive tract; Z79.899 Other long term (current) drug therapy
CPT/HCPCS: 67025; 67113; 80048; 82962; 85025; J0171; J0690; J2250; J2704; J3010; J3301; J3490; 36416

== ENCOUNTER 2025-06-29 15:12 | Inpatient (IN) | payer MEDICARE ==
[2025-06-29] MEDS ORDERED: Acetaminophen 325 MG TAB PO PRN (20:51)
[2025-06-29] MEDS ORDERED: Calcium Carbonate 500 MG ChewTAB PO PRN (20:51)
[2025-06-29] MEDS ORDERED: Ondansetron PF 4 MG/2 ML Vial IVP PRN (20:51)
[2025-06-29] MEDS ORDERED: Glucagon 1 MG/ML KIT IM PRN (20:56)
[2025-06-29] MEDS ORDERED: Dextrose 50% Abboject 50 ML SYRINGE SLOW IVP PRN (20:56)
[2025-06-29] MEDS: Carvedilol 6.25 MG TAB PO SCH (21:18)
[2025-06-29 23:57] VITALS: BMI 19.9
[2025-06-30] MEDS ORDERED: Heparin 10,000 UNITS/ 10 ML VIAL SLOW IVP SCH (01:00)
[2025-06-30 03:54] LABS: #Basophils 0.08 10x3/uL (0.0-0.2); #Eosinophils Less than 0.03 10x3/uL (0.0-0.7); #Monocytes 0.74 10x3/uL (0.11-0.59); #Neutrophils 5.16 10x3/uL (1.40-6.50); %Basophils 1.2 % (0.0-1.0); %Eosinophils 0.3 % (0.0-10.0); %Lymphocytes 10.3 % (21.0-51.0); %Monocytes 11.0 % (0.0-10.0); %Neutrophils 76.9 % (42.0-75.0); Hematocrit 32.5 % (42.0-52.0); Hemoglobin 10.3 g/dL (14.0-18.0); Mean Corpuscular Hemoglobin 25.9 pg (27.0-31.0); Mean Corpuscular Volume 81.7 fL (78.0-98.0); Platelet Count 134 10x3/uL (130-400); Red Blood Cell (RBC) Count 3.98 mill/uL (4.70-6.10); White Blood Cell (WBC) Count 6.71 10x3/uL (4.8-10.8)
[2025-06-30 04:23] LABS: ALT (SGPT) Less than 7 U/L (Less than 45); AST (SGOT) 14 U/L (11-34); Albumin 2.9 g/dL (3.1-4.5); Alkaline Phosphatase 64 U/L (40-110); Anion Gap 13 mmol/L (10-20); BUN (Urea Nitrogen) 22 mg/dL (8.4-25.7); Bilirubin, Total 1.2 mg/dL (0.3-1.2); Calc. Creatinine Clearance 69 mL/min (70-130); Calcium 8.8 mg/dL (7.8-10.44); Carbon Dioxide 26 mmol/L (23-31); Chloride 99 mmol/L (98-107); Globulin 4.1 g/dL (2.4-3.5); Glucose 189 mg/dL (80-115); Potassium 3.7 mmol/L (3.5-5.1); Sodium 134 mmol/L (136-145)
[2025-06-30] MEDS ORDERED: Rosuvastatin 10 MG TAB PO SCH (09:00)
[2025-06-30] MEDS: Aspirin 81 mg Enteric Coated Tablet PO SCH (09:45)
[2025-06-30] MEDS: Multivitamin W/ Minerals 1 TAB PO SCH (09:45)
[2025-06-30] MEDS: Pantoprazole 40 MG DR.TAB PO SCH (09:45)
[2025-06-30] MEDS: Magnesium Oxide 400 MG TAB PO SCH (09:45)
[2025-06-30] MEDS: Insulin Glargine 30 UNITS/0.3 ML VIAL SC SCH (09:46)
[2025-06-30] MEDS ORDERED: Iopamidol 370 76% 100 ML VIAL ONE (10:19)
[2025-06-30] MEDS ORDERED: Adenosine 6 mg (2 mL) VIAL ONE (12:20)
[2025-06-30] MEDS ORDERED: Nitroglycerin 50 MG/250 ML BOT 250 ML ONE (12:21)
[2025-06-30] MEDS ORDERED: PHENYLEPHRINE-NS 100 MCG/ML 10 ML SYRINGE ONE (12:21)
[2025-06-30] MEDS ORDERED: Heparin 10,000 UNITS/ 10 ML VIAL ONE (12:21)
[2025-06-30] MEDS: Rosuvastatin 20 MG TAB PO SCH (21:34)
[2025-07-01] MEDS: Heparin 10,000 UNITS/ 10 ML VIAL SLOW IVP SCH (02:06)
[2025-07-01 04:21] LABS: Hematocrit 33.9 % (42.0-52.0); Hemoglobin 10.5 g/dL (14.0-18.0); Mean Corpuscular Hemoglobin 25.7 pg (27.0-31.0); Mean Corpuscular Volume 83.1 fL (78.0-98.0); Platelet Count 131 10x3/uL (130-400); Red Blood Cell (RBC) Count 4.08 mill/uL (4.70-6.10); White Blood Cell (WBC) Count 5.24 10x3/uL (4.8-10.8)
[2025-07-01 04:37] LABS: Anion Gap 13 mmol/L (10-20); BUN (Urea Nitrogen) 20 mg/dL (8.4-25.7); Calc. Creatinine Clearance 85 mL/min (70-130); Calcium 8.4 mg/dL (7.8-10.44); Carbon Dioxide 23 mmol/L (23-31); Chloride 102 mmol/L (98-107); Glucose 177 mg/dL (80-115); Potassium 3.8 mmol/L (3.5-5.1); Sodium 134 mmol/L (136-145)
[2025-07-01] MEDS: cefTRIAXone\\ROCEPHIN 1 GM in Sodium Chloride 0.9% 100 ML IVPB SCH (15:12)
[2025-07-02 07:54] LABS: #Basophils 0.05 10x3/uL (0.0-0.2); #Eosinophils 0.15 10x3/uL (0.0-0.7); #Monocytes 0.66 10x3/uL (0.11-0.59); #Neutrophils 2.95 10x3/uL (1.40-6.50); %Basophils 1.1 % (0.0-1.0); %Eosinophils 3.3 % (0.0-10.0); %Lymphocytes 15.8 % (21.0-51.0); %Monocytes 14.5 % (0.0-10.0); %Neutrophils 64.9 % (42.0-75.0); Hematocrit 32.7 % (42.0-52.0); Hemoglobin 10.2 g/dL (14.0-18.0); Mean Corpuscular Hemoglobin 25.6 pg (27.0-31.0); Mean Corpuscular Volume 82.0 fL (78.0-98.0); Platelet Count 133 10x3/uL (130-400); Red Blood Cell (RBC) Count 3.99 mill/uL (4.70-6.10); White Blood Cell (WBC) Count 4.55 10x3/uL (4.8-10.8)
[2025-07-02 08:12] LABS: ALT (SGPT) Less than 7 U/L (Less than 45); AST (SGOT) 17 U/L (11-34); Albumin 2.8 g/dL (3.1-4.5); Alkaline Phosphatase 65 U/L (40-110); Anion Gap 13 mmol/L (10-20); BUN (Urea Nitrogen) 18 mg/dL (8.4-25.7); Bilirubin, Total 0.8 mg/dL (0.3-1.2); Calc. Creatinine Clearance 85 mL/min (70-130); Calcium 8.7 mg/dL (7.8-10.44); Carbon Dioxide 30 mmol/L (23-31); Chloride 100 mmol/L (98-107); Globulin 4.1 g/dL (2.4-3.5); Glucose 175 mg/dL (80-115); Potassium 3.9 mmol/L (3.5-5.1); Sodium 139 mmol/L (136-145)
[2025-07-02] MEDS: cefTRIAXone (ROCEPHIN) 1 GM VIAL ONE (14:59)
[2025-07-03 04:29] LABS: PTT 126.2 sec (22.9-36.1)
[2025-07-03 04:31] LABS: Hematocrit 30.2 % (42.0-52.0); Hemoglobin 9.7 g/dL (14.0-18.0); Mean Corpuscular Hemoglobin 25.8 pg (27.0-31.0); Mean Corpuscular Volume 80.3 fL (78.0-98.0); Platelet Count 139 10x3/uL (130-400); Red Blood Cell (RBC) Count 3.76 mill/uL (4.70-6.10); White Blood Cell (WBC) Count 4.40 10x3/uL (4.8-10.8)
[2025-07-03 04:49] LABS: ALT (SGPT) Less than 7 U/L (Less than 45); AST (SGOT) 19 U/L (11-34); Albumin 2.7 g/dL (3.1-4.5); Alkaline Phosphatase 62 U/L (40-110); Anion Gap 14 mmol/L (10-20); BUN (Urea Nitrogen) 17 mg/dL (8.4-25.7); Bilirubin, Total 0.7 mg/dL (0.3-1.2); Calc. Creatinine Clearance 76 mL/min (70-130); Calcium 9.0 mg/dL (7.8-10.44); Carbon Dioxide 30 mmol/L (23-31); Chloride 100 mmol/L (98-107); Globulin 4.1 g/dL (2.4-3.5); Glucose 152 mg/dL (80-115); Potassium 3.7 mmol/L (3.5-5.1); Sodium 140 mmol/L (136-145)
[2025-07-03 06:19] LABS: Anisocytosis SLIGHT = 6-15 cells HPF (0-5); Platelet Adequacy Comment Platelets Normal; Polychromasia SLIGHT = 2-3 cells HPF (0-2); Smudge Cells 1.0 %
[2025-07-03] MEDS ORDERED: Communication Order-Pharmacy FS SCH (07:28)
[2025-07-03 09:23] LABS: Cardiac Risk 4.1 (Less than 4.5); Cholesterol 82.0 mg/dl (< 200 Desired); HDL Cholesterol 20.0 mg/dL (>60 Neg Risk); LDL Cholesterol, Calculated 46.0 mg/dL; Triglycerides 78.0 mg/dL (Less than 150)
[2025-07-03] MEDS: Losartan 25 MG TAB PO SCH (13:04)
[2025-07-04] MEDS: hydrALAZINE 20 MG/ML VIAL SLOW IVP SCH (00:31)
[2025-07-04] MEDS: Losartan 25 MG TAB PO SCH ×2 (00:33→13:16)
[2025-07-04 04:24] LABS: #Basophils 0.06 10x3/uL (0.0-0.2); #Eosinophils 0.15 10x3/uL (0.0-0.7); #Monocytes 0.65 10x3/uL (0.11-0.59); #Neutrophils 3.14 10x3/uL (1.40-6.50); %Basophils 1.2 % (0.0-1.0); %Eosinophils 2.9 % (0.0-10.0); %Lymphocytes 21.3 % (21.0-51.0); %Monocytes 12.7 % (0.0-10.0); %Neutrophils 61.3 % (42.0-75.0); Hematocrit 31.0 % (42.0-52.0); Hemoglobin 9.7 g/dL (14.0-18.0); Mean Corpuscular Hemoglobin 25.5 pg (27.0-31.0); Mean Corpuscular Volume 81.6 fL (78.0-98.0); Platelet Count 150 10x3/uL (130-400); Red Blood Cell (RBC) Count 3.80 mill/uL (4.70-6.10); White Blood Cell (WBC) Count 5.12 10x3/uL (4.8-10.8)
[2025-07-04 06:05] LABS: ALT (SGPT) Less than 7 U/L (Less than 45); AST (SGOT) 19 U/L (11-34); Albumin 2.9 g/dL (3.1-4.5); Alkaline Phosphatase 65 U/L (40-110); Anion Gap 13 mmol/L (10-20); BUN (Urea Nitrogen) 17 mg/dL (8.4-25.7); Bilirubin, Total 0.7 mg/dL (0.3-1.2); Calc. Creatinine Clearance 73 mL/min (70-130); Calcium 8.7 mg/dL (7.8-10.44); Carbon Dioxide 27 mmol/L (23-31); Chloride 102 mmol/L (98-107); Globulin 4.1 g/dL (2.4-3.5); Glucose 133 mg/dL (80-115); Potassium 3.9 mmol/L (3.5-5.1); Sodium 138 mmol/L (136-145)
[2025-07-04] MEDS ORDERED: PHENYLEPHRINE-NS 100 MCG/ML 10 ML SYRINGE ONE ×2 (06:38→06:57)
[2025-07-04] MEDS ORDERED: Heparin 10,000 UNITS/1 ML VIAL 30,000 UNITS in Sodium Chloride 0.9% 1,000 ML FS SCH (06:45)
[2025-07-04] MEDS ORDERED: NOREPINEPHRINE 8 MG/250 ML-D5W 250 ML ONE (06:48)
[2025-07-04] MEDS ORDERED: PROPOFOL 20 ML ONE ×2 (06:50→11:12)
[2025-07-04] MEDS ORDERED: CEFAZOLIN 2 GM VIAL ONE (07:07)
[2025-07-04] MEDS ORDERED: Heparin 5,000 UNITS/ML VIAL ONE (07:46)
[2025-07-04] MEDS ORDERED: Thrombin 5000 UNITS/5 ML VIAL ONE (07:46)
[2025-07-04] MEDS ORDERED: Heparin 30,000 units/30 ml VIAL ONE (07:46)
[2025-07-04] MEDS ORDERED: Calcium Chloride 1 GM/10 ML Abboject SYRINGE ONE (07:46)
[2025-07-04] MEDS ORDERED: Rocuronium Bromide 10 MG/ML (10ML VIAL) ONE (07:46)
[2025-07-04] MEDS ORDERED: Cardioplegic Soln 1,000 ML BAG ONE (07:46)
[2025-07-04] MEDS ORDERED: fentaNYL PF 100 MCG/2 ML SYRINGE ONE (09:13)
[2025-07-04] MEDS ORDERED: Phenylephrine 40 MG/NS 250 ML 250 ML ONE (10:06)
[2025-07-04] MEDS ORDERED: niCARdipine 25 MG/10 ML SDV ONE (11:25)
[2025-07-04] MEDS ORDERED: dilTIAZem 25 MG/5 ML VIAL ONE (11:25)
[2025-07-04] MEDS ORDERED: Guaifenesin DM 100-10/5 ML UDCUP PO PRN (12:14)
[2025-07-04] MEDS ORDERED: Bisacodyl 10 MG SUPP PR PRN (12:14)
[2025-07-04] MEDS ORDERED: Nitroglycerin 50 MG/250 ML BOT 250 ML IVPB PRN (12:14)
[2025-07-04] MEDS ORDERED: NOREPINEPHRINE 8 MG/250 ML-D5W 250 ML IVPB PRN (12:14)
[2025-07-04] MEDS ORDERED: Albumin 5% 12.5 GM (250 mL) BOT IVPB PRN (12:14)
[2025-07-04] MEDS ORDERED: Mag-Al 1200 mg/1200 mg/30 ML UDCUP PO PRN (12:14)
[2025-07-04] MEDS ORDERED: hydrALAZINE 20 MG/ML VIAL SLOW IVP PRN (12:14)
[2025-07-04] MEDS ORDERED: Post-Op Insulin Drip Protocol IVPB ONE (12:14)
[2025-07-04] MEDS ORDERED: Electrolyte Replacement Protocol 1 EACH FS SCH (12:30)
[2025-07-04 12:55] LABS: Actual Bicarbonate (HCO3a) 25.9 mEq/L (22-28); Base Excess (BEa) 0.9 mEq/L (-2.0 to +3.0); CO2 Tension 42.9 mmHg (35.0-45.0); Calcium, Ionized (arterial) 1.15 mmol/L (1.12-1.30); Hematocrit-ABG 29 % (42.0-52.0); Hemoglobin (Hb) 9.9 g/dL (14.0-18.0); O2 Tension (PaO2), arterial 159.6 mmHg (> 80.0); Potassium - ABG Lab 3.83 mmol/L (3.70-5.30); pH, Arterial 7.399 (7.35-7.45)
[2025-07-04 12:57] LABS: ALV-art Gradient 214.575 mmHg (0-20); Puncture Site Arterial Line
[2025-07-04] MEDS: Magnesium 2 GM/50 ML(in water) 2 GM in Premix 1 BAG IVPB SCH (13:01)
[2025-07-04] MEDS: NS 0.9% w/ 20 MEQ KCL 1,000 ML IV SCH (13:01)
[2025-07-04 13:08] LABS: #Basophils 0.05 10x3/uL (0.0-0.2); #Eosinophils 0.07 10x3/uL (0.0-0.7); #Monocytes 0.58 10x3/uL (0.11-0.59); #Neutrophils 7.65 10x3/uL (1.40-6.50); %Basophils 0.5 % (0.0-1.0); %Eosinophils 0.8 % (0.0-10.0); %Lymphocytes 7.1 % (21.0-51.0); %Monocytes 6.3 % (0.0-10.0); %Neutrophils 82.6 % (42.0-75.0); Hematocrit 28.2 % (42.0-52.0); Hemoglobin 8.7 g/dL (14.0-18.0); Mean Corpuscular Hemoglobin 25.5 pg (27.0-31.0); Mean Corpuscular Volume 82.7 fL (78.0-98.0); Platelet Count 121 10x3/uL (130-400); Red Blood Cell (RBC) Count 3.41 mill/uL (4.70-6.10); White Blood Cell (WBC) Count 9.26 10x3/uL (4.8-10.8)
[2025-07-04] MEDS ORDERED: Dextrose 50% Abboject 50 ML SYRINGE SLOW IVP PRN (13:15)
[2025-07-04] MEDS ORDERED: Glucagon 1 MG/ML KIT SC PRN (13:15)
[2025-07-04] MEDS: INSULIN REGULAR IN 0.9 % NACL 100 UNITS in Premix 1 BAG IVPB SCH (13:16)
[2025-07-04 13:21] LABS: INR-International Normal Ratio 1.4; Prothrombin Time 17.0 sec (12.0-14.7)
[2025-07-04 13:36] LABS: Anion Gap 14 mmol/L (10-20); BUN (Urea Nitrogen) 13 mg/dL (8.4-25.7); Calc. Creatinine Clearance 99 mL/min (70-130); Calcium 8.1 mg/dL (7.8-10.44); Carbon Dioxide 22 mmol/L (23-31); Chloride 108 mmol/L (98-107); Glucose 214 mg/dL (80-115); Potassium 3.8 mmol/L (3.5-5.1); Sodium 140 mmol/L (136-145)
[2025-07-04 13:40] LABS: PTT 41.2 sec (22.9-36.1)
[2025-07-04] MEDS: Potassium Chloride 20 MEQ (100 mL) BAG IVPB PRN (13:59)
[2025-07-04] MEDS: Albumin 5% 12.5 GM (250 mL) BOT IVPB PRN (14:38)
[2025-07-04] MEDS: Ondansetron PF 4 MG/2 ML Vial IVP PRN (15:31)
[2025-07-04 15:43] LABS: Actual Bicarbonate (HCO3a) 26.3 mEq/L (22-28); Base Excess (BEa) 2.1 mEq/L (-2.0 to +3.0); CO2 Tension 39.5 mmHg (35.0-45.0); Calcium, Ionized (arterial) 1.13 mmol/L (1.12-1.30); Hematocrit-ABG 30 % (42.0-52.0); Hemoglobin (Hb) 10.1 g/dL (14.0-18.0); O2 Tension (PaO2), arterial 125.5 mmHg (> 80.0); Potassium - ABG Lab 4.11 mmol/L (3.70-5.30); pH, Arterial 7.441 (7.35-7.45)
[2025-07-04 15:45] LABS: ALV-art Gradient 39.025 mmHg (0-20); Puncture Site Arterial Line
[2025-07-04] MEDS: niCARdipine 25 MG in Sodium Chloride 0.9% 250 ML 250 ML IVPB PRN (17:29)
[2025-07-04 18:53] LABS: Hematocrit 30.4 % (42.0-52.0); Hemoglobin 9.6 g/dL (14.0-18.0)
[2025-07-04 19:14] LABS: Potassium 4.2 mmol/L (3.5-5.1)
[2025-07-04] MEDS: Famotidine/PF 20 mg/2ml Vial SLOW IVP SCH (19:56)
[2025-07-04] MEDS: Senokot S 8.6-50 MG TAB PO SCH (19:56)
[2025-07-05 03:09] LABS: #Basophils 0.03 10x3/uL (0.0-0.2); #Eosinophils Less than 0.03 10x3/uL (0.0-0.7); #Monocytes 0.67 10x3/uL (0.11-0.59); #Neutrophils 10.05 10x3/uL (1.40-6.50); %Basophils 0.3 % (0.0-1.0); %Eosinophils 0.0 % (0.0-10.0); %Lymphocytes 3.6 % (21.0-51.0); %Monocytes 6.0 % (0.0-10.0); %Neutrophils 89.2 % (42.0-75.0); Hematocrit 27.8 % (42.0-52.0); Hemoglobin 8.5 g/dL (14.0-18.0); Mean Corpuscular Hemoglobin 25.8 pg (27.0-31.0); Mean Corpuscular Volume 84.2 fL (78.0-98.0); Platelet Count 137 10x3/uL (130-400); Red Blood Cell (RBC) Count 3.30 mill/uL (4.70-6.10); White Blood Cell (WBC) Count 11.25 10x3/uL (4.8-10.8)
[2025-07-05 04:22] LABS: Anion Gap 17 mmol/L (10-20); BUN (Urea Nitrogen) 14 mg/dL (8.4-25.7); Calc. Creatinine Clearance 94 mL/min (70-130); Carbon Dioxide 19 mmol/L (23-31); Chloride 110 mmol/L (98-107); Potassium 4.5 mmol/L (3.5-5.1); Sodium 141 mmol/L (136-145)
[2025-07-05 04:23] LABS: ALT (SGPT) 9 U/L (Less than 45); AST (SGOT) 31 U/L (11-34); Albumin 3.2 g/dL (3.1-4.5); Alkaline Phosphatase 51 U/L (40-110); Bilirubin, Total 0.5 mg/dL (0.3-1.2); Calcium 8.1 mg/dL (7.8-10.44); Globulin 3.0 g/dL (2.4-3.5); Glucose 122 mg/dL (80-115)
[2025-07-05] MEDS ORDERED: Simethicone Chewable 80 MG TAB PO PRN (06:11)
[2025-07-05] MEDS ORDERED: Artificial Tear Ophth Sol 15 ML BOT EA EYE PRN (07:28)
[2025-07-05] MEDS ORDERED: Milk Of Magnesia 30 ML UDCUP PO PRN (07:28)
[2025-07-05] MEDS ORDERED: Mineral Oil ENEMA PR PRN (07:28)
[2025-07-05] MEDS ORDERED: Nitroglycerin 0.4 MG TAB (25 Tab Bottle) SL PRN (07:28)
[2025-07-05] MEDS ORDERED: Mag-Al 1200 mg/1200 mg/30 ML UDCUP PO PRN (07:28)
[2025-07-05] MEDS: Magnesium 2 GM/50 ML(in water) 2 GM in Premix 1 BAG IVPB SCH (09:00)
[2025-07-05] MEDS ORDERED: Aspirin 325 MG TAB PO SCH (09:00)
[2025-07-05] MEDS: Carvedilol 6.25 MG TAB PO SCH (09:01)
[2025-07-05] MEDS: Famotidine 20 MG TAB PO SCH (09:01)
[2025-07-05] MEDS: Heparin 5,000 UNITS/ML VIAL SC SCH (09:02)
[2025-07-05] MEDS ORDERED: cefTRIAXone Sodium 1 MG in Syringe 0 ML IVPB SCH (10:00)
[2025-07-05] MEDS: cefTRIAXone\\ROCEPHIN 1 GM in Sodium Chloride 0.9% 100 ML IVPB SCH (10:22)
[2025-07-05] MEDS ORDERED: Insulin Glargine 30 UNITS/0.3 ML VIAL SC PRN (13:05)
[2025-07-05] MEDS: Acetaminophen 325 MG TAB PO PRN (21:56)
[2025-07-05] MEDS: Transdermal Patch Removal TOP SCH (21:58)
[2025-07-06] MEDS ORDERED: Magnesium 2 GM/50 ML(in water) 2 GM in Premix 1 BAG IVPB SCH (09:00)
[2025-07-06] MEDS: Famotidine/PF 20 mg/2ml Vial ONE (11:35)
[2025-07-06 11:39] LABS: #Basophils 0.06 10x3/uL (0.0-0.2); #Eosinophils 0.07 10x3/uL (0.0-0.7); #Monocytes 0.72 10x3/uL (0.11-0.59); #Neutrophils 7.48 10x3/uL (1.40-6.50); %Basophils 0.7 % (0.0-1.0); %Eosinophils 0.8 % (0.0-10.0); %Lymphocytes 7.8 % (21.0-51.0); %Monocytes 7.9 % (0.0-10.0); %Neutrophils 82.1 % (42.0-75.0); Hematocrit 26.2 % (42.0-52.0); Hemoglobin 8.2 g/dL (14.0-18.0); Mean Corpuscular Hemoglobin 26.3 pg (27.0-31.0); Mean Corpuscular Volume 84.0 fL (78.0-98.0); Platelet Count 171 10x3/uL (130-400); Red Blood Cell (RBC) Count 3.12 mill/uL (4.70-6.10); White Blood Cell (WBC) Count 9.10 10x3/uL (4.8-10.8)
[2025-07-06 12:04] LABS: ALT (SGPT) 8 U/L (Less than 45); AST (SGOT) 23 U/L (11-34); Albumin 2.8 g/dL (3.1-4.5); Alkaline Phosphatase 55 U/L (40-110); Anion Gap 10 mmol/L (10-20); BUN (Urea Nitrogen) 21 mg/dL (8.4-25.7); Bilirubin, Total 0.7 mg/dL (0.3-1.2); Calc. Creatinine Clearance 82 mL/min (70-130); Calcium 8.0 mg/dL (7.8-10.44); Carbon Dioxide 26 mmol/L (23-31); Chloride 102 mmol/L (98-107); Globulin 3.1 g/dL (2.4-3.5); Glucose 236 mg/dL (80-115); Magnesium 2.8 mg/dL (1.6-2.6); Potassium 4.5 mmol/L (3.5-5.1); Sodium 133 mmol/L (136-145)
[2025-07-06] MEDS: PHOS-NAK 1 PKT PACK PO SCH (12:26)
[2025-07-06 18:59] VITALS: BMI 22.0
[2025-07-07 04:27] LABS: #Basophils 0.04 10x3/uL (0.0-0.2); #Eosinophils 0.08 10x3/uL (0.0-0.7); #Monocytes 0.60 10x3/uL (0.11-0.59); #Neutrophils 4.81 10x3/uL (1.40-6.50); %Basophils 0.6 % (0.0-1.0); %Eosinophils 1.2 % (0.0-10.0); %Lymphocytes 13.3 % (21.0-51.0); %Monocytes 9.3 % (0.0-10.0); %Neutrophils 74.7 % (42.0-75.0); Hematocrit 25.4 % (42.0-52.0); Hemoglobin 7.9 g/dL (14.0-18.0); Mean Corpuscular Hemoglobin 25.8 pg (27.0-31.0); Mean Corpuscular Volume 83.0 fL (78.0-98.0); Platelet Count 157 10x3/uL (130-400); Red Blood Cell (RBC) Count 3.06 mill/uL (4.70-6.10); White Blood Cell (WBC) Count 6.45 10x3/uL (4.8-10.8)
[2025-07-07 04:42] LABS: ALT (SGPT) 7 U/L (Less than 45); AST (SGOT) 20 U/L (11-34); Albumin 2.7 g/dL (3.1-4.5); Alkaline Phosphatase 55 U/L (40-110); Anion Gap 12 mmol/L (10-20); BUN (Urea Nitrogen) 17 mg/dL (8.4-25.7); Bilirubin, Total 0.6 mg/dL (0.3-1.2); Calc. Creatinine Clearance 90 mL/min (70-130); Calcium 7.8 mg/dL (7.8-10.44); Carbon Dioxide 25 mmol/L (23-31); Chloride 103 mmol/L (98-107); Globulin 3.1 g/dL (2.4-3.5); Glucose 142 mg/dL (80-115); Magnesium 2.2 mg/dL (1.6-2.6); Potassium 3.8 mmol/L (3.5-5.1); Sodium 136 mmol/L (136-145)
[2025-07-07] MEDS: PHOS-NAK 1 PKT PACK PO SCH (09:10)
[2025-07-08] MEDS: Lisinopril 10 MG TAB PO SCH (11:32)
[2025-07-08 13:11] LABS: Hematocrit 28.6 % (42.0-52.0); Hemoglobin 8.7 g/dL (14.0-18.0)
[2025-07-08] MEDS: Mupirocin 1 GM TUBE NASAL DECOLONIZATION NASAL SCH (20:42)
[2025-07-09] MEDS: Carvedilol 25 MG TAB PO SCH (09:19)
[2025-07-09] MEDS: QUEtiapine 25 MG TAB PO SCH (16:02)
[2025-07-09] MEDS: diphenhydrAMINE 25 MG CAP PO PRN (20:30)
[2025-07-09] MEDS ORDERED: QUEtiapine 25 MG TAB PO SCH (21:00)
[2025-07-10 07:43] VITALS: TEMP 98.6
[2025-07-10 08:42] LABS: Anion Gap 14 mmol/L (10-20); BUN (Urea Nitrogen) 11 mg/dL (8.4-25.7); Calc. Creatinine Clearance 83 mL/min (70-130); Calcium 8.7 mg/dL (7.8-10.44); Carbon Dioxide 27 mmol/L (23-31); Chloride 104 mmol/L (98-107); Glucose 138 mg/dL (80-115); Magnesium 2.0 mg/dL (1.6-2.6); Potassium 4.2 mmol/L (3.5-5.1); Sodium 141 mmol/L (136-145)
[2025-07-10 10:32] VITALS: BP 144/75
[2025-07-10] MEDS: Magnesium 2 GM/50 ML(in water) 2 GM in Premix 1 BAG IVPB SCH (14:34)
[2025-07-10] MEDS: Magnesium Oxide 400 MG TAB PO SCH (15:24)
[2025-07-10] MEDS ORDERED: QUEtiapine 25 MG TAB PO SCH (17:00)
== END 2025-07-10 16:53 | disposition home health service (06) | DRG 233 ==
LOC: OBS 18:54 → 2SE 19:22 → OBSVTOIN 06-30 15:51 → CCU 07-04 08:07 → PCU 07-05 21:09
PROVIDERS: ADMIT Internal Medicine; ATTEND Family Medicine
PROC: 4A023N7 Measurement of Cardiac Sampling and Pressure, Left Heart, Percutaneous Approach (ICD-10-PCS; 2025-06-30)
PROC: B2111ZZ Fluoroscopy of Multiple Coronary Arteries using Low Osmolar Contrast (ICD-10-PCS; 2025-06-30)
PROC: B2151ZZ Fluoroscopy of Left Heart using Low Osmolar Contrast (ICD-10-PCS; 2025-06-30)
PROC: 3E03329 Introduction of Other Anti-infective into Peripheral Vein, Percutaneous Approach (ICD-10-PCS; 2025-07-01)
PROC: 02100Z9 Bypass Coronary Artery, One Artery from Left Internal Mammary, Open Approach (ICD-10-PCS; principal; 2025-07-04)
PROC: 021109W Bypass Coronary Artery, Two Arteries from Aorta with Autologous Venous Tissue, Open Approach (ICD-10-PCS; 2025-07-04)
PROC: 06BQ0ZZ Excision of Left Saphenous Vein, Open Approach (ICD-10-PCS; 2025-07-04)
PROC: 06BP0ZZ Excision of Right Saphenous Vein, Open Approach (ICD-10-PCS; 2025-07-04)
PROC: 02L70CK Occlusion of Left Atrial Appendage with Extraluminal Device, Open Approach (ICD-10-PCS; 2025-07-04)
PROC: 3E033XZ Introduction of Vasopressor into Peripheral Vein, Percutaneous Approach (ICD-10-PCS; 2025-07-04)
PROC: 30233J1 Transfusion of Nonautologous Serum Albumin into Peripheral Vein, Percutaneous Approach (ICD-10-PCS; 2025-07-04)
DX: I25.10 Atherosclerotic heart disease of native coronary artery without angina pectoris (principal); I21.4 Non-ST elevation (NSTEMI) myocardial infarction; N18.6 End stage renal disease; E87.1 Hypo-osmolality and hyponatremia; F05 Delirium due to known physiological condition; N39.0 Urinary tract infection, site not specified; I24.9 Acute ischemic heart disease, unspecified; I10 Essential (primary) hypertension; Z91.013 Allergy to seafood; E78.5 Hyperlipidemia, unspecified; E11.51 Type 2 diabetes mellitus with diabetic peripheral angiopathy without gangrene; Z98.890 Other specified postprocedural states; Z89.429 Acquired absence of other toe(s), unspecified side; D64.9 Anemia, unspecified; I48.0 Paroxysmal atrial fibrillation; L97.509 Non-pressure chronic ulcer of other part of unspecified foot with unspecified severity; F03.90 Unspecified dementia, unspecified severity, without behavioral disturbance, psychotic disturbance, mood disturbance, and anxiety; Z79.899 Other long term (current) drug therapy; Z79.4 Long term (current) use of insulin
CPT/HCPCS: 36415; 36416; 71045; 80048; 80053; 80061; 82805; 83036; 83735; 84100; 84484; 85014; 85018; 85025; 85027; 85610; 85730; 86850; 86900; 86901; 87040; 93005; 93010; 93306; 93458; 93798; 93880; 94002; 94150; 94640; 94760; 96374; 97139; 99152; C1751; C1894; G0378; J0153; J0169; J0360; J0665; J0696; J1100; J1308; J1642; J1644; J1815; J2250; J2270; J2405; J2440; J2704; J3010; J3373; J3475; J3480; J7050; J7620; P9045; Q9967; S0017